=== PATIENT | female | born 1990 | race Caucasian/White ===

== ENCOUNTER → 2016-04-11 | Outpatient (CLI) | payer MEDICAID ==
[~2016-04-11] MED LIST: ABILIFY10 MG PO; AMOXICILLI400 MG/52 PO; ARIPIPRAZOLE15 MG PO; ASPIRIN325 MG PO; ATORVASTATIN CA20 M1 PO; CITALOPRAM HYDR40 MG PO; FLEXERIL10 MG PO; INDOCIN25 M1 PO; KEFLEX 500MG.500 MG PO; LOPRESSOR 25MG.25 M1 PO; LORTAB 5/500 501 TAB PO; LOSARTAN POTAS100 MG PO; LOVENOX 10100 MG/11 SC; MEDROXYPROG150 MG/M1 IM; Mobic7.5 MG PO; NOMEDS *; OLANZAPINE10 MG PO; PREDNISONE 20MG20 MG PO; WARFARIN SODIUM5 MG PO; ZITHROMAX Z-PA250 M1 PO; ZOFRAN 8MG TABLE8 MG PO
--- NOTE | 2016-04-11 12:20 | RADIOLOGY REPORT PS360 ---
US ABD(COMPLETE-MULTI ORGANS HISTORY: ABDOMINAL MASS,RT LOWER QUAD ORDERING PHYSICIAN: Alen Tellez PATIENT AGE: 26 years COMPARISON: None FINDINGS: General survey was performed of the abdominal wall in the area of concern. No obvious soft tissue mass or fluid collection evident. IMPRESSION: Unremarkable ultrasound at the area of the palpable abnormality. Consider CT for more thorough evaluation.
== END ==
LOC: RAD 09:10
DX: R19.03 Right lower quadrant abdominal swelling, mass and lump (principal)

== ENCOUNTER 2016-07-03 11:00 | Outpatient (CLI) | payer MEDICAID | END 2016-07-03 16:07 | LOC: ACC 11:00 | DX: Z95.2 Presence of prosthetic heart valve (principal); Z79.01 Long term (current) use of anticoagulants; Z51.81 Encounter for therapeutic drug level monitoring | CPT/HCPCS: G0463 ==

== ENCOUNTER 2016-12-05 20:38 | Emergency (ER) | payer MEDICAID ==
[~2016-12-05] VITALS: Ht 175.3 cm; Wt 134.7 kg
[2016-12-05 21:08] LABS: URINE BILIRUBIN - DIPSTICK NEGATIVE (NEG); URINE BLOOD 3+ (NEG)
[2016-12-05 21:56] LABS: HEMOGLOBIN 12.8 g/dL (12.2-16.2); LYMPH # 2.3 K/mm3 (0.7-4.5); LYMPH % 27.4 % (10-50.0)
--- NOTE | 2016-12-05 23:11 | Emergency Room Report ---
History of Present Illness Time Seen by [id number] Presenting Problem in Triage Pt arrived:Walked Presenting Problem:POSSIBLE KIDNEY STONE, C/O PAIN LLQ AND PAINFUL URINATION. 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 N Clinical Suspician of Infection? N Mental Status: 1 - Regular (Normal Baseline) Sepsis Risk:Low Sepsis Risk Have you (or family members/close friends) recently traveled outside the [place]? N If Yes, where/when: Have you had exposure to infectious disease within the past month? N TB? Other? Specify: Source patient, RN notes reviewed, old records Exam Limitations no limitations Comment lt sided pain and dysuria and frq with incomplete feeling and saw pcp earlier today and was given septra - has not started - no vomiting and diarrhea Cardiac Chest Pain Chest pain indicative of cardiac No Timing/Duration this evening Severity moderate ALLERGIES Coded Allergies: No Known Allergies (03/06/16) Home Medications Active Scripts Indomethacin (Indocin 25mg Cap (GEQ)) 25 MG PO Q8HP PRN PAIN #30 CAP Ref 1 Prov: 10/15/15 Ondansetron Hcl (Zofran 8MG Tab) 8 MG PO Q8HP PRN NAUSEA #6 TAB Ref 1 Prov: 10/15/15 Amoxicillin 500 MG PO TID 10 Days Prov: 03/06/16 ENOXAPARIN SODIUM (Lovenox) 100 MG SC BID 4 Days Prov: 03/06/16 Reported Medications Citalopram Hydrobromide (Citalopram HBr) 40 MG PO DAILY 30 Days Warfarin Sodium 7.5 MG PO DAILY #45 Metoprolol Tartrate (Lopressor 25MG Tab (1/2 Of 50 MG)) 50 MG PO BID #60 Aspirin (Aspirin EC) 325 MG PO DAILY #30 Atorvastatin Calcium 20 MG PO QHS #30 Losartan Potassium (Losartan 100MG) 50 MG PO DAILY Aripiprazole 15 MG PO DAILY #30 History Medical History General CAD? No Angina: No OR: No Hypertension? Yes Hyperlipidemia? Yes CHF? No DVT? No PE? No COPD? No Asthma? No Anemia? No GERD? No Gastric ulcers? No GI Bleed? No Hernia? No Thyroid Problems? No Hypothyroidism? No CVA? No Seizures? No Diabetes? No Renal Insuffiency? Yes End Stage Renal Disease? No UTI? No Stones? No BPH? No GB Disease: No Nephritic Syndrome? No Asplenia? No Hepatitis? No Sickle Cell Disease? No Arthritis? No Migraines? Yes Cataracts? No Glaucoma? No MRSA? No HIV? No TB? No Anxiety? No Depression? No Cancer? No More? 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 Respiratory denies cough, denies shortness of breath, denies wheezing Cardiovascular denies chest pain, denies syncope Gastrointestinal see HPI, abdominal pain, denies diarrhea, denies vomiting Genitourinary denies: dysuria, frequency, hesitancy, hematuria. Musculoskeletal denies back pain, denies joint pain, denies joint swelling, denies neck pain Skin denies rash Psychiatric/Neurological denies headache, denies seizure Physical Exam Vital Signs Vital Signs Date Time Temp Pulse Resp B/P Pulse O2 O2 Flow FiO2 Ox Delivery Rate 12/05 2316 98.7 80 20 151/98 97 12/05 2050 98.7 83 20 167/90 97 General Appearance no apparent distress Eye Exam - bilateral eye PERRL, bilateral eye EOMI Ear, Nose, Throat normal ENT inspection Neck supple Respiratory Status No: respiratory distress. 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 No Results/Orders Laboratory Tests 12/05/16 2140: Sodium 140, Potassium 3.6, Chloride 105, Carbon Dioxide 25, BUN 16, Creatinine 1.0, Estimated Creat Clear 181, Estimated GFR (MDRD) 67, Glucose 90, Calcium 8.7 , Total Bilirubin 0.3, AST 14 L, ALT 23, Alkaline Phosphatase 124 H, Total Protein 7.8, Albumin 3.9, Globulin 3.9 H, Albumin/Globulin Ratio 1.0 L, PT 24.4 H, INR 2.24 H, WBC 8.5, RBC 4.59, Hgb 12.8, Hct 39.9, MCV 86.8, RDW 13.6, Plt Count 283, MPV 8.8, Gran % 63.7, Gran # 5.4, Lymphocytes % 27.4, Monocytes % 6.2, Eosinophils % 2.3, Basophils % 0.4, Lymphocytes # 2.3, Monocytes # 0.5, Eosinophils # 0.2, Basophils # 0.0, PUBS MCHC 32.0, MCH 27.8 12/05/162102: Urine Color YELLOW, Urine Appearance CLOUDY, Urine pH 7.0, Ur Specific [place] 1.025, Urine Protein 2+ H, Urine Ketones NEGATIVE, Urine Blood 3+ H, Urine Nitrate POSITIVE H, Urine Bilirubin NEGATIVE, Urine Urobilinogen 0.2, Ur Leukocyte Esterase 1+ H, Urine RBC TNTC, Urine WBC 20-50, Ur Squamous Epith Cells NONE, Urine Bacteria 1+, Urine Glucose NEGATIVE Current Medication Orders Sig/Jose Martin Start time Last Medication Dose Route Stop Time Status Admin Sodium Chloride 100 ML .STK-MED ONE 12/06 2315 DC IV Ceftriaxone Sodium 1 GM ONCE ONE 12/05 2314 AC 12/05 Sodium Chloride 50 ML IV 12/05 Ceftriaxone Sodium 0 .STK-MED ONE 12/05 2314 DC IV Sodium Chloride 10 ML PRN PRN 12/05 2114 AC IV 12/06 2105 Orders Procedure Date/time Status DIET-NOTHING BY MOUTH 12/06 B Active PROTHROMBIN TIME 12/[address] ABD & PELVIS W/O CONTRAST 12/[address] ABD/PELVIS REQ 12/05 2105 Active IV SALINE LOCK 12/05 2105 Active URINE 12/05 2105 Complete CBC WITH AUTO DIFF 12/05 2105 Complete CHEM 12 PROFILE 12/05 2105 Complete CULTURE, URINE 12/05 2102 Active URINALYSIS/COMPLETE 12/05 2101 Complete XRAY/CT/US XRAY/CT/US CT abdomen, pelvis CT interpretation by discussed w/radiologist Time results known: 2307 CT Results abnormal (see report) Departure Departure Time of Disposition 2307 Disposition DC Home or Self Care(routine) Clinical Impression Primary Impression: UTI (urinary tract infection) Qualifiers: Urinary tract infection type: acute cystitis Hematuria presence: without hematuria Qualified Code: N30.00 - Acute cystitis without hematuria Secondary Impressions: Mechanical heart valve present Condition STABLE Referrals JAZMINE HALL (Family) Patient Instructions DI for Urinary Tract Infection (UTI) Additional Instructions use medss and call pcp about urine culture and call coumadin clinic thursday Discharge Counseling Counseled pt/family regarding diagnosis, test results, medications/RX, follow up needs Prescriptions Current Visit Scripts CEPHALEXIN (Keflex 500MG Capsule) 500 MG PO Q8H #21 CAP Phenazopyridine HCl (Pyridium) 200 MG PO TID #10 TAB ED Critical Care Critical Care No at [id number]
--- NOTE | 2016-12-05 23:11 | Emergency Room Report ---
History of Present Illness Time Seen by [id number] Presenting Problem in Triage Pt arrived:Walked Presenting Problem:POSSIBLE KIDNEY STONE, C/O PAIN LLQ AND PAINFUL URINATION. 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 N Clinical Suspician of Infection? N Mental Status: 1 - Regular (Normal Baseline) Sepsis Risk:Low Sepsis Risk Have you (or family members/close friends) recently traveled outside the [place]? N If Yes, where/when: Have you had exposure to infectious disease within the past month? N TB? Other? Specify: Source patient, RN notes reviewed, old records Exam Limitations no limitations Comment lt sided pain and dysuria and frq with incomplete feeling and saw pcp earlier today and was given septra - has not started - no vomiting and diarrhea Cardiac Chest Pain Chest pain indicative of cardiac No Timing/Duration this evening Severity moderate ALLERGIES Coded Allergies: No Known Allergies (03/06/16) Home Medications Active Scripts Indomethacin (Indocin 25mg Cap (GEQ)) 25 MG PO Q8HP PRN PAIN #30 CAP Ref 1 Prov: 10/15/15 Ondansetron Hcl (Zofran 8MG Tab) 8 MG PO Q8HP PRN NAUSEA #6 TAB Ref 1 Prov: 10/15/15 Amoxicillin 500 MG PO TID 10 Days Prov: 03/06/16 ENOXAPARIN SODIUM (Lovenox) 100 MG SC BID 4 Days Prov: 03/06/16 Reported Medications Citalopram Hydrobromide (Citalopram HBr) 40 MG PO DAILY 30 Days Warfarin Sodium 7.5 MG PO DAILY #45 Metoprolol Tartrate (Lopressor 25MG Tab (1/2 Of 50 MG)) 50 MG PO BID #60 Aspirin (Aspirin EC) 325 MG PO DAILY #30 Atorvastatin Calcium 20 MG PO QHS #30 Losartan Potassium (Losartan 100MG) 50 MG PO DAILY Aripiprazole 15 MG PO DAILY #30 History Medical History General CAD? No Angina: No CA: No Hypertension? Yes Hyperlipidemia? Yes CHF? No DVT? No PE? No COPD? No Asthma? No Anemia? No GERD? No Gastric ulcers? No GI Bleed? No Hernia? No Thyroid Problems? No Hypothyroidism? No CVA? No Seizures? No Diabetes? No Renal Insuffiency? Yes End Stage Renal Disease? No UTI? No Stones? No BPH? No GB Disease: No Nephritic Syndrome? No Asplenia? No Hepatitis? No Sickle Cell Disease? No Arthritis? No Migraines? Yes Cataracts? No Glaucoma? No MRSA? No HIV? No TB? No Anxiety? No Depression? No Cancer? No More? 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 Respiratory denies cough, denies shortness of breath, denies wheezing Cardiovascular denies chest pain, denies syncope Gastrointestinal see HPI, abdominal pain, denies diarrhea, denies vomiting Genitourinary denies: dysuria, frequency, hesitancy, hematuria. Musculoskeletal denies back pain, denies joint pain, denies joint swelling, denies neck pain Skin denies rash Psychiatric/Neurological denies headache, denies seizure Physical Exam Vital Signs Vital Signs Date Time Temp Pulse Resp B/P Pulse O2 O2 Flow FiO2 Ox Delivery Rate 12/05 2316 98.7 80 20 151/98 97 12/05 2050 98.7 83 20 167/90 97 General Appearance no apparent distress Eye Exam - bilateral eye PERRL, bilateral eye EOMI Ear, Nose, Throat normal ENT inspection Neck supple Respiratory Status No: respiratory distress. 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 No Results/Orders Laboratory Tests 12/05/16 2140: Sodium 140, Potassium 3.6, Chloride 105, Carbon Dioxide 25, BUN 16, Creatinine 1.0, Estimated Creat Clear 181, Estimated GFR (MDRD) 67, Glucose 90, Calcium 8.7 , Total Bilirubin 0.3, AST 14 L, ALT 23, Alkaline Phosphatase 124 H, Total Protein 7.8, Albumin 3.9, Globulin 3.9 H, Albumin/Globulin Ratio 1.0 L, PT 24.4 H, INR 2.24 H, WBC 8.5, RBC 4.59, Hgb 12.8, Hct 39.9, MCV 86.8, RDW 13.6, Plt Count 283, MPV 8.8, Gran % 63.7, Gran # 5.4, Lymphocytes % 27.4, Monocytes % 6.2, Eosinophils % 2.3, Basophils % 0.4, Lymphocytes # 2.3, Monocytes # 0.5, Eosinophils # 0.2, Basophils # 0.0, PUBS MCHC 32.0, MCH 27.8 12/05/162102: Urine Color YELLOW, Urine Appearance CLOUDY, Urine pH 7.0, Ur Specific [place] 1.025, Urine Protein 2+ H, Urine Ketones NEGATIVE, Urine Blood 3+ H, Urine Nitrate POSITIVE H, Urine Bilirubin NEGATIVE, Urine Urobilinogen 0.2, Ur Leukocyte Esterase 1+ H, Urine RBC TNTC, Urine WBC 20-50, Ur Squamous Epith Cells NONE, Urine Bacteria 1+, Urine Glucose NEGATIVE Current Medication Orders Sig/Jose Martin Start time Last Medication Dose Route Stop Time Status Admin Sodium Chloride 100 ML .STK-MED ONE 12/06 2315 DC IV Ceftriaxone Sodium 1 GM ONCE ONE 12/05 2314 AC 12/05 Sodium Chloride 50 ML IV 12/05 Ceftriaxone Sodium 0 .STK-MED ONE 12/05 2314 DC IV Sodium Chloride 10 ML PRN PRN 12/05 2114 AC IV 12/06 2105 Orders Procedure Date/time Status DIET-NOTHING BY MOUTH 12/06 B Active PROTHROMBIN TIME 12/[address] ABD & PELVIS W/O CONTRAST 12/[address] ABD/PELVIS REQ 12/05 2105 Active IV SALINE LOCK 12/05 2105 Active URINE 12/05 2105 Complete CBC WITH AUTO DIFF 12/05 2105 Complete CHEM 12 PROFILE 12/05 2105 Complete CULTURE, URINE 12/05 2102 Active URINALYSIS/COMPLETE 12/05 2101 Complete XRAY/CT/US XRAY/CT/US CT abdomen, pelvis CT interpretation by discussed w/radiologist Time results known: 2307 CT Results abnormal (see report) Departure Departure Time of Disposition 2307 Disposition DC Home or Self Care(routine) Clinical Impression Primary Impression: UTI (urinary tract infection) Qualifiers: Urinary tract infection type: acute cystitis Hematuria presence: without hematuria Qualified Code: N30.00 - Acute cystitis without hematuria Secondary Impressions: Mechanical heart valve present Condition STABLE Referrals JAZMINE HALL (Family) Patient Instructions DI for Urinary Tract Infection (UTI) Additional Instructions use medss and call pcp about urine culture and call coumadin clinic thursday Discharge Counseling Counseled pt/family regarding diagnosis, test results, medications/RX, follow up needs Prescriptions Current Visit Scripts CEPHALEXIN (Keflex 500MG Capsule) 500 MG PO Q8H #21 CAP Phenazopyridine HCl (Pyridium) 200 MG PO TID #10 TAB ED Critical Care Critical Care No at 8127
[2016-12-05 23:44] VITALS: BP 151/98
--- NOTE | 2016-12-06 11:08 | RADIOLOGY REPORT PS360 ---
CT ABD PELVIS W/O CONTRAST COMPARISON: CT scan abdomen pelvis 05/08/2016 HISTORY: Lower abdominal pain and back pain, hematuria TECHNIQUE: Multiaxial scans obtained from the hemidiaphragms the pelvic floor and were performed without IV or oral contrast. Sagittal and coronal reformats were evaluated as well. FINDINGS: The lower lung fernandes are clear, there is a calcified granuloma left posterior gutter. The liver and spleen appear normal. Stomach is distended with ingested food particles but otherwise appears normal. The pancreas is normal, the gallbladder is markedly contracted but shows no stones. The adrenal glands are normal. The kidneys are normal size. There is a tiny nontracking calculus lower pole left kidney however is no obstructive uropathy of either kidney. Small bowel appears normal. I do not definitely identify the appendix but there are no pericecal inflammatory changes. There is no significant stool throughout the colon. The uterus is normal size and in the midline and there is an IUD present. The urinary bladder is partially decompressed but shows a mildly thickened and somewhat hazy appearing wall with some subtle and questionable hazy stranding around the urinary bladder. There are no calculi within the bladder. There is a small amount of cul-de-sac fluid likely physiologic. IMPRESSION: 1 tiny nontracking calculus left kidney. 2. Findings suggesting possibility of acute cystitis and suggest clinical correlation. I agree with the [facility] report
--- OUTSIDE RECORDS SUMMARY | 2016-12-12 10:39 | External Medical Summary Rpt ---
Author Author Yahaira [facility] Organization [facility] Address Unknown Phone Unavailable Care Team Providers Care Microsoft Net Developer Name Role Phone YUNGKINS, (REF) PCP [phone] Encounter ANAYA GILLILAND [id number] Date(s): 07/03/16 - 08/06/16 [facility] [address] [place] [address]- [phone] Discharge Disposition: OP Self Care or Home Attending Physician: BLAINE OLIVARES MD-URO Admitting Physician: BLAINE OLIVARES MD-URO Referring Physician: BLAINE OLIVARES MD-URO Reason for Visit UNSPECIFIED ABDOMINAL PAIN Vital Signs No data available for this section Problem List No data available for this section Allergies, Adverse Reactions, Alerts No data available for this section Medications No data available for this section Results No data available for this section Immunizations No data available for this section Procedures No data available for this section Social History No data available for this section Assessment and Plan No data available for this section Hospital Discharge Instructions No data available for this section
--- OUTSIDE RECORDS SUMMARY | 2016-12-12 10:39 | External Medical Summary Rpt ---
Author Author Yahaira [facility] Organization [facility] Address Unknown Phone Unavailable Care Team Providers Care Nursery Teacher Name Role Phone YUNGKINS, (REF) PCP [phone] Encounter ANAYA GILLILAND [id number] Date(s): 07/03/16 - 08/06/16 [facility] [address] [place] [address]- Discharge Disposition: OP Self Care or Home [...]
--- OUTSIDE RECORDS SUMMARY | 2016-12-12 11:05 | External Medical Summary Rpt | CCD ---
Author Author , YAIMA Organization YIAMA Address Unknown Phone Care Team Providers Care Veterinarian Small Animal Name Role Phone HANANE HANDLEY, Unavailable Unavailable HANANE LU EMMANUELLE AHMAD, AHMAD Unavailable Unavailable AHMAD, AHMAD Unavailable Unavailable RHONDA TAR, Unavailable Unavailable RHONDA TAR ATKINS, ATKINS Unavailable Unavailable VALERIA GOL, VALERIA GOL Unavailable Unavailable [facility] Unavailable Unavailable [place], [facility] Unavailable Unavailable MEDICAL GROUP, [facility] Unavailable Unavailable OF [facility], [facility] DASILVA HELEN, DASILVA Unavailable Unavailable HELEN GRULLON TER, GURLLON TER Unavailable Unavailable BESSON MATEUSZ, BESSON Unavailable Unavailable MATEUSZ CHARLY CHARLES, Unavailable Unavailable CHARLY CHARLES LOCKE, LOCKE Unavailable Unavailable LOCKE ALL, LOCKE ALL Unavailable Unavailable MARY, MARY Unavailable Unavailable [facility]ILY Unavailable Unavailable CHIROPRACTOR, [facility]I FAMILY CHIROPRACTOR VANDANALEI MCMULLEN, VANDANA Unavailable Unavailable KEMI [facility] Unavailable Unavailable [facility]available Unavailable [facility], [facility] Unavailable Unavailable ANESTHESIA, [facility] ANESTHESIA [facility] Unavailable Unavailable [facility], [facility] EVANSNATHAN YANG Unavailable Unavailable YARI CHIPPS ADOLFO & Unavailable Unavailable DUBILIER, CHIPPS ADOLFO [facility] DUBILIER NAT TER, NAT TER Unavailable Unavailable ESTEBAN, ESTEBAN Unavailable Unavailable ESTEBAN YVAN, ESTEBAN Unavailable Unavailable YVAN [facility] Unavailable Unavailable [facility], [facility] Unavailable Unavailable [facility], [facility] MARIAN YARI, MARIAN Unavailable Unavailable YARI CROWSHAWN, CROWDY Unavailable Unavailable CROWDY CRI, CROWDY Unavailable Unavailable CRI MEÑO SUNI, MEÑO Unavailable Unavailable SUNI KULDIP KEMI, KULDIP KEMI Unavailable Unavailable NAUN SHA, NAUN Unavailable Unavailable SHA FALLUJI LESA, FALLUJI Unavailable Unavailable [facility] Unavailable Unavailable [facility], [facility] BACA, BACA Unavailable Unavailable WELCH, WELCH Unavailable Unavailable WELCH MAR, WELCH MAR Unavailable Unavailable FRYMAN, FRYMAN Unavailable Unavailable NANO SUNI, NANO Unavailable Unavailable SUNI GOUZD SHAUNA, GOUZD SHAUNA Unavailable Unavailable COURTNEY HOR, Unavailable Unavailable COURTNEY HOR HILARIA LOMBARDI Unavailable Unavailable KASSANDRA [facility] Unavailable Unavailable INC, [facility] Unavailable Unavailable HOSPITAL, [facility] Unavailable Unavailable [facility]OSPITAL P, [facility] P YAO DEN, YAO Unavailable Unavailable DEN [facility], [facility] Unavailable Unavailable [facility], Unavailable Unavailable [facility], Unavailable Unavailable [facility] DUNCAN FÉLIX, DUNCAN FÉLIX Unavailable Unavailable LAW, LAW Unavailable Unavailable WILLOW, WILLOW Unavailable Unavailable JAOKO MAR, JAOKO MAR Unavailable Unavailable FONTANA OSWALDO, FONTANA Unavailable Unavailable OSWALDO [facility] Unavailable [facility]available [facility] Unavailable Unavailable [facility], [facility] Unavailable Unavailable [facility], [facility] KERN CAR, KERN CAR Unavailable Unavailable [facility] Unavailable Unavailable fitogram, [facility] KMS NURSE Unavailable Unavailable PRACTITIONER GR, KMSF NURSE PRACTITIONER GR [facility] Unavailable [facility] LUIS MIGUEL JR DWI, LUIS MIGUEL Unavailable Unavailable JR DWI [facility] Unavailable Unavailable SPECIALISTS,, [facility], [facility] ROXI, LUKING Unavailable Unavailable ROXI LUKING ROXI, LUKING Unavailable Unavailable ROXI TORI JAM, Unavailable Unavailable VALLE JAM BIGGS RUPINDER, BIGGS Unavailable Unavailable RUPINDER MULBERRY, MULBERRY Unavailable Unavailable MULBERRY MAURILIO, Unavailable Unavailable MULBERRY MAURILIO JONA R H, Unavailable Unavailable JONA R H O'GRETCHEN MOL, Unavailable Unavailable O'GRETCHEN MOL ANH, ANH Unavailable Unavailable BLEIA, BELIA Unavailable Unavailable [facility], [facility] Unavailable [facility], Unavailable Unavailable PLLC, [facility] PENCE, PENCE Unavailable Unavailable [facility], [facility] Unavailable Unavailable PICKLESIMER JR LANEY, Unavailable Unavailable PICKLESIMER JR LANEY RICE, RICE Unavailable Unavailable RICE N., RICE N. Unavailable Unavailable SADEK MOH, SADEK MOH Unavailable Unavailable SCIFRES ANG, SCIFRES Unavailable Unavailable ANG GRACY MANDEEP, GRACY Unavailable Unavailable MANDEEP PRYOR, PRYOR Unavailable Unavailable MALLOY III JAM, Unavailable Unavailable MALLOY III JAM DE SOUZA GRANT, DE SOUZA Unavailable Unavailable GRANT PALENCIA, PALENCIA Unavailable Unavailable PALENCIA ADA, PALENCIA ADA Unavailable Unavailable [facility] Unavailable Unavailable [facility], [facility] Unavailable Unavailable [facility], [facility] SOTINGEANU RADHA, Unavailable Unavailable SOTINGEANU RADHA SOWDEN KASSANDRA, SOWDEN Unavailable Unavailable KASSANDRA SPANIER MAR, SPANIER Unavailable Unavailable [facility] Unavailable Unavailable [facility] SANCHEZ, SANCHEZ Unavailable Unavailable CUMMINS ALLY, CUMMINS Unavailable Unavailable ALLY [facility] Unavailable Unavailable PROFESSIO, [facility] OMAR IV, Unavailable Unavailable OMAR IV MYRANDA, MYRNADA Unavailable Unavailable WINDISCH, WINDISCH Unavailable Unavailable Purpose Continuity of Care Document - 01-07-2014 through 2016 Problems Code Diagnosis DOS Provider Status [id number] PAIN IN 11-11-2016 [facility] [id number] FALL ON 11-11-2016 [facility] STAIRS MEDICAL STEPS GROUP INITIAL ENCOUNTER Z952 PRESENCE OF 11-11-2016 [facility] PROSTHETIC [facility] HEART MEDICAL VALVE GROUP R32 UNSPECIFIED 11-06-2016 [facility] URINARY HEALTH INCONTINENC MEDICAL G E R3915 URGENCY OF 11-06-2016 [facility] URINATION HEALTH MEDICAL G M542 CERVICALGIA 10-27-2016 [facility] CHIROPRACTO R M545 LOW BACK 10-27-2016 [facility] PAIN FAMILY CHIROPRACTO R M9902 SEGMENTAL & 10-27-2016 [facility] SOMATIC FAMILY DYSFUNCTION CHIROPRACTO THORACIC R REGION M9905 SEGMENTAL & 10-27-2016 [facility] SOMATIC FAMILY DYSFUNCTION CHIROPRACTO OF PELVIC R REGION I10 ESSENTIAL 09-18-2016 [facility] PRIMARY [facility] HYPERTENSIO [place] N I361 NONRHEUMATI 09-18-2016 [facility] C TRICUSPID HEALTH VALVE MEDICAL INSUFFICIEN GROUP CY R001 BRADYCARDIA 09-18-2016 [facility] UNSPECIFIED PHYS PSC R0602 SHORTNESS 09-18-2016 [facility] OF BREATH [facility]IOLOG[facility] ASS[facility] R5383 OTHER 09-18-2016 [facility] FATIGUE EMERGENCY PHYS PSC H5213 MYOPIA 09-16-2016 AHMAD BILATERAL R78224 REGULAR 09-16-2016 [facility] ASTIGMATISM BILATERAL N200 CALCULUS OF 08-06-2016 [facility] KIDNEY HEALTH MEDICAL G R109 UNSPECIFIED 08-06-2016 [facility] EAST PAIN N644 MASTODYNIA 07-30-2016 [facility] MEDICAL GROUP R1032 LEFT LOWER 07-03-2016 [facility] QUADRANT HEALTH PAIN MEDICAL G Z5181 ENCOUNTER 07-03-2016 [facility] THERAPEUTIC INC DRUG LEVEL MONITORING Z7901 TELECOMMUNICATIONS PROFESSIONAL 07-03-2016 [facility] CURRENT USE [facility] OF INC ANTICOAGULA NTS J78290 PERSONAL 07-03-2016 [facility] HISTORY OF [facility] URINARY MEDICAL G CALCULI B9789 OTH VIRAL 06-17-2016 [facility] AGENT CAUSE MEDICINE DISEASES [place] [facility] ELSW J069 ACUTE UPPER 06-17-2016 [facility] RESPIR[facility]ORY [place] [facility] UNSPECIFIED N10 ACUTE 06-11-2016 [facility] PYELONEPHRI EMERGENCY TIS PHYS PSC R188 OTHER 06-11-2016 [facility] PROFESSIO R791 ABNORMAL 06-11-2016 [facility] COAGULATION HEALTH PROFILE [place] B373 CANDIDIASIS 05-19-2016 [facility] OF [facility] PHYSICIANS AND VAGINA GROUP I712 THORACIC 05-19-2016 [facility] 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 K219 GASTRO-ESOP 05-19-2016 [facility] H REFLUX HEALTH DISEASE [place] WITHOUT ESOPHAGITIS R011 CARDIAC 05-19-2016 [facility] UNSPECIFIED [place] R0789 OTHER CHEST 05-19-2016 [facility] PAIN EMERGENCY PHYS PSC R079 CHEST PAIN 05-19-2016 [facility]UAL UNSPECIFIED RADIOLOGIC PROFESSIO N95962 ENCOUNTER 05-19-2016 [facility] ROUTINE PHYSICIANS CHECKING IU GROUP CONTRACEPT DEVICE C30510 OTHER LONG 05-19-2016 [facility] HEALTH CURRENT [place] DRUG THERAPY N209 URINARY 05-08-2016 [place] [facility] UNSPECIFIED IMAGING ASS R1903 RT LOWER 05-08-2016 [place] [facility] ABDOMINAL IMAGING ASS SWELLING MASS & LUMP O71736 ENCOUNTER 05-08-2016 [facility] PREPROCEDUR INC AL LABORATORY EXAM K529 NONINFECTIV 04-29-2016 [facility] [place] [facility] COLITIS UNS I92510 ENCOUNTER 04-15-2016 [facility] INSERTION PHYSICIANS INTRAUTERIN GROUP E CONTRACEPT DEVC Q29863 UNSPECIFIED 04-13-2016 [facility] OVARIAN EMERGENCY CYST RIGHT PHYS PSC SIDE R1030 LOWER 04-13-2016 [facility] ABDOMINAL RADIOLOGIC PAIN PROFESSIO UNSPECIFIED R1031 RIGHT LOWER 04-13-2016 [facility] QUADRANT EMERGENCY PAIN PHYS PSC H539 UNSPECIFIED 04-10-2016 [facility] VISUAL PHYSICIANS DISTURBANCE GROUP L680 HIRSUTISM 04-04-2016 [facility] PHYSICIANS GROUP Z0001 ENCOUNTER 04-04-2016 [facility] GEN ADULT PHYSICIANS MEDICAL GROUP EXAM W/ABNORMAL FIND J0190 ACUTE 03-06-2016 [facility] SINUSITIS [facility] UNSPECIFIED INC H1031 UNSPECIFIED 02-02-2016 [facility] ACUTE PHYSICIAN CONJUNCTIVI GROUP TIS RIGHT EYE R002 PALPITATION 01-04-2016 [facility] P G4733 OBSTRUCTIVE 12-30-2015 [facility]A ADULT MEDICAL PEDIATRIC EQUIPME H6691 OTITIS 12-27-2015 [facility] UNSPECIFIED RIGHT EAR Z23 ENCOUNTER 11-23-2015 [facility] FOR [facility]IATES IMMUNIZATIO N A5619 OTHER 11-14-2015 [facility], CHLAMYDIAL [facility] GENITOURINA RY INFECTION I351 NONRHEUMATI 11-14-2015 [facility] C AORTIC RADIOLOGY VALVE ASSOC INSUFFICIEN CY H74890 ENCOUNTER 11-14-2015 [facility], DIRECTOR OF PUBLIC RELATIONS EXAM LLC GENERAL RTN W/O ABNORMAL FIND M5411 RADICULOPAT 11-01-2015 [facility] HY OCCIPITO-AT LANTO-AXIAL REGION M546 PAIN IN 11-01-2015 [facility] THORACIC SPINE M940 CHONDROCOST 11-01-2015 [facility] AL JUNCTION ASSOCIATES SYNDROME TIETZE R300 DYSURIA 10-23-2015 [facility] [place] N8320 UNSPECIFIED 10-16-2015 [facility] OVARIAN [facility] CYSTS R102 PELVIC AND 10-16-2015 [facility] PERINEAL [facility] PAIN N8329 OTHER 10-15-2015 [facility] O[facility]IAN [facility], CYSTS PLLC N920 EXCESS & 10-08-2015 [facility] FREQUENT PHYSICIANS MENSTRUATIO GROUP N W/REGULAR CYCLE N939 ABNORMAL 10-02-2015 [facility] UTERINE & RADIOLOGIC VAGINAL PROFESSIO BLEEDING UNSPECIFIED R220 LOCALIZED 08-31-2015 [facility] SWELLING [facility]OCIATES MASS AND LUMP HEAD K12144 THORACIC 08-23-2015 [facility] HEALTH ECTASIA MEDICAL G R000 TACHYCARDIA 08-23-2015 [facility] UNSPECIFIED MEDICAL G B12631 AORTIC 08-12-2015 [facility] ECTASIA HEALTH UNSPECIFIED [place] SITE 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 W/O STAT MIGRAIN R23029 AGE-RELATED 08-03-2015 [facility], DEGENERATIO P.S.C. 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 E78534 MIGRAINE 07-31-2015 [place] [facility], INTRACT W/O [facility]. STATUS MIGRAINOSUS [id number] OPEN ANGLE 07-31-2015 [place] [facility], E FIND LOW [facility] RISK BILATERAL R040 EPISTAXIS 07-28-2015 [facility] N38381 MACULA 07-25-2015 [facility] [facility], POSTERIOR [facility]. POLE BILATERAL J3489 OTHER 06-21-2015 [facility] SPECIFIED ASSOCIATES DISORDERS NOSE AND NASAL SINUSES N926 IRREGULAR 06-08-2015 [facility] MENSTRUATIO ASSOCIATES N UNSPECIFIED R197 DIARRHEA 06-07-2015 [facility] UNSPECIFIED PH[facility]ICIANS, PLLC H6590 UNSPECIFIED 06-01-2015 [facility] PHYSICIANS NONSUPPURAT GROUP CARLOS OTITIS MEDIA UNS EAR K120 RECURRENT 06-01-2015 [facility] ORAL PHYSICIANS APHTHAE GROUP E871 HYPO-OSMOLA 05-15-2015 [facility] LITY AND PHYSICIANS, HYPONATREMI PLLC A N289 DISORDER OF 05-15-2015 [facility] P UNSPECIFIED N760 ACUTE 05-04-2015 [facility] VAGINITIS PHYSICIANS GROUP N762 ACUTE 05-04-2015 [facility] VULVITIS PHYSICIANS GROUP [id number] CONTUSION 04-05-2015 [facility] OF LEFT PHYSICIANS, FOOT PLLC INITIAL ENCOUNTER R05 COUGH 03-20-2015 [facility] N899 NONINFLAMMA 03-04-2015 [facility] TORY [facility]ERG[facility] DISORDER OF PHYS PSC VAGINA UNSPECIFIED R100 ACUTE 03-04-2015 [facility] ABDOMEN EMERGENCY PHYS PSC L309 DERMATITIS 02-26-2015 [facility] UNSPECIFIED PHYSICIANS GROUP C54743 ENCOUNTER 02-26-2015 [facility] INITIAL PHYSICIANS PRESCRIPTIO GROUP N IU CONTRACEPT DEV R21 RASH AND 02-24-2015 [facility] OTHER ASSOCIATES NONSPECIFIC SKIN ERUPTION J029 ACUTE 02-23-2015 [facility] PHARYNGITIS PHYSICIANS, [facility] UNSPECIFIED J040 ACUTE 02-23-2015 [facility] LARYNGITIS PHYSICIANS, [facility] Z4802 ENCOUNTER 02-05-2015 [facility] FOR REMOVAL [facility] Z3009 ENCOUNTER 02-02-2015 [facility] OT GENERAL PHYSICIANS GROUP 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 M40189C LACERATION 01-30-2015 [facility] W/O FOREIGN PHYSICIANS, BODY LIP [facility] INITIAL ENCNTR N390 URINARY 01-22-2015 [facility] TRACT [facility]ERGENC[facility] INFECTION PHYS PSC SITE NOT SPECIFIED R319 HEMATURIA 01-22-2015 [facility] UNSPECIFIED EMERGENCY PHYS PSC R350 FREQUENCY 01-02-2015 [facility] OF [facility]IATES MICTURITION Z309 ENCOUNTER 12-06-2014 [facility] FOR [facility] CONTRACEPTI VE MANAGEMENT UNS 4241 AORTIC 11-28-2014 [facility] DISORDERS MEDICAL GROUP 76791 PAIN IN 11-22-2014 [facility] JOINT, ASSOCIATES SHOULDER REGION V433 HEART VALVE 11-22-2014 [facility] REPLACED ASSOCIATES BY OTHER MEANS V5861 LONG-TERM 11-22-2014 [facility] (CURRENT) ASSOCIATES USE OF ANTICOAGULA NTS V4589 OTHER 11-15-2014 [facility] POSTSURGICA ASSOCIATES L STATUS OTHER V5869 LONG-TERM 11-13-2014 [facility] (CURRENT) HEALTH USE OF MEDICAL OTHER GROUP MEDICATIONS 42362 PRECORDIAL 11-10-2014 [facility] PAIN [facility] 89552 PAINFUL 11-09-2014 [facility] RESPIRATION EMERGENCY PHYS PSC 4019 UNSPECIFIED 11-05-2014 [facility] ESSENTIAL HEALTH HYPERTENSIO MEDICAL N GROUP 78023 OTHER 11-05-2014 [facility] ABNORMAL HEALTH GLUCOSE MEDICAL GROUP 5180 PULMONARY 11-04-2014 [facility] COLLAPSE [facility] V5873 AFTERCARE 11-04-2014 [facility] FOLLOWING RADIOLOGY SURGERY ASSOC CIRC SYSTEM NEC 4240 MITRAL 11-02-2014 [place] [facility] , 4011 ESSENTIAL 11-01-2014 [facility] HYPERTENSIO HEALTH N, [facility]ICAL GROUP 4254 OTHER 11-01-2014 [facility]IMARY [place] CARDIOMYOPA ANESTHESIA JOSE 4400 ATHEROSCLER 11-01-2014 [facility] ADOLFO & AORTA DUBILIER 51967 ESOPHAGEAL 11-01-2014 [facility] REFLUX HEALTH MEDICAL GROUP V7281 PRE-OPERATI 11-01-2014 [facility] VE HEALTH CARDIOVASCU MEDICAL LAR GROUP EXAMINATION 4419 AORTIC 10-31-2014 [facility] ANEUR [facility] UNSPEC SITE ASSOC WITHOUT MENTION RUPTURE 23120 OTHER 10-31-2014 [facility] DISEASES OF [facility] LUNG NOT HOSP ELSEWHERE CLASSIFIED 55341 SHORTNESS 10-31-2014 [facility] OF BREATH PRIMARY CARE OF [facility] 48334 THORACIC 10-19-2014 [facility] AORTIC HEALTH ECTASIA MEDICAL G 7464 CONGENITAL 10-19-2014 [facility] INSUFFICIEN HEALTH CY OF MEDICAL G AORTIC VALVE 4271 PAROXYSMAL 10-13-2014 [facility] TACHYCARDIA 23714 OTHER 10-13-2014 [facility] NURSE SPECIFIED PRACTITIONE CARDIAC R GR DYSRHYTHMIA S 7802 SYNCOPE AND 10-13-2014 [facility] 4293 CARDIOMEGAL 10-12-2014 [facility] Y [facility] 40084 MORBID 09-13-2014 [facility] OBESITY HEALTH MEDICAL G 8472 LUMBAR 05-30-2014 [facility] P V7231 ROUTINE 05-17-2014 [facility], GYNECOLOGIC LLC AL EXAMINATION 0091 COLITIS 05-01-2014 [facility] ENTERIT&GAS ASSOCIATES TROENTERIT INF ORIGIN 7241 PAIN IN 04-06-2014 [facility] THORACIC SPINE 7242 LUMBAGO 04-06-2014 [facility] 7392 NONALLOPATH 04-06-2014 [facility] IC LESION OF THORACIC REGION NEC 7393 NONALLOPATH 04-06-2014 [facility] LESION OF LUMBAR REGION NEC 7395 NONALLOPATH 04-06-2014 [facility] LESION OF PELVIC REGION NEC V745 SCREENING 03-15-2014 [facility], EXAMINATION LLC FOR VENEREAL DISEASE 4610 ACUTE 03-12-2014 [facility] MAXILLARY PHYSICIANS SINUSITIS GROUP 08974 OTHER 03-08-2014 [facility] MALAISE AND [facility]OCIATES FATIGUE 7835 POLYDIPSIA 03-08-2014 [facility] V7791 SCREENING 03-08-2014 [facility] FOR LIPOID ASSOCIATES DISORDERS 72442 VOMITING 02-22-2014 [facility] ALONE [facility] 5589 OTH&UNSPEC 01-30-2014 [facility] NONINFECTIO [facility] P GASTROENTER ITIS&COLITI S 43574 ABDOMINAL 01-30-2014 [facility] PAIN RIGHT MEDICAL LOWER IMAGING ASS QUADRANT 4619 ACUTE 01-07-2014 [facility]USITIS, [facility] Medications Na ND Rx Da Fi Fi Am Da Di Ph RX Ph St me C No te ll ll ou ys ag ar # ys at rm s nt no ma ic us Or Da si cy ia de te s n re d LA 00 08 09 15 30 00 WA Ac MO 09 - -1 .0 00 LG ti TR 37 5- 5- 00 00 RE ve IG 24 20 20 49 EN IN 70 17 17 06 S E 6 85 #0 15 96 0 31 MG TA BL ET QU 68 08 30 30 00 WA Ac ET 18 -1 -1 .0 00 LG ti IA 00 5- 5- 00 RE ve PI 44 20 20 49 EN NE 80 17 17 06 S 1 87 #0 FU 96 MA 31 RA TE 20 0 MG TA B ME 57 [address] Ac TO 66 -1 -1 .0 00 LG ti CA 40 1- 5- 00 RE ve OL 47 20 20 48 EN OL 75 17 17 39 S 8 09 #0 TA 96 RT 31 RA TE 50 MG TA B AT 55 [address] Ac OR 11 -1 .0 00 LG ti VA 10 1- 5- [address] 12 20 20 48 EN AT 29 17 17 39 S IN 0 10 #0 96 20 31 MG TA BL ET OX 00 [address] Ac YB 37 -3 -0 .0 00 LG ti UT 86 0- 1- 00 00 RE ve YN 60 20 20 49 EN IN 50 17 17 18 S 1 28 #0 CL 96 31 ER 5 MG TA BL ET LO 65 09 [address] Ac SA 86 -3 -0 .0 00 LG ti RT 20 0- 1- 00 00 RE ve AN 20 20 20 48 EN 29 17 17 87 S PO 9 31 #0 TA 96 SS 31 IU M 50 MG TA B 00 [address] Ac PI 90 -3 -0 .0 00 LG ti RI 42 1- - 00 RE ve N 01 20 20 48 EN EC 36 17 17 39 S 0 13 #0 32 96 5 31 MG TA BL ET WA 51 07 [address] Ac RF 67 -3 -0 .0 00 LG ti AR 24 1- - 00 RE ve IN 03 20 20 49 EN 20 17 17 18 S SO 1 75 #0 DI 96 UM 31 5 MG TA BL ET LA 00 07 [address] Ac MO 09 -1 -1 .0 00 LG ti TR 37 9- 00 RE ve IG 24 20 20 49 EN IN 70 17 17 06 S E 6 85 #0 15 96 0 31 MG TA BL ET HY 00 07 [address] 11 -1 -1 .0 00 LG ti OX 51 9- 8 00 RE ve YZ 67 20 20 49 EN IN 00 17 17 06 S E 1 86 #0 PA 96 M 31 25 MG CA P QU 68 07 [address] Ac ET 18 -1 -1 .0 00 LG ti IA 00 9 00 RE ve PI 44 20 20 49 EN NE 80 17 17 06 S 1 87 #0 FU 96 MA 31 RA TE 20 0 MG TA B ME 57 07 [address] Ac TO 66 -1 -1 .0 00 LG ti CA 40 2- 00 RE ve OL 47 20 20 48 EN OL 75 17 17 39 S 8 09 #0 TA 96 RT 31 RA TE 50 MG TA B AT 55 07 08 30 30 00 [facility] OR - -1 .0 00 LG ti VA 10 2- [address] 12 20 20 48 EN AT 29 17 17 39 S IN 0 10 #0 96 20 31 MG TA BL ET WA 51 06 08 48 28 00 [facility] RF 67 -2 -0 .0 00 LG ti AR 24 9- 00 RE ve IN 03 20 20 48 EN 20 17 17 54 S SO 1 96 #0 DI 96 UM 31 5 MG TA BL ET LO 65 06 08 30 30 00 [facility] SA 86 -2 -0 .0 00 LG ti RT 20 9- 00 RE ve AN 20 20 20 48 EN 29 17 17 87 S PO 9 31 #0 TA 96 SS 31 IU M 50 MG TA B AR 31 06 07 30 30 00 [facility] IP 72 -1 -2 .0 00 LG ti IP 20 8- - 00 RE ve RA 82 20 20 48 EN ZO 93 17 17 51 S LE 0 76 #0 96 20 31 MG TA BL ET TR 60 06 07 30 30 00 [facility] AZ 50 -1 -2 .0 00 LG ti OD 52 8- 00 RE ve ON 65 20 20 48 EN E 40 17 17 51 S 10 1 77 #0 0 96 MG 31 TA BL ET LA 00 06 [address] Ac MO 09 -1 -2 .0 00 LG ti TR 30 9- - 00 RE ve IG 03 20 20 48 EN IN 90 17 17 77 S E 1 04 #0 25 96 31 MG TA BL ET QU 68 06 [address] Ac ET 18 -1 -2 .0 00 LG ti IA 00 9- - 00 RE ve PI 44 20 20 48 EN NE 70 17 17 77 S 1 05 #0 FU 96 MA 31 RA TE 10 0 MG TA B OX 62 06 [address] Ac YB 17 -2 -2 .0 00 LG ti UT 50 1- - 00 RE ve YN 27 20 20 48 EN IN 03 17 17 79 S 7 61 #0 CL 96 31 ER 5 MG TA BL ET AT 55 06 [address] Ac OR 11 -1 -1 .0 00 LG ti VA 10 4- 4- [address] 12 20 20 48 EN AT 29 17 17 39 S IN 0 10 #0 96 20 31 MG TA BL ET ME 57 06 [address] Ac TO 66 -1 -1 .0 00 LG ti CA 40 4- 4- 00 RE ve OL 47 20 20 48 EN OL 75 17 17 39 S 8 09 #0 TA 96 RT 31 RA TE 50 MG TA B WA 51 05 [address] Ac RF 67 -2 -3 .0 00 LG ti AR 24 9- 0- 00 RE ve IN 03 20 20 48 EN 20 17 17 54 S SO 1 96 #0 DI 96 UM 31 5 MG TA BL ET LO 65 05 [address] Ac SA 86 -2 -3 .0 00 LG ti RT 20 6- 0- 00 00 RE ve AN 20 20 20 47 EN 29 17 17 73 S PO 9 95 #0 TA 96 SS 31 IU M 50 MG TA B AR 31 05 [address] Ac IP 72 -2 -2 .0 00 LG ti IP 20 2- 3- 00 00 RE ve RA 82 20 20 48 EN ZO 93 17 17 51 S LE 0 76 #0 96 20 31 MG TA BL ET LA 00 05 [address] Ac MO 09 -2 -2 .0 00 LG ti TR 30 2- 3- 00 00 RE ve IG 46 20 20 48 EN IN 30 17 17 51 S E 1 75 #0 10 96 0 31 MG TA BL ET TR 60 05 06 30 30 00 WA Ac AZ 50 -2 -2 .0 00 LG ti OD 52 2- 3- 00 RE ve ON 65 20 20 48 EN E 40 17 17 51 S 10 1 77 #0 0 96 MG 31 TA BL ET ME 57 05 [address] Ac TO 66 -1 -1 .0 00 LG ti CA 40 4- 6 00 RE ve OL 47 20 20 48 EN OL 75 17 17 39 S 8 09 #0 TA 96 RT 31 RA TE 50 MG TA B AT 55 [address] Ac OR 11 -1 -1 .0 00 LG ti VA 10 4- [address] 12 20 20 48 EN AT 29 17 17 39 S IN 0 10 #0 96 20 31 MG TA BL ET 00 05 30 30 00 [facility] PI 90 -0 -0 .0 00 LG ti RI 42 9- 00 RE ve N 01 20 20 48 EN EC 36 17 17 39 S 0 13 #0 32 96 5 31 MG TA BL ET LA 00 05 [address] Ac MO 09 -1 -0 .0 00 LG ti TR 30 0- 9 00 RE ve IG 03 20 20 48 EN IN 90 17 17 39 S E 1 11 #0 25 96 31 MG TA BL ET WA 51 05 06 60 30 00 [facility] RF 67 -0 -0 .0 00 LG ti AR 24 2- 2 00 RE ve IN 03 20 20 47 EN 20 17 17 88 S SO 1 63 #0 DI 96 UM 31 5 MG TA BL ET LO 65 04 30 30 00 [facility] SA 86 -2 -0 .0 00 LG ti RT 20 9- 2 00 RE ve AN 20 20 20 47 EN 29 17 17 73 S PO 9 95 #0 TA 96 SS 31 IU M 50 MG TA B BE 64 04 [address] Ac NZ 38 -1 -1 .0 00 LG ti ON 00 8- 00 RE ve AT 71 20 20 48 EN AT 30 17 17 18 S E 6 23 #0 20 96 0 31 MG CA PS UL E FL 00 04 [address] Ac UT 05 -1 -1 .0 00 LG ti IC 43 8- 9 00 RE ve 27 20 20 48 EN ON 09 17 17 18 S E 9 24 #0 CA 96 OP 31 50 MC G SP RA Y AT 60 04 [address] Ac OR 50 -1 -1 .0 00 LG ti VA 52 7- - [address] 57 20 20 48 EN AT 90 17 17 15 S IN 9 15 #0 96 20 31 MG TA BL ET ME 00 04 [address] Ac TO 37 -1 -1 .0 00 LG ti CA 80 7- 9 00 RE ve OL 03 20 20 48 EN OL 21 17 17 15 S 0 14 #0 TA 96 RT 31 RA TE 50 MG TA B LA 00 04 [address] Ac MO 09 -1 -1 .0 00 LG ti TR 30 9- 00 RE ve IG 03 20 20 48 EN IN 90 17 17 19 S E 1 19 #0 25 96 31 MG TA BL ET AR 31 04 [address] Ac IP 72 -1 -1 .0 00 LG ti IP 20 9- 00 RE ve RA 82 20 20 48 EN ZO 93 17 17 19 S LE 0 20 #0 96 20 31 MG TA BL ET TR 60 04 [address] Ac AZ 50 -1 -1 .0 00 LG ti OD 52 9 00 RE ve ON 65 20 20 48 EN E 40 17 17 19 S 10 1 21 #0 0 96 MG 31 TA BL ET HY 00 02 [address] 59 -1 -1 .0 00 LG ti OC 12 3- 9 00 RE ve OD 17 20 20 47 EN ON 20 17 17 51 S -A 5 36 #0 CE 96 TA 31 TN NO PH EN 5- 32 5 TR 68 04 [address] Ac AM 38 -1 -1 .0 00 LG ti AD 20 2- 2- 00 RE ve OL 31 20 20 48 EN 91 17 17 12 S HC 0 33 #0 L 96 50 31 MG TA BL ET CE 68 04 [address] Ac FD 18 -1 -1 .0 00 LG ti IN 00 2- 2- 00 00 RE ve IR 71 20 20 48 EN 16 17 17 12 S 30 0 34 #0 0 96 MG 31 CA PS UL E ON 68 04 [address] Ac DA 46 -1 -1 .0 00 LG ti NS 20 2- 2- 00 00 RE ve ET 15 20 20 48 EN RO 81 17 17 12 S N 3 35 #0 OD 96 T 31 8 MG TA BL ET PH 51 04 [address] Ac EN 29 -1 -1 00 00 LG ti AZ 30 2- 2- 0 00 RE ve OP 81 20 20 48 EN YR 10 17 17 12 S ID 1 36 #0 IN 96 E 31 20 0 MG TA B LO 65 04 05 30 30 00 WA Ac SA 86 -0 -0 .0 00 LG ti RT 20 2- 5- 00 00 RE ve AN 20 20 20 47 EN 29 17 17 73 S PO 9 95 #0 TA 96 SS 31 IU M 50 MG TA B TE 00 03 04 20 3 00 WA Ac RC 59 -2 -2 .0 00 LG ti ON 13 4- 8- 00 RE ve AZ 19 20 20 47 EN OL 75 17 17 87 S E 2 64 #0 0. 96 8% 31 CR EA M AR 31 03 04 30 30 00 WA Ac IP 72 -2 -2 .0 00 LG ti IP 20 4- 8- 00 RE ve RA 83 20 20 47 EN ZO 03 17 17 93 S LE 0 12 #0 96 30 31 MG TA BL ET TR 60 03 04 30 30 00 WA Ac AZ 50 -2 -2 .0 00 LG ti OD 52 4- 8- 00 RE ve ON 65 20 20 47 EN E 30 17 17 93 S 50 5 13 #0 96 MG 31 TA BL ET WA 51 03 04 60 30 00 WA Ac RF 67 -2 -2 .0 00 LG ti AR 24 1- 00 RE ve IN 03 20 20 47 EN 20 17 17 88 S SO 1 63 #0 DI 96 UM 31 5 MG TA BL ET CY 59 03 04 12 4 00 WA Ac CL 74 -2 -2 .0 00 LG ti OB 60 1- - 00 RE ve EN 17 20 20 47 EN ZA 71 17 17 89 S CA 0 44 #0 IN 96 E 31 10 MG TA BL ET TE 00 03 04 20 3 00 WA Ac RC 59 -2 -2 .0 00 LG ti ON 13 0- 00 RE ve AZ 19 20 20 47 EN OL 75 17 17 87 S E 2 64 #0 0. 96 8% 31 CR EA M ME 00 03 04 60 30 00 WA Ac TO 37 -1 -1 .0 00 LG ti CA 80 3- 4- 00 00 RE ve OL 03 20 20 47 EN OL 21 17 17 80 S 0 95 #0 TA 96 RT 31 RA TE 50 MG TA B AT 55 03 04 30 30 00 WA Ac OR 11 -1 -1 .0 00 LG ti VA 10 5- 4- [address] 12 20 20 47 EN AT 29 17 17 80 S IN 0 96 #0 96 20 31 MG TA BL ET TN 13 03 [address] Ac RT 10 -1 -1 .0 00 LG ti AZ 70 5- 4- 00 00 RE ve AP 00 20 20 47 EN IN 33 17 17 80 S E 4 97 #0 30 96 31 MG TA BL ET AR 31 03 [address] Ac IP 72 -1 -1 .0 00 LG ti IP 20 3- 4- 00 00 RE ve RA 82 20 20 47 EN ZO 93 17 17 80 S LE 0 87 #0 96 20 31 MG TA BL ET LO 65 03 [address] Ac SA 86 -0 -0 .0 00 LG ti RT 20 6- 7- 00 00 RE ve AN 20 20 20 47 EN 29 17 17 73 S PO 9 95 #0 TA 96 SS 31 IU M [address] 51 02 [address] Ac RF 67 -2 -3 .0 00 LG ti AR 24 8- 1- 00 00 RE ve IN 03 20 20 47 EN 20 17 17 67 S SO 1 54 #0 DI 96 UM 31 5 MG TA BL ET TN 57 02 [address] Ac RT 23 -1 -2 .0 00 L- ti AZ 70 6- 4- 00 07 MA ve AP 00 20 20 47 RT IN 93 17 17 11 E 0 59 PH 30 AR MA MG CY TA #5 BL 91 ET AT 68 02 [address] Ac OR 64 -1 -2 .0 00 L- ti VA 50 6- 4- [address] 45 20 20 47 RT AT 97 17 17 11 IN 0 60 PH AR 20 MA CY MG #5 TA 91 BL ET 00 02 [address] Ac PI 53 -1 -2 .0 00 L- ti RI 63 6- 4- 00 08 MA ve N 31 20 20 83 RT EC 31 17 17 56 0 25 PH 32 AR 5 MA MG CY TA #5 BL 91 ET ME 68 02 [address] Ac TO 64 -0 -1 .0 00 L- ti CA 50 2- 0- 00 07 MA ve OL 19 20 20 44 RT OL 05 17 17 49 9 18 PH TA AR RT MA RA CY TE #5 50 91 MG TA B WA 57 01 [address] Ac RF 23 -2 -2 .0 00 L- ti AR 70 4- 4- 00 07 MA ve IN 12 20 20 43 RT 40 17 17 27 SO 1 88 PH DI AR UM MA 5 CY MG #5 91 TA BL ET AM 00 [address] Ac OX 09 -2 -2 00 00 L- ti IC 33 5- 4- 0 07 MA ve IL 10 20 20 46 RT LI 90 17 17 69 N 5 13 PH 50 AR 0 MA MG CY CA #5 PS 91 UL E AR 13 01 [address] Ac IP 66 -1 -1 .0 00 L- ti IP 80 6- 7- 00 07 MA ve RA 22 20 20 45 RT ZO 03 17 17 06 LE 0 47 PH AR 20 MA CY MG #5 TA 91 BL ET LO 68 01 [address] Ac SA 64 -0 -1 .0 00 L- ti RT 50 7- 0- 00 07 MA ve AN 40 20 20 45 RT 97 17 17 65 PO 0 14 PH TA AR SS MA IU CY M 50 #5 91 MG TA B TN 57 01 [address] Ac RT 23 -0 -1 .0 00 L- ti AZ 70 7- 0- 00 07 MA ve AP 00 20 20 46 RT IN 93 17 17 31 E 0 70 PH 30 AR MA MG CY TA #5 BL 91 ET EN 00 [address] Ac OX 78 -0 -1 00 00 L- ti AP 13 5- 0- 0 07 MA ve AR 50 20 20 46 RT IN 06 17 17 28 9 73 PH 10 AR 0 MA MG CY /M L #5 SY 91 RI NG E AM 00 01 [address] Ac OX 09 -0 -1 .0 00 L- ti IC 33 5- 0- 00 07 MA ve IL 10 20 20 46 RT LI 90 17 17 28 N 5 74 PH 50 AR 0 MA MG CY CA #5 PS 91 UL E AT 68 01 [address] Ac OR 64 -0 -1 .0 00 L- ti VA 50 7- 0- [address] 45 20 20 43 RT AT 97 17 17 10 IN 0 32 PH AR 20 MA CY MG #5 TA 91 BL ET 00 01 [address] Ac PI 53 -0 -1 .0 00 L- ti RI 63 7- 0- 00 08 MA ve N 31 20 20 83 RT EC 31 17 17 56 0 25 PH 32 AR 5 MA MG CY TA #5 BL 91 ET WA 57 12 02 45 30 00 WA Ac RF 23 -2 -0 .0 00 L- ti AR 70 9- 3- 00 07 MA ve IN 12 20 20 43 RT 40 16 17 27 SO 1 88 PH DI AR UM MA 5 CY MG #5 91 TA BL ET ME 68 12 01 60 30 00 WA Ac TO 64 -1 -2 .0 00 L- ti CA 50 9- 0- 00 07 MA ve OL 19 20 20 44 RT OL 05 16 17 49 9 18 PH TA AR RT MA RA CY TE #5 50 91 MG TA B AT 68 12 01 30 30 00 WA Ac OR 64 -0 -0 .0 00 L- ti VA 50 5- 9- [address] 45 20 20 43 RT AT 97 16 17 10 IN 0 32 PH AR 20 MA CY MG #5 TA 91 BL ET LO 68 12 01 30 30 00 WA Ac SA 64 -0 -0 .0 00 L- ti RT 50 5- 9- 00 07 MA ve AN 40 20 20 45 RT 97 16 17 65 PO 0 14 PH TA AR SS MA IU CY M 50 #5 91 MG TA B AR 43 12 01 30 30 00 WA Ac IP 59 -0 -0 .0 00 L- ti IP 80 6- 9- 00 07 MA ve RA 55 20 20 45 RT ZO 83 16 17 06 LE 0 47 PH AR 20 MA CY MG #5 TA 91 BL ET PO 61 12 01 10 31 00 WA Ac LY 31 -0 -0 .0 00 L- ti MY 40 3- 9- 00 07 MA ve XI 62 20 20 45 RT N 81 16 17 63 B- 0 02 PH TM AR P MA EY CY E DR #5 OP 91 S Immunization Name Date Rout CVX Reac Dose Comm Prov Is Faci e tion ent ider Refu lity Give sed n IIV4 09-2 158 APPL No FAMI 3-20 EGAT LY VACC 16 E CARE TAR SPLI ASSO T CIAT VIRU ES S 0.5 ML DOS FOR IM USE Results Labs Lab Lab Date Result Refere Interp Status Commen Order Detail nces retati t Range on Comprehensive metabolic panel (12-05-2016 21:40) Serum = 1.0 1.1-1.8 complet or 017 ed plasma 21:40 albumin /globul in mass ra Protein = 7.8 6.4-8.2 complet total 017 gm/dL ed ser/derick 21:40 s ALT = 23 12-78 complet (SGPT) 017 U/L ed ser/derick 21:40 s Serum = 14 15-37 complet or 017 U/L ed plasma 21:40 asparta te aminotr ansfera Serum = 140 136-145 complet sodium 017 mmoL/L ed measure 21:40 ment Serum = 3.6 3.5-5.1 complet potassi 017 mmoL/L ed um 21:40 measure ment Serum = 90 74-106 complet or 017 mg/dL ed plasma 21:40 glucose measure ment (mas Serum = 3.9 1.3-3.2 complet globuli 017 gm/dL ed n 21:40 measure ment (mass/v olume) Estimat = 67 59- complet ed 017 ML/MIN ed glomeru 21:40 lar filtrat ion rate (GF Comment: REFERENCE RANGE: >60 ML/MIN/1.73 SQUARE METERS Comment: If this patient is -Macanese, then multiply the Comment: result by 1.210. Estimat = 181 50-200 complet ion of 017 ML/MIN ed creatin 21:40 ine renal clearan ce Serum = 1.0 0.55-1. complet or 017 mg/dL 02 ed plasma 21:40 creatin ine measure ment ( Carbon = 25 21.0-32 complet dioxide 017 mmoL/L .0 ed 21:40 measure ment Serum = 105 98-107 complet or 017 mmoL/L ed plasma 21:40 chlorid e measure ment (mo Serum = 8.7 8.5-10. complet or 017 mg/dL 1 ed plasma 21:40 calcium measure ment (mas Serum = 16 7-18 complet or 017 mg/dL ed plasma 21:40 urea nitroge n measure men Serum = 0.3 0.2-1.0 complet or 017 mg/dL ed plasma 21:40 total bilirub in measure m Serum = 124 46-116 complet or 017 U/L ed plasma 21:40 alkalin e phospha tase franki Serum = 3.9 3.4-5.0 complet or 017 gm/dL ed plasma 21:40 albumin measure ment (mas Whole blood INR measurement (12-05-2016 21:40) Comment: IS PATIENT ON ANTICOAGULANTS? Y Comment: LIST ANTICOAGULANTS: Comment: COUMADIN Prothro = 24.4 9.4-11. complet mbin 017 SECONDS 8 ed time 21:40 (PT) in platele t poor p Whole = 2.24 0.9-1.1 complet blood 017 ed INR 21:40 measure ment Comment: INDICATION INR RANGE Comment: Comment: THERAPY FOR DVT, PE, ATRIAL FIB; 2.0 - 3.0 Comment: PROPHYLAXIS FOR VTE Comment: Comment: THERAPY FOR MECHANICAL HEART 2.5 - 3.5 Comment: VALVE; PREVENTION OF SYSTEMIC Comment: EMBOLISM SECONDARY TO AMI CBC w auto diff (12-05-2016 21:40) Blood = 8.5 4.8-10. complet leukocy 017 K/MM3 8 ed kallie 21:40 count (number /volume ) Automat = 13.6 11.5-17 complet ed 017 % .5 ed erythro 21:40 cyte distrib ution width Red = 4.59 4.2-5.4 complet blood 017 M/mm3 ed cell 21:40 count Blood = 283 142-424 complet platele 017 K/mm3 ed t count 21:40 Automat = 8.8 7.4-10. complet ed 017 fl 4 ed blood 21:40 platele t mean volume franki [place] % = 6.2 % 1.7-9.3 complet 017 ed 21:40 Absolut = 0.5 0.1-1.0 complet e 017 K/mm3 ed monocyt 21:40 e count Automat = 86.8 82.2-97 complet ed 017 fl .8 ed erythro 21:40 cyte mean corpusc ular v Automat = 32.0 31.8-35 complet ed 017 g/dl .4 ed erythro 21:40 cyte mean corpusc ular h Mean = 27.8 27-31.2 complet corpusc 017 pg ed ular 21:40 hemoglo bin (MCH) determ Lymphoc = 27.4 10-50.0 complet yte 017 % ed count, 21:40 blood, automat ed Absolut = 2.3 0.7-4.5 complet e 017 K/mm3 ed lymphoc 21:40 yte count Blood = 12.8 12.2-16 complet hemoglo 017 g/dL .2 ed bin 21:40 measure ment (mass/v olum Blood = 39.9 37.0-47 complet hematoc 017 % .0 ed rit 21:40 (volume fractio n) Granulo = 63.7 37.0-80 complet cyte 017 % .0 ed percent 21:40 age Blood = 5.4 1.8-7.8 complet granulo 017 K/mm3 ed cytes 21:40 automat ed count (numb Automat = 2.3 % 0.1-12. complet ed 017 0 ed blood 21:40 eosinop hils/10 0 leukocy t Automat = 0.2 0.0-0.4 complet ed 017 K/mm3 ed blood 21:40 eosinop hil count Baso % = 0.4 % 0.1-2.0 complet 017 ed 21:40 Automat = 0.0 0-0.2 complet ed 017 K/MM3 ed blood 21:40 basophi l count (count/ vo Urine test (12-05-2016 21:03) Urine = NEG complet pregnan 017 NEGATIV ed cy test 21:03 E Urinalysis with microscopy (12-05-2016 21:03) Urine YELLOW YELLOW complet color 017 YELLOW ed 21:03 L Urine = 7.0 5.0-8.5 complet pH 017 ed 21:03 Urine POSITIV NEG complet nitrite 017 E ed 21:03 POSITIV detecti E L on by test strip Mucus 1+ 1+ L NEG complet detecti 017 ed on in 21:03 urine sedimen t by lig Urine NEGATIV NEG complet ketones 017 E ed 21:03 NEGATIV detecti E L on by mg/dL automat ed kallie Glucose = NEG complet ur 017 NEGATIV ed test 21:03 E strip Urine 3+ 3+ L NEG complet blood 017 ed detecti 21:03 on Urine NEGATIV NEG complet total 017 E ed bilirub 21:03 NEGATIV in E L detecti on by test Bacteri 1+ 1+ L O complet a 017 ed detecti 21:03 on in urine sedimen t by Urine CLOUDY CLEAR complet appeara 017 CLOUDY ed nce 21:03 L determi nation Urine 20 - 50 O complet leukocy 017 ed kallie 21:03 wbc/hpf count (number /volume ) Urine 0.2 0.2 NEG complet urobili 017 L ed nogen 21:03 E.U./dL detecti on by test str [place] NONE 0-5 complet s 017 NONE L ed epithel 21:03 #/hpf ial cells detecti on in u Urine = 1.025 1.005-1 complet specifi 017 .030 ed c 21:03 gravity measure ment Erythro TNTC 0 complet cytes 017 TNTC L ed detecti 21:03 rbc/hpf on in urine sedimen t Urine 2 + NEG complet protein 017 mg/dL ed 21:03 measure ment by automat ed t Urinalysis dipstick W Reflex Microscopic panel in Urine (12-05-2016 21:03) Bacteri 1+ O complet a 017 ed [Presen 21:03 ce] in Urine sedimen t by Light microsc opy Erythro TNTC 0 complet cytes 017 ed [Presen 21:03 ce] in Urine sedimen t by Light microsc opy Epithel NONE 0#/hp complet ial 017 f - ed cells.s 21:03 5#/hp quamous f [Presen ce] in Urine sedimen t by Microsc opy high power field Leukocy 20-50 O complet kallie 017 wbc/hpf ed [#/volu 21:03 me] in Urine Urinalysis dipstick W Reflex Microscopic panel in Urine (12-05-2016 21:03) Appeara CLOUDY CLEAR complet nce of 017 ed Urine 21:03 Bilirub NEGATIV NEG complet in 017 E ed [Presen 21:03 ce] in Urine by Test strip Erythro 3+ NEG Abnorma complet cytes 017 l ed [Presen 21:03 ce] in Urine Color YELLOW YELLOW complet of 017 ed Urine 21:03 Ketones NEGATIV NEG complet 017 E ed [Presen 21:03 ce] in Urine by Automat ed test strip Mucus 1+ NEG Abnorma complet [Presen 017 l ed ce] in 21:03 Urine sedimen t by Light microsc opy Nitrite POSITIV NEG Abnorma complet 017 E l ed [Presen 21:03 ce] in Urine by Test strip Urobili 0.2 NEG complet nogen 017 ed [Presen 21:03 ce] in Urine by Test strip PT BldC (11-20-2016 15:31) Comment: Meter: [id number] [employer] Supervisor: [id number] KANNAN CHAVARRIA INR [facility] 3.3 0.91-1. complet 017 09 ed 15:31 Prothro 39.1 10.0-13 complet mbin 017 seconds .8 ed time 15:31 PT BldC (10-29-2016 10:12) INR PPP 2.8 0.91-1. complet 017 09 ed 10:12 Prothro 34.2 10.0-13 complet mbin 017 seconds .8 ed time 10:12 PT BldC (10-13-2016 13:45) INR PPP 2.6 0.91-1. complet 017 09 ed 13:45 Prothro 30.8 10.0-13 complet mbin 017 seconds .8 ed time 13:45 PT BldC (09-26-2016 09:24) INR PPP 3.1 0.91-1. complet 017 09 ed 09:24 Prothro 37.6 10.0-13 complet mbin 017 seconds .8 ed time 09:24 Gas Pnl BldA (09-18-2016 15:30) [place]ow[place] 21 % complet z index 017 ed 15:30 Bld+IhG -Rto CO2 26.0 22-33 complet BldA-sC 017 ed nc 15:30 COHgb 0.8 % 0-2 complet MFr Bld 017 ed 15:30 MetHgb 0.8 % 0-1.5 complet Bld Ql 017 ed 15:30 OxyHgb 96.7 % 94-99 complet MFr 017 ed BldV 15:30 Hct VFr 39.6 % complet Bld 017 ed 15:30 Hgb 12.9 14-18 complet BldA-mC 017 g/dL ed nc 15:30 Base 0.3 0.0-2.0 complet excess 017 mmol/L ed BldA 15:30 Calc-sC nc HCO3 24.8 20.0-26 complet BldA-sC 017 mmol/L .0 ed nc 15:30 pO2 99.3 mm 83.0-10 complet BldA 017 Hg 8.0 ed 15:30 pCO2 38.5 mm 35.0-45 complet BldA 017 Hg .0 ed 15:30 pH BldA 7.417 7.350-7 complet 017 pH .450 ed 15:30 units Arteria [id number] complet l 017 09 Not ed patency 15:30 applica Wrist ble SCT a Bdy Arteria complet site 017 l: ed 15:30 right radial Prothrombin time (09-18-2016 14:50) INR PPP 2.71 complet 017 ed 14:50 Prothro 30.5 9.6-11. complet mbin 017 Seconds 5 ed time 14:50 CBC W Diff pnl,unspecified Bld (09-18-2016 13:45) Imm 07-20-2 0.2 % 0.0-0.6 complet Granulo 017 ed cytes/l 13:45 euk NFr Bld Basophi 09-18-2 0.2 % 0.0-1.0 complet ls/leuk 017 ed NFr 13:45 Bld Auto Eosinop 09-18-2 3.2 % 0.0-3.0 complet hil/pedro 017 ed k NFr 13:45 Bld Auto Monocyt 20-2 7.4 % 0.0-12. complet es/leuk 017 0 ed NFr 13:45 Bld Auto Lymphoc 20-2 32.8 % 24.0-44 complet ytes/le 017 .0 ed uk NFr 13:45 Bld Auto Neutrop 09-18-2 56.2 % 41.0-71 complet hils/le 017 .0 ed uk NFr 13:45 Bld Auto Platele 20-2 274 150-450 complet t # Bld 017 10*3/mm ed Auto 13:45 3 PMV Bld 09-18-2 10.1 fL 6.0-12. complet Auto 017 0 ed 13:45 RDW RBC 20-2 46.0 fl 37.0-54 complet Auto 017 .0 ed 13:45 RDW RBC 20-2 14.6 % 11.3-14 complet 017 .5 ed Auto-Rt 13:45 o MCHC 20-2 32.4 32.0-36 complet RBC 017 g/dL .0 ed Auto-mC 13:45 nc MCH RBC 20-2 27.8 pg 27.0-31 complet Qn 017 .0 ed Auto 13:45 MCV RBC 20-2 86.0 fL 80.0-99 complet Auto 017 .0 ed 13:45 Hct VFr 20-2 38.0 % 34.5-44 complet Bld 017 .0 ed Auto 13:45 Hgb 20-2 12.3 11.5-15 complet Bld-mCn 017 g/dL .5 ed c 13:45 RBC # 07-20-2 4.42 3.89-5. complet Bld 017 10*6/mm 14 ed Auto 13:45 3 Imm 20-2 0.01 0.00-0. complet Granulo 017 10*3/mm 03 ed cytes # 13:45 3 Bld Basophi 09-18-2 0.01 0.00-0. complet ls # 017 10*3/mm 20 ed Bld 13:45 3 Auto Eosinop 09-18-2 0.18 0.00-0. complet hil # 017 10*3/mm 30 ed Bld 13:45 3 Auto Monocyt 09-18-2 0.41 0.00-1. complet es # 017 10*3/mm 00 ed Bld 13:45 3 Auto Lymphoc 09-18-2 1.82 0.60-4. complet ytes # 017 10*3/mm 80 ed Bld 13:45 3 Auto Neutrop 09-18-2 3.12 1.50-8. complet hils # 017 10*3/mm 30 ed Bld 13:45 3 Auto WBC 09-18- 5.55 3.50-10 complet nRBC 017 10*3/mm .80 ed cor # 13:45 3 Bld Troponin I SerPl-nc (09-18-2016 13:07) Troponi < 0.006 <=0.039 complet n I 017 ng/mL ed SerPl-m 13:07 Cnc Comp Metab 1997 Pnl SerPl (09-18-2016 13:07) Anion 5.0 3.0-11. complet Gap3 017 mmol/L 0 ed SerPl-s 13:07 Cnc BUN/Cre 7.5 7.0-25. complet at 017 0 ed SerPl 13:07 Albumin 1.1 1.5-2.5 complet /Glob 017 g/dL ed SerPl 13:07 Globuli 3.4 complet n Ur 017 gm/dL ed Elph-mC 13:07 nc GFR/BSA 87 >60 complet .pred 017 mL/min/ ed SerPl 13:07 1.73 MDRD-Ar VRat Bilirub 0.4 0.3-1.2 complet 017 mg/dL ed SerPl-m 13:07 Cnc ALP 92 U/L 25-100 complet SerPl-c 017 ed Cnc 13:07 AST 22 U/L 0-33 complet SerPl-c 017 ed Cnc 13:07 ALT 19 U/L 7-40 complet SerPl w 017 ed 13:07 P-5'-P- cCnc Albumin 3.90 3.20-4. complet 017 g/dL 80 ed SerPl-m 13:07 Cnc Prot 7.3 5.7-8.2 complet SerPl-m 017 g/dL ed Cnc 13:07 Calcium 9.1 8.7-10. complet 017 mg/dL 4 ed XXX-sCn 13:07 c CO2 24.0 20.0-31 complet SerPl-s 017 mmol/L .0 ed Cnc 13:07 Chlorid 109 99-109 complet e 017 mmol/L ed SerPl-s 13:07 Cnc Potassi 3.9 3.5-5.5 complet um 017 mmol/L ed Bld-sCn 13:07 c Sodium 138 132-146 complet Bld-sCn 017 mmol/L ed c 13:07 Creat 0.80 0.60-1. complet Bld-mCn 017 mg/dL 30 ed c 13:07 BUN 6 mg/dL 9-23 complet Bld-mCn 017 ed c 13:07 Glucose 99 70-100 complet 017 mg/dL ed Bld-mCn 13:07 c BNP SerPl-mCnc (09-18-2016 13:07) BNP 55.0 0.0-100 complet SerPl-m 017 pg/mL .0 ed Cnc 13:07 PT BldC (09-12-2016 09:09) INR PPP 3.8 0.91-1. complet 017 09 ed 09:09 Prothro 45.7 10.0-13 complet mbin 017 seconds .8 ed time 09:09 PT BldC (09-03-2016 11:20) INR PPP 4.5 0.91-1. complet 017 09 ed 11:20 Prothro 54.0 10.0-13 complet mbin 017 seconds .8 ed time 11:20 PT BldC (08-26-2016 10:22) INR PPP 3.2 0.91-1. complet 017 09 ed 10:22 Prothro 38.0 10.0-13 complet mbin 017 seconds .8 ed time 10:22 PT BldC (08-22-2016 10:19) INR PPP 3.4 0.91-1. complet 017 09 ed 10:19 Prothro 40.7 10.0-13 complet mbin 017 seconds .8 ed time 10:19 PT BldC (08-06-2016 11:07) Comment: Meter: [id number] [employer] Supervisor: [id number] KIMBERLYN ALVAREZ INR PPP 4.1 0.91-1. complet 017 09 ed 11:07 Prothro 49.7 10.0-13 complet mbin 017 seconds .8 ed time 11:07 PT BldC (06-11-2016 05:26) INR PPP 4.8 0.8-1.2 complet 017 ed 05:26 Prothro 53.2 12.8-15 complet mbin 017 seconds .2 ed time 05:26 Bacteria Ur Cult (06-11-2016 05:17) Bacteri [id number] complet a XXX 017 9 ed Aerobe 05:17 Normal Cult yazmin SCT UA Dipstick Pnl Ur (06-11-2016 05:17) Urobili 0.2 0.2 - complet nogen 017 E.U./dL 1.0 ed Ur Ql 05:17 E.U./dL Strip Nitrite [id number] Negativ complet Ur Ql 017 09 e ed Strip 05:17 Negativ e SCT Leukocy [id number] Negativ complet te 017 09 e ed esteras 05:17 Negativ e Ur Ql e SCT Strip.a uto Prot Ur 30 Negativ complet Ql 017 mg/dL e ed Strip 05:17 (1+) Hgb Ur [id number] Negativ complet Ql 017 00 e ed Strip.a 05:17 Moderat uto e number SCT Bilirub Small Negativ complet Ur Ql 017 (1+) e ed Strip 05:17 Ketones [id number] Negativ complet Ur Ql 017 09 e ed Strip 05:17 Negativ e SCT Glucose [id number] Negativ complet Ur 017 09 e ed Strip-m 05:17 Negativ Cnc e SCT Sp Gr 1.038 1.001-1 complet Ur 017 .030 ed Strip 05:17 pH Ur 6.0 5.0-8.0 complet Strip.a 017 ed uto 05:17 Clarity [id number] Clear complet Ur 017 5 ed 05:17 Cloudy SCT Color [id number] Yellow, complet Ur 017 09 Straw ed 05:17 Yellow color SCT UA Microscopic Pnl # Ur Auto (06-11-2016 05:17) Ref lab Manual complet test 017 Light ed method 05:17 Microsc opy Hyaline None 0-6 complet Casts 017 Seen ed Ur Ql 05:17 /LPF Auto [place]ou 7-12 None complet s 017 /HPF Seen, ed #/area 05:17 0-2 UrnS HPF Bacteri [id number] None complet a Ur Ql 017 06 + Seen, ed Auto 05:17 SCT Trace /HPF WBC Ur 13-20 None complet Ql Auto 017 /HPF Seen ed 05:17 RBC # 3-6 None complet Ur 017 /HPF Seen, ed 05:17 0-2 UA Dipstick Pnl Ur (06-10-2016 20:13) Urobili 1.0 0.2 - complet nogen 017 E.U./dL 1.0 ed Ur Ql 20:13 E.U./dL Strip Nitrite [id number] Negativ complet Ur Ql 017 09 e ed Strip 20:13 Negativ e SCT Leukocy [id number] Negativ complet te 017 06 e ed esteras 20:13 Trace e Ur Ql SCT Strip.a uto Prot Ur 30 Negativ complet Ql 017 mg/dL e ed Strip 20:13 (1+) Hgb Ur [id number] Negativ complet Ql 017 00 e ed Strip.a 20:13 Moderat uto e number SCT Bilirub Small Negativ complet Ur Ql 017 (1+) e ed Strip 20:13 Ketones [id number] Negativ complet Ur Ql 017 06 e ed Strip 20:13 Trace SCT Glucose [id number] Negativ complet Ur 017 09 e ed Strip-m 20:13 Negativ Cnc e SCT Sp Gr >= 1.001-1 complet Ur 017 1.030 .030 ed Strip 20:13 pH Ur 7.0 5.0-8.0 complet Strip.a 017 ed uto 20:13 Clarity [id number] Clear complet Ur 017 01 ed 20:13 Clear SCT Color [id number] Yellow, complet Ur 017 09 Straw ed 20:13 Yellow color SCT UA Microscopic Pnl # Ur Auto (06-10-2016 20:13) Hyaline 0-6 0-6 complet Casts 017 /LPF ed Ur Ql 20:13 Auto Ref lab Manual complet test 017 Light ed method 20:13 Microsc opy Squ[place]ou 3-6 None complet s 017 /HPF Seen, ed #/area 20:13 0-2 UrnS HPF Bacteri [id number] None complet a Ur Ql 017 06 Seen, ed Auto 20:13 Trace Trace SCT /HPF WBC Ur 3-5 None complet Ql Auto 017 /HPF Seen ed 20:13 RBC # 3-6 None complet Ur 017 /HPF Seen, ed 20:13 0-2 Comp Metab 1998 Pnl SerPl (06-10-2016 19:10) Anion 2.0 3.0-11. complet Gap3 017 mmol/L 0 ed SerPl-s 19:10 Cnc BUN/Cre 12.5 7.0-25. complet at 017 0 ed SerPl 19:10 Albumin 1.3 1.5-2.5 complet /Glob 017 g/dL ed SerPl 19:10 Globuli 3.5 complet n Ur 017 gm/dL ed Elph-mC 19:10 nc GFR/BSA 87 >60 complet .pred 017 mL/min/ ed SerPl 19:10 1.73 MDRD-Ar VRat Bilirub 0.5 0.3-1.2 complet 017 mg/dL ed SerPl-m 19:10 Cnc ALP 101 U/L 25-100 complet SerPl-c 017 ed Cnc 19:10 AST 22 U/L 0-33 complet SerPl-c 017 ed Cnc 19:10 ALT 20 U/L 7-40 complet SerPl w 017 ed 19:10 P-5'-P- cCnc Albumin 4.40 3.20-4. complet 017 g/dL 80 ed SerPl-m 19:10 Cnc Prot 7.9 5.7-8.2 complet SerPl-m 017 g/dL ed Cnc 19:10 Calcium 10.0 8.7-10. complet 017 mg/dL 4 ed XXX-sCn 19:10 c CO2 29.0 20.0-31 complet SerPl-s 017 mmol/L .0 ed Cnc 19:10 Chlorid 108 99-109 complet e 017 mmol/L ed SerPl-s 19:10 Cnc Potassi 3.9 3.5-5.5 complet um 017 mmol/L ed Bld-sCn 19:10 c Sodium 139 132-146 complet Bld-sCn 017 mmol/L ed c 19:10 Creat 0.80 0.60-1. complet Bld-mCn 017 mg/dL 30 ed c 19:10 BUN 10 9-23 complet Bld-mCn 017 mg/dL ed c 19:10 Glucose 84 70-100 complet 017 mg/dL ed Bld-mCn 19:10 c CBC W Diff pnl,unspecified Bld (06-10-2016 19:10) Hct VFr 40.0 % 34.5-44 complet Bld 017 .0 ed Auto 19:10 Imm 04-11-2 0.01 0.00-0. complet Granulo 017 10*3/mm 03 ed cytes # 19:10 3 Bld Basophi 04-11-2 0.02 0.00-0. complet ls # 017 10*3/mm 20 ed Bld 19:10 3 Auto Eosinop 04-11-2 0.14 0.10-0. complet hil # 017 10*3/mm 30 ed Bld 19:10 3 Auto Monocyt 11-2 0.75 0.00-1. complet es # 017 10*3/mm 00 ed Bld 19:10 3 Auto Lymphoc 04-11-2 2.77 0.60-4. complet ytes # 017 10*3/mm 80 ed Bld 19:10 3 Auto Neutrop 11-2 4.99 1.50-8. complet hils # 017 10*3/mm 30 ed Bld 19:10 3 Auto Imm 11-2 0.1 % 0.0-0.6 complet Granulo 017 ed cytes/l 19:10 euk NFr Bld Basophi 11-2 0.2 % 0.0-1.0 complet ls/leuk 017 ed NFr 19:10 Bld Auto Eosinop 11-2 1.6 % 0.0-3.0 complet hil/pedro 017 ed k NFr 19:10 Bld Auto Monocyt 11-2 8.6 % 0.0-12. complet es/leuk 017 0 ed NFr 19:10 Bld Auto Lymphoc 11-2 31.9 % 24.0-44 complet ytes/le 017 .0 ed uk NFr 19:10 Bld Auto Neutrop 11-2 57.6 % 41.0-71 complet hils/le 017 .0 ed uk NFr 19:10 Bld Auto Platele 11-2 304 150-450 complet t # Bld 017 10*3/mm ed Auto 19:10 3 PMV Bld 11-2 10.7 fL 6.0-12. complet Auto 017 0 ed 19:10 RDW RBC -11-2 49.7 fl 37.0-54 complet Auto 017 .0 ed 19:10 RDW RBC 11-2 15.6 % 11.3-14 complet 017 .5 ed Auto-Rt 19:10 o MCHC 31.8 32.0-36 complet RBC 017 g/dL .0 ed Auto-mC 19:10 nc MCH RBC 06-10- 27.4 pg 27.0-31 complet Qn 017 .0 ed Auto 19:10 MCV RBC 06-10- 86.4 fL 80.0-99 complet Auto 017 .0 ed 19:10 Hgb 12.7 11.5-15 complet Bld-mCn 017 g/dL .5 ed c 19:10 RBC # 06-10- 4.63 3.89-5. complet Bld 017 10*6/mm 14 ed Auto 19:10 3 WBC 8.68 3.50-10 complet nRBC 017 10*3/mm .80 ed cor # 19:10 3 Bld LPL SerPl-cCnc (06-10-2016 19:10) Lipase 39 U/L 6-51 complet SerPl-c 017 ed Cnc 19:10 HCG Preg Ur Ql (04-13-2016 20:21) B-HCG [id number] Negativ complet Preg Ur 017 09 e ed Ql 20:21 Negativ e SCT UA Dipstick Pnl Ur (04-13-2016 20:21) Urobili 0.2 0.2 - complet nogen 017 E.U./dL 1.0 ed Ur Ql 20:21 E.U./dL Strip Nitrite [id number] Negativ complet Ur Ql 017 09 e ed Strip 20:21 Negativ e SCT Leukocy [id number] Negativ complet te 017 09 e ed esteras 20:21 Negativ e Ur Ql e SCT Strip.a uto Prot Ur [id number] Negativ complet Ql 017 06 e ed Strip 20:21 Trace SCT Hgb Ur [id number] Negativ complet Ql 017 09 e ed Strip.a 20:21 Negativ uto e SCT Bilirub [id number] Negativ complet Ur Ql 017 09 e ed Strip 20:21 Negativ e SCT Ketones [id number] Negativ complet Ur Ql 017 09 e ed Strip 20:21 Negativ e SCT Glucose [id number] Negativ complet Ur 017 09 e ed Strip-m 20:21 Negativ Cnc e SCT Sp Gr 1.020 1.005-1 complet Ur 017 .030 ed Strip 20:21 pH Ur 7.0 5.0-8.0 complet Strip.a 017 ed uto 20:21 Clarity [id number] Clear complet Ur 017 01 ed 20:21 Clear SCT Color [id number] Yellow, complet Ur 017 09 Straw ed 20:21 Yellow color SCT LPL SerPl-cCnc (04-13-2016 20:15) Lipase 39 U/L 6-51 complet SerPl-c 017 ed Cnc 20:15 Amylase SerPl-cCnc (04-13-2016 20:15) Amylase 50 U/L 30-118 complet 017 ed SerPl-c 20:15 Cnc Comp Metab 1998 Pnl SerPl (04-13-2016 20:15) Anion 7.0 3.0-11. complet Gap3 017 mmol/L 0 ed SerPl-s 20:15 Cnc BUN/Cre 17.1 7.0-25. complet at 017 0 ed SerPl 20:15 Albumin 1.2 1.5-2.5 complet /Glob 017 g/dL ed SerPl 20:15 Globuli 3.5 complet n Ur 017 gm/dL ed Elph-mC 20:15 nc GFR/BSA 101 >60 complet .pred 017 mL/min/ ed SerPl 20:15 1.73 MDRD-Ar VRat Bilirub 0.3 0.3-1.2 complet 017 mg/dL ed SerPl-m 20:15 Cnc ALP 107 U/L 25-100 complet SerPl-c 017 ed Cnc 20:15 AST 18 U/L 0-33 complet SerPl-c 017 ed Cnc 20:15 ALT 20 U/L 7-40 complet SerPl w 017 ed 20:15 P-5'-P- cCnc Albumin 02-12-2 4.30 3.20-4. complet 017 g/dL 80 ed SerPl-m 20:15 Cnc Prot 0212-2 7.8 5.7-8.2 complet SerPl-m 017 g/dL ed Cnc 20:15 Calcium 02-12-2 9.4 8.7-10. complet 017 mg/dL 4 ed XXX-sCn 20:15 c CO2 04-13-2 26.0 20.0-31 complet SerPl-s 017 mmol/L .0 ed Cnc 20:15 Chlorid 04-13-2 106 99-109 complet e 017 mmol/L ed SerPl-s 20:15 Cnc Potassi 04-13-2 3.8 3.5-5.5 complet um 017 mmol/L ed Bld-sCn 20:15 c Sodium 04-13- 139 132-146 complet Bld-sCn 017 mmol/L ed c 20:15 Creat 04-13-2 0.70 0.60-1. complet Bld-mCn 017 mg/dL 30 ed c 20:15 BUN 04-13-2 12 9-23 complet Bld-mCn 017 mg/dL ed c 20:15 Glucose 04-13-2 85 70-100 complet 017 mg/dL ed Bld-mCn 20:15 c PT PPP (04-13-2016 20:15) INR PPP 04-13-2 2.58 complet 017 ed 20:15 PT PPP -12-2 29.0 9.6-11. complet 017 Seconds 5 ed 20:15 CBC W Diff pnl,unspecified Bld (04-13-2016 20:15) Imm 02-12-2 0.02 0.00-0. complet Granulo 017 10*3/mm 03 ed cytes # 20:15 3 Bld Basophi 0212-2 0.02 0.00-0. complet ls # 017 10*3/mm 20 ed Bld 20:15 3 Auto Eosinop 0212-2 0.17 0.10-0. complet hil # 017 10*3/mm 30 ed Bld 20:15 3 Auto Monocyt 02-12-2 0.67 0.00-1. complet es # 017 10*3/mm 00 ed Bld 20:15 3 Auto Lymphoc 04-13-2 2.73 0.60-4. complet ytes # 017 10*3/mm 80 ed Bld 20:15 3 Auto Neutrop 02-12-2 6.14 1.50-8. complet hils # 017 10*3/mm 30 ed Bld 20:15 3 Auto Imm 02-12-2 0.2 % 0.0-0.6 complet Granulo 017 ed cytes 20:15 NFr Bld Basophi 02-2 0.2 % 0.0-1.0 complet ls NFr 017 ed Bld 20:15 Auto Eosinop 02-12-2 1.7 % 0.0-3.0 complet hil NFr 017 ed Bld 20:15 Auto Monocyt 12-2 6.9 % 0.0-12. complet es NFr 017 0 ed Bld 20:15 Auto Lymphoc 04-13-2 28.0 % 24.0-44 complet ytes 017 .0 ed NFr Bld 20:15 Auto Neutrop 04-13-2 63.0 % 41.0-71 complet hils 017 .0 ed NFr Bld 20:15 Auto Platele 04-13-2 287 150-450 complet t # Bld 017 10*3/mm ed Auto 20:15 3 PMV Bld 04-13-2 11.1 fL 6.0-12. complet Auto 017 0 ed 20:15 RDW RBC 02-12-2 46.9 fl 37.0-54 complet Auto 017 .0 ed 20:15 RDW RBC 02-12-2 15.0 % 11.3-14 complet 017 .5 ed Auto-Rt 20:15 o MCHC -12-2 33.8 32.0-36 complet RBC 017 g/dL .0 ed Auto-mC 20:15 nc MCH RBC 02-12-2 28.7 pg 27.0-31 complet Qn 017 .0 ed Auto 20:15 MCV RBC 02-12-2 85.1 fL 80.0-99 complet Auto 017 .0 ed 20:15 Hct VFr -12-2 38.8 % 34.5-44 complet Bld 017 .0 ed Auto 20:15 Hgb 02-12-2 13.1 11.5-15 complet Bld-mCn 017 g/dL .5 ed c 20:15 RBC # 02-12-2 4.56 3.89-5. complet Bld 017 10*6/mm 14 ed Auto 20:15 3 WBC 02-12-2 9.75 3.50-10 complet nRBC 017 10*3/mm .80 ed cor # 20:15 3 Bld Procedures Procedure DOS Code Location Performer Comment RADEX 61072 [facility]AL WELCH FOOT 7 [facility]IOLOG[facility] COMPLETE ASSOC MINIMUM 3 VIEWS PROTHROMB 83360 WORSHIP WORSHIP IN TIME 7 [facility] COLLECTIO 35234 WORSHIP WORSHIP N 7 [facility] CAPILLARY FOR[facility] BLOOD SPECIMEN APPL 18194 WENDI ANH MODALITY 7 FAMILY 1/> AREAS CHIROPRAC TRACTION TOR MECHANICA L THERAPEUT 84436 WENDI ANH IC PX 1/> 7 FAMILY AREAS CHIROPRAC EACH 15 TOR MIN EXERCISES CHIROPRAC 99708 WENDI ANH TIC 7 FAMILY MANIPULAT CHIROPRAC [place] SPINAL 3-4 REGIONS CHIROPRAC 09767 WENDI ANH TIC 7 FAMILY MANIPULAT CHIROPRAC [place] TOR SPINAL 3-4 REGIONS THERAPEUT 82432 WENDI ANH IC PX 1/> 7 FAMILY AREAS CHIROPRAC EACH 15 TOR MIN EXERCISES APPL 11242 WENDI ANH MODALITY 7 FAMILY 1/> AREAS CHIROPRAC TRACTION TOR MECHANICA L APPL 15250 WENDI ANH MODALITY 7 FAMILY 1/> AREAS CHIROPRAC TRACTION TOR MECHANICA L COLLECTIO 83185 WORSHIP WORSHIP N 7 [facility] CAPILLARY [facility] BLOOD SPECIMEN CHIROPRAC 78443 WENDI ANH TIC 7 FAMILY MANIPULAT CHIROPRAC [place] T[place] SPINAL 3-4 REGIONS PROTHROMB 54835 WORSHIP WORSHIP IN TIME 7 [facility] THERAPEUT 80158 WENDI ANH IC PX 1/> 7 FAMILY AREAS CHIROPRAC EACH 15 TOR MIN EXERCISES THERAPEUT 33076 WENDI ANH IC PX 1/> 7 FAMILY AREAS CHIROPRAC EACH 15 TOR MIN EXERCISES CHIROPRAC 85415 WENDI ANH TIC 7 FAMILY MANIPULAT CHIROPRAC [place] TOR SPINAL 3-4 REGIONS APPL 72342 WENDI ANH MODALITY 7 FAMILY 1/> AREAS CHIROPRAC TRACTION TOR MECHANICA L APPL 28082 EWNDI ANH MODALITY 7 FAMILY 1/> AREAS CHIROPRAC TRACTION TOR MECHANICA L CHIROPRAC 90735 WENDI ANH TIC 7 FAMILY MANIPULAT CHIROPRAC [place] TOR SPINAL 3-4 REGIONS MANUAL 98707 WENDI ANH THERAPY 7 FAMILY TQS 1/> CHIROPRAC REGIONS TOR EACH 15 MINUTES THERAPEUT 53191 WENDI ANH IC PX 1/> 7 FAMILY AREAS CHIROPRAC EACH 15 TOR MIN EXERCISES THERAPEUT 18076 WENDI ANH IC PX 1/> 7 FAMILY AREAS CHIROPRAC EACH 15 TOR MIN EXERCISES MANUAL 64879 WENDI ANH THERAPY 7 FAMILY TQS 1/> CHIROPRAC REGIONS TOR EACH 15 MINUTES CHIROPRAC 40292 WENDI ANH TIC 7 FAMILY MANIPULAT CHIROPRAC [place] TOR SPINAL 3-4 REGIONS APPL 78255 WENDI ANH MODALITY 7 FAMILY 1/> AREAS CHIROPRAC TRACTION TOR MECHANICA L APPL 45343 WENDI ANH MODALITY 7 FAMILY 1/> AREAS CHIROPRAC TRACTION TOR MECHANICA L COLLECTIO 58542 WORSHIP WORSHIP N [address] [facility] BLOOD SPECIMEN CHIROPRAC 50030 WENDI ANH TIC 7 FAMILY MANIPULAT CHIROPRAC [place] TOR SPINAL 3-4 REGIONS MANUAL 03448 WENDI ANH THERAPY 7 FAMILY TQS 1/> CHIROPRAC REGIONS TOR EACH 15 MINUTES THERAPEUT 54509 WENDI ANH IC PX 1/> 7 FAMILY AREAS CHIROPRAC EACH 15 TOR MIN EXERCISES PROTHROMB 35823 WORSHIP WORSHIP IN TIME 7 [facility] THERAPEUT 87600 WENDI ANH IC PX 1/> 7 FAMILY AREAS CHIROPRAC EACH 15 TOR MIN EXERCISES MANUAL 53092 WENDI ANH THERAPY 7 FAMILY TQS 1/> CHIROPRAC REGIONS TOR EACH 15 MINUTES CHIROPRAC 75921 WENDI ANH TIC 7 FAMILY MANIPULAT CHIROPRAC [place] TOR SPINAL 3-4 REGIONS APPL 35858 WENDI ANH MODALITY 7 FAMILY 1/> AREAS CHIROPRAC TRACTION TOR MECHANICA L APPL 95669 WENDI ANH MODALITY 7 FAMILY 1/> AREAS CHIROPRAC TRACTION TOR MECHANICA L CHIROPRAC 08847 WENDI ANH TIC 7 FAMILY MANIPULAT CHIROPRAC [place] TOR SPINAL 3-4 REGIONS MANUAL 79870 WENDI ANH THERAPY 7 FAMILY TQS 1/> CHIROPRAC REGIONS TOR EACH 15 MINUTES THERAPEUT 68836 WENDI ANH IC PX 1/> 7 FAMILY AREAS CHIROPRAC EACH 15 TOR MIN EXERCISES GASES 10626 WORSHIP WORSHIP BLOOD PH 7 [facility] DIRECT [facility] DARIN XCPT PULSE OXIMITRY RADIOLOGI 31897 CENTRAL RICE C EXAM 7 RADIOLOGY CHEST 2 ASSOC VIEWS FRONTAL&L ATERAL NATRIURET 00087 WORSHIP WORSHIP IC 7 [facility] PEPTIDE [facility] ECG 47303 WORSHIP WORSHIP ROUTINE 7 [facility] ECG [facility] W/LEAST 12 LDS TRCG ONLY W/O I&R PROTHROMB 50093 WORSHIP WORSHIP IN TIME [address] [place] [place] [address] [place] [address] WORSHIP WORSHIP TROPONIN 7 [facility] QUANTITAT [facility] [place] BLOOD 37172 WORSHIP WORSHIP COUNT 7 [facility] COMPLETE [facility] AUTO&AUTO DIFRNTL WBC ECG 35329 CENTRAL LAW ROUTINE 7 EMERGENCY ECG PHYS PSC W/LEAST 12 LDS I&R ONLY ECHO 98072 WORSHIP WORSHIP TTHRC R-T 7 [facility] 2D [facility] W/WOM-MOD E COMPL SPEC&COLR D ARTERIAL 22720 WORSHIP WORSHIP PUNCTURE 7 [facility] HEALTH WITHDRAWA [facility] L BLOOD DX COMPREHEN 72833 WORSHIP WORSHIP SIVE 7 [facility] PANEL THERAPEUT 96386 WENDI ANH IC PX 1/> 7 FAMILY AREAS CHIROPRAC EACH 15 TOR MIN EXERCISES APPL 16259 WENDI ANH MODALITY 7 FAMILY 1/> AREAS CHIROPRAC TRACTION TOR MECHANICA L MANUAL 99427 WENDI ANH THERAPY 7 FAMILY TQS 1/> CHIROPRAC REGIONS TOR EACH 15 MINUTES CHIROPRAC 89508 WENDI ANH TIC 7 FAMILY MANIPULAT CHIROPRAC [place] TOR SPINAL 3-4 REGIONS OPHTH 52084 [facility] 7 XM&EVAL COMPRE NEW PT 1/> VST CHIROPRAC 22224 WENDI ANH TIC 7 FAMILY MANIPULAT CHIROPRAC [place] TOR SPINAL 3-4 REGIONS MANUAL 05341 WENDI ANH THERAPY 7 FAMILY TQS 1/> CHIROPRAC REGIONS TOR EACH 15 MINUTES APPL 53220 WENDI ANH MODALITY 7 FAMILY 1/> AREAS CHIROPRAC TRACTION TOR MECHANICA L THERAPEUT 31960 WENDI ANH IC PX 1/> 7 FAMILY AREAS CHIROPRAC EACH 15 TOR MIN EXERCISES THERAPEUT 32878 WENDI ANH IC PX 1/> 7 FAMILY AREAS CHIROPRAC EACH 15 TOR MIN EXERCISES APPL 95224 WENDI ANH MODALITY 7 FAMILY 1/> AREAS CHIROPRAC TRACTION TOR MECHANICA L COLLECTIO 48427 WORSHIP WORSHIP N 7 [facility] HEALTH CAPILLARY [facility] BLOOD SPECIMEN CHIROPRAC 22171 WENDI ANH TIC 7 FAMILY MANIPULAT CHIROPRAC [place] TOR SPINAL 3-4 REGIONS MANUAL 53291 WENDI ANH THERAPY 7 FAMILY TQS 1/> CHIROPRAC REGIONS TOR EACH 15 MINUTES PROTHROMB 82330 WORSHIP WORSHIP IN TIME 7 [facility] MANUAL 42992 WENDI ANH THERAPY 7 FAMILY TQS 1/> CHIROPRAC REGIONS TOR EACH 15 MINUTES CHIROPRAC 68510 WENDI ANH TIC 7 FAMILY MANIPULAT CHIROPRAC [place] TOR SPINAL 3-4 REGIONS APPL 44881 WENDI ANH MODALITY 7 FAMILY 1/> AREAS CHIROPRAC TRACTION TOR MECHANICA L THERAPEUT 21453 WENDI ANH IC PX 1/> 7 FAMILY AREAS CHIROPRAC EACH 15 TOR MIN EXERCISES THERAPEUT 78580 WENDI ANH IC PX 1/> 7 FAMILY AREAS CHIROPRAC EACH 15 TOR MIN EXERCISES APPL 91809 WENDI ANH MODALITY 7 FAMILY 1/> AREAS CHIROPRAC TRACTION TOR MECHANICA L CHIROPRAC 69534 WENDI ANH TIC 7 FAMILY MANIPULAT CHIROPRAC [place] TOR SPINAL 3-4 REGIONS MANUAL 77034 WENDI ANH THERAPY 7 FAMILY TQS 1/> CHIROPRAC REGIONS TOR EACH 15 MINUTES MANUAL 79936 WENDI ANH THERAPY 7 FAMILY TQS 1/> CHIROPRAC REGIONS TOR EACH 15 MINUTES CHIROPRAC 79202 WENDI ANH TIC 7 FAMILY MANIPULAT CHIROPRAC [place] TOR SPINAL 3-4 REGIONS APPL 42164 WENDI NAH MODALITY 7 FAMILY 1/> AREAS CHIROPRAC TRACTION TOR MECHANICA L THERAPEUT 76519 WENDI ANH IC PX 1/> 7 FAMILY AREAS CHIROPRAC EACH 15 TOR MIN EXERCISES COLLECTIO 06962 WORSHIP WORSHIP N [address] [place] [address] BLOOD SPECIMEN PROTHROMB 53941 WORSHIP WORSHIP IN TIME [address] [place] [place] [address] THERAPEUT 36724 WENDI ANH IC PX 1/> 7 FAMILY AREAS CHIROPRAC EACH 15 TOR MIN EXERCISES CHIROPRAC 72996 WENDI ANH TIC 7 FAMILY MANIPULAT CHIROPRAC [place] TOR SPINAL 3-4 REGIONS MANUAL 30845 WENDI ANH THERAPY 7 FAMILY TQS 1/> CHIROPRAC REGIONS TOR EACH 15 MINUTES APPL 00628 WENDI ANH MODALITY 7 FAMILY 1/> AREAS CHIROPRAC TRACTION TOR MECHANICA L APPL 50490 WENDI ANH MODALITY 7 FAMILY 1/> AREAS CHIROPRAC TRACTION TOR MECHANICA L CHIROPRAC 09737 WENDI ANH TIC 7 FAMILY MANIPULAT CHIROPRAC [place] TOR SPINAL 3-4 REGIONS MANUAL 61491 WENDI ANH THERAPY 7 FAMILY TQS 1/> CHIROPRAC REGIONS TOR EACH 15 MINUTES THERAPEUT 84836 WENDI ANH IC PX 1/> 7 FAMILY AREAS CHIROPRAC EACH 15 TOR MIN EXERCISES THERAPEUT 01836 WENDI ANH IC PX 1/> 7 FAMILY AREAS CHIROPRAC EACH 15 TOR MIN EXERCISES PROTHROMB 70520 WORSHIP WORSHIP IN TIME 7 [facility] MANUAL 13467 WENDI ANH THERAPY 7 FAMILY TQS 1/> CHIROPRAC REGIONS TOR EACH 15 MINUTES CHIROPRAC 32486 WENDI ANH TIC 7 FAMILY MANIPULAT CHIROPRAC [place] TOR SPINAL 3-4 REGIONS APPL 62387 WENDI ANH MODALITY 7 FAMILY 1/> AREAS CHIROPRAC TRACTION TOR MECHANICA L COLLECTIO 97754 WORSHIP WORSHIP N [address] [facility] BLOOD SPECIMEN APPL 96691 WENDI ANH MODALITY 7 FAMILY 1/> AREAS CHIROPRAC TRACTION TOR MECHANICA L MANUAL 59648 WENDI ANH THERAPY 7 FAMILY TQS 1/> CHIROPRAC REGIONS TOR EACH 15 MINUTES CHIROPRAC 20916 WENDI ANH TIC 7 FAMILY MANIPULAT CHIROPRAC [place] TOR SPINAL 3-4 REGIONS THERAPEUT 98809 WENDI ANH IC PX 1/> 7 FAMILY AREAS CHIROPRAC EACH 15 TOR MIN EXERCISES THERAPEUT 73423 WENDI ANH IC PX 1/> 7 FAMILY AREAS CHIROPRAC EACH 15 TOR MIN EXERCISES PROTHROMB 24179 WORSHIP WORSHIP IN TIME 7 [facility] CHIROPRAC 52113 WENDI ANH TIC 7 FAMILY MANIPULAT CHIROPRAC [place] TOR SPINAL 3-4 REGIONS MANUAL 90351 WENDI ANH THERAPY 7 FAMILY TQS 1/> CHIROPRAC REGIONS TOR EACH 15 MINUTES APPL 30089 WENDI ANH MODALITY 7 FAMILY 1/> AREAS CHIROPRAC TRACTION TOR MECHANICA L COLLECTIO 63793 WORSHIP WORSHIP N 7 [facility] CAPILLARY [facility] BLOOD SPECIMEN APPL 18351 WENDI ANH MODALITY 7 FAMILY 1/> AREAS CHIROPRAC TRACTION TOR MECHANICA L THERAPEUT 64681 WENDI ANH IC PX 1/> 7 FAMILY AREAS CHIROPRAC EACH 15 TOR MIN EXERCISES MANUAL 22940 WENDI ANH THERAPY 7 FAMILY TQS 1/> CHIROPRAC REGIONS TOR EACH 15 MINUTES CHIROPRAC 75694 WENDI ANH TIC 7 FAMILY MANIPULAT CHIROPRAC [place] TOR SPINAL 3-4 REGIONS MANUAL 22204 WENDI ANH THERAPY 7 FAMILY TQS 1/> CHIROPRAC REGIONS TOR EACH 15 MINUTES CHIROPRAC 88102 WENDI ANH TIC 7 FAMILY MANIPULAT CHIROPRAC [place] TOR SPINAL 3-4 REGIONS THERAPEUT 54926 WENDI ANH IC PX 1/> 7 FAMILY AREAS CHIROPRAC EACH 15 TOR MIN EXERCISES APPL 26022 WENDI ANH MODALITY 7 FAMILY 1/> AREAS CHIROPRAC TRACTION TOR MECHANICA L COLLECTIO 98763 WORSHIP WORSHIP N 7 [facility] CAPILLARY [facility] BLOOD SPECIMEN PROTHROMB 19816 WORSHIP WORSHIP IN TIME 7 [facility] DARIN 89875 [facility] WINDISCH POST-VOID 7 [facility] ING MEDICAL RESIDUAL G URINE&/[place] [address] [facility] RET[facility]OPER[facility] [place] [address] [facility] RETROPERI 7 RADIOLOGY LD IV TONEAL REAL TIME W/IMAGE LIMITED CHIROPRAC 17571 WENDI ANH TIC 7 FAMILY MANIPULAT CHIROPRAC [place] TOR SPINAL 3-4 REGIONS APPL 05478 WENDI ANH MODALITY 7 FAMILY 1/> AREAS CHIROPRAC TRACTION TOR MECHANICA L RADEX 82914 WENDI ANH SPINE 7 FAMILY CERVICAL CHIROPRAC 2 OR 3 TOR VIEWS RADEX 49170 WENDI ANH SPINE 7 FAMILY LUMBOSACR CHIROPRAC AL 2/3 TOR VIEWS PROTHROMB 76750 PRISCILA FRANCOIS IN TIME 7 [facility] INC INC PROTHROMB 49784 WORSHIP WORSHIP IN TIME 7 [facility] [place] [address] [facility] ABDOMEN & 7 RADIOLOGI PELVIS C W/O PROFESSIO CONTRAST MATERIAL CULTURE 06701 WORSHIP WORSHIP BACTERIAL 7 [facility] QUANTTATI VE COLONY COUNT URINE URNLS DIP 62740 WORSHIP WORSHIP 7 [facility]ALTH HEALTH STICK/TAB [facility] LET REAGENT AUTO MICROSCOP Y THERAPEUT 56417 WORSHIP WORSHIP IC 7 [facility] INJECTION [facility] IV PUSH EACH NEW DRUG INJECTION J1885 WORSHIP WORSHIP 7 HEALTH [facility] KETOROLAC [facility] TROMETHAM INE PER 15 [place] [address] WORSHIP WORSHIP INFUSION 7 [facility]ALTH THERAPY/P [facility] ROPHYLAXI S /DX 1ST TO 1 [place] [address] WORSHIP WORSHIP INFUSION 7 [facility] HYDRATION [facility] EACH ADDITIONA L HOUR INJECTION J2405 WORSHIP WORSHIP 7 [facility]ALTH HEALTH ONDANSETR [facility] ON HCL PER 1 MG INJECTION J2405 WORSHIP WORSHIP 7 [facility]ALTH HEALTH ONDANSETR [facility] ON HCL PER 1 MG LOCM Q9967 WORSHIP WORSHIP [phone] 7 HEALTH HEALTH MG/ML [facility] IODINE CONCENTRA TION PER ML COMPREHEN 25515 WORSHIP WORSHIP SIVE 7 [facility] METABOLIC [facility] PANEL BLOOD 42749 WORSHIP WORSHIP COUNT 7 [facility] COMPLETE [facility] AUTO&AUTO DIFRNTL WBC NATRIURET 62596 WORSHIP WORSHIP IC 7 [facility] PEPTIDE [facility] INJECTION J2270 WORSHIP WORSHIP MORPHINE 7 [facility] SULFATE FOR[facility] UP TO 10 MG THERAPEUT 32194 WORSHIP WORSHIP IC 7 [facility] INJECTION FOR[facility] [place] [address] WORSHIP WORSHIP LIPASE 7 [facility] THROMBOPL 71273 WORSHIP WORSHIP ASTIN 7 [facility] HEALTH TIME [facility] PARTIAL PLASMA/WH OLE BLOOD RADIOLOGI 76125 CENTRAL PALENC[place] C 7 RADIOLOGY EXAMINATI ASSOC ON CHEST SINGLE VIEW FRONTAL PROTHROMB 35816 WORSHIP WORSHIP IN TIME 7 [facility] [place] [address] [facility] [place] ANGIOGRAP 7 RADIOLOGI HY CHEST C W/CONTRAS PROFESSIO [place] [address] WORSHIP WORSHIP TROPONIN 7 [facility] QUANTITAT [facility] CARLOS ECG 37792 WORSHIP WORSHIP ROUTINE 7 [facility] ECG [facility] W/LEAST 12 LDS TRCG ONLY W/O I&R THER 21060 WORSHIP WORSHIP PROPH/DX 7 [facility] NJX IV [facility] PUSH SINGLE/1S T SBST/[place] [address] [place] [facility] ABDOMEN & 7 MEDICAL PELVIS IMAGING [place] [address] PRISCILA FRANCOIS UREA 7 [facility] NITROGEN INC INC QUANTITAT CAR[place] PROTHROMB 20764 PRISCILA FRANCOIS IN TIME 7 [facility] INC INC CREATININ 90692 PRISCILA FRANCOIS E BLOOD 7 [facility] INC INC FINAL G9551 [place] [facility] REPR ABD 7 MEDICAL IMAG STS IMAGING W/O ASS INCIDNT FND LES NTD: FINAL G9638 [place] [facility] REPORTS 7 MEDICAL W/O DOC IMAGING 1/MORE ASS DOSE REDUCTION TECH COLLECTIO 60910 PRISCILA FRANCOIS N VENOUS 7 [facility] BLOOD INC INC VENIPUNCT URE IAADIADOO 81675 [facility] KIOSK 7 MEDICINE MEDICINE INFLUENZA [facility] LEVONORGE J7297 [facility] CARLITO STREL-RLS 7 PHYSICIAN S GROUP INTRAUTER INE MATT SYS 52 MG INSERTION 77572 [facility] ESTEBAN 7 PHYSICIAN INTRAUTER S GROUP INE DEVICE IUD PROTHROMB 36920 PRISCILA FRANCOIS IN TIME 7 [facility] INC INC PROTHROMB 02798 WORSHIP WORSHIP IN TIME 7 [facility] [place] [address] WORSHIP WORSHIP LIPASE 7 [facility] [place] [address] WORSHIP WORSHIP AMYLASE 7 [facility] [place] [address] VIRTUAL [facility] ABDOMEN & 7 RADIOLOGI RADIOLOGI PELVIS C C [place] [address] WORSHIP WORSHIP INFUSION 7 [facility] HYDRATION [facility] INITIAL 31 MIN-1 [place] [address] WORSHIP WORSHIP INFUSION 7 [facility] HYDRATION [facility] EACH ADDITIONA L HOUR URINE 44171 WORSHIP WORSHIP 7 HEALTH HEALTH TEST [facility] VISUAL COLOR CMPRSN METHS BLOOD 41368 WORSHIP WORSHIP COUNT 7 [facility]ALTH HEALTH COMPLETE [facility] AUTO&AUTO DIFRNTL WBC URNLS DIP 52596 WORSHIP WORSHIP [address] [place] [address] HEALTH STICK/TAB [facility] LET RGNT AUTO W/O MICROSCOP Y COMPREHEN 85187 WORSHIP WORSHIP SIVE 7 [facility]ALTH HEALTH METABOLIC [facility] PANEL LOCM Q9967 WORSHIP WORSHIP [phone] 7 [facility] MG/ML [facility] IODINE CONCENTRA TION PER ML FINAL G9551 [facility] REPR ABD 7 MEDICAL MEDICAL IMAG STS IMAGING IMAGING W/O ASS [place]ID[place] [address] PRISCILA FRANCOIS ABDOMINAL 7 [facility] REAL INC [place] [address] [facility] ABDOMINAL 7 MEDICAL MEDICAL REAL IMAGING IMAGING TIME ASS ASS W/IMAGE LIMITED PROTHROMB 79972 PRISCILA RICHARDSONON IN TIME 7 [facility] INC INC PROTHROMB 95692 PRISCILA PRISCILA IN TIME 7 [facility] INC INC HEMOGLOBI 86521 PRISCILA FRANCOIS N 7 [facility] GLYCOSYLA [place] [address] PRISCILA PRISCILA FREE 7 [facility] [place] [address] PRISCILA RICHARDSONON THYROID 7 [facility] STIMULATI INC INC NG HORMONE TSH LIPID 37046 [facility] FRANCOIS PANEL 7 [facility] INC BLOOD 65044 PRISC[facility] FRANCOIS COUNT 7 [facility] COMPLETE INC INC AUTO&AUTO DIFRNTL WBC COMPREHEN 21751 PRISCILA RICHAR[facility]ONON SIVE 7 [facility] METABOLIC INC INC PANEL COLLECTIO 74671 PRISCILA FRANCOIS N VENOUS 7 [facility] BLOOD INC INC VENIPUNCT URE COLLECTIO 06045 PRISCILA RICHARDSONON N VENOUS 7 [facility] BLOOD INC INC VENIPUNCT URE THERAPEUT 98544 PRISCILA FRANCOIS IC 7 [facility] PROPHYLAC INC INC TIC/DX INJECTION SUBQ/IM PROTHROMB 88700 PRISCILA PRISCILA IN TIME 7 [facility] INC PROTHROMB 07718 FAMILY MULBERRY IN TIME 6 CARE MAURILIO ASSOCIATE S COLLECTIO 48434 FAMILY MULBERRY N 6 CARE MAURILIO CAPILLARY ASSOCIATE BLOOD S SPECIMEN COLLECTIO 67418 FAMILY MULBERRY N 6 CARE MAURILIO CAPILLARY ASSOCIATE BLOOD S SPECIMEN PROTHROMB 92654 FAMILY MULBERRY IN TIME 6 CARE MAURILIO ASSOCIATE S ECG 96823 PRISCILA MAYER ROUTINE 6 [facility] W/LEAST P 12 LDS I&R ONLY CONTINUOU E0601 VIKRAM SUE S 6 HOME HOME POSITIVE MEDICAL MEDICAL AIRWAY EQUIPME EQUIPME PRESSURE DEVICE COLLECTIO 70038 FAMILY CROWDY N 6 CARE CRI CAPILLARY ASSOCIATE BLOOD S SPECIMEN BLOOD 90092 FAMILY CRISTOPHERDY COUNT 6 CARE CRI COMPLETE ASSOCIATE AUTO&AUTO S DIFRNTL WBC PROTHROMB 09849 FAMILY RHONDA IN TIME 6 CARE TAR ASSOCIATE S COLLECTIO 71848 FAMILY RHONDA N 6 CARE TAR CAPILLARY ASSOCIATE BLOOD S SPECIMEN CONTINUOU E0601 VIKRAM SUE S 6 HOME HOME POSITIVE MEDICAL MEDICAL AIRWAY EQUIPME EQUIPME PRESSURE DEVICE COLLECTIO 89625 FAMILY RHONDA N 6 CARE TAR CAPILLARY ASSOCIATE BLOOD S SPECIMEN PROTHROMB 78301 FAMILY RHONDA IN TIME 6 CARE TAR ASSOCIATE S IIV4 VACC 10452 FAMILY MATHEWSGATE SPLIT 6 CARE TAR VIRUS 0.5 ASSOCIATE ML DOS S FOR IM USE BLOOD 55079 FAMILY CRISTOPHERDY COUNT 6 CARE CRI COMPLETE ASSOCIATE AUTO&AUTO S DIFRNTL WBC COLLECTIO 91379 FAMILY CRISTOPHERDY N 6 CARE CRI CAPILLARY ASSOCIATE BLOOD S SPECIMEN IADNA 68790 [facility] ER JR LANEY GONORRHOE AE AMPLIFIED PROBE TQ CYTP C/V 80298 [facility], [facility] AUT[facility] THIN [facility] JR LANEY LYR PREPJ SCR MNL RESCR PHYS LOCM Q9967 [phone] MG/ML [facility] IODINE CONCENTRA TION PER ML IADNA 97570 [facility], [facility] CHLAMYD[facility] ER JR L[place] [address] [facility] ANGIOGRAP 6 [facility]ALTH [facility]ALTH HY CHEST [facility] W/CONTRAS T/NONCONT RAST PROTHROMB 12930 FAMILY MATHEWSGATE IN TIME 6 CARE TAR ASSOCIATE S COLLECTIO 95593 FAMILY RHONDA N 6 CARE TAR CAPILLARY ASSOCIATE BLOOD S SPECIMEN APPL 71845 [place] MODALITY 6 ROXI ROXI 1/> AREAS ELEC STIMJ UNATTENDE D CHIROPRAC 93138 [place] TIC 6 ROXI ROXI MANIPLTV TX EXTRASPIN AL 1/> REGION RADIOLOGI 14211 [place] LOCKE ALL C EXAM 6 MEDICAL CHEST 2 IMAGING VIEWS ASS FRONTAL&L ATERAL MANUAL 43572 [place] THERAPY 6 ROXI ROXI TQS 1/> REGIONS EACH 15 MINUTES CHIROPRAC 55116 [place] TIC 6 ROXI ROXI MANIPULAT CARLOS TX SPINAL 3-4 REGIONS APPL 51481 [place] MODALITY 6 ROXI ROXI 1/> AREAS ULTRASOUN D EA 15 MIN TUBING A7037 VIKRAM VANDANA USED WITH 6 HOME KEMI POSITIVE MEDICAL AIRWAY EQUIPME PRESSURE DEVICE PROTHROMB 67974 FAMILY RHONDA IN TIME 6 CARE TAR ASSOCIATE S HUMDIFIR E0562 VIKRAM VANDANA HEATED 6 HOME KEMI USED MEDICAL W/POS EQUIPME ARWAY PRESSURE DEVICE FULL FACE A7030 VIKRAM SOWDEN MASK 6 HOME KASSANDRA USED MEDICAL W/POS EQUIPME ARWAY PRESS DEVICE EA FILTER A7038 VIKRAM VANDANA DISPBL 6 HOME KEMI USED MEDICAL W/POS EQUIPME ARWAY PRESSURE DEVICE FILTER A7039 VIKRAM VANDANA NON 6 HOME KEMI DISPBL MEDICAL USED EQUIPME W/POS ARWAY PRESS DEVICE CONTINUOU E0601 VIKRAM O'GRETCHEN S 6 HOME MOL POSITIVE MEDICAL AIRWAY EQUIPME PRESSURE DEVICE HEADGEAR A7035 VIKRAM SOWDEN USED 6 HOME KASSANDRA W/POSITIV MEDICAL E AIRWAY EQUIPME PRESSURE DEVICE COLLECTIO 06274 FAMILY RHONDA N 6 CARE TAR CAPILLARY ASSOCIATE BLOOD S SPECIMEN APPL 17094 LUK[facility] LUKING MODALITY 6 ROXI ROXI 1/> AREAS ELEC STIMJ UNATTENDE D APPL 71907 [facility]UK[facility] MODALITY 6 ROXI ROXI 1/> AREAS TRACTION MECHANICA L CHIROPRAC 38237 [place] [place]UK[place] TIC 6 ROXI ROXI MANIPLTV TX EXTRASPIN AL 1/> REGION APPL 96132 LUKING LUKING MODALITY 6 ROXI ROXI 1/> AREAS ULTRASOUN D EA 15 MIN CHIROPRAC 01586 LUKING LUKING TIC 6 ROXI ROXI MANIPULAT CARLOS TX SPINAL 3-4 REGIONS MANUAL 74763 LUKING LUKING THERAPY 6 ROXI ROXI TQS 1/> REGIONS EACH 15 MINUTES MANUAL 22388 LUKING LUKING THERAPY 6 ROXI ROXI TQS 1/> REGIONS EACH 15 MINUTES CHIROPRAC 27378 LUKING LUKING TIC 6 ROXI ROXI MANIPULAT CALROS TX SPINAL 3-4 REGIONS APPL 80876 LUKING LUKING MODALITY 6 ROXI ROXI 1/> AREAS ULTRASOUN D EA 15 MIN APPLICATI 20469 LUKING LUKING ON 6 ROXI ROXI MODALITY 1/> AREAS HOT/COLD PACKS PROTHROMB 41469 FAMILY RHONDA IN TIME 6 CARE TAR ASSOCIATE S APPL 86695 LUKING LUKING MODALITY 6 ROXI ROXI 1/> AREAS ELEC STIMJ UNATTENDE D COLLECTIO 08228 FAMILY RHONDA N 6 CARE TAR CAPILLARY ASSOCIATE BLOOD S SPECIMEN VOLUME 29397 COMBINED COMBINED MEASUREME 6 PHYSICIAN PHYSICIAN NT TIMED S LA S LA COLLECTIO N EACH URNLS DIP 69870 COMBINED COMBINED 6 PHYSICIAN PHYSICIAN STICK/TAB S LA S LA LET REAGENT AUTO MICROSCOP Y CULTURE 48212 COMBINED COMBINED BACTERIAL 6 PHYSICIAN PHYSICIAN S LA S LA QUANTTATI VE COLONY COUNT URINE CULTURE 16682 COMBINED COMBINED BACTERIAL 6 PHYSICIAN PHYSICIAN S LA S LA QUANTTATI VE COLONY COUNT URINE APPL 97252 LUKING LUKING MODALITY 6 ROXI ROXI 1/> AREAS ULTRASOUN D EA 15 MIN MANUAL 79451 LUKING LUKING THERAPY 6 ROXI ROXI TQS 1/> REGIONS EACH 15 MINUTES APPLICATI 58988 LUKING LUKING ON 6 ROXI ROXI MODALITY 1/> AREAS HOT/COLD PACKS APPL 94732 LUKING LUKING MODALITY 6 ROXI ROXI 1/> AREAS ELEC STIMJ UNATTENDE D APPL 53544 LUKING LUKING MODALITY 6 ROXI ROXI 1/> AREAS ELEC STIMJ UNATTENDE D APPLICATI 83929 LUKING LUKING ON 6 ROIX ROXI MODALITY 1/> AREAS HOT/COLD PACKS APPL 64551 LUKING LUKING MODALITY 6 ROXI ROXI 1/> AREAS ULTRASOUN D EA 15 MIN MANUAL 76142 LUKING LUKING THERAPY 6 ROXI ROXI TQS 1/> REGIONS EACH 15 MINUTES CHIROPRAC 47400 LUKING LUKING TIC 6 ROXI ROXI MANIPULAT CARLOS [place] SPINAL 3-4 REGIONS CULTURE 10137 COMBINED COMBINED BACTERIAL 6 PHYSICIAN PHYSICIAN S LA S LA QUANTTATI VE COLONY COUNT URINE BLOOD 43055 FAMILY CROWDY COUNT 6 CARE CRI COMPLETE ASSOCIATE AUTO&AUTO S DIFRNTL WBC PROTHROMB 78535 FAMILY CROWDY IN TIME 6 CARE CRI ASSOCIATE S COLLECTIO 74044 FAMILY CROWDY N 6 CARE CRI CAPILLARY ASSOCIATE BLOOD S SPECIMEN APPL 12631 LUKING LUKING MODALITY 6 ROXI ROXI 1/> AREAS ELEC STIMJ UNATTENDE D APPLICATI 22526 LUKING LUKING ON 6 ROXI ROXI MODALITY 1/> AREAS HOT/COLD PACKS MANUAL 36790 LUKING LUKING THERAPY 6 ROXI ROXI TQS 1/> REGIONS EACH 15 MINUTES CHIROPRAC 05619 LUKING LUKING TIC 6 ROXI ROXI MANIPULAT CARLOS [place] SPINAL 3-4 REGIONS PROTHROMB 91057 FAMILY RHONDA IN TIME 6 CARE TAR ASSOCIATE S COLLECTIO 01825 FAMILY RHONDA N 6 CARE TAR CAPILLARY [place] B[place] [address] VIRTUAL VALERIA GOL TRANSVAGI 6 RADIOLOGI NAL C PROFESSIO COLLECTIO 58874 FAMILY MULBERRY N 6 CARE MAURILIO CAPILLARY ASSOCIATE BLOOD S SPECIMEN PROTHROMB 76850 FAMILY MULBERRY IN TIME 6 CARE MAURILIO ASSOCIATE S MOTION PICTURE SET UP WORKER STDY 41930 [facility] FR[facility]COIS UNATND 6 [facility] W/HRT INC INC RATE/O2 SAT/RESP/ MOTION PICTURE SET UP WORKER TIME PROTHROMB 51112 FAMILY CROWDY IN TIME 6 CARE CRI ASSOCIATE S CULTURE 22294 COMBINED COMBINED BACTERIAL 6 PHYSICIAN PHYSICIAN S LA S LA QUANTTATI VE COLONY COUNT URINE PROTHROMB 50736 FAMILY DELA CRUZ IN TIME 6 CARE CRI ASSOCIATE S COLLECTIO 56317 FAMILY LANIE N 6 CARE CRI CAPILLARY ASSOCIATE BLOOD S SPECIMEN THERAPEUT 47202 FAMILY ELLIS IC 6 CARE TAR PROPHYLAC ASSOCIATE TIC/DX S INJECTION SUBQ/IM INJECTION J1030 FAMILY ELLIS 6 CARE TAR METHYLPRE ASSOCIATE DNISOLONE S ACETATE 40 MG PROTHROMB 39473 FAMILY ELLIS IN TIME 6 CARE TAR ASSOCIATE S XTRNL ECG 25071 [facility] MAYER 6 [facility] S RHYTHM P W/I&R UP TO [address] [place] [address] WORSHIP WORSHIP TROPONIN 6 [facility] QUANTITAT [facility] CARLOS ECG 13609 WORSHIP WORSHIP ROUTINE 6 [facility] ECG [facility] W/LEAST 12 LDS TRCG ONLY W/O I&[place] [address] WORSHIP WORSHIP MAGNESIUM 6 [facility] RADIOLOGI 22677 WORSHIP WORSHIP C 6 [facility] EXAMINATI [facility] ON CHEST SINGLE VIEW FRONTAL PROTHROMB 79764 WORSHIP WORSHIP IN TIME 6 [facility] ECG 03931 [facility] ROUTINE 6 EMERGENCY ECG PHYS PSC W/LEAST 12 LDS I&R ONLY BLOOD 58028 WORSHIP WORSHIP COUNT 6 [facility] COMPLETE [facility] AUTO&AUTO DIFRNTL WBC COMPREHEN 34750 WORSHIP WORSHIP SIVE 6 [facility] METABOLIC [facility] PANEL COLLECTIO 29672 WORSHIP WORSHIP N VENOUS 6 [facility] BLOOD [facility] VENIPUNCT URE DETERMINA 91300 [facility] E [facility] OPHTHALMO 11140 RAJ ESCALANTEY 6 [facility], RETINAL [facility]. DRAWING I&R 1ST PROTHROMB 89153 FAMILY DELA CRUZ IN TIME 6 BARN AND PROPERTY MANAGER S, PSC COLLECTIO 29905 FAMILY CROWDY N 6 CARE CAPILLARY ASSOCIATE BLOOD S, PSC SPECIMEN COMPUTERI 32597 RAJ VALLE ZED 6 [facility]AL[facility], C IMAGING P.S.C. OPTIC NERVE VISUAL 03089 RAJ VALLE FIELD XM 6 [facility] UNI/BI CENTER, W/INTERP P.S.C. EXTENDED EXAM PROTHROMB 30268 FAMILY RHONDA IN TIME 6 CARE TAR ASSOCIATE S COLLECTIO 67466 FAMILY RHONDA N 6 CARE TAR CAPILLARY ASSOCIATE BLOOD S SPECIMEN OPHTHALMO 51665 RAJ VALLE SCPY 6 [facility], RETINAL [facility] DRAWING I&R 1ST DETERMINA 58784 RAJ MARADIAGAON 6 [facility] BLOOD 37984 WORSHIP WORSHIP COUNT 6 [facility] COMPLETE [facility] AUTO&AUTO DIFRNTL WBC PROTHROMB 32343 WORSHIP WORSHIP IN TIME 6 [facility] THROMBOPL 68781 WORSHIP WORSHIP ASTIN 6 [facility] TIME [facility] PARTIAL PLASMA/WH OLE BLOOD COLLECTIO 85251 WORSHIP WORSHIP N VENOUS 6 [facility] BLOOD [facility] VENIPUNCT URE COLLECTIO 68934 FAMILY CROWDY N 6 CARE CAPILLARY ASSOCIATE BLOOD S, PSC SPECIMEN PROTHROMB 34179 FAMILY CROWDY IN TIME 6 BARN AND PROPERTY MANAGER S, PSC BLOOD 31812 FAMILY CROWDY COUNT 6 CARE COMPLETE ASSOCIATE AUTO&AUTO S, PSC DIFRNTL WBC PROTHROMB 19247 FAMILY RHONDA IN TIME 6 CARE TAR ASSOCIATE S COLLECTIO 16717 FAMILY RHONDA N 6 CARE TAR CAPILLARY ASSOCIATE BLOOD S SPECIMEN COLLECTIO 65651 FAMILY RHONDA N 6 CARE TAR CAPILLARY ASSOCIATE BLOOD S SPECIMEN PROTHROMB 81630 FAMILY RHONDA IN TIME 6 CARE TAR ASSOCIATE S PROTHROMB 67066 FAMILY RHONDA IN TIME 6 CARE TAR ASSOCIATE S COLLECTIO 55322 FAMILY RHONDA N 6 CARE TAR CAPILLARY ASSOCIATE BLOOD S SPECIMEN COLLECTIO 95559 FAMILY CROWDY N 6 CARE CAPILLARY ASSOCIATE BLOOD S SPECIMEN PROTHROMB 20009 FAMILY CROWDY IN TIME 6 BARN AND PROPERTY MANAGER S PROTHROMB 63343 PRISC[facility]A FRANCOIS IN TIME 6 [facility] INC INC BLOOD 24780 PRISCILA PRISCILA OCCULT 6 [facility] PEROXIDAS INC INC E ACTV QUAL FECES 1-3 SPEC BLOOD 81692 PRISCILA COURTNEY COUNT 6 [facility] HOR COMPLETE INC AUTO&AUTO DIFRNTL WBC URNLS DIP 18931 [facility] FRANCOIS 6 [facility] STICK/TAB INC INC LET REAGENT AUTO MICROSCOP Y BASIC 91315 PRISCILA PRISCILA METABOLIC 6 [facility] PANEL INC INC CALCIUM TOTAL URINE 31935 PRISCILA PRISCILA 6 [facility] TEST INC INC VISUAL COLOR CMPRSN METHS IAADIADOO 52872 [facility] MEÑO 6 PHYSICIAN SUNI STREPTOCO S GROUP CCUS GROUP A PROTHROMB 14333 FAMILY MULBERRY IN TIME 6 BARN AND PROPERTY MANAGER S COLLECTIO 92221 FAMILY MULBERRY N 6 CARE CAPILLARY ASSOCIATE BLOOD S SPECIMEN BLOOD 31100 FAMILY FAMILY COUNT 6 CARE CARE COMPLETE ASSOCIATE ASSOCIATE AUTO&AUTO S S DIFRNTL WBC BASIC 16482 COMBINED COMBINED METABOLIC 6 PHYSICIAN PHYSICIAN PANEL S LA S LA CALCIUM TOTAL ECG 37874 PRISCILA BOLANOS JR ROUTINE 6 [facility] W/LEAST P 12 LDS I&R ONLY PROTHROMB 69184 FAMILY CROWDY IN TIME 6 BARN AND PROPERTY MANAGER S RADIOLOGI 18539 [place] LOCKE ALL C 6 MEDICAL EXAMINATI IMAGING ON CHEST ASS SINGLE VIEW FRONTAL COLLECTIO 46735 FAMILY CROWDY N 6 CARE CAPILLARY ASSOCIATE BLOOD S SPECIMEN SMR PRIM 77042 [facility] SR[facility] WET 6 PHYSICIAN Y[place] S GROUP NFCT AGT PROTHROMB 41903 FAMILY CROWDY IN TIME 6 CARE CRI ASSOCIATE S PROTHROMB 20417 FAMILY CROWDY IN TIME 6 BARN AND PROPERTY MANAGER S COLLECTIO 29861 FAMILY CROWDY N 6 CARE CAPILLARY ASSOCIATE BLOOD S SPECIMEN RADEX 21794 RAJ LOCKE ALL FOOT 6 MEDICAL COMPLETE IMAGING MINIMUM 3 ASS VIEWS PROTHROMB 54502 FAMILY CROWDY IN TIME 6 BARN AND PROPERTY MANAGER S COLLECTIO 42797 FAMILY CROWDY N 6 CARE CAPILLARY ASSOCIATE BLOOD S SPECIMEN COLLECTIO 91156 FAMILY CROWDY N 6 CARE CRI CAPILLARY ASSOCIATE BLOOD S SPECIMEN PROTHROMB 09754 FAMILY CROWDY IN TIME 6 CARE CRI ASSOCIATE S PROTHROMB 72040 FAMILY CROWDY IN TIME 6 CARE CRI ASSOCIATE S PROTHROMB 04764 FAMILY CROWDY IN TIME 6 CARE CRI ASSOCIATE S URINE 46322 [facility] CARLITO 5 PHYSICIAN YVAN TEST S GROUP VISUAL COLOR CMPRSN METHS INSERTION 56660 [facility] CARLITO 5 PHYSICIAN YVAN INTRAUTER S GROUP INE DEVICE IUD LEVONORGE J7302 [facility] CARLITO STREL-RLS 5 PHYSICIAN YVAN E S GROUP INTRAUTER N CNTRACPT 52 MG BLOOD 59055 FAMILY MULBERRY COUNT 5 CARE MAURILIO COMPLETE ASSOCIATE AUTO&AUTO S DIFRNTL WBC SERVICES 11600 FAMILY FAMILY PROVIDED 5 CARE CARE CLEARING HOUSE CLERK ASSOCIATE OT/RADHA S S REG SCHED HOURS PROTHROMB 37093 FAMILY CROWDY IN TIME 5 CARE CRI ASSOCIATE S OPHTH 70320 [facility] MEDICAL 5 ANG ANG XM&EVAL COMPRHNSV ESTAB PT 1/> SIMPLE 41728 PR[facility] FRANCOIS REPAIR 5 [facility] F/E/E/N/L INC INC /M 2.6CM-5.0 CM PROTHROMB 63704 FAMILY MARIAN IN TIME 5 CARE YARI ASSOCIATE S PROTHROMB 74761 FAMILY CROWDY IN TIME 5 CARE CRI ASSOCIATE S PROTHROMB 50545 FAMILY CROWDY IN TIME 5 CARE CRI ASSOCIATE S CULTURE 45461 COMBINED COMBINED BACTERIAL 5 PHYSICIAN PHYSICIAN S LA S LA QUANTTATI VE COLONY COUNT URINE CULTURE 09450 COMBINED COMBINED BCT 5 PHYSICIAN PHYSICIAN ISOL&PRSM S LA S LA PTV ID ISOLATE EA URINE SUSCEPTIB 19543 COMBINED COMBINED ILITY 5 PHYSICIAN PHYSICIAN STUDY S LA S LA ANTIMICRO BIAL DISK METHOD PROTHROMB 17766 FAMILY CROWDY IN TIME 5 CARE CRI ASSOCIATE S PROTHROMB 05351 FAMILY CROWDY IN TIME 5 CARE CRI ASSOCIATE S BLOOD 00035 FAMILY FAMILY COUNT 5 CARE CARE COMPLETE ASSOCIATE ASSOCIATE AUTO&AUTO S S DIFRNTL WBC PROTHROMB 84108 FAMILY MARIAN IN TIME 5 CARE YARI ASSOCIATE S RADIOLOGI 96996 [facility] C EXAM 5 [facility] CHEST 2 MEDICAL VIEWS GROUP FRONTAL&L ATERAL PROTHROMB 91512 FAMILY FAMILY IN TIME 5 CARE BARN AND PROPERTY MANAGER ASSOCIATE S S PROTHROMB 30650 FAMILY MULBERRY IN TIME 5 CARE MAURILIO ASSOCIATE S PROTHROMB 71798 [facility] IN TIME 5 [facility]OS[facility] HOSP COLLECTIO 77894 [facility] N VENOUS 5 WORSHIP WORSHIP BLOOD HOSP HOSP VENIPUNCT URE COLLECTIO 39034 [facility] N VENOUS 5 WORSHIP WORSHIP BLOOD HOSP HOSP VENIPUNCT URE RADEX 88152 [facility] WELCH MAR STERNUM 5 RADIOLOGY MINIMUM 2 ASSOC VIEWS PROTHROMB 86505 [facility] IN TIME 5 [facility] RAD[facility] 57014 [facility] MALLOY C 5 RADIOLOGY III JAM EXAMINATI ASSOC ON CHEST SINGLE VIEW FRONTAL SBSQ [address]/DAY MEDICAL 15 GROUP MINUTES SBSQ [address]/DAY MEDICAL 25 GROUP MINUTES RADIOLOGI 36965 [facility] MALLOY C 5 RADIOLOGY III JAM EXAMINATI ASSOC ON CHEST SINGLE VIEW FRONTAL RADIOLOGI 97215 [facility] MALLOY C 5 RADIOLOGY III JAM EXAMINATI ASSOC ON CHEST SINGLE VIEW FRONTAL SBSQ [address]/DAY MEDICAL 15 GROUP MINUTES SBSQ [address]4466 [place] [address] [facility]ALTH RUPINDER CARE/DAY MEDICAL 25 GROUP MINUTES RADIOLOGI 28566 [facility] RICE N. C 5 RADIOLOGY EXAMINATI ASSOC ON CHEST SINGLE VIEW FRONTAL ECG 88420 [facility] ROUTINE 5 HEALTH MANDEEP ECG MEDICAL W/LEAST GROUP 12 LDS I&R ONLY ECG 62193 [place] [facility] ROUTINE 5 [facility] GRANT ECG SPECIALIS W/LEAST TS, 12 LDS I&R ONLY RADIOLOGI 70932 [facility] PALENC[place] ADA C 5 RADIOLOGY EXAMINATI ASSOC ON CHEST SINGLE VIEW FRONTAL SBSQ [address] CARE/DAY MEDICAL 25 GROUP MINUTES SBSQ [address] CARE/DAY MEDICAL 35 [place] [address] CHIPPS KULDIP KEMI SURG 5 ADOLFO & [facility] GROSS&SUNI ROSCOPIC EXAM US VASC 12974 [facility] ACCESS 5 [place] SITS VSL ANESTHESI PATENCY A NDL ENTRY RPLCMT 59574 [facility] PROST 5 [facility] DEN AORTIC MEDICAL VALVE GROUP OPEN XCP HOMOGRF/S TENT RADIOLOGI 84180 [facility] FONTANA C 5 RADIOLOGY OSWALDO EXAMINATI ASSOC ON CHEST SINGLE VIEW FRONTAL DOPPLER 65796 [facility] ECHOCARD 5 [place] PULSE ANESTHESI WAVE A W/SPECTRA L DISPLAY INSERTION 72155 [facility] FLOW 5 [place] DIRECTED ANESTHESI CATHETER A FOR MONITORIN G ANES HRT 20860 [facility] PERICRD 5 [place] SAC&GRT ANESTHESI VSLS A W/CAR AND YARD SUPERVISOR OXTJ >1MO PO ECHO 80825 [facility] TRANSESOP 5 [place] HAG R-T ANESTHESI 2D W/PRB A IMG ACQUISJ I&R DOP 24985 [facility] ECHOCARD 5 [place] COLOR ANESTHESI FLOW A VELOCITY MAPPING ECG 51323 [facility] ECG MEDICAL W/LEAST GROUP 12 LDS I&R ONLY ARTL 20609 [facility] SHAUNA CATHJ/CAN 5 [facility] NULJ ANESTHESI MNTR/MCKEE A SFUSION SPX PRQ ECG 33207 WOR[facility] GRACY ROUTINE 5 HEALTH MANDEEP ECG MEDICAL W/LEAST GROUP 12 LDS I&R ONLY SPMTRY 87469 WORSHIP BIGGS W/VC 5 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 CARE OF Y HERMELINDA WERNER W/WO MXML VOL VNTJ CT THORAX 61702 [facility] RICE N. 5 RADIOLOGY W/CONTRAS ASSOC T MATERIAL LOCM Q9967 [facility] CENTRAL 300-399 5 WORSHIP WORSHIP MG/ML HOSP HOSP IODINE CONCENTRA TION PER ML SBSQ 56386 [facility] MANRIQUE OBSERVATI 5 NURSE KASSANDRA ON PRACTITIO CARE/DAY NER GR 25 MINUTES RADIOLOGI 86746 [place] CHARLY C EXAM 5 MEDICAL CHARLES CHEST 2 SERV VIEWS FOUNDATIO FRONTAL&L N ATERAL ECHO 72750 [place] HANANE TTHRC R-T 5 MEDICAL LU EMMANUELLE 2D SERV W/WOM-MOD FOUNDATIO E COMPL N SPEC&COLR D URNLS DIP 22523 [facility] FRANCOIS 5 [facility] STICK/TAB INC INC LET REAGENT AUTO MICROSCOP Y URINE 18805 PR[facility] FRANCOIS 5 [facility] TEST INC INC VISUAL COLOR CMPRSN METHS CYTP C/V 54228 [facility] LABS, PICKLESIM AUTO THIN 5 LLC ER JR LANEY LYR PREPJ SCR MNL RESCR PHYS BLOOD 50804 FAMILY FAMILY COUNT 5 CARE CARE COMPLETE ASSOCIATE ASSOCIATE AUTO&AUTO S S DIFRNTL WBC LIFT ELEV L3332 [place] INSIDE 5 SHOE TAPERED UP ONE-HALF INCH IADNA 30203 P&C NAT MONSON TER CHLAMYDIA 5 LLC TRACHOMAT IS AMPLIFIED PROBE TQ IADNA 02387 P&C NAT MOSNON TER NEISSERIA 5 LLC GONORRHOE AE AMPLIFIED PROBE TQ INJECTION J1040 [facility] NANO 5 PHYSICIAN SUNI METHYLPRE S GROUP DNISOLONE ACETATE 80 MG THERAPEUT 03846 [facility] NANO IC 5 PHYSICIAN SUNI PROPHYLAC S GROUP TIC/DX INJECTION SUBQ/IM HEMOGLOBI 12883 FAMILY CROWDY N 5 CARE CRI GLYCOSYLA [place] [address] FAMILY CROWDY THYROID 5 CARE CRI STIMULATI ASSOCIATE NG S HORMONE TSH 25 85853 COMBINED COMBINED HYDROXY 5 PHYSICIAN PHYSICIAN INCLUDES S LA S LA FRACTIONS IF PERFORMED CYANOCOBA 95743 COMBINED COMBINED MACARENA 5 PHYSICIAN PHYSICIAN VITAMIN S LA S LA B-12 LIPID 24080 FAMILY CROWDY PANEL 5 CARE CRI ASSOCIATE S COMPREHEN 37218 COMBINED COMBINED SIVE 5 PHYSICIAN PHYSICIAN METABOLIC S LA S LA PANEL COLLECTIO 91206 FAMILY CROWDY N 5 CARE CRI CAPILLARY ASSOCIATE BLOOD S SPECIMEN COLLECTIO 99903 FAMILY CROWDY N VENOUS 5 CARE CRI BLOOD ASSOCIATE VENIPUNCT S URE BLOOD 17219 FAMILY FAMILY COUNT 4 CARE CARE COMPLETE ASSOCIATE ASSOCIATE AUTO&AUTO S S DIFRNTL WBC BLOOD 04283 [facility] FR[facility]COIS COUNT 4 [facility] COMPLETE INC INC AUTO&[place] [address] PRISC[facility] FRANCOIS INFUSION 4 [facility] THERAPY/P INC INC ROPHYLAXI S /DX 1ST TO 1 HR URNLS DIP 75562 [facility] FRANCOIS 4 [facility] STICK/TAB INC INC LET REAGENT AUTO MICROSCOP Y URINE 69127 [facility] FRANCOIS 4 [facility] TEST INC [place] [address] PRISCILA FRANCOIS ABDOMEN & 4 [facility] PELVIS INC INC W/O CONTRAST MATERIAL COMPREHEN 07248 [facility] FRANCOIS SIVE 4 [facility] METABOLIC INC INC PANEL Encounters Encounter Start End Date Code Location Performer Type Date OFFICE 19902 [facility] OUT[facility] 7 7 HEALTH T VISIT MEDICAL 15 GROUP MINUTES [facility] - 7 7 [facility] OUTPATI[facility] [place] T OFFICE 42366 [facility] OUTPATIEN 7 7 NE [facility] T VISIT MEDICAL 15 G MINUTES OFFICE 73390 [facility] OUT[facility]IEN 7 7 HEALTH T VISIT 5 [place] MINUTES OFFICE 39806 [facility] OUTPATIEN 7 7 HEALTH T VISIT 5 [facility] WORSHIP - 7 7 HEALTH OUTPATIEN [facility] WORSHIP - 7 7 HEALTH OUTPATIEN [place] T EMERGENCY 12128 [facility] 7 7 HEALTH DEPARTMEN [facility] VISIT HIGH/URGE NT SEVERITY EMERGENCY 43919 [facility] DE[facility] 7 7 EMERGENCY VISIT PHYS PSC HIGH SEVERITY& THREAT FUNCJ OFFICE 12609 [facility] OUTPATIEN 7 7 HEALTH T VISIT 5 [place] MINUTES OFFICE 26819 [facility] OUTPATIEN 7 7 HEALTH T VISIT 5 [place] MINUTES OFFICE 64074 [facility] OUTPATIEN 7 [facility] V[facility] OFFICE 21412 [facility] OUTPATI[facility] 7 7 NE HEALTH T VISIT MEDICAL 25 G MINUTES HOSPITAL WOR[facility] - 7 7 [facility]EN [facility] OFF[facility] 40358 [facility] OUTPATIEN 7 7 HEALTH T VISIT 5 [place] MINUTES OFFICE 42875 [facility] OUTPATIEN 7 7 HEALTH T VISIT 5 [place] MINUTES OFFICE 36298 [facility] OUTPATIEN 7 7 HEALTH T VISIT 5 [place] MINUTES OFFICE 21768 [facility] OUTPATIEN 7 7 FAMILY T NEW 30 CHIROPRAC MINUTES TOR OFFICE 58681 [facility] ATKINS OUTPATIEN 7 7 HEALTH T VISIT MEDICAL 25 GROUP MINUTES OFFICE 51604 [facility] OUTPATIEN 7 7 [facility] T VISIT 5 INC MINUTES HOSPITAL PR[facility]A - 7 7 [facility] OUTPATIEN INC T OFFICE 28724 [facility] OUTPATI[facility] 7 7 NE HEALTH T NEW 45 MEDICAL MINUTES G OFFICE 26965 [facility] 7 7 MEDICINE T VISIT [place] [facility] MINUTES [facility] WOR[facility] - 7 7 HEALTH OUTPATIEN [place] T EMERGENCY 04203 WOR[facility] 7 7 HEALTH DEPARTMEN [place] T VISIT HIGH/URGE NT SEVERITY EMERGENCY 26776 [facility] DEPT 7 7 EMERGENCY VISIT PHYS PSC HIGH SEVERITY& THREAT FUNCJ EMERGENCY 85398 [facility] DEPT 7 7 EMERGENCY VISIT PHYS PSC HIGH SEVERITY& THREAT FUN HOSPITAL WORSHIP - 7 7 HEALTH OUTPATIEN [place] T OFFICE 95371 [facility] ESTEBAN OUTPATIEN 7 7 PHYSICIAN T VISIT S GROUP 15 MINUTES EMERGENCY 37145 [facility]URGE NT SEVERITY OFFICE 45432 [facility]IEN 7 7 [facility] T VISIT 5 INC MINUTES HOSPITAL PR[facility] - 7 7 [facility] OUTPATIEN INC T OFFICE 79879 [facility] 7 7 [facility] 65952 [facility] OUTPATIEN 7 7 [facility] T VISIT 5 INC MINUTES HOSPITAL PRISCILA - 7 7 [facility] OUTPATIEN INC T EMERGENCY 45015 [facility] DE[facility] 7 7 EMERGENCY VISIT PHYS PSC HIGH SEVERITY& THREAT FUNCJ EMERGENCY 71789 [facility] 7 7 HEALTH DEPARTMEN [place] T VISIT HIGH/URGE NT SEVERITY [facility] OUTPATIEN INC T OFFICE 92528 [facility] [place] OUTPATIEN 7 7 PHYSICIAN T VISIT S GROUP 15 MINUTES HOSPITAL PRISC[facility]A - 7 7 [facility] OUTPATIEN INC T OFFICE 85473 [facility] OUTPATIEN 7 7 [facility] T VISIT 5 INC MINUTES [facility] PRISCIL[facility] - 7 7 [facility] OUTPATIEN INC T OFFICE 65566 [facility] FRYMAN OUTPATIEN 7 7 PHYSICIAN T NEW 30 S GROUP [facility] PRISCILA - 7 7 [facility] OUTPATIEN INC T EMERGENCY 34914 [facility] 7 7 [facility] DEPARTMEN INC T VISIT LOW/MODER SEVERITY OFFICE 71579 FAMILY MULBERRY OUTPATIEN 6 6 CARE MAURILIO T VISIT ASSOCIATE 10 S MINUTES OFFICE 13984 [facility] MARY OUTPATIEN 6 6 PHYSICIAN T VISIT GROUP 25 MINUTES OFFICE 42415 FAMILY MULBERRY OUTPATIEN 6 6 CARE MAURILIO T VISIT ASSOCIATE 10 S MINUTES OFFICE 55440 FAMILY RHONDA OUTPATIEN 6 6 CARE TAR T VISIT ASSOCIATE 15 S MINUTES OFFICE 06753 FAMILY CROWDY OUTPATIEN 6 6 CARE CRI T VISIT ASSOCIATE 15 S MINUTES OFFICE 64100 FAMILY CROWDY OUTPATIEN 6 6 CARE CRI T VISIT ASSOCIATE 15 S MINUTES OFFICE 52580 FAMILY RHONDA OUTPATIEN 6 6 CARE TAR T VISIT ASSOCIATE 15 S MINUTES OFFICE 64528 FAMILY RHONDA OUTPATIEN 6 6 CARE TAR T VISIT ASSOCIATE 15 S MINUTES OFFICE 07385 [facility] EVANS OUTPATIEN 6 6 HEALTH YARI T VISIT MEDICAL 10 GROUP MINUTES OFFICE 94988 FAMILY CROWDY OUTPATIEN 6 6 CARE CRI T VISIT ASSOCIATE 15 S MINUTES HOSPITAL WORSHIP - 6 6 HEALTH OUTPATIEN [place] T PERIODIC 24968 [facility] PREVENTIV 6 6 PHYSICIAN E MED EST S GROUP PATIENT 18-39 YRS OFFICE 05435 FAMILY RHONDA OUTPATIEN 6 6 CARE TAR T VISIT ASSOCIATE 15 S MINUTES OFFICE 07241 FAMILY RHONDA OUTPATIEN 6 6 CARE TAR T VISIT ASSOCIATE 15 S MINUTES OFFICE 85322 FAMILY RHONDA OUTPATIEN 6 6 CARE TAR T VISIT ASSOCIATE 15 S MINUTES OFFICE 02431 FAMILY RHONDA OUTPATIEN 6 6 CARE TAR T VISIT ASSOCIATE 15 S MINUTES OFFICE 02478 FAMILY CROWDY OUTPATIEN 6 6 CARE CRI T VISIT 5 ASSOCIATE MINUTES S OFFICE 31794 FAMILY CROWDY OUTPATIEN 6 6 CARE CRI T VISIT ASSOCIATE 15 S MINUTES EMERGENCY 16896 EMANUEL LUAN MOH 6 6 PHYSICIAN DEPARTMEN S, PLLC T VISIT MODERATE SEVERITY EMERGENCY 20234 [facility] 6 6 [facility] DEPARTMEN INC T VISIT LIMITED/M INOR PROB OFFICE 32570 [facility] OUTPATIEN 6 6 ROXI ROXI T NEW 30 MINUTES HOSPITAL PRISCILA - 6 6 [facility] OUTPATIEN INC T OFFICE 30188 FAMILY RHONDA OUTPATIEN 6 6 CARE TAR T VISIT ASSOCIATE 15 S MINUTES OFFICE 04970 [facility] ESTEBAN OUTPATIEN 6 6 PHYSICIAN YVAN T VISIT S GROUP 15 MINUTES EMERGENCY 02767 [facility] 6 6 EMERGENCY VISIT PHYS PSC HIGH SEVERITY& THREAT FUNCJ OFFICE 67952 FAMILY MULBERRY OUTPATIEN 6 6 CARE MAURILIO T VISIT ASSOCIATE 10 S MINUTES HOSPITAL PRISCILA - 6 6 [facility] OUTPATIEN INC T OFFICE 25637 FAMILY CROWDY OUTPATIEN 6 6 CARE CRI T VISIT ASSOCIATE 10 S MINUTES OFFICE 77710 FAMILY CROWDY OUTPATIEN 6 6 CARE CRI T VISIT ASSOCIATE 15 S MINUTES OFFICE 88210 FAMILY RHONDA OUTPATIEN 6 6 CARE TAR T VISIT ASSOCIATE 15 S MINUTES OFFICE 70183 [facility] T VISIT MEDICAL 25 G MINUTES OFFICE 19102 FAMILY RHONDA OUTPATIEN 6 6 CARE TAR T VISIT ASSOCIATE 15 S MINUTES EMERGENCY 15646 WORSHIP 6 6 [facility]ALTH [facility]PARTMEN [facility] T VISIT MODERATE SEVERITY HOSPITAL WORSHIP - 6 6 [facility]PATIEN [facility] T EMERGENCY 43344 [facility] 6 6 EMERGENCY DEPARTMEN PHYS PSC T VISIT HIGH/URGE NT SEVERITY OFFICE 14282 [facility] 6 [facility], [facility] MINUTES OFFICE 48758 FAMILY CROWDY OUTPATIEN 6 6 CARE T VISIT ASSOCIATE 10 S, PSC MINUTES OFFICE 34230 FAMILY RHONDA OUTPATIEN 6 6 CARE TAR T VISIT ASSOCIATE 15 S MINUTES OFFICE 26883 [facility] OUTPATIEN 6 6 [facility], MINUTES [facility] EMERGENCY 37275 WORSHIP 6 6 [facility]ALTH DEPARTMEN [place] T VISIT MODERATE SEVERITY HOSPITAL WORSHIP - 6 6 HEALTH OUTPATIEN [place] T OFFICE 85508 FAMILY CROWDY OUTPATIEN 6 6 CARE T VISIT ASSOCIATE 15 S, PSC MINUTES OFFICE 13248 FAMILY RHONAD OUTPATIEN 6 6 CARE TAR T VISIT ASSOCIATE 15 S MINUTES OFFICE 67428 FAMILY RHONDA OUTPATIEN 6 6 CARE TAR T VISIT ASSOCIATE 15 S MINUTES OFFICE 97757 FAMILY RHONDA OUTPATIEN 6 6 CARE TAR T VISIT ASSOCIATE 15 S MINUTES OFFICE [id number] FAMILY CROWDY OUTPATIEN 6 6 CARE T VISIT ASSOCIATE 15 S MINUTES EMERGENCY 58763 EMANUEL HEARD 6 6 PHYSICIAN DEPARTMEN S, PLLC T VISIT HIGH/URGE NT SEVERITY EMERGENCY 25079 [facility] 6 6 [facility] DEPARTMEN INC T VISIT MODERATE SEVERITY HOSPITAL [facility] - 6 6 [facility] OUTPATIEN INC T OFFICE 14578 [facility] MEÑO OUTPATIEN 6 6 PHYSICIAN SUNI T VISIT S GROUP 15 MINUTES OFFICE 77665 FAMILY MULBERRY OUTPATIEN 6 6 CARE T VISIT ASSOCIATE 10 S MINUTES OFFICE 61512 FAMILY MULBERRY OUTPATIEN 6 6 CARE MAURILIO T VISIT ASSOCIATE 15 S MINUTES OFFICE 70896 FAMILY CROWDY OUTPATIEN 6 6 CARE T VISIT ASSOCIATE 10 S MINUTES EMERGENCY 09409 EMANUEL MCGILL DEPT 6 6 PHYSICIAN SUNI VISIT S, PLLC HIGH SEVERITY& THREAT FUNCJ OFFICE 32010 [facility] OUTPATIEN 6 6 PHYSICIAN T VISIT S GROUP 15 MINUTES OFFICE 76812 FAMILY CROWDY OUTPATIEN 6 6 CARE CRI T VISIT ASSOCIATE 10 S MINUTES OFFICE 67715 FAMILY CROWDY OUTPATIEN 6 6 CARE T VISIT ASSOCIATE 10 S MINUTES EMERGENCY 96091 [facility] 6 6 [facility] DEPARTMEN INC T VISIT LOW/MODER SEVERITY HOSPITAL PRISCILA - 6 6 [facility] OUTPATIEN INC T EMERGENCY 55297 EMANUEL FONG 6 6 PHYSICIAN U [facility] S, PLLC T VISIT MODERATE SEVERITY OFFICE 25364 FAMILY CROWDY OUTPATIEN 6 6 CARE T VISIT ASSOCIATE 10 S MINUTES OFFICE 88854 FAMILY CROWDY OUTPATIEN 6 6 CARE CRI T VISIT ASSOCIATE 10 S MINUTES OFFICE 66733 FAMILY CROWDY OUTPATIEN 6 6 CARE CRI T VISIT ASSOCIATE 15 S MINUTES OFFICE 41186 FAMILY CROWDY OUTPATIEN 6 6 CARE CRI T VISIT ASSOCIATE 10 S MINUTES EMERGENCY 09256 [facility] CUMMINS 6 6 EMERGENCY ALLY DEPARTMEN PHYS PSC T VISIT HIGH/URGE NT SEVERITY OFFICE 11674 [facility] [address] OUTPATIEN 5 5 PHYSICIAN T VISIT S GROUP 10 MINUTES EMERGENCY 74434 [facility] 5 5 [facility] DEPARTMEN INC T VISIT LOW/MODER SEVERITY EMERGENCY 05432 EMANUEL MCGILL 5 5 PHYSICIAN [facility] DEPARTMEN S, PLLC T VISIT MODERATE SEVERITY HOSPITAL PRISCILA - 5 5 [facility] OUTPATIEN INC T OFFICE 15840 FAMILY CROWDY OUTPATIEN 5 5 CARE CRI T VISIT ASSOCIATE 10 S MINUTES OFFICE 65267 PRISCILA PETERSRON OUTPATIEN 5 5 [facility] SUNI T VISIT 5 HOSPITAL MINUTES OFFICE 87055 [facility] ESTEBAN OUTPATIEN 5 5 PHYSICIAN YVAN T VISIT S GROUP 15 MINUTES EMERGENCY 20288 [facility] 5 5 [facility] DEPARTMEN INC T VISIT MODERATE SEVERITY HOSPITAL PRISC[facility] - 5 5 [facility] OUTPATIEN INC T OFFICE 76488 FAMILY MARIAN OUTPATIEN 5 5 CARE YARI T VISIT ASSOCIATE 10 S MINUTES EMERGENCY 00066 [facility] CUMMINS 5 5 EMERGENCY ALLY DEPARTMEN PHYS PSC T VISIT HIGH/URGE NT SEVERITY OFFICE 25413 FAMILY CROWDY OUTPATIEN 5 5 CARE CRI T VISIT ASSOCIATE 10 S MINUTES OFFICE 36481 FAMILY CROWDY OUTPATIEN 5 5 CARE CRI T VISIT ASSOCIATE 15 S MINUTES OFFICE 82910 FAMILY CROWDY OUTPATIEN 5 5 CARE CRI T VISIT ASSOCIATE 10 S MINUTES OFFICE 37963 FAMILY CROWDY OUTPATIEN 5 5 CARE CRI T VISIT ASSOCIATE 15 S MINUTES OFFICE 78160 FAMILY MARIAN OUTPATIEN 5 5 CARE YARI T VISIT ASSOCIATE 15 S MINUTES OFFICE 48924 FAMILY MULBERRY OUTPATIEN 5 5 CARE MAURILIO T VISIT ASSOCIATE 15 S MINUTES OFFICE 48732 [facility] 5 [facility] V[facility] 25 G MINUTES OFFICE 67848 FAMILY MULBERRY OUTPATIEN 5 5 CARE MAURILIO T VISIT ASSOCIATE 15 S MINUTES HOSPITAL [facility] - 5 [facility] OFFICE 31581 [facility] OUTPATIEN 5 5 HEALTH T NEW 20 MEDICAL MINUTES [facility] - 5 5 [facility] OUT[facility] T EMERGENCY 70082 [facility] SPANIER 5 5 EMERGENCY MAR DEPARTMEN PHYS PSC T VISIT MODERATE SEVERITY HOSPITAL [facility] - 5 5 [facility] T OFFICE 28659 [facility]PATIEN 5 5 [facility] T VISIT MEDICAL 25 G MINUTES OFFICE 43209 [facility] 5 5 NURSE KASSANDRA MARQUEZ NEW/ESTAB NER GR PATIENT 40 MIN OFFICE 07928 [facility] OUTPATIEN 5 5 [facility] T NEW 45 MEDICAL MINUTES G EMERGENCY 98663 [facility] 5 5 [facility] DEPARTMEN INC T VISIT LOW/MODER SEVERITY HOSPITAL [facility] - 5 5 [facility] OUTPATIEN INC T OFFICE 89586 FAMILY JONA OUTPATIEN 5 5 CARE R H T VISIT ASSOCIATE 15 S MINUTES PERIODIC 29301 [facility] PREVENTIV 5 5 PHYSICIAN E MED EST S GROUP PATIENT 18-39 YRS OFFICE 72968 [facility] NANO OUTPATIEN 5 5 PHYSICIAN SUNI T VISIT S GROUP 15 MINUTES OFFICE 12243 FAMILY CROWDY OUTPATIEN 5 5 CARE CRI T VISIT ASSOCIATE 25 S MINUTES OFFICE 34497 FAMILY OUTPATIEN 4 4 CARE T VISIT ASSOCIATE 15 S MINUTES EMERGENCY 72906 [facility] 4 4 [facility] DEPARTMEN INC T VISIT MODERATE SEVERITY HOSPITAL PRISCILA - 4 4 [facility] OUTPATIEN INC T EMERGENCY 29458 PRISCILA MCGILL 4 4 [facility] T VISIT P LOW/MODER SEVERITY OFFICE 87538 PR[facility] JAIME 4 4 [facility] VISIT [facility] 15 MINUTES
--- OUTSIDE RECORDS SUMMARY | 2016-12-12 11:05 | External Medical Summary Rpt | CCD ---
Author Author , YAIMA Organization YAIMA Address Unknown Phone Care Team Providers Care Type Mapper Name Role Phone HANANE HANDLEY, Unavailable Unavailable HANANE LU EMMANUELLE AHMAD, AHMAD Unavailable Unavailable AHMAD, AHMAD Unavailable Unavailable RHONDA TAR, Unavailable Unavailable RHONDA TAR ATKINS, ATKINS Unavailable Unavailable VALERIA GOL, VALERIA GOL Unavailable Unavailable [facility] Unavailable Unavailable [facility], [facility] Unavailable Unavailable MEDICAL GROUP, [facility] Unavailable Unavailable [facility], [facility] DASILVA HELEN, DASILVA Unavailable Unavailable HELEN GRULLON TER, GRULLON TER Unavailable Unavailable BESSON MATEUSZ, BESSON Unavailable Unavailable MATEUSZ CHARLY CHARLES, Unavailable Unavailable CHARLY CHARLES LOCKE, LOCKE Unavailable Unavailable LOCKE ALL, LOCKE ALL Unavailable Unavailable MARY, MARY Unavailable Unavailable [facility] Unavailable Unavailable CHIROPRACTOR, [facility]I FAMILY CHIROPRACTOR VANDANALEI MCMULLEN, VANDANA Unavailable Unavailable KEMI [facility] Unavailable Unavailable [facility] Unavailable Unavailable [facility], [facility] Unavailable Unavailable ANESTHESIA, [facility] ANESTHESIA [facility] Unavailable Unavailable ASSOC, [...] [facility] HILARIA LOMBARDI Unavailable Unavailable KASSANDRA [facility] Unavailable Unavailable INC, [facility] Unavailable [facility]available HOSPITAL, [facility] Unavailable Unavailable HOSPITAL P, [facility] P YAO DEN, YAO Unavailable Unavailable DEN [facility], [facility] Unavailable Unavailable [facility], Unavailable Unavailable [facility], Unavailable Unavailable [facility] DUNCAN FÉLIX, DUNCAN FÉLIX Unavailable Unavailable LAW, LAW Unavailable Unavailable WILLOW, WILLOW Unavailable Unavailable JAOKO MAR, JAOKO MAR Unavailable Unavailable FONTANA OSWALDO, FONTANA Unavailable Unavailable OSWALDO [facility], Un[facility] Unavailable Unavailable [facility], [facility] Unavailable Unavailable MEDICAL G, [facility] KERN CAR, KERN CAR Unavailable Unavailable [facility] Unavailable Unavailable [place], [facility] KMS NURSE Unavailable Unavailable PRACTITIONER GR, [facility] N[facility]SE PRACTITIONER [facility] Un[facility], [facility] LUIS MIGUEL JR DWI, LUIS MIGUEL Unavailable Unavailable JR DWI [facility] Unavailable Unavailable SPECIALISTS,, [facility], LUKING ROXI, LUKING Unavailable Unavailable ROXI LUKING ROXI, LUKING Unavailable Unavailable ROXI TORI JAM, Unavailable Unavailable VALLE JAM BIGGS RUPINDER, BIGGS Unavailable Unavailable RUPINDER MULBERRY, MULBERRY Unavailable Unavailable MULBERRY MAURILIO, Unavailable Unavailable MULBERRY MAURILIO JONA R H, Unavailable Unavailable JONA R H O'GRETCHEN MOL, Unavailable Unavailable O'GRETCHEN MOL ANH, ANH Unavailable Unavailable BELIA, BELIA Unavailable Unavailable [facility], [facility], [facility] Unavailable [facility] [...] OMAR IV, Unavailable Unavailable OMAR IV MYRANDA, MYRANDA Unavailable Unavailable WINDISCH, WINDISCH Unavailable Unavailable Purpose Continuity of Care Document - 01-07-2014 through 2016 Problems Code Diagnosis DOS Provider Status [id number] PAIN IN 11-11-2016 [facility] [id number] FALL ON 11-11-2016 [facility] INITIAL ENCOUNTER Z952 PRESENCE OF 11-11-2016 [facility] MEDICAL VALVE GROUP R32 UNSPECIFIED 11-06-2016 [facility] URINARY HEALTH INCONTINENC MEDICAL G E R3915 URGENCY OF 11-06-2016 [facility] URINATION HEALTH MEDICAL G M542 CERVICALGIA 10-27-2016 [facility] CHIROPRACTO R M545 LOW BACK 10-27-2016 [facility] PAIN FAMILY CHIROPRACTO R M9902 SEGMENTAL & 10-27-2016 [facility] SOMATIC FAMILY DYSFUNCTION CHIROPRACTO THORACIC R REGION M9905 SEGMENTAL & 10-27-2016 [facility] SOMATIC FAMILY DYSFUNCTION CHIROPRACTO OF PELVIC R REGION I10 ESSENTIAL 09-18-2016 [facility] HYPERTENSIO [place] N I361 NONRHEUMATI 09-18-2016 [facility] C TRICUSPID [facility] VALVE MEDICAL INSUFFICIEN GROUP CY R001 BRADYCARDIA 09-18-2016 [facility] UNSPECIFIED PHYS PSC R0602 SHORTNESS 09-18-2016 [facility] OF BREATH [facility] R5383 OTHER 09-18-2016 [facility] FATIGUE EMERGENCY PHYS PSC H5213 MYOPIA 09-16-2016 A[facility] BILATERAL T81878 REGULAR 09-16-2016 [facility] ASTIGMATISM BILATERAL N200 CALCULUS OF 08-06-2016 [facility] MEDICAL G R109 UNSPECIFIED 08-06-2016 [facility] ABDOMINAL EAST PAIN N644 MASTODYNIA 07-30-2016 [facility] R1032 LEFT LOWER 07-03-2016 [facility] QU[facility]RANT HEALTH PAIN MEDICAL G Z5181 ENCOUNTER 07-03-2016 [facility] THERAPEUTIC INC DRUG LEVEL MONITORING Z7901 FOIL SPINNER 07-03-2016 [facility] CURRENT USE [facility] OF INC ANTICOAGULA NTS F51457 PERSONAL 07-03-2016 [facility] HISTORY OF [facility] URINARY MEDICAL G CALCULI B9789 OTH VIRAL 06-17-2016 [facility] AGENT CAUSE MEDICINE DISEASES [place] [facility] ELSW J069 ACUTE UPPER 06-17-2016 [facility] RESPIRAT[facility] [place] [facility] UNSPECIFIED N10 ACUTE 06-11-2016 [facility] PYELONEPHRI EMERGENCY TIS PHYS PSC R188 OTHER 06-11-2016 [facility] PROFESSIO R791 ABNORMAL 06-11-2016 [facility] COAGULATION [facility] PROFILE [place] B373 CANDIDIASIS 05-19-2016 [facility] OF VULVA PHYSICIANS AND VAGINA GROUP I712 THORACIC 05-19-2016 [facility] A[facility]IC 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 K219 GASTRO-ESOP 05-19-2016 [facility] H REFLUX HEALTH DISEASE PLESSIS WITHOUT ESOPHAGITIS R011 CARDIAC 05-19-2016 [facility] UNSPECIFIED PLESSIS R0789 OTHER CHEST 05-19-2016 [facility] PAIN EMERGENCY PHYS PSC R079 CHEST PAIN 05-19-2016 VIRTUAL UNSPECIFIED RADIOLOGIC PROFESSIO W56887 ENCOUNTER 05-19-2016 [facility] ROUTINE PHYSICIANS CHECKING IU GROUP CONTRACEPT DEVICE K99244 OTHER LONG 05-19-2016 [facility] HEALTH CURRENT PLESSIS DRUG THERAPY N209 URINARY 05-08-2016 [place] [facility] UNSPECIFIED IMAGING ASS R1903 RT LOWER 05-08-2016 [place] [facility] ABDOMINAL IMAGING ASS SWELLING MASS & LUMP W60694 ENCOUNTER 05-08-2016 [facility] PREPROCEDUR INC AL LABORATORY EXAM K529 NONINFECTIV 04-29-2016 [facility] [place] [facility] COLITIS UNS X59532 ENCOUNTER 04-15-2016 [facility] INSERTION PHYSICIANS INTRAUTERIN GROUP E CONTRACEPT DEVC B16428 UNSPECIFIED 04-13-2016 [facility] OVARIAN EMERGENCY CYST RIGHT PHYS PSC SIDE R1030 LOWER 04-13-2016 [facility] ABDOMINAL RADIOLOGIC PAIN PROFESSIO UNSPECIFIED R1031 RIGHT LOWER 04-13-2016 [facility] QUADRANT EMERGENCY PAIN PHYS PSC H539 UNSPECIFIED 04-10-2016 [facility] VISUAL PHYSICIANS DISTURBANCE GROUP L680 HIRSUTISM 04-04-2016 [facility] PHYSICIANS GROUP Z0001 ENCOUNTER 04-04-2016 [facility] GEN ADULT PHYSICIANS MEDICAL GROUP EXAM W/ABNORMAL FIND J0190 ACUTE 03-06-2016 [facility]ITIS [facility] UNSPECIFIED INC H1031 UNSPECIFIED 02-02-2016 [facility] ACUTE PHYSICIAN CONJUNCTIVI GROUP TIS RIGHT EYE R002 PALPITATION 01-04-2016 [facility] P G4733 OBSTRUCTIVE 12-30-2015 [facility] ADULT MEDICAL PEDIATRIC EQUIPME H6691 OTITIS 12-27-2015 [facility] UNSPECIFIED RIGHT EAR Z23 ENCOUNTER 11-23-2015 [facility] IMMUNIZATIO N A5619 OTHER 11-14-2015 [facility] GENITOURINA RY INFECTION I351 NONRHEUMATI 11-14-2015 [facility] C AORTIC RADIOLOGY VALVE ASSOC INSUFFICIEN CY E36665 ENCOUNTER 11-14-2015 [facility], COMPUTER TYPESETTER [facility] EXAM LLC GENERAL RTN W/O ABNORMAL FIND [...] PHYSICIANS, CYSTS PLLC N920 EXCESS & 10-08-2015 [facility] FREQUENT PHYSICIANS MENSTRUATIO GROUP N W/REGULAR CYCLE N939 ABNORMAL 10-02-2015 [facility] UTERINE & RADIOLOGIC VAGINAL PROFESSIO BLEEDING UNSPECIFIED R220 LOCALIZED 08-31-2015 [facility] SWELLING [facility]ATES MASS AND LUMP HEAD O07442 THORACIC 08-23-2015 [facility] HEALTH ECTASIA MEDICAL G R000 TACHYCARDIA 08-23-2015 [facility] UNSPECIFIED MEDICAL G N02581 AORTIC 08-12-2015 [facility] ECTASIA HEALTH UNSPECIFIED [place] SITE 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 W/O STAT MIGRAIN P15838 AGE-RELATED 08-03-2015 [facility], DEGENERATIO P.[facility]. N RETINA RT EYE D23994 DISORDER 08-03-2015 [facility], CORTX DUE P.S[facility]C. NEOPLASM RT SIDE BRAIN T62197 TRANSIENT 08-03-2015 [facility], BILATERAL P.[facility]. P60144 MIGRAINE 07-31-2015 [place] [facility], INTRACT W/O P.S.C. STATUS MIGRAINOSUS I99299 OPEN ANGLE 07-31-2015 [facility], E FIND LOW P.S.C. RISK BILATERAL R040 EPISTAXIS 07-28-2015 [facility] V51074 MACULA 07-25-2015 [facility] SCARS OF [facility], POSTERIOR P.S[facility]C. POLE BILATERAL J3489 OTHER 06-21-2015 [facility] SPECIFIED ASSOCIATES DISORDERS NOSE AND NASAL SINUSES N926 IRREGULAR 06-08-2015 [facility] MENSTRUATIO ASSOCIATES N UNSPECIFIED R197 DIARRHEA 06-07-2015 [facility] UNSPECIFIED PHYSICIANS, PLLC H6590 UNSPECIFIED 06-01-2015 [facility] PHYSICIANS NONSUPPURAT GROUP CARLOS OTITIS MEDIA UNS EAR K120 RECURRENT 06-01-2015 [facility] ORAL PHYSICIANS APHTHAE GROUP E871 HYPO-OSMOLA 05-15-2015 [facility] LITY AND PHYSICIANS, HYPONATREMI PLLC A N289 DISORDER OF 05-15-2015 [facility] P UNSPECIFIED N760 ACUTE 05-04-2015 [facility] VAGINITIS PHYSICIANS GROUP N762 ACUTE 05-04-2015 [facility] VULVITIS PHYSICIANS GROUP [id number] CONTUSION 04-05-2015 [facility] OF LEFT PHYSICIANS, FOOT PLLC INITIAL ENCOUNTER R05 COUGH 03-20-2015 [facility] N899 NONINFLAMMA 03-04-2015 [facility] TORY [facility]ERG[facility] DISORDER OF PHYS PSC VAGINA UNSPECIFIED R100 ACUTE 03-04-2015 [facility] ABDOMEN EMERGENCY PHYS PSC L309 DERMATITIS 02-26-2015 [facility] UNSPECIFIED PHYSICIANS GROUP N47894 ENCOUNTER 02-26-2015 [facility] INITIAL PHYSICIANS PRESCRIPTIO GROUP N IU CONTRACEPT DEV R21 RASH AND 02-24-2015 [facility] OTHER ASSOCIATES NONSPECIFIC SKIN ERUPTION J029 ACUTE 02-23-2015 [facility] PHARYNGITIS PHYSICIANS, [facility] UNSPECIFIED J040 ACUTE 02-23-2015 [facility] LARYNGITIS PHYSICIANS, [facility] Z4802 ENCOUNTER 02-05-2015 [facility] Z3009 ENCOUNTER 02-02-2015 [facility] OT GENERAL PHYSICIANS GROUP AVIATION TECHNICIAN AIRCRAFT&ADV ICE CONTRACEPT [id number] LACERATION 01-30-2015 [facility] W/O FOREIGN PHYSICIANS, BODY LIP [facility] INITIAL ENCNTR N390 URINARY 01-22-2015 [facility] TRACT EMERGENCY INFECTION PHYS PSC SITE NOT SPECIFIED R319 HEMATURIA 01-22-2015 [facility] UNSPECIFIED EMERGENCY PHYS PSC R350 FREQUENCY 01-02-2015 [facility] OF ASSOCIATES MICTURITION Z309 ENCOUNTER 12-06-2014 [facility] FOR [facility]IATES CONTRACEPTI VE MANAGEMENT UNS 4241 AORTIC 11-28-2014 [facility] DISORDERS MEDICAL GROUP 53308 PAIN IN 11-22-2014 [facility] JOINT, ASSOCIATES SHOULDER REGION V433 HEART VALVE 11-22-2014 [facility] REPLACED ASSOCIATES BY OTHER MEANS V5861 LONG-TERM 11-22-2014 [facility] (CURRENT) ASSOCIATES USE OF ANTICOAGULA NTS V4589 OTHER 11-15-2014 [facility] POSTSURGICA ASSOCIATES L STATUS OTHER V5869 LONG-TERM 11-13-2014 [facility] USE OF MEDICAL OTHER GROUP MEDICATIONS 80152 PRECORDIAL 11-10-2014 [facility] PAIN [facility]IOLOGY [facility] 84871 PAINFUL 11-09-2014 [facility] RESPIRATION EMERGENCY PHYS PSC 4019 UNSPECIFIED 11-05-2014 [facility] ESSENTIAL HE[facility] HYPERTENSIO MEDICAL N GROUP 81593 OTHER 11-05-2014 [facility] ABNORMAL HEALTH GLUCOSE MEDICAL GROUP 5180 PULMONARY 11-04-2014 [facility] COLLAPSE [facility] V5873 AFTERCARE 11-04-2014 [facility] FOLLOWING RADIOLOGY SURGERY ASSOC CIRC SYSTEM NEC 4240 MITRAL 11-02-2014 [facility] DIS[facility] , 4011 ESSENTIAL 11-01-2014 [facility] HYPERTENSIO HEALTH N, [facility] GROUP 4254 OTHER 11-01-2014 [facility] PRIMARY [place] CARDIOMYOPA ANESTHESIA JOSE 4400 ATHEROSCLER 11-01-2014 [facility] A[facility] DUBILIER 11452 ESOPHAGEAL 11-01-2014 [facility] REFLUX HEALTH MEDICAL GROUP V7281 PRE-OPERATI 11-01-2014 [facility] VE HEALTH CARDIOVASCU MEDICAL LAR GROUP EXAMINATION 4419 AORTIC 10-31-2014 [facility] ANEUR RADIOLOGY UNSPEC SITE ASSOC WITHOUT MENTION RUPTURE 66320 OTHER 10-31-2014 [facility] DISEASES OF [facility] LUNG NOT HOSP ELSEWHERE CLASSIFIED 27658 SHORTNESS 10-31-2014 [facility] BREATH [facility] 78342 THORACIC 10-19-2014 [facility] AORTIC HEALTH ECTASIA MEDICAL G 7464 CONGENITAL 10-19-2014 [facility] INSUFFICIEN HEALTH CY OF MEDICAL G AORTIC VALVE 4271 PAROXYSMAL 10-13-2014 [facility] TACHYCARDIA 89602 OTHER 10-13-2014 [facility] NURSE SPECIFIED PRACTITIONE CARDIAC R GR DYSRHYTHMIA S 7802 SYNCOPE AND 10-13-2014 [facility] 4293 CARDIOMEGAL 10-12-2014 [facility] 42444 MORBID 09-13-2014 [facility] OBESITY HEALTH MEDICAL G 8472 LUMBAR 05-30-2014 [facility] P V7231 ROUTINE 05-17-2014 [facility] GYNECOLOGIC LLC AL EXAMINATION 0091 COLITIS 05-01-2014 [facility] ENTERIT&GAS ASSOCIATES TROENTERIT INF ORIGIN 7241 PAIN IN 04-06-2014 [facility] THORACIC SPINE 7242 LUMBAGO 04-06-2014 [facility] 7392 NONALLOPATH 04-06-2014 [facility] LESION OF THORACIC REGION NEC 7393 NONALLOPATH 04-06-2014 [facility] LESION OF LUMBAR REGION NEC 7395 NONALLOPATH 04-06-2014 [facility] LESION OF PELVIC REGION NEC V745 SCREENING 03-15-2014 [facility], EXAMINATION LLC FOR VENEREAL DISEASE 4610 ACUTE 03-12-2014 [facility] MAXILLARY PHYSICIANS SINUSITIS GROUP 96346 OTHER 03-08-2014 [facility] MALAISE AND [facility]OCIATES FATIGUE 7835 POLYDIPSIA 03-08-2014 [facility] V7791 SCREENING 03-08-2014 [facility] FOR LIPOID ASSOCIATES DISORDERS 53424 VOMITING 02-22-2014 [facility] ALONE [facility] 5589 OTH&UNSPEC 01-30-2014 [facility] NONINFECTIO [facility] P GASTROENTER ITIS&COLITI S 50591 ABDOMINAL 01-30-2014 [facility] RIGHT MEDICAL LOWER IMAGING ASS QUADRANT 4619 ACUTE 01-07-2014 [place] SINUSITIS, [facility] Medications Na ND Rx Da Fi Fi [...] B ME 57 08 60 30 00 DE Ac TO 66 -1 -1 .0 00 LG ti NE 40 1- 5- 00 RE ve OL 47 20 20 48 EN OL 75 17 17 39 S 8 09 #0 TA 96 RT 31 RA TE 50 MG TA B AT 55 08 30 30 00 DE Ac OR 11 -1 .0 00 LG ti VA 10 1- 5- [address] 12 20 20 48 EN AT 29 17 17 39 S IN 0 10 #0 96 20 31 MG TA BL ET OX 00 09 30 30 00 DE Ac YB 37 -3 -0 .0 00 LG ti UT 86 0- 1- 00 00 RE ve YN 60 20 20 49 EN IN 50 17 17 18 S 1 28 #0 CL 96 31 ER 5 MG TA BL ET LO 65 09 07 30 30 00 DE Ac SA 86 -3 -0 .0 00 LG ti RT 20 0- 1- 00 00 RE ve AN 20 20 20 48 EN 29 17 17 87 S PO 9 31 #0 TA 96 SS 31 IU M 50 MG TA B 00 09 30 30 00 DE Ac PI 90 -3 -0 .0 00 LG ti RI 42 1- - 00 RE ve N 01 20 20 48 EN EC 36 17 17 39 S 0 13 #0 32 96 5 31 MG TA BL ET WA 51 07 09 60 30 00 DE Ac RF 67 -3 -0 .0 00 LG ti AR 24 1- - 00 RE ve IN 03 20 20 49 EN 20 17 17 18 S SO 1 75 #0 DI 96 UM 31 5 MG TA BL ET LA 00 07 08 15 30 00 DE Ac MO 09 -1 -1 .0 00 LG ti TR 37 9- 00 RE ve IG 24 20 20 49 EN IN 70 17 17 06 S E 6 85 #0 15 96 0 31 MG TA BL ET HY 00 07 08 [address] 11 -1 -1 .0 00 LG ti OX 51 9- 8 00 RE ve YZ 67 20 20 49 EN IN 00 17 17 06 S E 1 86 #0 PA 96 M 31 25 MG CA P QU 68 07 08 30 30 00 DE Ac ET 18 -1 -1 .0 00 LG ti IA 00 9 00 RE ve PI 44 20 20 49 EN NE 80 17 17 06 S 1 87 #0 FU 96 MA 31 RA TE 20 0 MG TA B ME 57 07 08 60 30 00 DE Ac TO 66 -1 -1 .0 00 LG ti NE 40 2- 00 RE ve OL 47 20 20 48 EN OL 75 17 17 39 S 8 09 #0 TA 96 RT 31 RA TE 50 MG TA B AT 55 07 08 30 30 00 [facility] OR - -1 .0 00 LG ti VA 10 2- [address] 12 20 20 48 EN AT 29 17 17 39 S IN 0 10 #0 96 20 31 MG TA BL ET WA 51 06 08 48 28 00 [facility] RF 67 -2 -0 .0 00 LG ti AR 24 9- 00 RE ve IN 03 20 20 48 EN 20 17 17 54 S SO 1 96 #0 DI 96 UM 31 5 MG TA BL ET LO 65 06 08 30 30 00 [facility] SA 86 -2 -0 .0 00 LG ti RT 20 9- 00 RE ve AN 20 20 20 48 EN 29 17 17 87 S PO 9 31 #0 TA 96 SS 31 IU M 50 MG TA B AR 31 06 07 30 30 00 [facility] IP 72 -1 -2 .0 00 LG ti IP 20 8- - 00 RE ve RA 82 20 20 48 EN ZO 93 17 17 51 S LE 0 76 #0 96 20 31 MG TA BL ET TR 60 06 07 30 30 00 [facility] AZ 50 -1 -2 .0 00 LG ti OD 52 8- 00 RE ve ON 65 20 20 48 EN E 40 17 17 51 S 10 1 77 #0 0 96 MG 31 TA BL ET LA 00 06 07 90 30 00 DE Ac MO 09 -1 -2 .0 00 LG ti TR 30 9- - 00 RE ve IG 03 20 20 48 EN IN 90 17 17 77 S E 1 04 #0 25 96 31 MG TA BL ET QU 68 06 07 45 30 00 DE Ac ET 18 -1 -2 .0 00 LG ti IA 00 9- - 00 RE ve PI 44 20 20 48 EN NE 70 17 17 77 S 1 05 #0 FU 96 MA 31 RA TE 10 0 MG TA B OX 62 06 07 30 30 00 DE Ac YB 17 -2 -2 .0 00 LG ti UT 50 1- - 00 RE ve YN 27 20 20 48 EN IN 03 17 17 79 S 7 61 #0 CL 96 31 ER 5 MG TA BL ET AT 55 06 07 30 30 00 DE Ac OR 11 -1 -1 .0 00 LG ti VA 10 4- 4- [address] 12 20 20 48 EN AT 29 17 17 39 S IN 0 10 #0 96 20 31 MG TA BL ET ME 57 06 07 60 30 00 DE Ac TO 66 -1 -1 .0 00 LG ti NE 40 4- 4- 00 RE ve OL 47 20 20 48 EN OL 75 17 17 39 S 8 09 #0 TA 96 RT 31 RA TE 50 MG TA B WA 51 05 06 48 28 00 DE Ac RF 67 -2 -3 .0 00 LG ti AR 24 9- 0- 00 RE ve IN 03 20 20 48 EN 20 17 17 54 S SO 1 96 #0 DI 96 UM 31 5 MG TA BL ET LO 65 05 06 30 30 00 DE Ac SA 86 -2 -3 .0 00 LG ti RT 20 6- 0- 00 00 RE ve AN 20 20 20 47 EN 29 17 17 73 S PO 9 95 #0 TA 96 SS 31 IU M 50 MG TA B AR 31 05 06 30 30 00 DE Ac IP 72 -2 -2 .0 00 LG ti IP 20 2- 3- 00 00 RE ve RA 82 20 20 48 EN ZO 93 17 17 51 S LE 0 76 #0 96 20 31 MG TA BL ET LA 00 05 06 15 30 00 DE Ac MO 09 -2 -2 .0 00 [...] ME 57 05 06 60 30 00 DE Ac TO 66 -1 -1 .0 00 LG ti NE 40 4- 6 00 RE ve OL 47 20 20 48 EN OL 75 17 17 39 S 8 09 #0 TA 96 RT 31 RA TE 50 MG TA B AT 55 05 30 30 00 DE Ac OR 11 -1 -1 .0 00 LG ti VA 10 4- [address] 12 20 20 48 EN AT 29 17 17 39 S IN 0 10 #0 96 20 31 MG TA BL ET 00 05 30 30 00 [facility] PI 90 -0 -0 .0 00 LG ti RI 42 9- 00 RE ve N 01 20 20 48 EN EC 36 17 17 39 S 0 13 #0 32 96 5 31 MG TA BL ET LA 00 05 06 60 30 00 DE Ac MO 09 -1 -0 .0 00 LG ti TR 30 0- 9 00 RE ve IG 03 20 20 48 EN IN 90 17 17 39 S E 1 11 #0 25 96 31 MG TA BL ET WA 51 05 06 60 30 00 [facility] RF 67 -0 -0 .0 00 LG ti AR 24 2- 2 00 RE ve IN 03 20 20 47 EN 20 17 17 88 S SO 1 63 #0 DI 96 UM 31 5 MG TA BL ET LO 65 04 30 30 00 [facility] SA 86 -2 -0 .0 00 LG ti RT 20 9- 2 00 RE ve AN 20 20 20 47 EN 29 17 17 73 S PO 9 95 #0 TA 96 SS 31 IU M 50 MG TA B BE 64 04 05 15 5 00 DE Ac NZ 38 -1 -1 .0 00 LG ti ON 00 8- 00 RE ve AT 71 20 20 48 EN AT 30 17 17 18 S E 6 23 #0 20 96 0 31 MG CA PS UL E FL 00 04 05 16 30 00 DE Ac UT 05 -1 -1 .0 00 LG ti IC 43 8- 9 00 RE ve 27 20 20 48 EN ON 09 17 17 18 S E 9 24 #0 NE 96 OP 31 50 MC G SP RA Y AT 60 04 05 30 30 00 DE Ac OR 50 -1 -1 .0 00 LG ti VA 52 7- - [address] 57 20 20 48 EN AT 90 17 17 15 S IN 9 15 #0 96 20 31 MG TA BL ET ME 00 04 05 60 30 00 DE Ac TO 37 -1 -1 .0 00 LG ti NE 80 7- 9 00 RE ve OL 03 20 20 48 EN OL 21 17 17 15 S 0 14 #0 TA 96 RT 31 RA TE 50 MG TA B LA 00 04 05 46 30 00 DE Ac MO 09 -1 -1 .0 00 LG ti TR 30 9- 00 RE ve IG 03 20 20 48 EN IN 90 17 17 19 S E 1 19 #0 25 96 31 MG TA BL ET AR 31 04 05 30 30 00 DE Ac IP 72 -1 -1 .0 00 LG ti IP 20 9- 00 RE ve RA 82 20 20 48 EN ZO 93 17 17 19 S LE 0 20 #0 96 20 31 MG TA BL ET TR 60 04 05 30 30 00 DE Ac AZ 50 -1 -1 .0 00 LG ti OD 52 9 00 RE ve ON 65 20 20 48 EN E 40 17 17 19 S 10 1 21 #0 0 96 MG 31 TA BL ET HY 00 02 05 [address] 59 -1 -1 .0 00 LG ti OC 12 3- 9 00 RE ve OD 17 20 20 47 EN ON 20 17 17 51 S -A 5 36 #0 CE 96 TA 31 MS NO PH EN 5- 32 5 TR 68 04 05 20 3 00 DE Ac AM 38 -1 -1 .0 00 LG ti AD 20 2- 2- 00 RE ve OL 31 20 20 48 EN 91 17 17 12 S HC 0 33 #0 L 96 50 31 MG TA BL ET CE 68 04 05 20 10 00 DE Ac FD 18 -1 -1 .0 00 LG ti IN 00 2- 2- 00 00 RE ve IR 71 20 20 48 EN 16 17 17 12 S 30 0 34 #0 0 96 MG 31 CA PS UL E ON 68 04 05 15 5 00 DE Ac DA 46 -1 -1 .0 00 LG ti NS 20 2- 2- 00 00 RE ve ET 15 20 20 48 EN RO 81 17 17 12 S N 3 35 #0 OD 96 T 31 8 MG TA BL ET PH 51 04 05 9. 3 00 DE Ac EN 29 -1 -1 00 00 [...] EN ZA 71 17 17 89 S NE 0 44 #0 IN 96 E 31 [...] 37 -1 -1 .0 00 LG ti NE 80 3- 4- 00 00 RE ve [...] 96 20 31 MG TA BL ET MS 13 03 04 30 30 00 DE Ac RT 10 -1 -1 .0 00 LG ti AZ 70 5- 4- 00 00 RE ve AP 00 20 20 47 EN IN 33 17 17 80 S E 4 97 #0 30 96 31 MG TA BL ET AR 31 03 04 30 30 00 DE Ac IP 72 -1 -1 .0 00 LG ti IP 20 3- 4- 00 00 RE ve RA 82 20 20 47 EN ZO 93 17 17 80 S LE 0 87 #0 96 20 31 MG TA BL ET LO 65 03 04 30 30 00 DE Ac SA 86 -0 -0 .0 00 LG ti RT 20 6- 7- 00 00 RE ve AN 20 20 20 47 EN 29 17 17 73 S PO 9 95 #0 TA 96 SS 31 IU M 50 MG TA B DE 51 02 03 45 30 00 DE Ac RF 67 -2 -3 .0 00 LG ti AR 24 8- 1- 00 00 RE ve IN 03 20 20 47 EN 20 17 17 67 S SO 1 54 #0 DI 96 UM 31 5 MG TA BL ET MS 57 02 03 30 30 00 DE Ac RT 23 -1 -2 .0 00 L- ti AZ 70 6- 4- 00 07 MA ve AP 00 20 20 47 RT IN 93 17 17 11 E 0 59 PH 30 AR MA MG CY TA #5 BL 91 ET AT 68 02 03 30 30 00 DE Ac OR 64 -1 -2 .0 00 L- ti VA 50 6- 4- [address] 45 20 20 47 RT AT 97 17 17 11 IN 0 60 PH AR 20 MA CY MG #5 TA 91 BL ET 00 02 03 30 30 00 DE Ac PI 53 -1 -2 .0 00 L- ti RI 63 6- 4- 00 08 MA ve N 31 20 20 83 RT EC 31 17 17 56 0 25 PH 32 AR 5 MA MG CY TA #5 BL 91 ET ME 68 02 03 60 30 00 DE Ac TO 64 -0 -1 .0 00 L- ti NE 50 2- 0- 00 07 MA ve OL 19 20 20 44 RT OL 05 17 17 49 9 18 PH TA AR RT MA RA CY TE #5 50 91 MG TA B WA 57 01 02 45 30 00 DE Ac RF 23 -2 -2 .0 00 L- ti AR 70 4- 4- 00 07 MA ve IN 12 20 20 43 RT 40 17 17 27 SO 1 88 PH DI AR UM MA 5 CY MG #5 91 TA BL ET AM 00 01 02 4. 1 00 DE Ac OX 09 -2 -2 00 00 L- ti IC 33 5- 4- 0 07 MA ve IL 10 20 20 46 RT LI 90 17 17 69 N 5 13 PH 50 AR 0 MA MG CY CA #5 PS 91 UL E AR 13 01 02 30 30 00 DE Ac IP 66 -1 -1 .0 00 L- ti IP 80 6- 7- 00 07 MA ve RA 22 20 20 45 RT ZO 03 17 17 06 LE 0 47 PH AR 20 MA CY MG #5 TA 91 BL ET LO 68 01 02 30 30 00 DE Ac SA 64 -0 -1 .0 00 L- ti RT 50 7- 0- 00 07 MA ve AN 40 20 20 45 RT 97 17 17 65 PO 0 14 PH TA AR SS MA IU CY M 50 #5 91 MG TA B MS 57 01 02 30 30 00 DE Ac RT 23 -0 -1 .0 00 L- ti AZ 70 7- 0- 00 07 MA ve AP 00 20 20 46 RT IN 93 17 17 31 E 0 70 PH 30 AR MA MG CY TA #5 BL 91 ET EN 00 01 02 8. 4 00 DE Ac OX 78 -0 -1 00 00 L- ti AP 13 5- 0- 0 07 MA ve AR 50 20 20 46 RT IN 06 17 17 28 9 73 PH 10 AR 0 MA MG CY /M L #5 SY 91 RI NG E AM 00 01 02 30 10 00 DE Ac OX 09 -0 -1 .0 00 L- ti IC 33 5- 0- 00 07 MA ve IL 10 20 20 46 RT LI 90 17 17 28 N 5 74 PH 50 AR 0 MA MG CY CA #5 PS 91 UL E AT 68 01 02 30 30 00 DE Ac OR 64 -0 -1 .0 00 L- ti VA 50 7- 0- [address] 45 20 20 43 RT AT 97 17 17 10 IN 0 32 PH AR 20 MA CY MG #5 TA 91 BL ET 00 01 02 30 30 00 DE Ac PI 53 -0 -1 .0 00 [...] 64 -1 -2 .0 00 L- ti NE 50 9- 0- 00 07 MA ve [...] SQUARE METERS Comment: If this patient is -[place], then multiply the Comment: result by 1.210. [...] blood 21:40 platele t mean volume franki Henry % = 6.2 % 1.7-9.3 complet 017 [...] strip PT BldC (11-20-2016 15:31) Comment: Meter: [id number] Milieu Coordinator: [id number] KANNAN CHAVARRIA INR [facility] 3.3 0.91-1. complet 017 09 ed [...] 017 pH .450 ed 15:30 units Arteria [id number] complet l 017 09 Not ed patency [...] 10:19 PT BldC (08-06-2016 11:07) Comment: Meter: [id number] Milieu Coordinator: [id number] KIMBERLYN ALVAREZ INR PPP 4.1 0.91-1. complet 017 09 ed 11:07 Prothro 49.7 10.0-13 complet mbin 017 seconds .8 ed time 11:07 PT BldC (06-11-2016 05:26) INR PPP 4.8 0.8-1.2 complet 017 ed 05:26 Prothro 53.2 12.8-15 complet mbin 017 seconds .2 ed time 05:26 Bacteria Ur Cult (06-11-2016 05:17) Bacteri [id number] complet a XXX 017 9 ed Aerobe 05:17 Normal Cult yazmin SCT UA Dipstick Pnl Ur (06-11-2016 05:17) Urobili 0.2 0.2 - complet nogen 017 E.U./dL 1.0 ed Ur Ql 05:17 E.U./dL Strip Nitrite [id number] Negativ complet Ur Ql 017 09 e ed Strip 05:17 Negativ e SCT Leukocy [id number] Negativ complet te 017 09 e ed esteras 05:17 Negativ e Ur Ql e SCT Strip.a uto Prot Ur 30 Negativ complet Ql 017 mg/dL e ed Strip 05:17 (1+) Hgb Ur [id number] Negativ complet Ql 017 00 e ed Strip.a 05:17 Moderat uto e number SCT Bilirub Small Negativ complet Ur Ql 017 (1+) e ed Strip 05:17 Ketones [id number] Negativ complet Ur Ql 017 09 e ed Strip 05:17 Negativ e SCT Glucose [id number] Negativ complet Ur 017 09 e ed Strip-m 05:17 Negativ Cnc e SCT Sp Gr 1.038 1.001-1 complet Ur 017 .030 ed Strip 05:17 pH Ur 6.0 5.0-8.0 complet Strip.a 017 ed uto 05:17 Clarity [id number] Clear complet Ur 017 5 ed 05:17 Cloudy SCT Color [id number] Yellow, complet Ur 017 09 Straw ed 05:17 Yellow color SCT UA Microscopic Pnl # Ur Auto (06-11-2016 05:17) Ref lab Manual complet test 017 Light ed method 05:17 Microsc opy Hyaline None 0-6 complet Casts 017 Seen ed Ur Ql 05:17 /LPF Auto Squamou 7-12 None complet s 017 /HPF Seen, ed #/area 05:17 0-2 UrnS HPF Bacteri [id number] None complet a Ur Ql 017 06 + Seen, ed Auto 05:17 SCT Trace /HPF WBC Ur 13-20 None complet Ql Auto 017 /HPF Seen ed 05:17 RBC # 3-6 None complet Ur 017 /HPF Seen, ed 05:17 0-2 UA Dipstick Pnl Ur (06-10-2016 20:13) Urobili 1.0 0.2 - complet nogen 017 E.U./dL 1.0 ed Ur Ql 20:13 E.U./dL Strip Nitrite [id number] Negativ complet Ur Ql 017 09 e ed Strip 20:13 Negativ e SCT Leukocy [id number] Negativ complet te 017 06 e ed esteras 20:13 Trace e Ur Ql SCT Strip.a uto Prot Ur 30 Negativ complet Ql 017 mg/dL e ed Strip 20:13 (1+) Hgb Ur [id number] Negativ complet Ql 017 00 e ed Strip.a 20:13 Moderat uto e number SCT Bilirub Small Negativ complet Ur Ql 017 (1+) e ed Strip 20:13 Ketones [id number] Negativ complet Ur Ql 017 06 e ed Strip 20:13 Trace SCT Glucose [id number] Negativ complet Ur 017 09 e ed Strip-m 20:13 Negativ Cnc e SCT Sp Gr >= 1.001-1 complet Ur 017 1.030 .030 ed Strip 20:13 pH Ur 7.0 5.0-8.0 complet Strip.a 017 ed uto 20:13 Clarity [id number] Clear complet Ur 017 01 ed 20:13 Clear SCT Color [id number] Yellow, complet Ur 017 09 Straw ed 20:13 Yellow color SCT UA Microscopic Pnl # Ur Auto (06-10-2016 20:13) Hyaline 0-6 0-6 complet Casts 017 /LPF ed Ur Ql 20:13 Auto Ref lab Manual complet test 017 Light ed method 20:13 Microsc opy Squamou 3-6 None complet s 017 /HPF Seen, ed #/area 20:13 0-2 UrnS HPF Bacteri [id number] None complet a Ur Ql 017 06 [...] HCG Preg Ur Ql (04-13-2016 20:21) B-HCG [id number] Negativ complet Preg Ur 017 09 e ed Ql 20:21 Negativ e SCT UA Dipstick Pnl Ur (04-13-2016 20:21) Urobili 0.2 0.2 - complet nogen 017 E.U./dL 1.0 ed Ur Ql 20:21 E.U./dL Strip Nitrite [id number] Negativ complet Ur Ql 017 09 e ed Strip 20:21 Negativ e SCT Leukocy [id number] Negativ complet te 017 09 e ed esteras 20:21 Negativ e Ur Ql e SCT Strip.a uto Prot Ur [id number] Negativ complet Ql 017 06 e ed Strip 20:21 Trace SCT Hgb Ur [id number] Negativ complet Ql 017 09 e ed Strip.a 20:21 Negativ uto e SCT Bilirub [id number] Negativ complet Ur Ql 017 09 e ed Strip 20:21 Negativ e SCT Ketones [id number] Negativ complet Ur Ql 017 09 e ed Strip 20:21 Negativ e SCT Glucose [id number] Negativ complet Ur 017 09 e ed Strip-m 20:21 Negativ Cnc e SCT Sp Gr 1.020 1.005-1 complet Ur 017 .030 ed Strip 20:21 pH Ur 7.0 5.0-8.0 complet Strip.a 017 ed uto 20:21 Clarity [id number] Clear complet Ur 017 01 ed 20:21 Clear SCT Color [id number] Yellow, complet Ur 017 09 Straw ed [...] Procedure DOS Code Location Performer Comment RADEX 62577 [facility]EL[facility] FOOT 7 [facility]IOLOG[facility] COMPLETE ASSOC MINIMUM 3 VIEWS PROTHROMB 56290 [facility] PRESYBETERIAN IN TIME 7 [facility] COLLECTIO 85290 PRES[facility]IAN PRESYBETERIAN N 7 [facility] CAPILLARY [facility] BLOOD SPECIMEN APPL 85440 WENDI ANH MODALITY 7 FAMILY 1/> AREAS CHIROPRAC TRACTION TOR MECHANICA L THERAPEUT 73207 WENDI ANH IC PX 1/> 7 FAMILY AREAS CHIROPRAC EACH 15 TOR MIN EXERCISES CHIROPRAC 54797 WENDI ANH TIC 7 FAMILY MANIPULAT CHIROPRAC [place] T[place] SPINAL 3-4 REGIONS CHIROPRAC 98137 WENDI ANH TIC 7 FAMILY MANIPULAT CHIROPRAC [place] T[place] SPINAL 3-4 REGIONS THERAPEUT 00063 WENDI ANH IC PX 1/> 7 FAMILY AREAS CHIROPRAC EACH 15 TOR MIN EXERCISES APPL 42817 WENDI ANH MODALITY 7 FAMILY 1/> AREAS CHIROPRAC TRACTION TOR MECHANICA L APPL 77004 WENDI ANH MODALITY 7 FAMILY 1/> AREAS CHIROPRAC TRACTION TOR MECHANICA L COLLECTIO 73518 PRES[facility]IAN PRESYBETERIAN N 7 [facility] CAPILLARY [facility] BLOOD SPECIMEN CHIROPRAC 53769 WENDI ANH TIC 7 FAMILY MANIPULAT CHIROPRAC [place] T[place] SPINAL 3-4 REGIONS PROTHROMB 84109 PRESYBETERIAN PRESYBETERIAN IN TIME 7 [facility] THERAPEUT 71123 WENDI ANH IC PX 1/> 7 FAMILY AREAS CHIROPRAC EACH 15 TOR MIN EXERCISES THERAPEUT 75122 WENDI ANH IC PX 1/> 7 FAMILY AREAS CHIROPRAC EACH 15 TOR MIN EXERCISES CHIROPRAC 03845 WENDI ANH TIC 7 FAMILY MANIPULAT CHIROPRAC [place] TOR SPINAL 3-4 REGIONS APPL 91718 WENDI ANH MODALITY 7 FAMILY 1/> AREAS CHIROPRAC TRACTION TOR MECHANICA L APPL 52062 WENDI ANH MODALITY 7 FAMILY 1/> AREAS CHIROPRAC TRACTION TOR MECHANICA L CHIROPRAC 72974 WENDI ANH TIC 7 FAMILY MANIPULAT CHIROPRAC [place] T[place] SPINAL 3-4 REGIONS MANUAL 53595 WENDI ANH THERAPY 7 FAMILY TQS 1/> CHIROPRAC REGIONS TOR EACH 15 MINUTES THERAPEUT 58709 WENDI ANH IC PX 1/> 7 FAMILY AREAS CHIROPRAC EACH 15 TOR MIN EXERCISES THERAPEUT 66910 WENDI ANH IC PX 1/> 7 FAMILY AREAS CHIROPRAC EACH 15 TOR MIN EXERCISES MANUAL 32812 WENDI ANH THERAPY 7 FAMILY TQS 1/> CHIROPRAC REGIONS TOR EACH 15 MINUTES CHIROPRAC 72842 WENDI ANH TIC 7 FAMILY MANIPULAT CHIROPRAC [place] TOR SPINAL 3-4 REGIONS APPL 56952 WENDI ANH MODALITY 7 FAMILY 1/> AREAS CHIROPRAC TRACTION TOR MECHANICA L APPL 52233 WENDI ANH MODALITY 7 FAMILY 1/> AREAS CHIROPRAC TRACTION TOR MECHANICA L COLLECTIO 00282 PRESYBETERIAN PRESYBETERIAN N 7 [facility] BLOOD SPECIMEN CHIROPRAC 50038 WENDI ANH TIC 7 FAMILY MANIPULAT CHIROPRAC [place] TOR SPINAL 3-4 REGIONS MANUAL 70228 WENDI ANH THERAPY 7 FAMILY TQS 1/> CHIROPRAC REGIONS TOR EACH 15 MINUTES THERAPEUT 47028 WENDI ANH IC PX 1/> 7 FAMILY AREAS CHIROPRAC EACH 15 TOR MIN EXERCISES PROTHROMB 80990 PRESYBETERIAN PRESYBETERIAN IN TIME 7 [facility] THERAPEUT 57047 WENDI ANH IC PX 1/> 7 FAMILY AREAS CHIROPRAC EACH 15 TOR MIN EXERCISES MANUAL 70819 WENDI ANH THERAPY 7 FAMILY TQS 1/> CHIROPRAC REGIONS TOR EACH 15 MINUTES CHIROPRAC 86888 WENDI ANH TIC 7 FAMILY MANIPULAT CHIROPRAC [place] TOR SPINAL 3-4 REGIONS APPL 90540 WENDI ANH MODALITY 7 FAMILY 1/> AREAS CHIROPRAC TRACTION TOR MECHANICA L APPL 74897 WENDI ANH MODALITY 7 FAMILY 1/> AREAS CHIROPRAC TRACTION TOR MECHANICA L CHIROPRAC 78264 WENDI ANH TIC 7 FAMILY MANIPULAT CHIROPRAC [place] TOR SPINAL 3-4 REGIONS MANUAL 42706 WENDI ANH THERAPY 7 FAMILY TQS 1/> CHIROPRAC REGIONS TOR EACH 15 MINUTES THERAPEUT 99364 WENDI ANH IC PX 1/> 7 FAMILY AREAS CHIROPRAC EACH 15 TOR MIN EXERCISES GASES 60529 PRESYBETERIAN PRESYBETERIAN BLOOD PH 7 [facility] DIRECT [facility] DARIN XCPT PULSE OXIMITRY RADIOLOGI 96274 CENTRAL RICE C EXAM 7 RADIOLOGY CHEST 2 ASSOC VIEWS FRONTAL&L ATERAL NATRIURET 04157 PRESYBETERIAN PRESYBETERIAN IC 7 [facility] PEPTIDE [facility] ECG 72713 PRESYBETERIAN PRESYBETERIAN ROUTINE 7 [facility] ECG [facility] W/LEAST 12 LDS TRCG ONLY W/O I&R PROTHROMB 41546 PRESYBETERIAN PRESYBETERIAN IN TIME [address] [place] [address] [place] [address] PRESYBETERIAN PRESYBETERIAN TROPONIN 7 [facility] QUANTITAT [facility] CARLOS BLOOD 61621 PRESYBETERIAN PRESYBETERIAN COUNT 7 [facility] COMPLETE [facility] AUTO&AUTO DIFRNTL WBC ECG 72874 [facility] LAW ROUTINE 7 EMERGENCY ECG PHYS PSC W/LEAST 12 LDS I&R ONLY ECHO 66812 PRESYBETERIAN PRESYBETERIAN TTHRC R-T 7 [facility] 2D [facility] W/WOM-MOD E COMPL SPEC&COLR D ARTERIAL 62734 PRESYBETERIAN PRESYBETERIAN PUNCTURE 7 [facility] HEALTH WITHDRAWA [facility] L BLOOD DX COMPREHEN 14470 PRESYBETERIAN PRESYBETERIAN SIVE 7 [facility] PANEL THERAPEUT 67094 WENDI ANH IC PX 1/> 7 FAMILY AREAS CHIROPRAC EACH 15 TOR MIN EXERCISES APPL 33990 WENDI ANH MODALITY 7 FAMILY 1/> AREAS CHIROPRAC TRACTION TOR MECHANICA L MANUAL 76551 WENDI ANH THERAPY 7 FAMILY TQS 1/> CHIROPRAC REGIONS TOR EACH 15 MINUTES CHIROPRAC 75805 WENDI ANH TIC 7 FAMILY MANIPULAT CHIROPRAC [place] TOR SPINAL 3-4 REGIONS OPHTH 44700 [facility] 7 XM&EVAL COMPRE NEW PT 1/> VST CHIROPRAC 56927 WENDI ANH TIC 7 FAMILY MANIPULAT CHIROPRAC [place] TOR SPINAL 3-4 REGIONS MANUAL 67589 WENDI ANH THERAPY 7 FAMILY TQS 1/> CHIROPRAC REGIONS TOR EACH 15 MINUTES APPL 36601 WENDI ANH MODALITY 7 FAMILY 1/> AREAS CHIROPRAC TRACTION TOR MECHANICA L THERAPEUT 63267 WENDI ANH IC PX 1/> 7 FAMILY AREAS CHIROPRAC EACH 15 TOR MIN EXERCISES THERAPEUT 43314 WENDI ANH IC PX 1/> 7 FAMILY AREAS CHIROPRAC EACH 15 TOR MIN EXERCISES APPL 05798 WENDI ANH MODALITY 7 FAMILY 1/> AREAS CHIROPRAC TRACTION TOR MECHANICA L COLLECTIO 36471 PRESYBETERIAN PRESYBETERIAN N 7 [facility] HEALTH CAPILLARY [facility] BLOOD SPECIMEN CHIROPRAC 12368 WENDI ANH TIC 7 FAMILY MANIPULAT CHIROPRAC [place] TOR SPINAL 3-4 REGIONS MANUAL 89324 WENDI ANH THERAPY 7 FAMILY TQS 1/> CHIROPRAC REGIONS TOR EACH 15 MINUTES PROTHROMB 92536 PRESYBETERIAN PRESYBETERIAN IN TIME 7 [facility] MANUAL 39139 WENDI ANH THERAPY 7 FAMILY TQS 1/> CHIROPRAC REGIONS TOR EACH 15 MINUTES CHIROPRAC 93710 WENDI ANH TIC 7 FAMILY MANIPULAT CHIROPRAC [place] TOR SPINAL 3-4 REGIONS APPL 02441 WENDI ANH MODALITY 7 FAMILY 1/> AREAS CHIROPRAC TRACTION TOR MECHANICA L THERAPEUT 01145 WENDI ANH IC PX 1/> 7 FAMILY AREAS CHIROPRAC EACH 15 TOR MIN EXERCISES THERAPEUT 50576 WENDI ANH IC PX 1/> 7 FAMILY AREAS CHIROPRAC EACH 15 TOR MIN EXERCISES APPL 70369 WENDI ANH MODALITY 7 FAMILY 1/> AREAS CHIROPRAC TRACTION TOR MECHANICA L CHIROPRAC 10631 WENDI ANH TIC 7 FAMILY MANIPULAT CHIROPRAC [place] TOR SPINAL 3-4 REGIONS MANUAL 37658 WENDI ANH THERAPY 7 FAMILY TQS 1/> CHIROPRAC REGIONS TOR EACH 15 MINUTES MANUAL 62792 WENDI ANH THERAPY 7 FAMILY TQS 1/> CHIROPRAC REGIONS TOR EACH 15 MINUTES CHIROPRAC 65743 WENDI ANH TIC 7 FAMILY MANIPULAT CHIROPRAC [place] TOR SPINAL 3-4 REGIONS APPL 01834 WENDI ANH MODALITY 7 FAMILY 1/> AREAS CHIROPRAC TRACTION TOR MECHANICA L THERAPEUT 85089 WENDI ANH IC PX 1/> 7 FAMILY AREAS CHIROPRAC EACH 15 TOR MIN EXERCISES COLLECTIO 65365 PRESYBETERIAN PRESYBETERIAN N [address] [place] [address] BLOOD SPECIMEN PROTHROMB 49158 PRESYBETERIAN PRESYBETERIAN IN TIME [address] [place] [address] THERAPEUT 41561 WENDI ANH IC PX 1/> 7 FAMILY AREAS CHIROPRAC EACH 15 TOR MIN EXERCISES CHIROPRAC 64932 WENDI ANH TIC 7 FAMILY MANIPULAT CHIROPRAC [place] TOR SPINAL 3-4 REGIONS MANUAL 90012 WENDI ANH THERAPY 7 FAMILY TQS 1/> CHIROPRAC REGIONS TOR EACH 15 MINUTES APPL 13142 WENDI ANH MODALITY 7 FAMILY 1/> AREAS CHIROPRAC TRACTION TOR MECHANICA L APPL 38611 WENDI ANH MODALITY 7 FAMILY 1/> AREAS CHIROPRAC TRACTION TOR MECHANICA L CHIROPRAC 89351 EWNDI ANH TIC 7 FAMILY MANIPULAT CHIROPRAC [place] TOR SPINAL 3-4 REGIONS MANUAL 50024 WENDI ANH THERAPY 7 FAMILY TQS 1/> CHIROPRAC REGIONS TOR EACH 15 MINUTES THERAPEUT 84569 WENDI ANH IC PX 1/> 7 FAMILY AREAS CHIROPRAC EACH 15 TOR MIN EXERCISES THERAPEUT 57677 WENDI ANH IC PX 1/> 7 FAMILY AREAS CHIROPRAC EACH 15 TOR MIN EXERCISES PROTHROMB 21249 PRESYBETERIAN PRESYBETERIAN IN TIME 7 [facility] MANUAL 07983 WENDI ANH THERAPY 7 FAMILY TQS 1/> CHIROPRAC REGIONS TOR EACH 15 MINUTES CHIROPRAC 40352 WENDI ANH TIC 7 FAMILY MANIPULAT CHIROPRAC [place] TOR SPINAL 3-4 REGIONS APPL 77902 WENDI ANH MODALITY 7 FAMILY 1/> AREAS CHIROPRAC TRACTION TOR MECHANICA L COLLECTIO 43300 PRESYBETERIAN PRESYBETERIAN N 7 [facility] BLOOD SPECIMEN APPL 76707 WENDI ANH MODALITY 7 FAMILY 1/> AREAS CHIROPRAC TRACTION TOR MECHANICA L MANUAL 09899 WENDI ANH THERAPY 7 FAMILY TQS 1/> CHIROPRAC REGIONS TOR EACH 15 MINUTES CHIROPRAC 24959 WENDI ANH TIC 7 FAMILY MANIPULAT CHIROPRAC [place] TOR SPINAL 3-4 REGIONS THERAPEUT 62611 WENDI ANH IC PX 1/> 7 FAMILY AREAS CHIROPRAC EACH 15 TOR MIN EXERCISES THERAPEUT 65233 WENDI ANH IC PX 1/> 7 FAMILY AREAS CHIROPRAC EACH 15 TOR MIN EXERCISES PROTHROMB 62508 PRESYBETERIAN PRESYBETERIAN IN TIME 7 [facility] CHIROPRAC 59841 WENDI ANH TIC 7 FAMILY MANIPULAT CHIROPRAC [place] TOR SPINAL 3-4 REGIONS MANUAL 04319 WENDI ANH THERAPY 7 FAMILY TQS 1/> CHIROPRAC REGIONS TOR EACH 15 MINUTES APPL 51351 WENDI ANH MODALITY 7 FAMILY 1/> AREAS CHIROPRAC TRACTION TOR MECHANICA L COLLECTIO 78513 PRESYBETERIAN PRESYBETERIAN N 7 [facility]ALTH HEALTH CAPILLARY [facility] BLOOD SPECIMEN APPL 29992 WENDI ANH MODALITY 7 FAMILY 1/> AREAS CHIROPRAC TRACTION TOR MECHANICA L THERAPEUT 80882 WENDI AHN IC PX 1/> 7 FAMILY AREAS CHIROPRAC EACH 15 TOR MIN EXERCISES MANUAL 40699 WENDI ANH THERAPY 7 FAMILY TQS 1/> CHIROPRAC REGIONS TOR EACH 15 MINUTES CHIROPRAC 44166 WENDI ANH TIC 7 FAMILY MANIPULAT CHIROPRAC [place] TOR SPINAL 3-4 REGIONS MANUAL 12076 WENDI ANH THERAPY 7 FAMILY TQS 1/> CHIROPRAC REGIONS TOR EACH 15 MINUTES CHIROPRAC 56368 WENDI ANH TIC 7 FAMILY MANIPULAT CHIROPRAC [place] TOR SPINAL 3-4 REGIONS THERAPEUT 25106 WENDI ANH IC PX 1/> 7 FAMILY AREAS CHIROPRAC EACH 15 TOR MIN EXERCISES APPL 65896 WENDI ANH MODALITY 7 FAMILY 1/> AREAS CHIROPRAC TRACTION TOR MECHANICA L COLLECTIO 45615 PRESYBETERIAN PRESYBETERIAN N 7 HEALTH HEALTH CAPILLARY [facility] BLOOD SPECIMEN PROTHROMB 00166 PRESYBETERIAN PRESYBETERIAN IN TIME 7 [facility] DARIN 51096 [facility] ING MEDICAL RESIDUAL G UR[place]&/[place] [address] [facility] RETROPERI 7 [facility] TONEAL REAL TIME W/[place] [address] [facility] RETROPERI 7 RADIOLOGY LD IV TONEAL REAL TIME W/IMAGE LIMITED CHIROPRAC 43291 WENDI ANH TIC 7 FAMILY MANIPULAT CHIROPRAC [place] TOR SPINAL 3-4 REGIONS APPL 10277 WENDI ANH MODALITY 7 FAMILY 1/> AREAS CHIROPRAC TRACTION TOR MECHANICA L RADEX 74203 WENDI ANH SPINE 7 FAMILY CERVICAL CHIROPRAC 2 OR 3 TOR VIEWS RADEX 77346 WENDI ANH SPINE 7 FAMILY LUMBOSACR CHIROPRAC AL 2/3 TOR VIEWS PROTHROMB 74262 PRISCILA FRANCOIS IN TIME 7 [facility] INC PROTHROMB 60699 PRESYBETERIAN PRESYBETERIAN IN TIME 7 [facility] [place] [address] [facility] ABDOMEN & 7 RADIOLOGI PELVIS C W/O PROFESSIO CONTRAST MATERIAL CULTURE 86923 PRESYBETERIAN PRESYBETERIAN BACTERIAL 7 HEALTH HEALTH [facility] QUANTTATI VE COLONY COUNT URINE URNLS DIP 17625 PRESYBETERIAN PRESYBETERIAN 7 HEALTH HEALTH STICK/TAB [facility] LET REAGENT AUTO MICROSCOP Y THERAPEUT 51368 PRESYBETERIAN PRESYBETERIAN IC 7 HEALTH HEALTH INJECTION [facility] IV PUSH EACH NEW DRUG INJECTION J1885 PRESYBETERIAN PRESYBETERIAN 7 HEALTH [facility] KETOROLAC [facility] TROMETHAM INE [place] 15 [place] [address] PRESYBETERIAN PRESYBETERIAN INFUSION 7 HEALTH HEALTH THERAPY/P [facility] ROPHYLAXI S /DX 1ST TO 1 [place] [address] PRESYBETERIAN PRESYBETERIAN INFUSION 7 HEALTH HEALTH HYDRATION [facility] EACH ADDITIONA L HOUR INJECTION J2405 PRESYBETERIAN PRESYBETERIAN 7 HEALTH HEALTH ONDANSETR [facility] ON HCL PER 1 MG INJECTION J2405 PRESYBETERIAN PRESYBETERIAN 7 HEALTH HEALTH ONDANSETR [facility] ON HCL PER 1 MG LOCM Q9967 PRESYBETERIAN PRESYBETERIAN 300-399 7 HEALTH HEALTH MG/ML [facility] IODINE CONCENTRA TION PER ML COMPREHEN 99642 PRESYBETERIAN PRESYBETERIAN SIVE 7 HEALTH HEALTH METABOLIC [facility] PANEL BLOOD 75893 PRESYBETERIAN PRESYBETERIAN COUNT 7 HEALTH HEALTH COMPLETE [facility] AUTO&AUTO DIFRNTL WBC NATRIURET 88222 PRESYBETERIAN PRESYBETERIAN IC 7 HEALTH HEALTH PEPTIDE [facility] INJECTION J2270 PRESYBETERIAN PRESYBETERIAN MORPHINE 7 [facility] SULFATE [facility] UP TO 10 MG THERAPEUT 25487 PRESYBETERIAN PRESYBETERIAN IC 7 [facility] INJECTION [facility] [place] [address] PRESYBETERIAN PRESYBETERIAN LIPASE 7 [facility] THROMBOPL 95358 PRESYBETERIAN PRESYBETERIAN ASTIN 7 [facility] HEALTH TIME [facility] PARTIAL PLASMA/WH OLE BLOOD RADIOLOGI 94825 CENTRAL PALENCIA C 7 RADIOLOGY EXAMINATI ASSOC ON CHEST SINGLE VIEW FRONTAL PROTHROMB 19494 PRESYBETERIAN PRESYBETERIAN IN TIME 7 [facility] [place] [address] VIRTUAL PRYOR ANGIOGRAP 7 RADIOLOGI HY CHEST C W/CONTRAS PROFESSIO [place] [address] PRESYBETERIAN PRESYBETERIAN TROPONIN 7 [facility] QUANTITAT [facility] CARLOS ECG 57376 PRESYBETERIAN PRESYBETERIAN ROUTINE 7 [facility] ECG [facility] W/LEAST 12 LDS TRCG ONLY W/O I&R THER 86256 PRESYBETERIAN PRESYBETERIAN PROPH/DX 7 [facility] NJX IV [facility] PUSH SINGLE/1S T SBST/[place] [address] [place] [facility] ABDOMEN & 7 MEDICAL PELVIS IMAGING [place] [address] PRISCILA FRANCOIS UREA 7 [facility] NITROGEN INC INC QUANTITAT CARLOS PROTHROMB 63262 PRISCILA FRANCOIS IN TIME 7 [facility] INC INC CREATININ 51767 PRISCILA FRANCOIS E BLOOD 7 [facility] INC INC FINAL G9551 [place] [facility] REPR ABD 7 MEDICAL IMAG STS IMAGING W/O ASS INCIDNT FND LES NTD: FINAL G9638 [place] [facility] REPORTS 7 MEDICAL W/O DOC IMAGING 1/MORE ASS DOSE REDUCTION TECH COLLECTIO 65662 PRISCILA FRANCOIS N VENOUS 7 [facility] BLOOD INC INC VENIPUNCT URE IAADIADOO 17636 [facility] 7 MEDICINE MEDICINE INFLUENZA [facility] LEVONORGE J7297 [facility] CARLITO STREL-RLS 7 PHYSICIAN S GROUP INTRAUTER INE MATT SYS 52 MG INSERTION 52996 [facility] ESTEBAN 7 PHYSICIAN INTRAUTER S GROUP INE DEVICE IUD PROTHROMB 03138 PRISCILA FRANCOIS IN TIME 7 [facility] INC INC PROTHROMB 30178 PRESYBETERIAN PRESYBETERIAN IN TIME 7 [facility] [place] [address] PRESYBETERIAN PRESYBETERIAN LIPASE 7 [facility] [place] [address] PRESYBETERIAN PRESYBETERIAN AMYLASE 7 [facility] [place] [address] VIRTUAL VIRTUAL ABDOMEN & 7 RADIOLOGI RADIOLOGI PELVIS C C [place] [address] PRESYBETERIAN PRESYBETERIAN INFUSION 7 [facility] HYDRATION [facility] INITIAL 31 MIN-1 [place] [address] PRESYBETERIAN PRESYBETERIAN INFUSION 7 [facility] HYDRATION [facility] EACH ADDITIONA L HOUR URINE 42500 PRESYBETERIAN PRESYBETERIAN 7 HEALTH HEALTH TEST [facility] VISUAL COLOR CMPRSN METHS BLOOD 53861 PRESYBETERIAN PRESYBETERIAN COUNT 7 HEALTH HEALTH COMPLETE [facility] AUTO&AUTO DIFRNTL WBC URNLS DIP 52695 PRESYBETERIAN PRESYBETERIAN [address] [place] [address] HEALTH STICK/TAB [facility] LET RGNT AUTO W/O MICROSCOP Y COMPREHEN 47957 PRESYBETERIAN PRESYBETERIAN SIVE 7 HEALTH HEALTH METABOLIC [facility] PANEL LOCM Q9967 PRESYBETERIAN PRESYBETERIAN [phone] 7 [facility] MG/ML [facility] IODINE CONCENTRA TION PER ML FINAL G9551 [facility] REPR ABD 7 MEDICAL MEDICAL IMAG STS IMAGING IMAGING W/O ASS [place]: [place] [address] PR[facility] FRANCO[facility] ABDOMINAL 7 [facility] REAL INC [place] TIME [place] [address] [facility] ABDOMINAL 7 MEDICAL MEDICAL REAL IMAGING IMAGING TIME ASS ASS W/IMAGE LIMITED PROTHROMB 12373 [facility]AR[facility] IN TIME 7 [facility] INC INC PROTHROMB 83581 PR[facility] PRISCILA IN TIME 7 [facility] INC INC HEMOGLOBI 38093 PRISCILA FRANCOIS N 7 [facility] GLYCOSYLA [place] [address] PRISCILA PRISCILA FREE 7 [facility] [place] [address] PRISC[facility]A [facility] THYROID 7 [facility] STIMULATI INC INC NG HORMONE TSH LIPID 70023 PR[facility] PANEL 7 [facility] INC INC BLOOD 28583 PRISCILA FRANCOIS COUNT 7 [facility] COMPLETE INC INC AUTO&AUTO DIFRNTL WBC COMPREHEN 90743 [facility] SIVE 7 [facility] METABOLIC INC INC PANEL COLLECTIO 83384 PRISCILA FRANCOIS N VENOUS 7 [facility] BLOOD INC INC VENIPUNCT URE COLLECTIO 35013 PRISCILA RICHARDSONON N VENOUS 7 [facility] BLOOD INC INC VENIPUNCT URE THERAPEUT 54552 PRISCILA FRANCOIS IC 7 [facility] PROPHYLAC INC INC TIC/DX INJECTION SUBQ/IM PROTHROMB 49960 PRISCILA PRISCILA IN TIME 7 [facility] INC INC PROTHROMB 26050 FAMILY MULBERRY IN TIME 6 CARE MAURILIO ASSOCIATE S COLLECTIO 76489 FAMILY MULBERRY N 6 CARE MAURILIO CAPILLARY ASSOCIATE BLOOD S SPECIMEN COLLECTIO 42022 FAMILY MULBERRY N 6 CARE MAURILIO CAPILLARY ASSOCIATE BLOOD S SPECIMEN PROTHROMB 21244 FAMILY MULBERRY IN TIME 6 CARE MAURILIO ASSOCIATE S ECG 67854 PRISCILA MAYER ROUTINE 6 [facility] W/LEAST P 12 LDS I&R ONLY CONTINUOU E0601 VIKRAM SUE S 6 HOME HOME POSITIVE MEDICAL MEDICAL AIRWAY EQUIPME EQUIPME PRESSURE DEVICE COLLECTIO 68227 FAMILY CROWDY N 6 CARE CRI CAPILLARY ASSOCIATE BLOOD S SPECIMEN BLOOD 80312 FAMILY CRISTOPHERDY COUNT 6 CARE CRI COMPLETE ASSOCIATE AUTO&AUTO S DIFRNTL WBC PROTHROMB 53975 FAMILY RHONDA IN TIME 6 CARE TAR ASSOCIATE S COLLECTIO 81529 FAMILY RHONDA N 6 CARE TAR CAPILLARY ASSOCIATE BLOOD S SPECIMEN CONTINUOU E0601 VIKRAM SUE S 6 HOME HOME POSITIVE MEDICAL MEDICAL AIRWAY EQUIPME EQUIPME PRESSURE DEVICE COLLECTIO 79392 FAMILY RHONDA N 6 CARE TAR CAPILLARY ASSOCIATE BLOOD S SPECIMEN PROTHROMB 23745 FAMILY RHONDA IN TIME 6 CARE TAR ASSOCIATE S IIV4 VACC 53210 FAMILY MATHEWSGATE SPLIT 6 CARE TAR VIRUS 0.5 ASSOCIATE ML DOS S FOR IM USE BLOOD 27998 FAMILY CRISTOPHERDY COUNT 6 CARE CRI COMPLETE ASSOCIATE AUTO&AUTO S DIFRNTL WBC COLLECTIO 57490 FAMILY CRISTOPHERDY N 6 CARE CRI CAPILLARY ASSOCIATE BLOOD S SPECIMEN IADNA 94903 [facility] JR LANEY GONORRHOE AE AMPLIFIED PROBE TQ CYTP C/V 27044 [facility], [facility] THIN [facility] JR LANEY LYR PREPJ SCR MNL RESCR PHYS LOCM Q9967 [phone] MG/ML [facility] IODINE CONCENTRA TION PER ML IADNA 30978 [facility], [facility] CHLAM[facility] ER JR L[place] [address] [facility] [place] ANGIOGRAP 6 HEALTH HEALTH HY CHEST [facility] W/CONTRAS T/NONCONT RAST PROTHROMB 91225 FAMILY MATHEWSGATE IN TIME 6 CARE TAR ASSOCIATE S COLLECTIO 22614 FAMILY RHONDA N 6 CARE TAR CAPILLARY ASSOCIATE BLOOD S SPECIMEN APPL 61375 [facility] MODALITY 6 ROXI ROXI 1/> AREAS ELEC STIMJ UNATTENDE D CHIROPRAC 75400 [place] TIC 6 ROXI ROXI MANIPLTV TX EXTRASPIN AL 1/> REGION RADIOLOGI 21988 [place] LOCKE ALL C EXAM 6 MEDICAL CHEST 2 IMAGING VIEWS ASS FRONTAL&L ATERAL MANUAL 29428 [place] THERAPY 6 ROXI ROXI TQS 1/> REGIONS EACH 15 MINUTES CHIROPRAC 79474 LUKING LUKING TIC 6 ROXI ROXI MANIPULAT [place] SPINAL 3-4 REGIONS APPL 08457 LUKING LUKING MODALITY 6 ROXI ROXI 1/> AREAS ULTRASOUN D EA 15 MIN TUBING A7037 VIKRAM VANDANA USED WITH 6 HOME KEMI POSITIVE MEDICAL AIRWAY EQUIPME PRESSURE DEVICE PROTHROMB 86606 FAMILY RHONDA IN TIME 6 CARE TAR [...] MEDICAL E AIRWAY EQUIPME PRESSURE DEVICE COLLECTIO 04681 FAMILY RHONDA N 6 CARE TAR CAPILLARY ASSOCIATE BLOOD S SPECIMEN APPL 80413 LUKING LUKING MODALITY 6 ROXI ROXI 1/> AREAS ELEC STIMJ UNATTENDE D APPL 73706 LUKING LUKING MODALITY 6 ROXI ROXI 1/> AREAS TRACTION MECHANICA L CHIROPRAC 02552 LUKING LUKING TIC 6 ROXI ROXI MANIPLTV TX EXTRASPIN AL 1/> REGION APPL 57939 LUKING LUKING MODALITY 6 ROXI ROXI 1/> AREAS ULTRASOUN D EA 15 MIN CHIROPRAC 09733 LUKING LUKING TIC 6 ROXI ROXI MANIPULAT [place] SPINAL 3-4 REGIONS MANUAL 74506 LUKING LUKING THERAPY 6 ROXI ROXI TQS 1/> REGIONS EACH 15 MINUTES MANUAL 49402 LUKING LUKING THERAPY 6 ROXI ROXI TQS 1/> REGIONS EACH 15 MINUTES CHIROPRAC 90966 LUKING LUKING TIC 6 ROXI ROXI MANIPULAT [place] SPINAL 3-4 REGIONS APPL 31621 LUKING LUKING MODALITY 6 ROXI ROXI 1/> AREAS ULTRASOUN D EA 15 MIN APPLICATI 16185 LUKING LUKING ON 6 ROXI ROXI MODALITY 1/> AREAS HOT/COLD PACKS PROTHROMB 28259 FAMILY RHONDA IN TIME 6 CARE TAR ASSOCIATE S APPL 29965 LUKING LUKING MODALITY 6 ROXI ROXI 1/> AREAS ELEC STIMJ UNATTENDE D COLLECTIO 62110 FAMILY RHONDA N 6 CARE TAR CAPILLARY ASSOCIATE BLOOD S SPECIMEN VOLUME 63182 COMBINED COMBINED MEASUREME 6 PHYSICIAN PHYSICIAN NT TIMED S LA S LA COLLECTIO N EACH URNLS DIP 00293 COMBINED COMBINED 6 PHYSICIAN PHYSICIAN STICK/TAB S LA S LA LET REAGENT AUTO MICROSCOP Y CULTURE 67330 COMBINED COMBINED BACTERIAL 6 PHYSICIAN PHYSICIAN S LA S LA QUANTTATI VE COLONY COUNT URINE CULTURE 58613 COMBINED COMBINED BACTERIAL 6 PHYSICIAN PHYSICIAN S LA S LA QUANTTATI VE COLONY COUNT URINE APPL 06615 LUKING LUKING MODALITY 6 ROXI ROXI 1/> AREAS ULTRASOUN D EA 15 MIN MANUAL 90672 LUKING LUKING THERAPY 6 ROXI ROXI TQS 1/> REGIONS EACH 15 MINUTES APPLICATI 56661 LUKING LUKING ON 6 ROXI ROXI MODALITY 1/> AREAS HOT/COLD PACKS APPL 47422 LUKING LUKING MODALITY 6 ROXI ROXI 1/> AREAS ELEC STIMJ UNATTENDE D APPL 30389 LUKING LUKING MODALITY 6 ROXI ROXI 1/> AREAS ELEC STIMJ UNATTENDE D APPLICATI 35125 LUKING LUKING ON 6 ROXI ROXI MODALITY 1/> AREAS HOT/COLD PACKS APPL 66231 LUKING LUKING MODALITY 6 ROXI ROXI 1/> AREAS ULTRASOUN D EA 15 MIN MANUAL 41080 LUKING LUKING THERAPY 6 ROXI ROXI TQS 1/> REGIONS EACH 15 MINUTES CHIROPRAC 09146 LUKING LUKING TIC 6 ROXI ROXI MANIPULAT CAR[place]OS [place] SPINAL 3-4 REGIONS CULTURE 77524 COMBINED COMBINED BACTERIAL 6 PHYSICIAN PHYSICIAN S LA S LA QUANTTATI VE COLONY COUNT URINE BLOOD 24039 FAMILY CROWDY COUNT 6 CARE CRI COMPLETE ASSOCIATE AUTO&AUTO S DIFRNTL WBC PROTHROMB 58022 FAMILY CROWDY IN TIME 6 CARE CRI ASSOCIATE S COLLECTIO 35136 FAMILY CROWDY N 6 CARE CRI CAPILLARY ASSOCIATE BLOOD S SPECIMEN APPL 89244 LUKING LUKING MODALITY 6 ROXI ROXI 1/> AREAS ELEC STIMJ UNATTENDE D APPLICATI 93480 LUKING LUKING ON 6 ROXI ROXI MODALITY 1/> AREAS HOT/COLD PACKS MANUAL 76455 LUKING LUKING THERAPY 6 ROXI ROXI TQS 1/> REGIONS EACH 15 MINUTES CHIROPRAC 68530 LUKING LUKING TIC 6 ROXI ROXI MANIPULAT CAR[place] SPINAL 3-4 REGIONS PROTHROMB 31221 FAMILY RHONDA IN TIME 6 CARE TAR ASSOCIATE S COLLECTIO 72856 FAMILY RHONDA N 6 CARE TAR CAPILLARY [place] B[place] [address] VIRTUAL VALERIA GOL TRANSVAGI 6 RADIOLOGI NAL C PROFESSIO COLLECTIO 37359 FAMILY MULBERRY N 6 CARE MAURILIO CAPILLARY ASSOCIATE BLOOD S SPECIMEN PROTHROMB 06244 FAMILY MULBERRY IN TIME 6 CARE MAURILIO ASSOCIATE S THREAD REELER STDY 67774 [facility] FR[facility]COIS UNATND 6 [facility] W/HRT INC INC RATE/O2 SAT/RESP/ THREAD REELER TIME PROTHROMB 54127 FAMILY CROWDY IN TIME 6 CARE CRI ASSOCIATE S CULTURE 91902 COMBINED COMBINED BACTERIAL 6 PHYSICIAN PHYSICIAN S LA S LA QUANTTATI VE COLONY COUNT URINE PROTHROMB 19269 FAMILY DELA CRUZ IN TIME 6 CARE CRI ASSOCIATE S COLLECTIO 29297 FAMILY LANIE N 6 CARE CRI CAPILLARY ASSOCIATE BLOOD S SPECIMEN THERAPEUT 18578 FAMILY ELLIS IC 6 CARE TAR PROPHYLAC ASSOCIATE TIC/DX S INJECTION SUBQ/IM INJECTION J1030 FAMILY ELLIS 6 CARE TAR METHYLPRE ASSOCIATE DNISOLONE S ACETATE 40 MG PROTHROMB 92190 FAMILY ELLIS IN TIME 6 CARE TAR ASSOCIATE S XTRNL ECG 86532 [facility] MAYER 6 [facility] S RHYTHM P W/I&R [place] [address] [place] [address] [facility] PRESYBETERIAN TROPONIN 6 [facility] QUANTITAT [facility] CARLOS ECG 23585 [facility] PRESYBETERIAN ROUTINE 6 [facility] ECG [facility] W/LEAST 12 LDS TRCG ONLY W/O I&[place] [address] [facility]ETERIAN PRESYBETERIAN MAGNESIUM 6 [facility] RADIOLOGI 96983 [facility]IAN PRESYBETERIAN C 6 [facility] EXAMINATI [facility] ON CHEST SINGLE VIEW FRONTAL PROTHROMB 28226 [facility] PRESYBETERIAN IN TIME 6 [facility] ECG 79804 [facility] ROUTINE 6 EMERGENCY ECG PHYS PSC W/LEAST 12 LDS I&R ONLY BLOOD 48157 [facility] PRESYBETERIAN COUNT 6 [facility] COMPLETE [facility] AUTO&AUTO DIFRNTL WBC COMPREHEN 94111 [facility] PRESYBETERIAN SIVE 6 [facility] METABOLIC [facility] PANEL COLLECTIO 29046 [facility] PRESYBETERIAN N VENOUS 6 [facility] BLOOD [facility] VENIPUNCT URE DETERMINA 82838 [facility] STATE [facility] OPHTHALMO 78830 RAJ ESCALANTEY 6 [facility], RETINAL [facility]. DRAWING I&R 1ST PROTHROMB 66466 FAMILY DELA CRUZ IN TIME 6 PAD MACHINE OPERATOR S, PSC COLLECTIO 75289 FAMILY CROWDY N 6 CARE CAPILLARY ASSOCIATE BLOOD S, PSC SPECIMEN COMPUTERI 95818 RAJ VALLE ZED 6 [facility], C IMAGING P.S.C. OPTIC NERVE VISUAL 22500 RAJ VALLE FIELD XM 6 [facility] UNI/BI C[facility], W/INTERP P.S.C. EXTENDED EXAM PROTHROMB 67808 FAMILY RHONDA IN TIME 6 CARE TAR ASSOCIATE S COLLECTIO 89006 FAMILY RHONDA N 6 CARE TAR CAPILLARY ASSOCIATE BLOOD S SPECIMEN OPHTHALMO 00286 RAJ VALLE SCPY 6 [facility], RETINAL [facility]. DRAWING I&R 1ST DETERMINA 69156 RAJ MARADIAGAON 6 [facility] BLOOD 01355 [facility] PRESYBETERIAN COUNT 6 [facility] COMPLETE [facility] AUTO&AUTO DIFRNTL WBC PROTHROMB 18209 [facility] PRESYBETERIAN IN TIME 6 [facility]ALTH HEALTH [facility] THROMBOPL 54141 [facility] PRES[facility]BETERIAN ASTIN 6 HEALTH HEALTH TIME [facility] PARTIAL PLASMA/WH OLE BLOOD COLLECTIO 94934 [facility] PRESYBETERIAN N VENOUS 6 HEALTH HEALTH BLOOD [facility] VENIPUNCT URE COLLECTIO 83896 FAMILY CROWDY N 6 CARE CAPILLARY ASSOCIATE BLOOD S, PSC SPECIMEN PROTHROMB 78431 FAMILY CROWDY IN TIME 6 PAD MACHINE OPERATOR S, PSC BLOOD 85008 FAMILY CROWDY COUNT 6 CARE COMPLETE ASSOCIATE AUTO&AUTO S, PSC DIFRNTL WBC PROTHROMB 97768 FAMILY RHONDA IN TIME 6 CARE TAR ASSOCIATE S COLLECTIO 64532 FAMILY RHONDA N 6 CARE TAR CAPILLARY ASSOCIATE BLOOD S SPECIMEN COLLECTIO 80793 FAMILY RHONDA N 6 CARE TAR CAPILLARY ASSOCIATE BLOOD S SPECIMEN PROTHROMB 16068 FAMILY RHONDA IN TIME 6 CARE TAR ASSOCIATE S PROTHROMB 59275 FAMILY RHONDA IN TIME 6 CARE TAR ASSOCIATE S COLLECTIO 42210 FAMILY RHONDA N 6 CARE TAR CAPILLARY ASSOCIATE BLOOD S SPECIMEN COLLECTIO 86024 FAMILY CROWDY N 6 CARE CAPILLARY ASSOCIATE BLOOD S SPECIMEN PROTHROMB 19212 FAMILY CROWDY IN TIME 6 PAD MACHINE OPERATOR S PROTHROMB 36085 [facility] FRANCOIS IN TIME 6 [facility] INC INC BLOOD 22342 PRISCILA PRISCILA OCCULT 6 [facility] PEROXIDAS INC INC E ACTV QUAL FECES 1-3 SPEC BLOOD 09972 PRISCILA COURTNEY COUNT 6 [facility] HOR COMPLETE INC AUTO&AUTO DIFRNTL WBC URNLS DIP 25352 [facility] FRANCOIS 6 [facility] STICK/TAB INC INC LET REAGENT AUTO MICROSCOP Y BASIC 73427 PRISCILA PRISCILA METABOLIC 6 [facility] PANEL INC INC CALCIUM TOTAL URINE 50090 PRISC[facility] PRISCILA 6 [facility] TEST INC INC VISUAL COLOR CMPRSN METHS IAADIADOO 33604 [facility] MEÑO 6 PHYSICIAN SUNI STREPTOCO S GROUP CCUS GROUP A PROTHROMB 92498 FAMILY MULBERRY IN TIME 6 PAD MACHINE OPERATOR S COLLECTIO 06572 FAMILY MULBERRY N 6 CARE CAPILLARY ASSOCIATE BLOOD S SPECIMEN BLOOD 02525 FAMILY FAMILY COUNT 6 CARE CARE COMPLETE ASSOCIATE ASSOCIATE AUTO&AUTO S S DIFRNTL WBC BASIC 23260 COMBINED COMBINED METABOLIC 6 PHYSICIAN PHYSICIAN PANEL S LA S LA CALCIUM TOTAL ECG 39819 PRISCILA BOLANOS JR ROUTINE 6 [facility] W/LEAST P 12 LDS I&R ONLY PROTHROMB 63252 FAMILY CROWDY IN TIME 6 PAD MACHINE OPERATOR S RADIOLOGI 49856 [place] LOCKE ALL C 6 MEDICAL EXAMINATI IMAGING ON CHEST ASS SINGLE VIEW FRONTAL COLLECTIO 07379 FAMILY CROWDY N 6 CARE CAPILLARY ASSOCIATE BLOOD S SPECIMEN SMR PRIM 83810 [facility] WET 6 PHYSICIAN YVAN MOUNT S GROUP NFCT AGT PROTHROMB 23887 FAMILY CROWDY IN TIME 6 CARE CRI ASSOCIATE S PROTHROMB 44403 FAMILY CROWDY IN TIME 6 PAD MACHINE OPERATOR S COLLECTIO 25441 FAMILY CROWDY N 6 CARE CAPILLARY ASSOCIATE BLOOD S SPECIMEN RADEX 27945 RAJ LOCKE ALL FOOT 6 MEDICAL COMPLETE IMAGING MINIMUM 3 ASS VIEWS PROTHROMB 56516 FAMILY CROWDY IN TIME 6 PAD MACHINE OPERATOR S COLLECTIO 07978 FAMILY CROWDY N 6 CARE CAPILLARY ASSOCIATE BLOOD S SPECIMEN COLLECTIO 82434 FAMILY CROWDY N 6 CARE CRI CAPILLARY ASSOCIATE BLOOD S SPECIMEN PROTHROMB 02163 FAMILY CROWDY IN TIME 6 CARE CRI ASSOCIATE S PROTHROMB 30428 FAMILY CROWDY IN TIME 6 CARE CRI ASSOCIATE S PROTHROMB 68525 FAMILY CROWDY IN TIME 6 CARE CRI ASSOCIATE S URINE 72586 [facility] CARLITO 5 PHYSICIAN YVAN TEST S GROUP VISUAL COLOR CMPRSN METHS INSERTION 50603 [facility] CARLITO 5 PHYSICIAN YVAN INTRAUTER S GROUP INE DEVICE IUD LEVONORGE J7302 [facility] CARLITO STREL-RLS 5 PHYSICIAN YVAN E S GROUP INTRAUTER N CNTRACPT 52 MG BLOOD 94929 FAMILY MULBERRY COUNT 5 CARE MAURILIO COMPLETE ASSOCIATE AUTO&AUTO S DIFRNTL WBC SERVICES 64450 FAMILY FAMILY PROVIDED 5 CARE CARE MARINE DRILLER ASSOCIATE OT/RADHA S S REG SCHED HOURS PROTHROMB 10708 FAMILY CROWDY IN TIME 5 CARE CRI ASSOCIATE S OPHTH 60346 [facility] MEDICAL 5 ANG ANG XM&EVAL COMPRHNSV ESTAB PT 1/> SIMPLE 38506 PR[facility] FRANCOIS REPAIR 5 [facility] F/E/E/N/L INC INC /M 2.6CM-5.0 CM PROTHROMB 24683 FAMILY MARIAN IN TIME 5 CARE YARI ASSOCIATE S PROTHROMB 55369 FAMILY CROWDY IN TIME 5 CARE CRI ASSOCIATE S PROTHROMB 22233 FAMILY CROWDY IN TIME 5 CARE CRI ASSOCIATE S CULTURE 55917 COMBINED COMBINED BACTERIAL 5 PHYSICIAN PHYSICIAN S LA S LA QUANTTATI VE COLONY COUNT URINE CULTURE 21834 COMBINED COMBINED BCT 5 PHYSICIAN PHYSICIAN ISOL&PRSM S LA S LA PTV ID ISOLATE EA URINE SUSCEPTIB 75406 COMBINED COMBINED ILITY 5 PHYSICIAN PHYSICIAN STUDY S LA S LA ANTIMICRO BIAL DISK METHOD PROTHROMB 12094 FAMILY CROWDY IN TIME 5 CARE CRI ASSOCIATE S PROTHROMB 75044 FAMILY CROWDY IN TIME 5 CARE CRI ASSOCIATE S BLOOD 84684 FAMILY FAMILY COUNT 5 CARE CARE COMPLETE ASSOCIATE ASSOCIATE AUTO&AUTO S S DIFRNTL WBC PROTHROMB 88817 FAMILY MARIAN IN TIME 5 CARE YARI ASSOCIATE S RADIOLOGI 43531 [facility] C EXAM [facility] CHEST 2 MEDICAL VIEWS GROUP FRONTAL&L ATERAL PROTHROMB 17363 FAMILY FAMILY IN TIME 5 CARE PAD MACHINE OPERATOR ASSOCIATE S S PROTHROMB 38652 FAMILY MULBERRY IN TIME 5 CARE MAURILIO ASSOCIATE S PROTHROMB 35330 [facility] IN TIME 5 [facility] COLLECTIO 02677 [facility] N VENOUS 5 [facility] HOSP VENIPUNCT URE COLLECTIO 36463 [facility] N VENOUS 5 [facility] HOSP VENIPUNCT URE RADEX 74973 [facility] WELCH MAR STERNUM 5 RADIOLOGY MINIMUM 2 ASSOC VIEWS PROTHROMB 83902 [facility] TIME [facility] RADIOLOGI 19119 [facility] MALLOY C 5 RADIOLOGY III JAM EXAMINATI ASSOC ON CHEST SINGLE VIEW FRONTAL SBSQ [address]/DAY MEDICAL 15 GROUP MINUTES SBSQ [address]/DAY MEDICAL 25 GROUP MINUTES RADIOLOGI 96662 [facility] M[facility]OY C 5 RADIOLOGY III JAM EXAMINATI ASSOC ON CHEST SINGLE VIEW FRONTAL RADIOLOGI 50423 [facility]OY C 5 RADIOLOGY III JAM EXAMINATI ASSOC ON CHEST SINGLE VIEW FRONTAL SBSQ [address]/DAY MEDICAL 15 GROUP MINUTES SBSQ 56602 [place] [address] [facility]ALTH RUPINDER CARE/DAY MEDICAL 25 GROUP MINUTES RADIOLOGI 34081 [facility] RICE N. C 5 RADIOLOGY EXAMINATI ASSOC ON CHEST SINGLE VIEW FRONTAL ECG 41900 [facility] ROUTINE 5 HEALTH MANDEEP ECG MEDICAL W/LEAST GROUP 12 LDS I&R ONLY ECG 60074 [facility] ROUTINE 5 HEART GRANT ECG SPECIALIS W/LEAST TS, 12 LDS I&R ONLY RADIOLOGI 13823 [facility] PALENCIA ADA C 5 RADIOLOGY EXAMINATI ASSOC ON CHEST SINGLE VIEW FRONTAL SBSQ [address] CARE/DAY MEDICAL 25 GROUP MINUTES SBSQ [address] CARE/DAY MEDICAL 35 [place] [address] CHIPPS KULDIP KEMI SURG 5 ADOLFO & [facility] GROSS&SUNI ROSCOPIC EXAM [place] VASC 36675 [facility] ACCESS 5 [place] SITS VSL ANESTHESI PATENCY A NDL ENTRY RPLCMT 01249 [facility] PROST 5 [facility] DEN AORTIC MEDICAL VALVE GROUP OPEN XCP HOMOGRF/S TENT RADIOLOGI 30947 [facility] FONTANA C 5 RADIOLOGY OSWALDO EXAMINATI ASSOC ON CHEST SINGLE VIEW FRONTAL DOPPLER 24326 [facility] ECHOCARD 5 [place] PULSE ANESTHESI WAVE A W/SPECTRA L DISPLAY INSERTION 10906 [facility] FLOW 5 [place] DIRECTED ANESTHESI CATHETER A FOR MONITORIN G ANES HRT 83968 [facility] PERICRD 5 [place] SAC&GRT ANESTHESI VSLS A W/EXPERIMENTAL ELECTRONICS DEVELOPER OXTJ >1MO PO ECHO 39651 [facility] TRANSESOP 5 [place] HAG R-T ANESTHESI 2D W/PRB A IMG ACQUISJ I&R DOP 35660 [facility] ECHOCARD 5 [place] COLOR ANESTHESI FLOW A VELOCITY MAPPING ECG 67801 [facility] ECG MEDICAL W/LEAST GROUP 12 LDS I&R ONLY ARTL 59852 [facility] CATHJ/CAN [facility] MNTR/MCKEE A SFUSION SPX PRQ ECG 19931 [facility] GRACY ROUTINE 5 [facility]ALTH [facility] ECG MEDICAL W/LEAST GROUP 12 LDS I&R ONLY SPMTRY 55804 [facility] BIGGS W/VC 5 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 CARE OF Y HERMELINDA WERNER W/WO MXML VOL VNTJ CT THORAX 39218 C[facility] RICE N. 5 RADIOLOGY W/CONTRAS ASSOC T MATERIAL LOCM Q9967 [facility] C[facility]TRAL 300-399 5 [facility] PRES[facility]BETERIAN MG/ML HOSP HOSP IODINE CONCENTRA TION PER ML SBSQ 99780 [facility] OBSERVATI 5 NURSE KASSANDRA ON PRACTITIO CARE/DAY NER GR 25 MINUTES RADIOLOGI 28935 [place] CHARLY C EXAM 5 MEDICAL CHARLES CHEST 2 SERV VIEWS FOUNDATIO FRONTAL&L N ATERAL ECHO 31880 [place] HANANE TTHRC R-T 5 MEDICAL LU EMMANUELLE 2D SERV W/WOM-MOD FOUNDATIO E COMPL N SPEC&COLR D URNLS DIP 20469 [facility] FR[facility]COIS 5 [facility] STICK/TAB INC INC LET REAGENT AUTO MICROSCOP Y URINE 52781 [facility] FRANCOIS 5 [facility] TEST INC INC VISUAL COLOR CMPRSN METHS CYTP C/V 72810 [facility], PICKLESIM AUTO THIN 5 LLC ER JR LANEY LYR PREPJ SCR MNL RESCR PHYS BLOOD 58082 FAMILY FAMILY COUNT 5 CARE CARE COMPLETE ASSOCIATE ASSOCIATE AUTO&AUTO S S DIFRNTL WBC LIFT ELEV L3332 [place] INSIDE 5 SHOE TAPERED UP ONE-HALF INCH IADNA 64209 P&C NAT MONSON TER CHLAMYDIA 5 LLC TRACHOMAT IS AMPLIFIED PROBE TQ IADNA 52833 P&C NAT MONSON TER NEISSERIA 5 LLC GONORRHOE AE AMPLIFIED PROBE TQ INJECTION J1040 [facility] NANO 5 PHYSICIAN SUNI METHYLPRE S GROUP DNISOLONE ACETATE 80 MG THERAPEUT 52080 [facility] NANO IC 5 PHYSICIAN SUNI PROPHYLAC S GROUP TIC/DX INJECTION SUBQ/IM HEMOGLOBI 08059 FAMILY CROWDY N 5 CARE CRI GLYCOSYLA [place] [address] FAMILY CROWDY THYROID 5 CARE CRI STIMULATI ASSOCIATE NG S HORMONE TSH 25 31265 COMBINED COMBINED HYDROXY 5 PHYSICIAN PHYSICIAN INCLUDES S LA S LA FRACTIONS IF PERFORMED CYANOCOBA 72854 COMBINED COMBINED MACARENA 5 PHYSICIAN PHYSICIAN VITAMIN S LA S LA B-12 LIPID 47165 FAMILY CROWDY PANEL 5 CARE CRI ASSOCIATE S COMPREHEN 20004 COMBINED COMBINED SIVE 5 PHYSICIAN PHYSICIAN METABOLIC S LA S LA PANEL COLLECTIO 57489 FAMILY CROWDY N 5 CARE CRI CAPILLARY ASSOCIATE BLOOD S SPECIMEN COLLECTIO 88648 FAMILY CROWDY N VENOUS 5 CARE CRI BLOOD ASSOCIATE VENIPUNCT S URE BLOOD 11702 FAMILY FAMILY COUNT 4 CARE CARE COMPLETE ASSOCIATE ASSOCIATE AUTO&AUTO S S DIFRNTL WBC BLOOD 81707 [facility] FR[facility]CO[facility] COUNT 4 [facility] COMPLETE INC INC AUTO&[place] [address] PRISC[facility] FRANCOIS INFUSION 4 [facility] THERAPY/P INC INC ROPHYLAXI S /DX 1ST TO 1 HR URNLS DIP 38877 [facility] FR[facility]COIS 4 [facility] STICK/TAB INC INC LET REAGENT AUTO MICROSCOP Y URINE 96364 [facility] FR[facility]COIS 4 [facility] TEST INC [place] [address] PRISCILA FRANCOIS ABDOMEN & 4 [facility] PELVIS INC INC W/O CONTRAST MATERIAL COMPREHEN 00117 [facility] FR[facility]COIS SIVE 4 [facility] METABOLIC INC INC PANEL Encounters Encounter Start End Date Code Location Performer Type Date OFFICE 50923 [facility] 7 7 HEALTH T VISIT MEDICAL 15 GROUP MINUTES [facility]PAT[facility] [place] [facility] OFF[facility] 25392 [facility] 7 7 [facility] T VISIT MEDICAL 15 G MINUTES OFFICE 21417 [facility] 7 7 HEALTH T VISIT 5 [place] MINUTES OFFICE 33917 [facility] OUTPATI[facility] 7 7 HEALTH T VISIT 5 [facility] - 7 7 HEALTH OUTPATIEN [facility] - 7 7 HEALTH OUTPATIEN [facility] T EMERGENCY 07584 [facility] 7 7 HEALTH DEPARTMEN [facility] VISIT HIGH/URGE NT SEVERITY EMERGENCY 85877 [facility] DEPT 7 7 EMERGENCY VISIT PHYS PSC HIGH SEVERITY& THREAT FUNCJ OFFICE 97173 [facility] OUT[facility] 7 7 HEALTH T VISIT 5 [place] MINUTES OFFICE 09693 [facility] 7 7 HEALTH T VISIT 5 [place] MINUTES OFFICE 53083 [facility] OUTPATI[facility] 7 7 HEALTH T VISIT 5 [facility] - 7 7 HEALTH OUTPATIEN [facility] OFF[facility] 65115 [facility] 7 7 NE HEALTH T [facility]ISIT MEDICAL 25 G MINUTES HOSPITAL [facility] - 7 [facility] 43621 [facility] OUTPATIEN 7 7 HEALTH T VISIT 5 [place] MINUTES OFFICE 78794 [facility] OUT[facility] 7 7 HEALTH T VISIT 5 [place] MINUTES OFFICE 36537 [facility] OUT[facility] 7 7 HEALTH T VISIT 5 [place] MINUTES OFFICE 43220 [facility] OUTPATIEN 7 7 FAMILY T NEW 30 CHIROPRAC MINUTES TOR OFFICE 77890 [facility] ATK[facility] OUTPATIEN 7 7 HEALTH T VISIT MEDICAL 25 GROUP MINUTES OFFICE 16557 [facility] OUTPATI[facility] 7 7 [facility] T VISIT 5 INC MINUTES HOSPITAL [facility] - 7 7 [facility] OUTPATIEN INC T OFFICE 02961 [facility] 7 7 NE HEALTH T NEW 45 MEDICAL MINUTES G OFFICE 63876 [facility] 7 7 [facility]ICINE T VISIT [place] [facility] - 7 7 HEALTH OUTPATIEN [place]ESS[place] T EMERGENCY 03076 [facility] 7 7 HEALTH DEPARTMEN PLESS[place] T VISIT HIGH/URGE NT SEVERITY EMERGENCY 62295 [facility] DEPT 7 7 EMERGENCY VISIT PHYS PSC HIGH SEVERITY& THREAT FUNCJ EMERGENCY 76291 [facility] DEPT 7 7 EMERGENCY VISIT PHYS PSC HIGH SEVERITY& THREAT FUN HOSPITAL [facility] - 7 7 HEALTH OUTPATIEN PLESSIS T OFFICE 48813 [facility] ESTEBAN OUTPATIEN 7 7 PHYSICIAN T VISIT S GROUP 15 MINUTES EMERGENCY 53906 [facility]URGE NT SEVERITY OFFICE 32939 [facility] 7 7 [facility] T VISIT 5 INC MINUTES HOSPITAL [facility] - 7 7 [facility] OUTPATIEN INC T OFFICE 78908 [facility] 7 7 [facility] 33391 [facility] 7 7 [facility] T VISIT 5 INC MINUTES [facility]OSPITAL [facility] - 7 7 [facility] OUTPATIEN INC T EMERGENCY 29822 [facility] DEPT 7 7 EMERGENCY VISIT PHYS PSC HIGH SEVERITY& THREAT FUNCJ EMERGENCY 02506 PRESYBETERIAN 7 7 HEALTH DEPARTMEN [place] T VISIT HIGH/URGE NT SEVERITY HOSPITAL [facility]ETER[facility] - 7 7 [facility] - 7 7 [facility] OUTPATIEN INC T OFFICE 87189 [facility] FRYMAN OUTPATIEN 7 7 PHYSICIAN T VISIT S GROUP 15 MINUTES HOSPITAL [facility] - 7 7 [facility] OUTPATIEN INC T OFFICE 21254 [facility] OUTPATIEN 7 7 [facility] T VISIT 5 INC MINUTES [facility] PRISCIL[facility] - 7 7 [facility] OUTPATIEN INC T OFFICE 90336 [facility] FRYMAN OUTPATIEN 7 7 PHYSICIAN T NEW 30 S [facility] PRISCIL[facility] - 7 7 [facility] OUTPATIEN INC T EMERGENCY 45631 [facility] 7 7 [facility] DEPARTMEN INC T VISIT LOW/MODER SEVERITY OFFICE 33536 FAMILY MULBERRY OUTPATIEN 6 6 CARE MAURILIO T VISIT ASSOCIATE 10 S MINUTES OFFICE 46015 [facility] MARY OUTPATIEN 6 6 PHYSICIAN T VISIT GROUP 25 MINUTES OFFICE 09494 FAMILY MULBERRY OUTPATIEN 6 6 CARE MAURILIO T VISIT ASSOCIATE 10 S MINUTES OFFICE 35739 FAMILY RHONDA OUTPATIEN 6 6 CARE TAR T VISIT ASSOCIATE 15 S MINUTES OFFICE 60822 FAMILY CROWDY OUTPATIEN 6 6 CARE CRI T VISIT ASSOCIATE 15 S MINUTES OFFICE 99107 FAMILY CROWDY OUTPATIEN 6 6 CARE CRI T VISIT ASSOCIATE 15 S MINUTES OFFICE 08786 FAMILY RHONDA OUTPATIEN 6 6 CARE TAR T VISIT ASSOCIATE 15 S MINUTES OFFICE 86871 FAMILY RHONDA OUTPATIEN 6 6 CARE TAR T VISIT ASSOCIATE 15 S MINUTES OFFICE 32158 [facility] EVANS OUTPATIEN 6 6 HEALTH YARI T VISIT MEDICAL 10 GROUP MINUTES OFFICE 24431 FAMILY CROWDY OUTPATIEN 6 6 CARE CRI T VISIT ASSOCIATE 15 S MINUTES HOSPITAL PRESYBETERIAN - 6 6 HEALTH OUTPATIEN [place] T PERIODIC 91508 [facility] PREVENTIV 6 6 PHYSICIAN E MED EST S GROUP PATIENT 18-39 YRS OFFICE 55075 FAMILY RHONDA OUTPATIEN 6 6 CARE TAR T VISIT ASSOCIATE 15 S MINUTES OFFICE 76603 FAMILY RHONDA OUTPATIEN 6 6 CARE TAR T VISIT ASSOCIATE 15 S MINUTES OFFICE 30136 FAMILY RHONDA OUTPATIEN 6 6 CARE TAR T VISIT ASSOCIATE 15 S MINUTES OFFICE 51782 FAMILY RHONDA OUTPATIEN 6 6 CARE TAR T VISIT ASSOCIATE 15 S MINUTES OFFICE 66594 FAMILY CROWDY OUTPATIEN 6 6 CARE CRI T VISIT 5 ASSOCIATE MINUTES S OFFICE 96210 FAMILY CROWDY OUTPATIEN 6 6 CARE CRI T VISIT ASSOCIATE 15 S MINUTES EMERGENCY 15149 EMANUEL LUAN MOH 6 6 PHYSICIAN DEPARTMEN S, PLLC T VISIT MODERATE SEVERITY EMERGENCY 52773 [facility] 6 6 [facility] DEPARTMEN INC T VISIT LIMITED/M INOR PROB OFFICE 21383 [facility] OUTPATIEN 6 6 ROXI ROXI T NEW 30 MINUTES HOSPITAL PRISCILA - 6 6 [facility] OUTPATIEN INC T OFFICE 27775 FAMILY RHONDA OUTPATIEN 6 6 CARE TAR T VISIT ASSOCIATE 15 S MINUTES OFFICE 09013 [facility] ESTEBAN OUTPATIEN 6 6 PHYSICIAN YVAN T VISIT S GROUP 15 MINUTES EMERGENCY 62711 [facility] 6 6 EMERGENCY VISIT PHYS PSC HIGH SEVERITY& THREAT FUNCJ OFFICE 24763 FAMILY MULBERRY OUTPATIEN 6 6 CARE MAURILIO T VISIT ASSOCIATE 10 S MINUTES HOSPITAL PRISC[facility]A - 6 6 [facility] OUTPATIEN INC T OFFICE 18656 FAMILY CROWDY OUTPATIEN 6 6 CARE CRI T VISIT ASSOCIATE 10 S MINUTES OFFICE 41978 FAMILY CROWDY OUTPATIEN 6 6 CARE CRI T VISIT ASSOCIATE 15 S MINUTES OFFICE 12774 FAMILY RHONDA OUTPATIEN 6 6 CARE TAR T VISIT ASSOCIATE 15 S MINUTES OFFICE 16704 [facility] T VISIT MEDICAL 25 G MINUTES OFFICE 14130 FAMILY RHONDA OUTPATIEN 6 6 CARE TAR T VISIT ASSOCIATE 15 S MINUTES EMERGENCY 99258 [facility] 6 [facility] SE[facility] - 6 6 [facility] T [facility] 65170 [facility] 6 6 EMERGENCY DEPARTMEN PHYS PSC T VISIT HIGH/URGE NT SEVERITY OFFICE 94098 [facility] 6 6 [facility], 40 [facility] MINUTES OFFICE 75349 FAMILY CROWDY OUTPATIEN 6 6 CARE T VISIT ASSOCIATE 10 S, PSC MINUTES OFFICE 31300 FAMILY RHONDA OUTPATIEN 6 6 CARE TAR T VISIT ASSOCIATE 15 S MINUTES OFFICE 47548 RAJ VALLE OUTPATIEN 6 6 [facility], MINUTES [facility] EMERGENCY 65936 PRESYBETERIAN 6 6 HEALTH DEPARTMEN [place] T VISIT MODERATE SEVERITY HOSPITAL PRESYBETERIAN - 6 6 HEALTH OUTPATIEN [place] T OFFICE 44380 FAMILY CROWDY OUTPATIEN 6 6 CARE T VISIT ASSOCIATE 15 S, PSC MINUTES OFFICE 13026 FAMILY RHONDA OUTPATIEN 6 6 CARE TAR T VISIT ASSOCIATE 15 S MINUTES OFFICE 36482 FAMILY RHONDA OUTPATIEN 6 6 CARE TAR T VISIT ASSOCIATE 15 S MINUTES OFFICE 29312 FAMILY RHONDA OUTPATIEN 6 6 CARE TAR T VISIT ASSOCIATE 15 S MINUTES OFFICE 95321 FAMILY CROWDY OUTPATIEN 6 6 CARE T VISIT ASSOCIATE 15 S MINUTES EMERGENCY 63479 EMANUEL HEARD 6 6 PHYSICIAN DEPARTMEN S, PLLC T VISIT HIGH/URGE NT SEVERITY EMERGENCY 56353 [facility] 6 6 [facility] DEPARTMEN INC T VISIT MODERATE SEVERITY HOSPITAL [facility]ISC[facility] - 6 6 [facility] OUTPATIEN INC T OFFICE 40249 [facility] MEÑO OUTPATIEN 6 6 PHYSICIAN SUNI T VISIT S GROUP 15 MINUTES OFFICE 59529 FAMILY MULBERRY OUTPATIEN 6 6 CARE T VISIT ASSOCIATE 10 S MINUTES OFFICE 08810 FAMILY MULBERRY OUTPATIEN 6 6 CARE MAURILIO T VISIT ASSOCIATE 15 S MINUTES OFFICE 10622 FAMILY CROWDY OUTPATIEN 6 6 CARE T VISIT ASSOCIATE 10 S MINUTES EMERGENCY 59170 EMANUEL MCGILL DEPT 6 6 PHYSICIAN SUNI VISIT S, PLLC HIGH SEVERITY& THREAT FUNCJ OFFICE 78598 [facility] OUTPATIEN 6 6 PHYSICIAN T VISIT S GROUP 15 MINUTES OFFICE 92374 FAMILY CROWDY OUTPATIEN 6 6 CARE CRI T VISIT ASSOCIATE 10 S MINUTES OFFICE 00199 FAMILY CROWDY OUTPATIEN 6 6 CARE T VISIT ASSOCIATE 10 S MINUTES EMERGENCY 27090 [facility] 6 6 [facility] DEPARTMEN INC T VISIT LOW/MODER SEVERITY HOSPITAL PRISCILA - 6 6 [facility] OUTPATIEN INC T EMERGENCY 79661 EMANUEL FONG 6 6 PHYSICIAN U [facility] S, PLLC T VISIT MODERATE SEVERITY OFFICE 31119 FAMILY CROWDY OUTPATIEN 6 6 CARE T VISIT ASSOCIATE 10 S MINUTES OFFICE 57204 FAMILY CROWDY OUTPATIEN 6 6 CARE CRI T VISIT ASSOCIATE 10 S MINUTES OFFICE 67911 FAMILY CROWDY OUTPATIEN 6 6 CARE CRI T VISIT ASSOCIATE 15 S MINUTES OFFICE 65688 FAMILY CROWDY OUTPATIEN 6 6 CARE CRI T VISIT ASSOCIATE 10 S MINUTES EMERGENCY 41480 CENTRAL CUMMINS 6 6 EMERGENCY ALLY DEPARTMEN PHYS PSC T VISIT HIGH/URGE NT SEVERITY OFFICE 71341 [facility] [address] OUTPATIEN 5 5 PHYSICIAN T VISIT S GROUP 10 MINUTES EMERGENCY 00159 [facility] 5 5 [facility] DEPARTMEN INC T VISIT LOW/MODER SEVERITY EMERGENCY 57097 EMANUEL MCGILL 5 5 PHYSICIAN [facility] DEPARTMEN S, PLLC T VISIT MODERATE SEVERITY HOSPITAL PRISCILA - 5 5 [facility] OUTPATIEN INC T OFFICE 87249 FAMILY CROWDY OUTPATIEN 5 5 CARE CRI T VISIT ASSOCIATE 10 S MINUTES OFFICE 85364 PRISCILA PETERSRON OUTPATIEN 5 5 [facility] SUNI T VISIT 5 HOSPITAL MINUTES OFFICE 33994 [facility] ESTEBAN OUTPATIEN 5 5 PHYSICIAN YVAN T VISIT S GROUP 15 MINUTES EMERGENCY 18031 [facility]A 5 5 [facility] DEPARTMEN INC T VISIT MODERATE SEVERITY HOSPITAL PRISCILA - 5 5 [facility] OUTPATIEN INC T OFFICE 89877 FAMILY MARIAN OUTPATIEN 5 5 CARE YARI T VISIT ASSOCIATE 10 S MINUTES EMERGENCY 92263 CENTRAL CUMMINS 5 5 EMERGENCY ALLY DEPARTMEN PHYS PSC T VISIT HIGH/URGE NT SEVERITY OFFICE 81310 FAMILY CROWDY OUTPATIEN 5 5 CARE CRI T VISIT ASSOCIATE 10 S MINUTES OFFICE 91483 FAMILY CROWDY OUTPATIEN 5 5 CARE CRI T VISIT ASSOCIATE 15 S MINUTES OFFICE 31149 FAMILY CROWDY OUTPATIEN 5 5 CARE CRI T VISIT ASSOCIATE 10 S MINUTES OFFICE 66186 FAMILY CROWDY OUTPATIEN 5 5 CARE CRI T VISIT ASSOCIATE 15 S MINUTES OFFICE 82733 FAMILY MARIAN OUTPATIEN 5 5 CARE YARI T VISIT ASSOCIATE 15 S MINUTES OFFICE 00854 FAMILY MULBERRY OUTPATIEN 5 5 CARE MAURILIO T VISIT ASSOCIATE 15 S MINUTES OFFICE 04226 [facility] OUTPATIEN 5 5 [facility] T VISIT MEDICAL 25 G MINUTES OFFICE 70333 FAMILY MULBERRY OUTPATIEN 5 5 CARE MAURILIO T VISIT ASSOCIATE 15 S MINUTES HOSPITAL CENTRAL - 5 5 [facility] OUTPATIEN HOSP T OFFICE 23783 PRESYBETERIAN KERN CAR OUTPATIEN 5 5 HEALTH T NEW 20 MEDICAL MINUTES [facility] CENTRAL - 5 5 PRESYBETERIAN OUTPATIEN HOSP T EMERGENCY 65769 CENTRAL SPANIER 5 5 EMERGENCY MAR DEPARTMEN PHYS PSC T VISIT MODERATE SEVERITY HOSPITAL CENTRAL - 5 5 [facility] OUTPATIEN HOSP T OFFICE 39594 [facility]PATI[facility] 5 5 [facility] T VISIT MEDICAL 25 G MINUTES OFFICE 09798 [facility] 5 5 NURSE KASSANDRA MARQUEZ NEW/ESTAB NER GR PATIENT 40 MIN OFFICE 33163 [facility] OUTPATIEN 5 5 [facility] T NEW 45 MEDICAL MINUTES G EMERGENCY 04118 [facility] 5 5 [facility] DEPARTMEN INC T VISIT LOW/MODER SEVERITY HOSPITAL PRISCILA - 5 5 [facility] OUTPATIEN INC T OFFICE 65572 FAMILY JONA OUTPATIEN 5 5 CARE R H T VISIT ASSOCIATE 15 S MINUTES PERIODIC 28946 [facility] PREVENTIV 5 5 PHYSICIAN E MED EST S GROUP PATIENT 18-39 YRS OFFICE 87874 [facility] NANO OUTPATIEN 5 5 PHYSICIAN SUNI T VISIT S GROUP 15 MINUTES OFFICE 86510 FAMILY CROWDY OUTPATIEN 5 5 CARE CRI T VISIT ASSOCIATE 25 S MINUTES OFFICE 05489 FAMILY OUTPATIEN 4 4 CARE T VISIT ASSOCIATE 15 S MINUTES EMERGENCY 37214 [facility] 4 4 [facility] DEPARTMEN INC T VISIT MODERATE SEVERITY HOSPITAL PRISCILA - 4 4 [facility] OUTPATIEN INC T EMERGENCY 01759 PRISCILA MCGILL 4 4 [facility] T VISIT P LOW/MODER SEVERITY OFFICE 97592 PRISC[facility] JAIME 4 4 [facility] VISIT [facility] 15 MINUTES
--- OUTSIDE RECORDS SUMMARY | 2016-12-12 11:16 | External Medical Summary Rpt | CCD ---
Author Author , YAIMA ERWIN Address Unknown Phone [email or web address] Care Team Providers Care Injection Molder Name Role Phone HANANE HANDLEY, Unavailable Unavailable HANANE HANDLEY AHMAD, AHMAD Unavailable Unavailable AHMAD, AHMAD Unavailable Unavailable RHONDA TAR, Unavailable Unavailable RHONDA TAR ATKINS, ATKINS Unavailable Unavailable VALERIA GOL, VALERIA GOL Unavailable Unavailable [facility] Unavailable Unavailable [place] Unavailable Unavailable MEDICAL GROUP, [facility] Unavailable Unavailable OF [facility], [facility] DASILVA HELEN, DASILVA Unavailable Unavailable HELEN GRULLON TER, GRULLON TER Unavailable Unavailable BESSON MATEUSZ, BESSON Unavailable Unavailable MATEUSZ CHARLY CHARLES, Unavailable Unavailable CHARLY CHARLES LOCKE, LOCKE Unavailable Unavailable LOCKE ALL, LOCKE ALL Unavailable Unavailable MARY, MARY Unavailable Unavailable [facility]ILY Unavailable Unavailable CHIROPRACTOR, [facility]ENDI FAMILY CHIROPRACTOR VANDANA KEMI, VANDANA Unavailable Unavailable KEMI [facility], Unavailable Unavailable [facility] Unavailable Unavailable [facility], [facility] Unavailable Unavailable ANESTHESIA, [facility] ANESTHESIA [facility] Unavailable Unavailable [facility], [facility] EVANS YARI, EVANS Unavailable Unavailable YARI CHIPPS ADOLFO & Unavailable Unavailable DUBILIER, CHIPPS ADOLFO & DUBILIER NAT TER, NAT TER Unavailable Unavailable ESTEBAN, ESTEBAN Unavailable Unavailable ESTEBAN YVAN, ESTEBAN Unavailable Unavailable YVAN [facility] Unavailable Unavailable [facility], [facility] Unavailable Unavailable [facility], [facility] MARIAN YARI, MARIAN Unavailable Unavailable YARI CROWDY, CROWDY Unavailable Unavailable CROWDY CRI, CROWDY Unavailable [...] COURTNEY HOR, Unavailable Unavailable COURTNEY HOR HILARIA CANNON, MANRIQUE Unavailable Unavailable KASSANDRA [facility] Unavailable Unavailable INC, [facility] Unavailable Unavailable [facility], [facility] Unavailable [facility]available [facility]PITAL P, [facility] Unavailable Unavailable [facility], Unavailable Unavailable [facility], Unavailable Unavailable [facility] DUNCAN FÉLIX, DUNCAN FÉLIX Unavailable Unavailable LAW, LAW Unavailable Unavailable WILLOW, WLILOW Unavailable Unavailable JAOKO MAR, JAOKO MAR Unavailable Unavailable FONTANA OSWALDO, FONTANA Unavailable Unavailable OSWALDO [facility], Unavailable Unavailable [facility] Unavailable Unavailable [facility], [facility] Unavailable Unavailable MEDICAL G, [facility] G KERN CAR, KERN CAR Unavailable Unavailable [facility] Unavailable Unavailable [employer] [facility], [facility] NURSE Unavailable Unavailable PRACTITIONER GR, [facility] NURSE PRACTITIONER [facility] LUIS MIGUEL JR DWI, LUIS MIGUEL Unavailable Unavailable JR DWI [facility] Unavailable Unavailable SPECIALISTS,, [facility], LUKING ROXI, LUKING Unavailable Unavailable ROXI LUKING ROXI, LUKING Unavailable Unavailable ROXI TORI JAM, Unavailable Unavailable VALLE JAM BIGGS RUPINDER, BIGGS Unavailable Unavailable RUPINDER MULBERRY, MULBERRY Unavailable Unavailable MULBERRY MAURILIO, Unavailable Unavailable MULBERRY MAURILIO JONA R H, Unavailable Unavailable JONA R H O'GRETCHEN MOL, Unavailable Unavailable O'GRETCHEN MOL ANH, ANH Unavailable Unavailable BELIA, BELIA Unavailable Unavailable [facility], [facility], [facility] Unavailable Unavailable [facility]S, [facility], [...] DE SOUZA GRANT, DE SOUZA Unavailable Unavailable GRATN PALENCIA ADA, PALENCIA ADA Unavailable Unavailable [facility] Unavailable Unavailable [facility], [facility] Unavailable Unavailable [facility], [facility] SOTINGEANU RADHA, Unavailable Unavailable SOTINGEANU RADHA SOWDEN KASSANDRA, SOWKULWINDER Unavailable Unavailable KASSANDRA SPANIER MAR, SPANIER Unavailable Unavailable [facility] Unavailable Unavailable [facility] SANCHEZ, SANCHEZ Unavailable Unavailable CUMMINS ALLY, CUMMINS Unavailable Unavailable ALLY [facility] Unavailable Unavailable PROFESSIO, [facility] OMAR IV, Unavailable Unavailable OMAR IV WHAYNE JR THO, WHAYNE Unavailable Unavailable JR THO MYRANDA, MYRANDA Unavailable Unavailable WINDISCH, WINDISCH Unavailable Unavailable Purpose Continuity of Care Document - 01-07-2014 through 2016 Problems Code Diagnosis DOS Provider Status [id number] PAIN IN 11-11-2016 [facility] [id number] FALL ON 11-11-2016 [facility] STAIRS MEDICAL STEPS GROUP INITIAL ENCOUNTER Z952 PRESENCE OF 11-11-2016 [facility] PROSTHETIC HE[facility] HEART MEDICAL VALVE GROUP R32 UNSPECIFIED 11-06-2016 [facility] URINARY HEALTH INCONTINENC MEDICAL G E R3915 URGENCY OF 11-06-2016 [facility] URINATION HEALTH MEDICAL G M542 CERVICALGIA 10-27-2016 [facility] CHIROPRACTO R M545 LOW BACK 10-27-2016 [facility] PAIN FAMILY CHIROPRACTO R M9902 SEGMENTAL & 10-27-2016 [facility] SOMATIC FAMILY DYSFUNCTION CHIROPRACTO THORACIC R REGION M9905 SEGMENTAL & 10-27-2016 [facility] SOMATIC FAMILY DYSFUNCTION CHIROPRACTO OF PELVIC R REGION I10 ESSENTIAL 09-18-2016 [facility] N I361 NONRHEUMATI 09-18-2016 [facility] C TRICUSPID HEALTH VALVE MEDICAL INSUFFICIEN GROUP CY R001 BRADYCARDIA 09-18-2016 [facility] UNSPECIFIED PHYS PSC R0602 SHORTNESS 09-18-2016 [facility] OF BREATH [facility]IOLOG[facility] ASS[facility] R5383 OTHER 09-18-2016 [facility] FATIGUE EMERGENCY PHYS PSC H5213 MYOPIA 09-16-2016 AHMAD BILATERAL [id number] REGULAR 09-16-2016 AHMAD ASTIGMATISM BILATERAL N200 CALCULUS OF 08-06-2016 [facility] KIDNEY [facility] MEDICAL G R109 UNSPECIFIED 08-06-2016 [facility] ABDOMINAL EAST PAIN N644 MASTODYNIA 07-30-2016 [facility] R1032 LEFT LOWER 07-03-2016 [facility] QUADRANT HEALTH PAIN MEDICAL G Z5181 ENCOUNTER 07-03-2016 [facility] THERAPEUTIC INC DRUG LEVEL MONITORING 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 [facility] CURRENT USE [facility] OF INC ANTICOAGULA NTS S84977 PERSONAL 07-03-2016 [facility] HISTORY OF HEALTH URINARY MEDICAL G CALCULI B9789 OTH VIRAL 06-17-2016 [facility] AGENT CAUSE MEDICINE DISEASES [place] [facility] ELSW J069 ACUTE UPPER 06-17-2016 [facility] MEDICINE RESPIRATORY [place] INFECTION [facility] UNSPECIFIED N10 ACUTE 06-11-2016 [facility] PYELONEPHRI EMERGENCY TIS PHYS PSC R188 OTHER 06-11-2016 [facility]ES [facility] PROFESSIO R791 ABNORMAL 06-11-2016 [facility] COAGULATION HEALTH PROFILE [place] B373 CANDIDIASIS 05-19-2016 [facility] PHYSICIANS AND VAGINA GROUP I712 THORACIC 05-19-2016 [facility] A[facility] 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 K219 GASTRO-ESOP 05-19-2016 [facility] H REFLUX HEALTH DISEASE [place] WITHOUT ESOPHAGITIS R011 CARDIAC 05-19-2016 [facility] UNSPECIFIED [place] R0789 OTHER CHEST 05-19-2016 [facility] PAIN EMERGENCY PHYS PSC R079 CHEST PAIN 05-19-2016 [facility] UNSPECIFIED RADIOLOGIC PROFESSIO O10052 ENCOUNTER 05-19-2016 [facility] ROUTINE PHYSICIANS CHECKING IU GROUP CONTRACEPT DEVICE [id number] OTHER LONG 05-19-2016 [facility] TERM HEALTH CURRENT [place] DRUG THERAPY N209 URINARY 05-08-2016 [place] CALCULUS [facility]ICAL UNSPECIFIED IMAGING ASS R1903 RT LOWER 05-08-2016 [place] [facility]ICAL ABDOMINAL IMAGING ASS SWELLING MASS & LUMP H19793 ENCOUNTER 05-08-2016 [facility] PREPROCEDUR INC AL LABORATORY EXAM K529 NONINFECTIV 04-29-2016 [facility] GASTROENTER [facility] [facility] COLITIS UNS J28642 ENCOUNTER 04-15-2016 [facility] INSERTION PHYSICIANS INTRAUTERIN GROUP E CONTRACEPT DEVC E61881 UNSPECIFIED 04-13-2016 [facility] OVARIAN EMERGENCY CYST RIGHT PHYS PSC SIDE R1030 LOWER 04-13-2016 [facility] ABDOMINAL RADIOLOGIC PAIN PROFESSIO UNSPECIFIED R1031 RIGHT LOWER 04-13-2016 [facility] QUADRANT EMERGENCY PAIN PHYS PSC H539 UNSPECIFIED 04-10-2016 [facility] VISUAL PHYSICIANS DISTURBANCE GROUP L680 HIRSUTISM 04-04-2016 [facility] PHYSICIANS GROUP Z0001 ENCOUNTER 04-04-2016 [facility] GEN ADULT PHYSICIANS MEDICAL GROUP EXAM W/ABNORMAL FIND J0190 ACUTE 03-06-2016 [facility] SINUSITIS [facility]OS[facility] UNSPECIFIED INC H1031 UNSPECIFIED 02-02-2016 [facility] ACUTE PHYSICIAN CONJUNCTIVI GROUP TIS RIGHT EYE R002 PALPITATION 01-04-2016 [facility] P G4733 OBSTRUCTIVE 12-30-2015 [facility]A ADULT MEDICAL PEDIATRIC EQUIPME H6691 OTITIS 12-27-2015 [facility] UNSPECIFIED RIGHT EAR Z23 ENCOUNTER 11-23-2015 [facility] IMMUNIZATIO N A5619 OTHER 11-14-2015 [facility] GENITOURINA RY INFECTION I351 NONRHEUMATI 11-14-2015 [facility] C AORTIC RADIOLOGY VALVE ASSOC INSUFFICIEN CY J62101 ENCOUNTER 11-14-2015 [facility], 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 LLC GENERAL RTN W/O ABNORMAL FIND [...] PHYSICIANS, CYSTS PLLC N920 EXCESS & 10-08-2015 [facility] FREQUENT PHYSICIANS MENSTRUATIO GROUP N W/REGULAR CYCLE N939 ABNORMAL 10-02-2015 [facility]INE [facility] RAD[facility]OLOG[facility] VAGINAL PROFESSIO BLEEDING UNSPECIFIED R220 LOCALIZED 08-31-2015 [facility] SWELLING [facility] MASS AND LUMP HEAD S88438 THORACIC 08-23-2015 [facility] HEALTH ECTASIA MEDICAL G R000 TACHYCARDIA 08-23-2015 [facility] UNSPECIFIED MEDICAL G V13174 AORTIC 08-12-2015 [facility] ECTASIA HEALTH UNSPECIFIED [place] SITE 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 W/O STAT MIGRAIN F73566 AGE-RELATED 08-03-2015 [facility], DEGENERATIO [facility]. N RETINA RT EYE A84136 DISORDER 08-03-2015 [facility], CORTX DUE P.[facility]C. NEOPLASM RT SIDE BRAIN P51890 TRANSIENT 08-03-2015 [facility], BILATERAL [facility]. [id number] MIGRAINE 07-31-2015 [facility], INTRACT W/O [facility] STATUS MIGRAINOSUS [id number] OPEN ANGLE 07-31-2015 [facility], E FIND LOW [facility] RISK BILATERAL R040 EPISTAXIS 07-28-2015 [facility] L90756 MACULA 07-25-2015 [facility] SCARS OF [facility]YE [facility], POSTERIOR [facility]. POLE BILATERAL J3489 OTHER 06-21-2015 [facility] SPECIFIED ASSOCIATES DISORDERS NOSE AND NASAL SINUSES N926 IRREGULAR 06-08-2015 [facility] MENSTRUATIO ASSOCIATES N UNSPECIFIED R197 DIARRHEA 06-07-2015 [facility] UNSPECIFIED [facility]IANS, PLLC H6590 UNSPECIFIED 06-01-2015 [facility] PHYSICIANS NONSUPPURAT GROUP CARLOS OTITIS MEDIA UNS EAR K120 RECURRENT 06-01-2015 [facility] ORAL PHYSICIANS APHTHAE GROUP E871 HYPO-OSMOLA 05-15-2015 [facility] LITY AND PHYSICIANS, HYPONATREMI PLLC A N289 DISORDER OF 05-15-2015 [facility] UNSPECIFIED N760 ACUTE 05-04-2015 [facility] VAGINITIS PHYSICIANS GROUP N762 ACUTE 05-04-2015 [facility] VULVITIS PHYSICIANS GROUP L0180XM CONTUSION 04-05-2015 [facility] OF LEFT PHYSICIANS, FOOT [facility] INITIAL ENCOUNTER R05 COUGH 03-20-2015 [facility] CARE ASSOCIATES N899 NONINFLAMMA 03-04-2015 [facility] TORY [facility]ERG[facility] DISORDER OF PHYS PSC VAGINA UNSPECIFIED R100 ACUTE 03-04-2015 [facility] ABDOMEN EMERGENCY PHYS PSC L309 DERMATITIS 02-26-2015 [facility] UNSPECIFIED PHYSICIANS GROUP Y75257 ENCOUNTER 02-26-2015 [facility] INITIAL PHYSICIANS PRESCRIPTIO GROUP N IU CONTRACEPT DEV R21 RASH AND 02-24-2015 [facility] OTHER ASSOCIATES NONSPECIFIC SKIN ERUPTION J029 ACUTE 02-23-2015 [facility] PHARYNGITIS PHYSICIANS, [facility] UNSPECIFIED J040 ACUTE 02-23-2015 [facility] LARYNGITIS PHYSICIANS, [facility] Z4802 ENCOUNTER 02-05-2015 [facility] FOR REMOVAL [facility] Z3009 ENCOUNTER 02-02-2015 [facility] OT GENERAL PHYSICIANS GROUP LOOM WINDER TENDER&ADV ICE CONTRACEPT [id number] LACERATION 01-30-2015 [facility] W/O FOREIGN PHYSICIANS, BODY LIP [facility] INITIAL ENCNTR N390 URINARY 01-22-2015 [facility] TRACT [facility]ERG[facility] INFECTION PHYS PSC SITE NOT SPECIFIED R319 HEMATURIA 01-22-2015 [facility] UNSPECIFIED EMERGENCY PHYS PSC R350 FREQUENCY 01-02-2015 [facility] MICTURITION Z309 ENCOUNTER 12-06-2014 [facility] FOR [facility] CONTRACEPTI VE MANAGEMENT UNS 4241 AORTIC 11-28-2014 [facility] DISORDERS MEDICAL GROUP 28782 PAIN IN 11-22-2014 [facility] JOINT, ASSOCIATES SHOULDER REGION V433 HEART VALVE 11-22-2014 [facility] REPLACED ASSOCIATES BY OTHER MEANS V5861 LONG-TERM 11-22-2014 [facility] (CURRENT) ASSOCIATES USE OF ANTICOAGULA NTS V4589 OTHER 11-15-2014 [facility] POSTSURGICA ASSOCIATES L STATUS OTHER V5869 LONG-TERM 11-13-2014 [facility] (CURRENT) HE[facility] USE OF MEDICAL OTHER GROUP MEDICATIONS 21052 PRECORDIAL 11-10-2014 [facility] PAIN [facility] 38197 PAINFUL 11-09-2014 [facility] RESPIRATION EMERGENCY PHYS PSC 4019 UNSPECIFIED 11-05-2014 [facility] ESSENTIAL HEALTH HYPERTENSIO MEDICAL N GROUP 49877 OTHER 11-05-2014 [facility] ABNORMAL HEALTH GLUCOSE MEDICAL GROUP 5180 PULMONARY 11-04-2014 [facility] COLLAPSE [facility] V5873 AFTERCARE 11-04-2014 [facility] FOLLOWING RADIOLOGY SURGERY ASSOC CIRC SYSTEM NEC 4240 MITRAL 11-02-2014 [place] [facility] DISORDERS [facility] , 4011 ESSENTIAL 11-01-2014 [facility] HYPERTENSIO HEALTH N, [facility] MEDICAL GROUP 4254 OTHER 11-01-2014 [facility]IMARY [place] CARDIOMYOPA ANESTHESIA JOSE 4400 ATHEROSCLER 11-01-2014 [facility] DUBILIER 48746 ESOPHAGEAL 11-01-2014 [facility] REFLUX HEALTH MEDICAL GROUP V7281 PRE-OPERATI 11-01-2014 [facility] VE [facility] CARDIOVASCU MEDICAL LAR GROUP EXAMINATION 4419 AORTIC 10-31-2014 [facility] ANEUR RADIOLOGY UNSPEC SITE ASSOC WITHOUT MENTION RUPTURE 02498 OTHER 10-31-2014 [facility] DISEASES OF [facility] LUNG NOT HOSP ELSEWHERE CLASSIFIED 84028 SHORTNESS 10-31-2014 [facility] OF BREATH [facility] 46838 THORACIC 10-19-2014 [facility] AORTIC HEALTH ECTASIA MEDICAL G 7464 CONGENITAL 10-19-2014 [facility] INSUFFICIEN HEALTH CY OF MEDICAL G AORTIC VALVE 4271 PAROXYSMAL 10-13-2014 [facility] TACHYCARDIA 04283 OTHER 10-13-2014 [facility] NURSE SPECIFIED PRACTITIONE CARDIAC R GR DYSRHYTHMIA S 7802 SYNCOPE AND 10-13-2014 [facility] 4293 CARDIOMEGAL 10-12-2014 [facility] Y [facility] 96321 MORBID 09-13-2014 [facility] OBESITY HEALTH MEDICAL G 8472 LUMBAR 05-30-2014 [facility] P V7231 ROUTINE 05-17-2014 [facility], GYNECOLOGIC [...] LLC FOR VENEREAL DISEASE 4610 ACUTE 03-12-2014 [facility] MAXILLARY PHYSICIANS SINUSITIS GROUP 60543 OTHER 03-08-2014 [facility] MALAISE [facility] FATIGUE 7835 POLYDIPSIA 03-08-2014 [facility] V7791 SCREENING 03-08-2014 [facility] FOR LIPOID ASSOCIATES DISORDERS 26290 VOMITING 02-22-2014 [facility] ALONE [facility] 5589 OTH&UNSPEC 01-30-2014 [facility] NONINFECTIO [facility] P GASTROENTER ITIS&COLITI S 95923 ABDOMINAL 01-30-2014 [facility] PAIN RIGHT MEDICAL LOWER IMAGING ASS QUADRANT 4619 ACUTE 01-07-2014 [facility]ITIS, [facility] Medications Na ND Rx Da Fi Fi Am Da Di Ph RX Ph St me C No te ll ll ou ys ag ar # ys at rm s nt no ma ic us Or Da si cy ia de te s n re d LA 00 10 08 15 30 00 TN Ac MO -1 .0 00 LG ti TR 37 5- 5 00 RE ve IG 24 20 20 49 EN IN 70 17 17 06 S E 6 85 #0 15 96 0 31 MG TA BL ET QU 68 10 08 29 30 TN Ac ET 18 -1 -1 .0 00 LG ti IA 00 5- 5 00 RE ve PI 44 20 20 49 EN NE 80 17 17 06 S 1 87 #0 FU 96 MA 31 RA TE 20 0 MG TA B ME 57 08 60 30 00 TN Ac TO 66 -1 -1 .0 00 LG ti VT 40 1- 5- 00 RE ve OL 47 20 20 48 EN OL 75 17 17 39 S 8 09 #0 TA 96 RT 31 RA TE 50 MG TA B AT 55 10 08 29 30 00 [facility] OR 11 -1 .0 00 LG ti VA 10 1- 5- [address] 12 20 20 48 EN AT 29 17 17 39 S IN 0 10 #0 96 20 31 MG TA BL ET LO 65 09 07 30 30 00 [facility] SA 86 -3 -0 .0 00 LG ti RT 20 0- 00 RE ve AN 20 20 20 48 EN 29 17 17 87 S PO 9 31 #0 TA 96 SS 31 IU M 50 MG TA B 00 09 07 30 30 00 [facility] PI 90 -3 -0 .0 00 LG ti RI 42 - 00 RE ve N 01 20 20 48 EN EC 36 17 17 39 S 0 13 #0 32 96 5 31 MG TA BL ET WA 51 09 07 60 30 00 TN Ac RF 67 -3 -0 .0 00 LG ti AR 24 1- - 00 RE ve IN 03 20 20 49 EN 20 17 17 18 S SO 1 75 #0 DI 96 UM 31 5 MG TA BL ET OX 00 07 09 30 30 00 TN Ac YB 37 -3 -0 .0 00 LG ti UT 86 0- 1- 00 00 RE ve YN 60 20 20 49 EN IN 50 17 17 18 S 1 28 #0 CL 96 31 ER 5 MG TA BL ET LA 00 08 15 30 00 TN Ac MO 09 -1 -1 .0 00 LG ti TR 37 9 00 RE ve IG 24 20 20 49 EN IN 70 17 17 06 S E 6 85 #0 15 96 0 31 MG TA BL ET HY 00 07 08 60 [address] 11 -1 -1 .0 00 LG ti OX 51 9- 8 00 RE ve YZ 67 20 20 49 EN IN 00 17 17 06 S E 1 86 #0 PA 96 M 31 25 MG CA P QU 68 07 08 30 30 00 TN Ac ET 18 -1 -1 .0 00 LG ti IA 00 9 00 RE ve PI 44 20 20 49 EN NE 80 17 17 06 S 1 87 #0 FU 96 MA 31 RA TE 20 0 MG TA B ME 57 07 08 60 30 00 TN Ac TO 66 -1 -1 .0 00 LG ti VT 40 2- 00 RE ve OL 47 20 20 48 EN OL 75 17 17 39 S 8 09 #0 TA 96 RT 31 RA TE 50 MG TA B AT 55 07 08 30 30 00 TN Ac OR 11 - -1 .0 00 LG ti VA [address] 12 20 20 48 EN AT 29 17 17 39 S IN 0 10 #0 96 20 31 MG TA BL ET WA 51 06 08 48 28 00 TN Ac RF 67 -2 -0 .0 00 LG ti AR 24 9 00 RE ve IN 03 20 20 48 EN 20 17 17 54 S SO 1 96 #0 DI 96 UM 31 5 MG TA BL ET LO 65 06 08 30 30 00 TN Ac SA 86 -2 -0 .0 00 LG ti RT 20 9 00 RE ve AN 20 20 20 48 EN 29 17 17 87 S PO 9 31 #0 TA 96 SS 31 IU M 50 MG TA B OX 62 06 07 30 30 00 TN Ac YB 17 -2 -2 .0 00 LG ti UT 50 1- 00 RE ve YN 27 20 20 48 EN IN 03 17 17 79 S 7 61 #0 CL 96 31 ER 5 MG TA BL ET AR 31 06 07 30 30 00 TN Ac IP 72 -1 -2 .0 00 LG ti IP 20 8- - 00 RE ve RA 82 20 20 48 EN ZO 93 17 17 51 S LE 0 76 #0 96 20 31 MG TA BL ET TR 60 06 07 30 30 00 TN Ac AZ 50 -1 -2 .0 00 LG ti OD 52 8- 1- 00 00 RE ve ON 65 20 20 48 EN E 40 17 17 51 S 10 1 77 #0 0 96 MG 31 TA BL ET LA 00 06 07 90 30 00 TN Ac MO 09 -1 -2 .0 00 LG ti TR 30 9- 1- 00 RE ve IG 03 20 20 48 EN IN 90 17 17 77 S E 1 04 #0 25 96 31 MG TA BL ET QU 68 06 07 45 30 00 TN Ac ET 18 -1 -2 .0 00 LG ti IA 00 9- 1- 00 RE ve PI 44 20 20 48 EN NE 70 17 17 77 S 1 05 #0 FU 96 MA 31 RA TE 10 0 MG TA B ME 57 06 07 60 30 00 TN Ac TO 66 -1 -1 .0 00 LG ti VT 40 4- 4- 00 RE ve OL 47 20 20 48 EN OL 75 17 17 39 S 8 09 #0 TA 96 RT 31 RA TE 50 MG TA B AT 55 06 07 30 30 00 TN Ac OR 11 -1 -1 .0 00 LG ti VA 10 4- 4- [address] 12 20 20 48 EN AT 29 17 17 39 S IN 0 10 #0 96 20 31 MG TA BL ET WA 51 05 06 48 28 00 TN Ac RF 67 -2 -3 .0 00 LG ti AR 24 9- 0- 00 RE ve IN 03 20 20 48 EN 20 17 17 54 S SO 1 96 #0 DI 96 UM 31 5 MG TA BL ET LO 65 05 06 30 30 00 TN Ac SA 86 -2 -3 .0 00 LG ti RT 20 6- 0- 00 00 RE ve AN 20 20 20 47 EN 29 17 17 73 S PO 9 95 #0 TA 96 SS 31 IU M 50 MG TA B AR 31 05 06 30 30 00 TN Ac IP 72 -2 -2 .0 00 LG ti IP 20 2- 3- 00 00 RE ve RA 82 20 20 48 EN ZO 93 17 17 51 S LE 0 76 #0 96 20 31 MG TA BL ET LA 00 05 06 15 30 00 WA Ac MO 09 -2 -2 .0 00 LG ti TR 30 2- 3- 00 00 RE ve IG 46 20 20 48 EN IN 30 17 17 51 S E 1 75 #0 10 96 0 31 MG TA BL ET TR 60 05 30 30 00 TN Ac AZ 50 -2 -2 .0 00 LG ti OD 52 2- 3- 00 00 RE ve ON 65 20 20 48 EN E 40 17 17 51 S 10 1 77 #0 0 96 MG 31 TA BL ET ME 57 05 06 60 30 00 WA Ac TO 66 -1 -1 .0 00 LG ti VT 40 4- 6- 00 RE ve OL 47 20 20 48 EN OL 75 17 17 39 S 8 09 #0 TA 96 RT 31 RA TE 50 MG TA B AT 55 05 06 30 30 00 WA Ac OR 11 -1 -1 .0 00 LG ti VA 10 4- 6- [address] 12 20 20 48 EN AT 29 17 17 39 S IN 0 10 #0 96 20 31 MG TA BL ET 00 05 30 30 00 TN Ac PI 90 -0 -0 .0 00 LG ti RI 42 9- 00 RE ve N 01 20 20 48 EN EC 36 17 17 39 S 0 13 #0 32 96 5 31 MG TA BL ET LA 00 05 06 60 30 00 TN Ac MO 09 -1 -0 .0 00 LG ti TR 30 0- 00 RE ve IG 03 20 20 48 EN IN 90 17 17 39 S E 1 11 #0 25 96 31 MG TA BL ET WA 51 05 06 60 30 00 TN Ac RF 67 -0 -0 .0 00 LG ti AR 24 2- 2- 00 RE ve IN 03 20 20 47 EN 20 17 17 88 S SO 1 63 #0 DI 96 UM 31 5 MG TA BL ET LO 65 04 30 30 00 TN Ac SA 86 -2 -0 .0 00 LG ti RT 20 9- 2 00 RE ve AN 20 20 20 47 EN 29 17 17 73 S PO 9 95 #0 TA 96 SS 31 IU M 50 MG TA B AT 60 04 05 30 30 00 WA Ac OR 50 -1 -1 .0 00 LG ti VA 52 7- 9- [address] 57 20 20 48 EN AT 90 17 17 15 S IN 9 15 #0 96 20 31 MG TA BL ET ME 00 04 05 60 30 00 WA Ac TO 37 -1 -1 .0 00 LG ti VT 80 7- 9 00 RE ve OL 03 20 20 48 EN OL 21 17 17 15 S 0 14 #0 TA 96 RT 31 RA TE 50 MG TA B BE 64 04 05 15 5 00 WA Ac NZ 38 -1 -1 .0 00 LG ti ON 00 8- 9 00 RE ve AT 71 20 20 48 EN AT 30 17 17 18 S E 6 23 #0 20 96 0 31 MG CA PS UL E FL 00 04 05 16 30 00 TN Ac UT 05 -1 -1 .0 00 LG ti IC 43 8- 00 RE ve 27 20 20 48 EN ON 09 17 17 18 S E 9 24 #0 VT 96 OP 31 50 MC G SP RA Y LA 00 04 05 46 30 00 TN Ac MO 09 -1 -1 .0 00 LG ti TR 30 00 RE ve IG 03 20 20 48 EN IN 90 17 17 19 S E 1 19 #0 25 96 31 MG TA BL ET AR 31 04 05 30 30 00 TN Ac IP 72 -1 -1 .0 00 LG ti IP 20 9 00 RE ve RA 82 20 20 48 EN ZO 93 17 17 19 S LE 0 20 #0 96 20 31 MG TA BL ET TR 60 04 05 30 30 00 [facility] [place] 50 -1 -1 .0 00 LG ti OD 52 9 00 RE ve ON 65 20 20 48 EN E 40 17 17 19 S 10 1 21 #0 0 96 MG 31 TA BL ET HY 00 02 05 10 2 [address] [facility] [address] 59 -1 -1 .0 00 LG ti OC 12 3- 9 00 RE ve OD 17 20 20 47 EN ON 20 17 17 51 S -A 5 36 #0 CE 96 TA 31 MA NO PH EN 5- 32 5 TR 68 04 05 20 3 00 TN Ac AM 38 -1 -1 .0 00 LG ti AD 20 2- 2- 00 00 RE ve OL 31 20 20 48 EN 91 17 17 12 S HC 0 33 #0 L 96 50 31 MG TA BL ET CE 68 04 05 20 10 00 [facility] FD 18 -1 -1 .0 00 LG ti IN 00 2- 2- 00 00 RE ve IR 71 20 20 48 EN 16 17 17 12 S 30 0 34 #0 0 96 MG 31 CA PS UL E ON 68 04 05 15 5 00 TN Ac DA 46 -1 -1 .0 00 LG ti NS 20 2- 2- 00 00 RE ve ET 15 20 20 48 EN RO 81 17 17 12 S N 3 35 #0 OD 96 T 31 8 MG TA BL ET PH 51 04 05 9. 3 00 TN Ac EN 29 -1 -1 00 00 [...] .0 00 LG ti ON 13 4- 8 00 RE ve AZ 19 20 20 [...] .0 00 LG ti OB 60 1- 1- 00 RE ve EN 17 20 20 47 EN ZA 71 17 17 89 S VT 0 44 #0 IN 96 E 31 10 MG TA BL ET TE 00 03 04 20 3 00 WA Ac RC 59 -2 -2 .0 00 LG ti ON 13 0- - 00 RE ve AZ 19 20 20 47 EN OL 75 17 17 87 S E 2 64 #0 0. 96 8% 31 CR EA M ME 00 03 04 60 30 00 WA Ac TO 37 -1 -1 .0 00 LG ti VT 80 3- 4- 00 00 RE ve OL 03 20 20 47 EN OL 21 17 17 80 S 0 95 #0 TA 96 RT 31 RA TE 50 MG TA B AT 55 03 04 30 30 00 WA Ac OR 11 -1 -1 .0 00 LG ti VA 10 5- 4- [address] 12 20 20 47 EN AT 29 17 17 80 S IN 0 96 #0 96 20 31 MG TA BL ET MA 13 03 04 30 30 00 WA Ac RT 10 -1 -1 .0 00 LG ti AZ 70 5- 4- 00 00 RE ve AP 00 20 20 47 EN IN 33 17 17 80 S E 4 97 #0 30 96 31 MG TA BL ET AR 31 03 04 30 30 00 TN Ac IP 72 -1 -1 .0 00 LG ti IP 20 3- 4- 00 00 RE ve RA 82 20 20 47 EN ZO 93 17 17 80 S LE 0 87 #0 96 20 31 MG TA BL ET LO 65 03 04 30 30 00 TN Ac SA 86 -0 -0 .0 00 LG ti RT 20 6- 7- 00 00 RE ve AN 20 20 20 47 EN 29 17 17 73 S PO 9 95 #0 TA 96 SS 31 IU M 50 MG TA B TN 51 02 03 45 30 00 TN Ac RF 67 -2 -3 .0 00 LG ti AR 24 8- 1- 00 00 RE ve IN 03 20 20 47 EN 20 17 17 67 S SO 1 54 #0 DI 96 UM 31 5 MG TA BL ET MA 57 02 03 30 30 00 TN Ac RT 23 -1 -2 .0 00 L- ti AZ 70 6- 4- 00 07 MA ve AP 00 20 20 47 RT IN 93 17 17 11 E 0 59 PH 30 AR MA MG CY TA #5 BL 91 ET AT 68 02 03 30 30 00 TN Ac OR 64 -1 -2 .0 00 L- ti VA 50 6- 4- [address] 45 20 20 47 RT AT 97 17 17 11 IN 0 60 PH AR 20 MA CY MG #5 TA 91 BL ET 00 02 03 30 30 00 TN Ac PI 53 -1 -2 .0 00 L- ti RI 63 6- 4- 00 08 MA ve N 31 20 20 83 RT EC 31 17 17 56 0 25 PH 32 AR 5 MA MG CY TA #5 BL 91 ET ME 68 02 03 60 30 00 TN Ac TO 64 -0 -1 .0 00 L- ti VT 50 2- 0- 00 07 MA ve OL 19 20 20 44 RT OL 05 17 17 49 9 18 PH TA AR RT MA RA CY TE #5 50 91 MG TA B WA 57 01 02 45 30 00 TN Ac RF 23 -2 -2 .0 00 L- ti AR 70 4- 4- 00 07 MA ve IN 12 20 20 43 RT 40 17 17 27 SO 1 88 PH DI AR UM MA 5 CY MG #5 91 TA BL ET AM 00 01 02 4. 1 00 WA Ac OX 09 -2 -2 00 00 L- ti IC 33 5- 4- 0 07 MA ve IL 10 20 20 46 RT LI 90 17 17 69 N 5 13 PH 50 AR 0 MA MG CY CA #5 PS 91 UL E AR 13 01 02 30 30 00 TN Ac IP 66 -1 -1 .0 00 L- ti IP 80 6- 7- 00 07 MA ve RA 22 20 20 45 RT ZO 03 17 17 06 LE 0 47 PH AR 20 MA CY MG #5 TA 91 BL ET AT 68 01 02 30 30 00 TN Ac OR 64 -0 -1 .0 00 L- ti VA 50 7- 0- [address] 45 20 20 43 RT AT 97 17 17 10 IN 0 32 PH AR 20 MA CY MG #5 TA 91 BL ET 00 02 30 30 00 TN Ac PI 53 -0 -1 .0 00 L- ti RI 63 7- 0- 00 08 MA ve N 31 20 20 83 RT EC 31 17 17 56 0 25 PH 32 AR 5 MA MG CY TA #5 BL 91 ET LO 68 01 02 30 30 00 TN Ac SA 64 -0 -1 .0 00 L- ti RT 50 7- 0- 00 07 MA ve AN 40 20 20 45 RT 97 17 17 65 PO 0 14 PH TA AR SS MA IU CY M 50 #5 91 MG TA B MA 57 01 02 30 30 00 TN Ac RT 23 -0 -1 .0 00 L- ti AZ 70 7- 0- 00 07 MA ve AP 00 20 20 46 RT IN 93 17 17 31 E 0 70 PH 30 AR MA MG CY TA #5 BL 91 ET EN 00 01 02 8. 4 00 TN Ac OX 78 -0 -1 00 00 L- ti AP 13 5- 0- 0 07 MA ve AR 50 20 20 46 RT IN 06 17 17 28 9 73 PH 10 AR 0 MA MG CY /M L #5 SY 91 RI NG E AM 00 01 02 30 10 00 TN Ac OX 09 -0 -1 .0 00 L- ti IC 33 5- 0- 00 07 MA ve IL 10 20 20 46 RT LI 90 17 17 28 N 5 74 PH 50 AR 0 MA MG CY CA #5 PS 91 UL E WA 57 12 02 45 30 00 [...] 64 -1 -2 .0 00 L- ti VT 50 9- 0- 00 07 MA ve OL 19 20 20 44 RT OL 05 16 17 49 9 18 PH TA AR RT MA RA CY TE #5 50 91 MG TA B PO 61 12 01 10 31 00 WA Ac LY 31 -0 -0 .0 00 L- ti MY 40 3- 9- 00 07 MA ve XI 62 20 20 45 RT N 81 16 17 63 B- 0 02 PH TM AR P MA EY CY E DR #5 OP 91 S LO 68 12 01 30 30 00 TN Ac SA 64 -0 -0 .0 00 [...] CY MG #5 TA 91 BL ET AT 68 12 01 30 30 00 WA Ac OR 64 -0 -0 .0 00 L- ti VA 50 5- 9- [address] 45 20 20 43 RT AT 97 16 17 10 IN 0 32 PH AR 20 MA CY MG #5 TA 91 BL ET Immunization Name Date Rout CVX Reac Dose Comm Prov Is Faci e tion ent ider Refu lity Give sed n IIV4 11-01 158 APPL No FAMI 3-20 EGAT LY VACC 16 E CARE TAR SPLI ASSO T CIAT VIRU ES S 0.5 ML DOS FOR IM USE Procedures Procedure DOS Code Location Performer Comment RADEX 80318 [facility] FOOT 7 RADIOLOGY COMPLETE ASSOC MINIMUM 3 VIEWS PROTHROMB 11109 [facility] RESTORATIONISM IN TIME [address] [place] [address] COLLECTIO 31162 RESTORATIONISM RESTORATIONISM N 7 [facility] BLOOD SPECIMEN CHIROPRAC 62328 WENDI ANH TIC 7 FAMILY MANIPULAT CHIROPRAC [place] TOR SPINAL 3-4 REGIONS THERAPEUT 96877 WENDI ANH IC PX 1/> 7 FAMILY AREAS CHIROPRAC EACH 15 TOR MIN EXERCISES APPL 87164 WENDI AHN MODALITY 7 FAMILY 1/> AREAS CHIROPRAC TRACTION TOR MECHANICA L APPL 36012 WENDI ANH MODALITY 7 FAMILY 1/> AREAS CHIROPRAC TRACTION TOR MECHANICA L THERAPEUT 33140 WENDI ANH IC PX 1/> 7 FAMILY AREAS CHIROPRAC EACH 15 TOR MIN EXERCISES CHIROPRAC 06150 WENDI ANH TIC 7 FAMILY MANIPULAT CHIROPRAC [place] TOR SPINAL 3-4 REGIONS CHIROPRAC 80371 WENDI ANH TIC 7 FAMILY MANIPULAT CHIROPRAC [place] TOR SPINAL 3-4 REGIONS COLLECTIO 54137 RESTORATIONISM RESTORATIONISM N 7 [facility] BLOOD SPECIMEN THERAPEUT 42161 WENDI ANH IC PX 1/> 7 FAMILY AREAS CHIROPRAC EACH 15 TOR MIN EXERCISES PROTHROMB 90662 RESTORATIONISM RESTORATIONISM IN TIME 7 [facility] APPL 06197 WENDI ANH MODALITY 7 FAMILY 1/> AREAS CHIROPRAC TRACTION TOR MECHANICA L APPL 14678 WENDI ANH MODALITY 7 FAMILY 1/> AREAS CHIROPRAC TRACTION TOR MECHANICA L THERAPEUT 31571 WENDI ANH IC PX 1/> 7 FAMILY AREAS CHIROPRAC EACH 15 TOR MIN EXERCISES CHIROPRAC 73961 WENDI ANH TIC 7 FAMILY MANIPULAT CHIROPRAC [place] TOR SPINAL 3-4 REGIONS CHIROPRAC 78964 WENDI ANH TIC 7 FAMILY MANIPULAT CHIROPRAC [place] TOR SPINAL 3-4 REGIONS MANUAL 09355 WENDI ANH THERAPY 7 FAMILY TQS 1/> CHIROPRAC REGIONS TOR EACH 15 MINUTES THERAPEUT 15846 WENDI ANH IC PX 1/> 7 FAMILY AREAS CHIROPRAC EACH 15 TOR MIN EXERCISES APPL 34831 WENDI ANH MODALITY 7 FAMILY 1/> AREAS CHIROPRAC TRACTION TOR MECHANICA L APPL 23064 WENDI ANH MODALITY 7 FAMILY 1/> AREAS CHIROPRAC TRACTION TOR MECHANICA L THERAPEUT 25929 WENDI ANH IC PX 1/> 7 FAMILY AREAS CHIROPRAC EACH 15 TOR MIN EXERCISES MANUAL 11377 WENDI ANH THERAPY 7 FAMILY TQS 1/> CHIROPRAC REGIONS TOR EACH 15 MINUTES CHIROPRAC 30391 WENDI ANH TIC 7 FAMILY MANIPULAT CHIROPRAC [place] TOR SPINAL 3-4 REGIONS CHIROPRAC 75253 WENDI ANH TIC 7 FAMILY MANIPULAT CHIROPRAC [place] TOR SPINAL 3-4 REGIONS MANUAL 10443 WENDI ANH THERAPY 7 FAMILY TQS 1/> CHIROPRAC REGIONS TOR EACH 15 MINUTES COLLECTIO 09468 RESTORATIONISM RESTORATIONISM N 7 [facility] BLOOD SPECIMEN THERAPEUT 17547 WENDI ANH IC PX 1/> 7 FAMILY AREAS CHIROPRAC EACH 15 TOR MIN EXERCISES PROTHROMB 33090 RESTORATIONISM RESTORATIONISM IN TIME 7 [facility] APPL 06470 WENDI ANH MODALITY 7 FAMILY 1/> AREAS CHIROPRAC TRACTION TOR MECHANICA L APPL 94552 WENDI ANH MODALITY 7 FAMILY 1/> AREAS CHIROPRAC TRACTION TOR MECHANICA L THERAPEUT 18726 WENDI ANH IC PX 1/> 7 FAMILY AREAS CHIROPRAC EACH 15 TOR MIN EXERCISES MANUAL 24550 WENDI ANH THERAPY 7 FAMILY TQS 1/> CHIROPRAC REGIONS TOR EACH 15 MINUTES CHIROPRAC 65638 WENDI ANH TIC 7 FAMILY MANIPULAT CHIROPRAC [place] TOR SPINAL 3-4 REGIONS CHIROPRAC 81638 WENDI ANH TIC 7 FAMILY MANIPULAT CHIROPRAC [place] TOR SPINAL 3-4 REGIONS MANUAL 00673 WENDI ANH THERAPY 7 FAMILY TQS 1/> CHIROPRAC REGIONS TOR EACH 15 MINUTES THERAPEUT 87038 WENDI ANH IC PX 1/> 7 FAMILY AREAS CHIROPRAC EACH 15 TOR MIN EXERCISES APPL 59068 WENDI ANH MODALITY 7 FAMILY 1/> AREAS CHIROPRAC TRACTION TOR MECHANICA L ECG 55694 RESTORATIONISM RESTORATIONISM ROUTINE 7 [facility] ECG [facility] W/LEAST 12 LDS TRCG ONLY W/O I&R PROTHROMB 96358 RESTORATIONISM RESTORATIONISM IN TIME 7 [facility] COMPREHEN 23312 RESTORATIONISM RESTORATIONISM SIVE 7 [facility] METABOLIC [facility] PANEL ARTERIAL 86044 RESTORATIONISM RESTORATIONISM PUNCTURE 7 [facility] WITHDRAWA [facility] L BLOOD DX RADIOLOGI 03004 CEN[facility] RICE C EXAM 7 RADIOLOGY CHEST 2 ASSOC VIEWS FRONTAL&L ATERAL ECG 64601 [facility] ROUTINE 7 EMERGENCY ECG PHYS PSC W/LEAST 12 LDS I&R ONLY ECHO 91084 RESTORATIONISM RESTORATIONISM TTHRC R-T 7 [facility] 2D [facility] W/WOM-MOD E COMPL SPEC&COLR D GASES 17763 RESTORATIONISM RESTORATIONISM BLOOD PH 7 HEALTH HEALTH DIRECT [facility] DARIN XCPT PULSE OXIMITRY NATRIURET 87591 RESTORATIONISM RESTORATIONISM IC 7 [facility] PEPTIDE [facility] [place] [address] RESTORATIONISM RESTORATIONISM TROPONIN 7 [facility] QUANTITAT [facility] CARLOS BLOOD 91022 RESTORATIONISM RESTORATIONISM COUNT 7 HEALTH HEALTH COMPLETE [facility] AUTO&AUTO DIFRNTL WBC MANUAL 65418 WENDI ANH THERAPY 7 FAMILY TQS 1/> CHIROPRAC REGIONS TOR EACH 15 MINUTES CHIROPRAC 86124 WENDI ANH TIC 7 FAMILY MANIPULAT CHIROPRAC [place] TOR SPINAL 3-4 REGIONS THERAPEUT 44528 WENDI ANH IC PX 1/> 7 FAMILY AREAS CHIROPRAC EACH 15 TOR MIN EXERCISES APPL 68870 WENDI ANH MODALITY 7 FAMILY 1/> AREAS CHIROPRAC TRACTION TOR MECHANICA L OPHTH 54230 [facility] 7 XM&EVAL COMPRE NEW PT 1/> VST THERAPEUT 84633 WENDI ANH IC PX 1/> 7 FAMILY AREAS CHIROPRAC EACH 15 TOR MIN EXERCISES APPL 74879 WENDI ANH MODALITY 7 FAMILY 1/> AREAS CHIROPRAC TRACTION TOR MECHANICA L CHIROPRAC 00697 WENDI ANH TIC 7 FAMILY MANIPULAT CHIROPRAC [place] TOR SPINAL 3-4 REGIONS MANUAL 60044 WENDI ANH THERAPY 7 FAMILY TQS 1/> CHIROPRAC REGIONS TOR EACH 15 MINUTES MANUAL 75112 WENDI ANH THERAPY 7 FAMILY TQS 1/> CHIROPRAC REGIONS TOR EACH 15 MINUTES CHIROPRAC 01392 WENDI ANH TIC 7 FAMILY MANIPULAT CHIROPRAC [place] TOR SPINAL 3-4 REGIONS COLLECTIO 45418 RESTORATIONISM RESTORATIONISM N 7 [facility] BLOOD SPECIMEN APPL 94930 WENDI ANH MODALITY 7 FAMILY 1/> AREAS CHIROPRAC TRACTION TOR MECHANICA L THERAPEUT 43881 WENDI ANH IC PX 1/> 7 FAMILY AREAS CHIROPRAC EACH 15 TOR MIN EXERCISES PROTHROMB 57940 RESTORATIONISM RESTORATIONISM IN TIME 7 [facility] THERAPEUT 55152 WENDI ANH IC PX 1/> 7 FAMILY AREAS CHIROPRAC EACH 15 TOR MIN EXERCISES APPL 56575 WENDI ANH MODALITY 7 FAMILY 1/> AREAS CHIROPRAC TRACTION TOR MECHANICA L CHIROPRAC 17952 WENDI ANH TIC 7 FAMILY MANIPULAT CHIROPRAC [place] TOR SPINAL 3-4 REGIONS MANUAL 20900 WENDI ANH THERAPY 7 FAMILY TQS 1/> CHIROPRAC REGIONS TOR EACH 15 MINUTES MANUAL 64765 WENDI ANH THERAPY 7 FAMILY TQS 1/> CHIROPRAC REGIONS TOR EACH 15 MINUTES CHIROPRAC 31959 WENDI ANH TIC 7 FAMILY MANIPULAT CHIROPRAC [place] TOR SPINAL 3-4 REGIONS APPL 06543 WENDI ANH MODALITY 7 FAMILY 1/> AREAS CHIROPRAC TRACTION TOR MECHANICA L THERAPEUT 16297 WENDI ANH IC PX 1/> 7 FAMILY AREAS CHIROPRAC EACH 15 TOR MIN EXERCISES THERAPEUT 17572 WENDI ANH IC PX 1/> 7 FAMILY AREAS CHIROPRAC EACH 15 TOR MIN EXERCISES APPL 93212 WENDI ANH MODALITY 7 FAMILY 1/> AREAS CHIROPRAC TRACTION TOR MECHANICA L CHIROPRAC 60481 WENDI ANH TIC 7 FAMILY MANIPULAT CHIROPRAC [place] TOR SPINAL 3-4 REGIONS MANUAL 10516 WENDI ANH THERAPY 7 FAMILY TQS 1/> CHIROPRAC REGIONS TOR EACH 15 MINUTES COLLECTIO 32412 RESTORATIONISM RESTORATIONISM N 7 [facility] BLOOD SPECIMEN PROTHROMB 23763 RESTORATIONISM RESTORATIONISM IN TIME 7 [facility] THERAPEUT 57161 WENDI ANH IC PX 1/> 7 FAMILY AREAS CHIROPRAC EACH 15 TOR MIN EXERCISES APPL 47152 WENDI ANH MODALITY 7 FAMILY 1/> AREAS CHIROPRAC TRACTION TOR MECHANICA L CHIROPRAC 01152 WENDI ANH TIC 7 FAMILY MANIPULAT CHIROPRAC [place] TOR SPINAL 3-4 REGIONS MANUAL 16040 WENDI ANH THERAPY 7 FAMILY TQS 1/> CHIROPRAC REGIONS TOR EACH 15 MINUTES MANUAL 89114 WENDI ANH THERAPY 7 FAMILY TQS 1/> CHIROPRAC REGIONS TOR EACH 15 MINUTES CHIROPRAC 33406 WENDI ANH TIC 7 FAMILY MANIPULAT CHIROPRAC [place] TOR SPINAL 3-4 REGIONS APPL 55064 WENDI ANH MODALITY 7 FAMILY 1/> AREAS CHIROPRAC TRACTION TOR MECHANICA L THERAPEUT 02610 WENDI ANH IC PX 1/> 7 FAMILY AREAS CHIROPRAC EACH 15 TOR MIN EXERCISES THERAPEUT 92652 WENDI ANH IC PX 1/> 7 FAMILY AREAS CHIROPRAC EACH 15 TOR MIN EXERCISES PROTHROMB 22091 [facility]ORATIONISM [facility]ISM [facility] WENDI ANH MODALITY 7 FAMILY 1/> AREAS CHIROPRAC TRACTION TOR MECHANICA L CHIROPRAC 12983 WENDI ANH TIC 7 FAMILY MANIPULAT CHIROPRAC [place] TOR SPINAL 3-4 REGIONS MANUAL 46624 WENDI ANH THERAPY 7 FAMILY TQS 1/> CHIROPRAC REGIONS TOR EACH 15 MINUTES COLLECTIO 85779 RESTORATIONISM RESTORATIONISM N 7 [facility] CAPILLARY [facility] BLOOD SPECIMEN MANUAL 28672 WENDI ANH THERAPY 7 FAMILY TQS 1/> CHIROPRAC REGIONS TOR EACH 15 MINUTES CHIROPRAC 42811 WENDI ANH TIC 7 FAMILY MANIPULAT CHIROPRAC [place] TOR SPINAL 3-4 REGIONS APPL 03751 WENDI ANH MODALITY 7 FAMILY 1/> AREAS CHIROPRAC TRACTION TOR MECHANICA L THERAPEUT 09430 WENDI ANH IC PX 1/> 7 FAMILY AREAS CHIROPRAC EACH 15 TOR MIN EXERCISES PROTHROMB 01512 RESTORATIONISM RESTORATIONISM IN TIME 7 [facility] THERAPEUT 55072 WENDI ANH IC PX 1/> 7 FAMILY AREAS CHIROPRAC EACH 15 TOR MIN EXERCISES APPL 54033 WENDI ANH MODALITY 7 FAMILY 1/> AREAS CHIROPRAC TRACTION TOR MECHANICA L CHIROPRAC 86937 WENDI ANH TIC 7 FAMILY MANIPULAT CHIROPRAC [place] TOR SPINAL 3-4 REGIONS MANUAL 76954 WENDI ANH THERAPY 7 FAMILY TQS 1/> CHIROPRAC REGIONS TOR EACH 15 MINUTES COLLECTIO 88665 RESTORATIONISM RESTORATIONISM N 7 [facility] CAPILLARY [facility] BLOOD SPECIMEN MANUAL 81793 WENDI ANH THERAPY 7 FAMILY TQS 1/> CHIROPRAC REGIONS TOR EACH 15 MINUTES CHIROPRAC 78022 WENDI ANH TIC 7 FAMILY MANIPULAT CHIROPRAC [place] TOR SPINAL 3-4 REGIONS APPL 41193 WENDI ANH MODALITY 7 FAMILY 1/> AREAS CHIROPRAC TRACTION TOR MECHANICA L THERAPEUT 73209 WENDI ANH IC PX 1/> 7 FAMILY AREAS CHIROPRAC EACH 15 TOR MIN EXERCISES THERAPEUT 63658 WENDI ANH IC PX 1/> 7 FAMILY AREAS CHIROPRAC EACH 15 TOR MIN EXERCISES APPL 79277 WENDI ANH MODALITY 7 FAMILY 1/> AREAS CHIROPRAC TRACTION TOR MECHANICA L CHIROPRAC 18543 WENDI ANH TIC 7 FAMILY MANIPULAT CHIROPRAC [place] TOR SPINAL 3-4 REGIONS MANUAL 01293 WENDI ANH THERAPY 7 FAMILY TQS 1/> CHIROPRAC REGIONS TOR EACH 15 MINUTES COLLECTIO 40283 RESTORATIONISM RESTORATIONISM N 7 [facility] CAPILLARY [facility] BLOOD SPECIMEN DARIN 78391 PSYCHIATRIC POST-VOID 7 NE [facility] ING MEDICAL RESIDUAL G URINE&/BL ADDER CAP PROTHROMB 56295 RESTORATIONISM RESTORATIONISM IN TIME 7 [facility] [place] [place] [facility] [place] [address] [facility] RETROPERI 7 [facility] TONEAL REAL TIME W/[place] [address] [facility] [facility] RETROPERI 7 RADIOLOGY LD IV TONEAL REAL TIME W/IMAGE LIMITED APPL 61725 WENDI ANH MODALITY 7 FAMILY 1/> AREAS CHIROPRAC TRACTION TOR MECHANICA L CHIROPRAC 37506 WENDI ANH TIC 7 FAMILY MANIPULAT CHIROPRAC [place] TOR SPINAL 3-4 REGIONS RADEX 59179 WENDI ANH SPINE 7 FAMILY LUMBOSACR CHIROPRAC AL 2/3 TOR VIEWS RADEX 40776 WENDI ANH SPINE 7 FAMILY CERVICAL CHIROPRAC 2 OR 3 TOR VIEWS PROTHROMB 60165 PRISCILA FRANCOIS IN TIME 7 [facility] INC PROTHROMB 69714 RESTORATIONISM RESTORATIONISM IN TIME 7 [facility] [place] [address] [facility] ABDOMEN & 7 RADIOLOGI PELVIS C W/O PROFESSIO CONTRAST MATERIAL CULTURE 38927 RESTORATIONISM RESTORATIONISM BACTERIAL 7 HEALTH HEALTH [facility] [place] [address] RESTORATIONISM RESTORATIONISM INFUSION 7 HEALTH HEALTH HYDRATION [facility] EACH ADDITIONA L HOUR INJECTION J1885 RESTORATIONISM RESTORATIONISM 7 HEALTH HEALTH KETOROLAC [facility] TROMETHAM INE PER 15 MG INJECTION J2405 RESTORATIONISM RESTORATIONISM 7 HEALTH HEALTH ONDANSETR [facility] ON HCL PER 1 MG URNLS DIP 31678 RESTORATIONISM RESTORATIONISM 7 HEALTH HEALTH STICK/TAB [facility] [place] [address] RESTORATIONISM RESTORATIONISM INFUSION 7 HEALTH HEALTH THERAPY/P [facility] ROPHYLAXI S /DX 1ST TO 1 HR THERAPEUT 41656 RESTORATIONISM RESTORATIONISM IC 7 HEALTH HEALTH INJECTION [facility] IV PUSH EACH NEW DRUG THERAPEUT 22550 RESTORATIONISM RESTORATIONISM IC 7 HEALTH HEALTH INJECTION [facility] IV PUSH EACH NEW DRUG NATRIURET 85917 RESTORATIONISM RESTORATIONISM IC 7 HEALTH HEALTH PEPTIDE [facility] BLOOD 05887 RESTORATIONISM RESTORATIONISM COUNT 7 HEALTH HEALTH COMPLETE [facility] AUTO&[place] [address] RESTORATIONISM RESTORATIONISM TROPONIN 7 HEALTH HEALTH QUANTITAT [facility] CARLOS PROTHROMB 85001 RESTORATIONISM RESTORATIONISM IN TIME 7 HEALTH HEALTH [facility] INJECTION J2270 RESTORATIONISM RESTORATIONISM MORPHINE 7 HEALTH HEALTH SULFATE [facility] UP TO 10 MG THROMBOPL 93931 RESTORATIONISM RESTORATIONISM ASTIN 7 HEALTH HEALTH TIME [facility] PARTIAL PLASMA/WH OLE BLOOD RADIOLOGI 79660 RESTORATIONISM RESTORATIONISM C 7 HEALTH HEALTH EXAMINATI [facility] ON CHEST SINGLE VIEW FRONTAL COMPREHEN 57472 RESTORATIONISM RESTORATIONISM SIVE 7 HEALTH HEALTH METABOLIC [facility] PANEL INJECTION J2405 RESTORATIONISM RESTORATIONISM 7 HEALTH HEALTH ONDANSETR [facility] [place] [address] [place] [address] [facility] ANGIOGRAP 7 RADIOLOGI HY CHEST C W/CONTRAS PROFESSIO T/NONCONT RAST LOCM Q9967 RESTORATIONISM RESTORATIONISM 300-399 7 [facility] MG/ML [facility] IODINE CONCENTRA TION PER ML ECG 30325 RESTORATIONISM RESTORATIONISM ROUTINE 7 [facility] ECG [facility] W/LEAST 12 LDS TRCG ONLY W/O I&R THER 00466 RESTORATIONISM RESTORATIONISM PROPH/DX 7 [facility] NJX IV [facility] PUSH SINGLE/1S T SBST/[place] [address] RESTORATIONISM RESTORATIONISM LIPASE 7 [facility] CREATININ 27550 PRISCILA FRANCOIS E BLOOD 7 [facility] INC PROTHROMB 31252 PRISCILA FRANCOIS IN TIME 7 [facility] INC INC COLLECTIO 01771 PRISCILA FRANCOIS N VENOUS 7 [facility] [place] [address] PRISCILA FRANCOIS UREA 7 [facility] NITROGEN INC INC QUANTITAT CAR[place] FINAL G9638 [facility] REPORTS 7 MEDICAL W/O DOC IMAGING 1/MORE ASS DOSE REDUCTION TECH FINAL G9551 [place] [facility] REPR ABD 7 MEDICAL IMAG STS IMAGING W/O ASS INCIDNT FND LES NTD: [place] [address] [facility] ABDOMEN & 7 MEDICAL PELVIS IMAGING W/CONTRAS ASS T MATERIAL IAADIADOO 86319 LEIGH ABRAHAM 7 MEDICINE MEDICINE INFLUENZA [facility] [place] J7297 [facility] CAR[facility]ITO STREL-RLS 7 PHYSICIAN S GROUP INTRAUTER INE MATT SYS 52 MG INSERTION 63679 [facility] CARLITO 7 PHYSICIAN INTRAUTER S GROUP INE DEVICE IUD PROTHROMB 75639 PRISCILA FRANCOIS IN TIME 7 [facility] INC PROTHROMB 61864 RESTORATIONISM RESTORATIONISM IN TIME 7 [facility] [place] [address] RESTORATIONISM RESTORATIONISM ABDOMEN & 7 [facility] PELVIS [facility] [place] [address] RESTORATIONISM RESTORATIONISM AMYLASE 7 HEALTH HEALTH [facility] BLOOD 87255 RESTORATIONISM RESTORATIONISM COUNT 7 HEALTH HEALTH COMPLETE [facility] AUTO&AUTO DIFRNTL WBC URNLS DIP 01137 RESTORATIONISM RESTORATIONISM 7 HEALTH HEALTH STICK/TAB [facility] LET RGNT AUTO W/O MICROSCOP Y COMPREHEN 40206 RESTORATIONISM RESTORATIONISM SIVE 7 HEALTH HEALTH METABOLIC [facility] PANEL URINE 28315 RESTORATIONISM RESTORATIONISM 7 HEALTH HEALTH TEST [facility] [place]ISUAL [place] [address] RESTORATIONISM RESTORATIONISM LIPASE 7 HEALTH HEALTH [facility] LOCM Q9967 RESTORATIONISM RESTORATIONISM 300-399 7 [facility] MG/ML [facility] [place] [address] RESTORATIONISM RESTORATIONISM INFUSION 7 HEALTH HEALTH HYDRATION [facility] INITIAL 31 MIN-[place] [address] RESTORATIONISM RESTORATIONISM INFUSION 7 HEALTH HEALTH HYDRATION [facility] EACH ADDITIONA L HOUR FINAL G9551 [facility] REPR ABD 7 MEDICAL MEDICAL IMAG STS IMAGING IMAGING W/O ASS ASS INCIDNT [place]: [place] [address] PRISCILA FRANCOIS ABDOMINAL 7 [facility] REAL INC [place] TIME W/[place] [address] [facility] ABDOMINAL 7 MEDICAL MEDICAL REAL IMAGING IMAGING TIME ASS ASS W/IMAGE LIMITED PROTHROMB 85732 PRISCIL[facility] FRANCOIS IN TIME 7 [facility] INC INC COMPREHEN 59173 PRISCILA FRANCOIS SIVE 7 [facility] METABOLIC INC INC PANEL COLLECTIO 20337 PRISCILA FRANCOIS N VENOUS 7 [facility] BLOOD INC INC VENIPUNCT URE LIPID 27913 PRISCILA FRANCOIS PANEL 7 [facility] INC INC PROTHROMB 96994 PRISCILA FRANCOIS IN TIME 7 [facility] INC INC BLOOD 61173 PRISCILA FRANCOIS COUNT 7 [facility] COMPLETE INC INC AUTO&[place] [address] PRISCILA FRANCOIS FREE 7 [facility] THYROXINE INC INC HEMOGLOBI 60453 PRISCILA FRANCOIS N 7 [facility] GLYCOSY[place] [address] PRISCILA FRANCOIS THYROID 7 [facility] STIMULATI INC INC NG HORMONE TSH PROTHROMB 70759 PRISCILA FRANCOIS IN TIME 7 [facility] INC INC COLLECTIO 05384 PRISCILA FRANCOIS N VENOUS 7 [facility] BLOOD INC INC VENIPUNCT URE THERAPEUT 26732 PRISCILA [place] IC 7 [facility] PROPHYLAC INC INC TIC/DX INJECTION SUBQ/IM COLLECTIO 95301 FAMILY MULBERRY N 6 CARE MAURILIO CAPILLARY ASSOCIATE BLOOD S SPECIMEN PROTHROMB 66127 FAMILY MULBERRY IN TIME 6 CARE MAURILIO ASSOCIATE S PROTHROMB 71265 FAMILY MULBERRY IN TIME 6 CARE MAURILIO ASSOCIATE S COLLECTIO 54270 FAMILY MULBERRY N 6 CARE MAURILIO CAPILLARY ASSOCIATE BLOOD S SPECIMEN ECG 90863 PRISCILA MAYER ROUTINE 6 [facility] W/LEAST P 12 LDS I&R ONLY CONTINUOU E0601 VIKRAM SUE S 6 HOME HOME POSITIVE MEDICAL MEDICAL AIRWAY EQUIPME EQUIPME PRESSURE DEVICE COLLECTIO 58934 FAMILY CROWDY N 6 CARE CRI CAPILLARY ASSOCIATE BLOOD S SPECIMEN BLOOD 77474 FAMILY CROWDY COUNT 6 CARE CRI COMPLETE ASSOCIATE AUTO&AUTO S DIFRNTL WBC PROTHROMB 18845 FAMILY RHONDA IN TIME 6 CARE TAR ASSOCIATE S COLLECTIO 98616 FAMILY RHONDA N 6 CARE TAR CAPILLARY ASSOCIATE BLOOD S SPECIMEN CONTINUOU E0601 VIKRAM SUE S 6 HOME HOME POSITIVE MEDICAL MEDICAL AIRWAY EQUIPME EQUIPME PRESSURE DEVICE IIV4 VACC 38756 FAMILY RHONDA SPLIT 6 CARE TAR VIRUS 0.5 ASSOCIATE ML DOS S FOR IM USE COLLECTIO 04310 FAMILY RHONDA N 6 CARE TAR CAPILLARY ASSOCIATE BLOOD S SPECIMEN PROTHROMB 98582 FAMILY RHONDA IN TIME 6 CARE TAR ASSOCIATE S BLOOD 85617 FAMILY CROWDY COUNT 6 CARE CRI COMPLETE ASSOCIATE AUTO&AUTO S DIFRNTL WBC COLLECTIO 90788 FAMILY CROWDY N 6 CARE CRI CAPILLARY ASSOCIATE BLOOD S SPECIMEN LOCM Q9967 [phone] MG/ML [facility] IODINE CONCENTRA TION PER ML IADNA 21619 [facility] ER JR LANEY [place] [address] [facility] HY CHEST [facility] W/CONTRAS T/NONCONT RAST IADNA 23745 [facility] CHLAMYD[facility] ER JR LANEY TRACHOMAT IS AMPLIFIED PROBE TQ CYTP C/V 26836 [facility], [facility] AUTO THIN [facility] ER JR LANEY LYR PREPJ SCR MNL RESCR PHYS COLLECTIO 95383 FAMILY RHONDA N 6 CARE TAR CAPILLARY ASSOCIATE BLOOD S SPECIMEN PROTHROMB 82945 FAMILY RHONDA IN TIME 6 CARE TAR ASSOCIATE S APPL 18635 [place] MODALITY 6 ROXI ROXI 1/> AREAS ULTRASOUN D EA 15 MIN APPL 74818 [place] MODALITY 6 ROXI ROXI 1/> AREAS ELEC STIMJ UNATTENDE D RADIOLOGI 27778 [place] LOCKE ALL C EXAM 6 MEDICAL CHEST 2 IMAGING VIEWS ASS FRONTAL&L ATERAL CHIROPRAC 64150 [place] TIC 6 ROXI ROXI MANIPLTV TX EXTRASPIN AL 1/> REGION MANUAL 33198 [place] THERAPY 6 ROXI ROXI TQS 1/> REGIONS EACH 15 MINUTES CHIROPRAC 04165 [place] TIC 6 ROXI ROXI MANIPULAT CARLOS TX SPINAL 3-4 REGIONS FULL FACE A7030 VIKRAM SOWDEN MASK 6 HOME KASSANDRA USED MEDICAL W/POS EQUIPME ARWAY PRESS DEVICE EA FILTER A7038 VIKRAM VANDANA DISPBL 6 HOME KEMI USED MEDICAL W/POS EQUIPME ARWAY PRESSURE DEVICE FILTER A7039 VIKRAM VANDANA NON 6 HOME KEMI DISPBL MEDICAL USED EQUIPME W/POS ARWAY PRESS DEVICE COLLECTIO 57539 FAMILY RHONDA N 6 CARE TAR CAPILLARY ASSOCIATE BLOOD S SPECIMEN HEADGEAR A7035 VIKRAM ESTRADA USED 6 HOME KASSANDRA W/POSITIV MEDICAL E AIRWAY EQUIPME PRESSURE DEVICE CONTINUOU E0601 VIKRAM O'GRETCHEN S 6 HOME MOL POSITIVE MEDICAL AIRWAY EQUIPME PRESSURE DEVICE HUMDIFIR E0562 VIKRAM ROSS HEATED 6 HOME KEMI USED MEDICAL W/POS EQUIPME ARWAY PRESSURE DEVICE TUBING A7037 VIKRAM ROSS USED WITH 6 HOME KEMI POSITIVE MEDICAL AIRWAY EQUIPME PRESSURE DEVICE PROTHROMB 45192 FAMILY RHONDA IN TIME 6 CARE TAR ASSOCIATE S APPL 77171 [place] L[place]ING MODALITY 6 ROXI ROXI 1/> AREAS ULTRASOUN D EA 15 MIN APPL 40831 LUKING LUKING MODALITY 6 ROXI ROXI 1/> AREAS ELEC STIMJ UNATTENDE D APPL 18937 LUKING LUKING MODALITY 6 ROXI ROXI 1/> AREAS TRACTION MECHANICA L CHIROPRAC 18228 LUK[place] LUKING TIC 6 ROXI ROXI MANIPULAT CAR[place] SPINAL 3-4 REGIONS MANUAL 96293 LUKING LUKING THERAPY 6 ROXI ROXI TQS 1/> REGIONS EACH 15 MINUTES CHIROPRAC 56507 LUKING LUKING TIC 6 ROXI ROXI MANIPLTV TX EXTRASPIN AL 1/> REGION MANUAL 92540 LUKING LUKING THERAPY 6 ROXI ROXI TQS 1/> REGIONS EACH 15 MINUTES CHIROPRAC 63159 LUKING LUKING TIC 6 ROXI ROXI MANIPULAT CARLOS TX SPINAL 3-4 REGIONS COLLECTIO 21309 FAMILY RHONDA N 6 CARE TAR CAPILLARY ASSOCIATE BLOOD S SPECIMEN APPL 76408 LUKING LUKING MODALITY 6 ROXI ROXI 1/> AREAS ELEC STIMJ UNATTENDE D APPLICATI 05893 LUKING LUKING ON 6 ROXI ROXI MODALITY 1/> AREAS HOT/COLD PACKS APPL 03894 LUKING LUKING MODALITY 6 ROXI ROXI 1/> AREAS ULTRASOUN D EA 15 MIN PROTHROMB 36326 FAMILY RHONDA IN TIME 6 CARE TAR ASSOCIATE S URNLS DIP 16580 COMBINED COMBINED 6 PHYSICIAN PHYSICIAN STICK/TAB S LA S LA LET REAGENT AUTO MICROSCOP Y CULTURE 51725 COMBINED COMBINED BACTERIAL 6 PHYSICIAN PHYSICIAN S LA S LA QUANTTATI VE COLONY COUNT URINE VOLUME 96467 COMBINED COMBINED MEASUREME 6 PHYSICIAN PHYSICIAN NT TIMED S LA S LA COLLECTIO N EACH CULTURE 54496 COMBINED COMBINED BACTERIAL 6 PHYSICIAN PHYSICIAN S LA S LA QUANTTATI VE COLONY COUNT URINE MANUAL 10206 LUKING LUKING THERAPY 6 ROXI ROXI TQS 1/> REGIONS EACH 15 MINUTES APPL 35582 LUKING LUKING MODALITY 6 ROXI ROXI 1/> AREAS ULTRASOUN D EA 15 MIN APPLICATI 78867 LUKING LUKING ON 6 ROXI ROXI MODALITY 1/> AREAS HOT/COLD PACKS APPL 12999 LUKING LUKING MODALITY 6 ROXI ROXI 1/> AREAS ELEC STIMJ UNATTENDE D APPL 95287 LUKING LUKING MODALITY 6 ROXI ROXI 1/> AREAS ELEC STIMJ UNATTENDE D APPL 66172 LUKING LUKING MODALITY 6 ROXI ROXI 1/> AREAS ULTRASOUN D EA 15 MIN APPLICATI 47007 LUKING LUKING ON 6 ROXI ROXI MODALITY 1/> AREAS HOT/COLD PACKS MANUAL 59618 LUKING LUKING THERAPY 6 ROXI ROXI TQS 1/> REGIONS EACH 15 MINUTES CHIROPRAC 88518 LUKING LUKING TIC 6 ROXI ROXI MANIPULAT CARLOS TX SPINAL 3-4 REGIONS COLLECTIO 97766 FAMILY CROWDY N 6 CARE CRI CAPILLARY ASSOCIATE BLOOD S SPECIMEN CULTURE 56890 COMBINED COMBINED BACTERIAL 6 PHYSICIAN PHYSICIAN S LA S LA QUANTTATI VE COLONY COUNT URINE PROTHROMB 20202 FAMILY CROWDY IN TIME 6 CARE CRI ASSOCIATE S BLOOD 31271 FAMILY CROWDY COUNT 6 CARE CRI COMPLETE ASSOCIATE AUTO&AUTO S DIFRNTL WBC APPL 08793 LUKING LUKING MODALITY 6 ROXI ROXI 1/> AREAS ELEC STIMJ UNATTENDE D APPLICATI 41948 LUKING LUKING ON 6 ROXI ROXI MODALITY 1/> AREAS HOT/COLD PACKS CHIROPRAC 51533 LUKING LUKING TIC 6 ROXI ROXI MANIPULAT CARLOS TX SPINAL 3-4 REGIONS MANUAL 19110 LUKING LUKING THERAPY 6 ROXI ROXI TQS 1/> REGIONS EACH 15 MINUTES COLLECTIO 50083 FAMILY RHONDA N 6 CARE TAR CAPILLARY ASSOCIATE BLOOD S SPECIMEN PROTHROMB 13880 FAMILY RHONDA IN TIME 6 [place] [address] VIRTUAL VALERIA GOL TRANSVAGI 6 RADIOLOGI NAL C PROFESSIO COLLECTIO 01373 FAMILY MULBERRY N 6 CARE MAURILIO CAPILLARY ASSOCIATE BLOOD S SPECIMEN PROTHROMB 74765 FAMILY MULBERRY IN TIME 6 CARE MAURILIO ASSOCIATE S CRADLE SLIDE MAKER STDY 93417 PRISCILA FRANCOIS UNATND 6 [facility] W/HRT INC INC RATE/O2 SAT/RESP/ CRADLE SLIDE MAKER TIME PROTHROMB 47383 FAMILY CROWDY IN TIME 6 CARE CRI ASSOCIATE S CULTURE 50203 COMBINED COMBINED BACTERIAL 6 PHYSICIAN PHYSICIAN S LA S LA QUANTTATI VE COLONY COUNT URINE COLLECTIO 57256 FAMILY CROWDY N 6 CARE CRI CAPILLARY ASSOCIATE BLOOD S SPECIMEN PROTHROMB 75999 FAMILY CROWDY IN TIME 6 CARE CRI ASSOCIATE S INJECTION J1030 FAMILY RHONDA 6 CARE TAR METHYLPRE ASSOCIATE DNISOLONE S ACETATE 40 MG THERAPEUT 66305 FAMILY RHONDA IC 6 CARE TAR PROPHYLAC ASSOCIATE TIC/DX S INJECTION SUBQ/IM XTRNL ECG 95749 PRISCILA MAYER 6 [facility] S RHYTHM P W/I&R UP TO 48 HRS PROTHROMB 61104 FAMILY RHONDA IN TIME 6 CARE TAR ASSOCIATE S PROTHROMB 29389 RESTORATIONISM RESTORATIONISM IN TIME 6 HEALTH HEALTH [facility] ECG 90840 [facility] ROUTINE 6 EMERGENCY ECG PHYS PSC W/LEAST 12 LDS I&[place] [address] RESTORATIONISM RESTORATIONISM TROPONIN 6 [facility] HEALTH QUANTITAT [facility] CARLOS BLOOD 35299 RESTORATIONISM RESTORATIONISM COUNT 6 HEALTH HEALTH COMPLETE [facility] AUTO&AUTO DIFRNTL WBC RADIOLOGI 32137 RESTORATIONISM RESTORATIONISM C 6 [facility] HEALTH EXAMINATI [facility] ON CHEST SINGLE VIEW FRONTAL ECG 04658 RESTORATIONISM RESTORATIONISM ROUTINE 6 [facility] ECG [facility] W/LEAST 12 LDS TRCG ONLY W/O I&[place] [address] RESTORATIONISM RESTORATIONISM MAGNESIUM 6 [facility] HEALTH [facility] COLLECTIO 45745 RESTORATIONISM RESTORATIONISM N VENOUS 6 [facility] BLOOD [facility] VENIPUNCT URE COMPREHEN 71631 RESTORATIONISM RESTORATIONISM SIVE 6 [facility] METABOLIC [facility] PANEL OPHTHALMO 91209 [facility] [place] VALLE SCPY 6 [facility], RETINAL [facility] DRAWING I&R 1ST DETERMINA 58714 [facility] [place] MARADIAGAON 6 [facility] REFRACTIV CENTER, E STATE P[facility]. PROTHROMB 68106 FAMILY LANIE IN TIME 6 BARREL HANDLER S, PSC COLLECTIO 57736 FAMILY CRISTOPHERDY N 6 CARE CAPILLARY ASSOCIATE BLOOD S, PSC SPECIMEN COMPUTERI 49112 RAJ VALLE ZED 6 [facility]AM OPHTHALMI CENTER, C IMAGING P.S.C. OPTIC NERVE VISUAL 25290 RAJ VALLE FIELD XM 6 [facility] JAM UNI/BI CENTER, W/INTERP P.S.C. EXTENDED EXAM COLLECTIO 76346 FAMILY RHONDA N 6 CARE TAR CAPILLARY ASSOCIATE BLOOD S SPECIMEN PROTHROMB 50300 FAMILY RHONDA IN TIME 6 CARE TAR ASSOCIATE S DETERMINA 80714 RAJ RAO 6 [facility] RE[facility]RA[facility], E STATE P.S.C. OPHTHALMO 82894 RAJ ESCALANTEY 6 [facility] J[facility] EXT[facility]ED [facility], RETINAL P.S.C. DRAWING I&R 1ST COLLECTIO 29244 RESTORATIONISM RESTORATIONISM N VENOUS 6 HEALTH HEALTH BLOOD [facility] VENIPUNCT URE BLOOD 61750 RESTORATIONISM RESTORATIONISM COUNT 6 HEALTH HEALTH COMPLETE [facility] AUTO&AUTO DIFRNTL WBC PROTHROMB 00786 RESTORATIONISM RESTORATIONISM IN TIME 6 HEALTH HEALTH [facility] THROMBOPL 28743 RESTORATIONISM RESTORATIONISM ASTIN 6 HEALTH HEALTH TIME [facility] PARTIAL PLASMA/WH OLE BLOOD PROTHROMB 20572 FAMILY CROWDY IN TIME 6 BARREL HANDLER S, PSC BLOOD 27481 FAMILY CROWDY COUNT 6 CARE COMPLETE ASSOCIATE AUTO&AUTO S, PSC DIFRNTL WBC COLLECTIO 33124 FAMILY CROWDY N 6 CARE CAPILLARY ASSOCIATE BLOOD S, PSC SPECIMEN COLLECTIO 60937 FAMILY RHONDA N 6 CARE TAR CAPILLARY ASSOCIATE BLOOD S SPECIMEN PROTHROMB 63791 FAMILY RHONDA IN TIME 6 CARE TAR ASSOCIATE S PROTHROMB 27846 FAMILY RHONDA IN TIME 6 CARE TAR ASSOCIATE S COLLECTIO 00798 FAMILY RHONDA N 6 CARE TAR CAPILLARY ASSOCIATE BLOOD S SPECIMEN COLLECTIO 74977 FAMILY RHONDA N 6 CARE TAR CAPILLARY ASSOCIATE BLOOD S SPECIMEN PROTHROMB 16464 FAMILY RHONDA IN TIME 6 CARE TAR ASSOCIATE S PROTHROMB 21372 FAMILY CROWDY IN TIME 6 BARREL HANDLER S COLLECTIO 35768 FAMILY CROWDY N 6 CARE CAPILLARY ASSOCIATE BLOOD S SPECIMEN URINE 28947 [facility] FRANCOIS 6 [facility] TEST INC INC VISUAL COLOR CMPRSN METHS BASIC 45087 PRISCILA FRANCOIS METABOLIC 6 [facility] PANEL INC INC CALCIUM TOTAL URNLS DIP 28539 [facility] FRANCOIS 6 [facility] STICK/TAB INC INC LET REAGENT AUTO MICROSCOP Y PROTHROMB 89285 PRISCILA FRANCOIS IN TIME 6 [facility] INC INC BLOOD 68821 PRISCILA VALDEZ COUNT 6 [facility] HOR COMPLETE INC AUTO&AUTO DIFRNTL WBC BLOOD 05837 PRISCILA FRANCOIS OCCULT 6 [facility] PEROXIDAS INC INC E ACTV QUAL FECES 1-3 SPEC IAADIADOO 33263 [facility] MEÑO 6 PHYSICIAN SUNI STREPTOCO S GROUP CCUS GROUP A PROTHROMB 88383 FAMILY MULBERRY IN TIME 6 BARREL HANDLER S COLLECTIO 03019 FAMILY MULBERRY N 6 CARE CAPILLARY ASSOCIATE BLOOD S SPECIMEN BASIC 28433 COMBINED COMBINED METABOLIC 6 PHYSICIAN PHYSICIAN PANEL S LA S LA CALCIUM TOTAL BLOOD 07841 FAMILY FAMILY COUNT 6 CARE CARE COMPLETE ASSOCIATE ASSOCIATE AUTO&AUTO S S DIFRNTL WBC ECG 11481 PRISCILA BOLANOS JR ROUTINE 6 [facility] W/LEAST P 12 LDS I&R ONLY PROTHROMB 43245 FAMILY CROWDY IN TIME 6 BARREL HANDLER S COLLECTIO 69854 FAMILY CROWDY N 6 CARE CAPILLARY ASSOCIATE BLOOD S SPECIMEN RADIOLOGI 87681 [place] LOCKE ALL C 6 MEDICAL EXAMINATI IMAGING ON CHEST ASS SINGLE VIEW FRONTAL SMR PRIM 86144 [facility] SRC WET 6 PHYSICIAN YVAN MOUNT S GROUP NFCT AGT PROTHROMB 99106 FAMILY CROWDY IN TIME 6 CARE CRI ASSOCIATE S PROTHROMB 26767 FAMILY CROWDY IN TIME 6 BARREL HANDLER S COLLECTIO 68501 FAMILY CROWDY N 6 CARE CAPILLARY ASSOCIATE BLOOD S SPECIMEN RADEX 17389 PRISCILA FRANCOIS FOOT 6 [facility] COMPLETE INC INC MINIMUM 3 VIEWS COLLECTIO 44037 FAMILY CROWDY N 6 CARE CAPILLARY ASSOCIATE BLOOD S SPECIMEN PROTHROMB 95525 FAMILY CROWDY IN TIME 6 BARREL HANDLER S PROTHROMB 37926 FAMILY CROWDY IN TIME 6 CARE CRI ASSOCIATE S COLLECTIO 87587 FAMILY CROWDY N 6 CARE CRI CAPILLARY ASSOCIATE BLOOD S SPECIMEN PROTHROMB 64143 FAMILY CROWDY IN TIME 6 CARE CRI ASSOCIATE S PROTHROMB 73477 FAMILY CROWDY IN TIME 6 CARE CRI ASSOCIATE S LEVONORGE J7302 [facility] CARLITO STREL-RLS 5 PHYSICIAN YVAN E S GROUP INTRAUTER N CNTRACPT 52 MG INSERTION 74771 [facility] CARLITO 5 PHYSICIAN YVAN INTRAUTER S GROUP INE DEVICE IUD URINE 42438 [facility] CARLITO 5 PHYSICIAN YVAN TEST S GROUP VISUAL COLOR CMPRSN METHS SERVICES 15313 FAMILY FAMILY PROVIDED 5 CARE CARE PAPER PRODUCTS INSPECTOR ASSOCIATE OTH/THN S S REG SCHED HOURS BLOOD 24829 FAMILY MULBERRY COUNT 5 CARE MAURILIO COMPLETE ASSOCIATE AUTO&AUTO S DIFRNTL WBC PROTHROMB 76702 FAMILY CROWDY IN TIME 5 CARE CRI ASSOCIATE S OPHTH 85145 [facility] MEDICAL 5 ANG ANG XM&EVAL COMPRHNSV ESTAB PT 1/> PROTHROMB 04943 FAMILY MARIAN IN TIME 5 CARE YARI ASSOCIATE S SIMPLE 78186 PRISCILA PRISCILA REPAIR 5 [facility] F/E/E/N/L INC INC /M 2.6CM-5.0 CM PROTHROMB 30000 FAMILY CROWDY IN TIME 5 CARE CRI ASSOCIATE S PROTHROMB 25214 FAMILY CROWDY IN TIME 5 CARE NEPTALI ASSOCIATE S CULTURE 94491 COMBINED COMBINED BCT 5 PHYSICIAN PHYSICIAN ISOL&PRSM S LA S LA PTV ID ISOLATE EA URINE CULTURE 74349 COMBINED COMBINED BACTERIAL 5 PHYSICIAN PHYSICIAN S LA S LA QUANTTATI VE COLONY COUNT URINE SUSCEPTIB 46070 COMBINED COMBINED ILITY 5 PHYSICIAN PHYSICIAN STUDY S LA S LA ANTIMICRO BIAL DISK METHOD PROTHROMB 29217 FAMILY CROWDY IN TIME 5 CARE CRI ASSOCIATE S BLOOD 06181 FAMILY FAMILY COUNT 5 CARE CARE COMPLETE ASSOCIATE ASSOCIATE AUTO&AUTO S S DIFRNTL WBC PROTHROMB 24893 FAMILY CROWDY IN TIME 5 CARE CRI ASSOCIATE S PROTHROMB 82980 FAMILY MARIAN IN TIME 5 CARE YARI ASSOCIATE S RADIOLOGI 47461 [facility]ISM[facility]old[facility] Max EXAM 5 [facility] CHEST 2 MEDICAL VIEWS GROUP FRONTAL&L ATERAL PROTHROMB 62709 FAMILY FAMILY IN TIME 5 CARE BARREL HANDLER ASSOCIATE Ever Curtis PROTHROMB 37960 FAMILY FADI IN TIME 5 CARE MAURILIO ASSOCIATE Curtis PROTHROMB 65343 [facility] IN TIME 5 RESTORATIONISM [facility] HOSP HOSP COLLECTIO 02808 [facility] N VENOUS 5 RESTORATIONISM RESTORATIONISM BLOOD HOSP HOSP VENIPUNCT URE COLLECTIO 86683 [facility] N VENOUS 5 RESTORATIONISM RESTORATIONISM BLOOD HOSP HOSP VENIPUNCT URE PROTHROMB 46530 [facility] IN TIME 5 [facility] HOSP RADEX 52335 [facility] WELCH MAR STERNUM 5 RADIOLOGY MINIMUM 2 ASSOC VIEWS RADIOLOGI 71927 C[facility] MALLOY C 5 RADIOLOGY III JAM EXAMINATI ASSOC ON CHEST SINGLE VIEW FRONTAL SBSQ [address]/DAY MEDICAL 15 GROUP MINUTES RADIOLOGI 23162 [facility] MALLOY C 5 RADIOLOGY III JAM EXAMINATI ASSOC ON CHEST SINGLE VIEW FRONTAL SBSQ [address]/[facility] 25 GROUP MINUTES RADIOLOGI 71776 [facility] MALLOY C 5 RADIOLOGY III JAM EXAMINATI ASSOC ON CHEST SINGLE VIEW FRONTAL SBSQ [address]/DAY MEDICAL 15 GROUP MINUTES RADIOLOGI 04751 [facility] RICE N. C 5 RADIOLOGY EXAMINATI ASSOC ON CHEST SINGLE VIEW FRONTAL SBSQ [address]/DAY MEDICAL 25 GROUP MINUTES ECG 17736 [facility] ROUTINE 5 HEALTH [facility] ECG MEDICAL W/LEAST GROUP 12 LDS I&R ONLY ECG 97724 [place] [facility] ROUTINE 5 [facility] ECG SPECIALIS W/LEAST TS, 12 LDS I&R ONLY SBSQ 52181 RESTORATIONISM [facility] 5 HEALTH RUPINDER CARE/DAY MEDICAL 25 GROUP MINUTES RADIOLOGI 48840 [facility] PALENCIA ADA C 5 RADIOLOGY EXAMINATI ASSOC ON CHEST SINGLE VIEW FRONTAL US VASC 27043 [facility] GOUZD SHAUNA ACCESS 5 [place] SITS VSL ANESTHESI PATENCY A NDL ENTRY ANES HRT 64965 [facility] PERICRD 5 [place] SAC&GRT ANESTHESI 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 RADIOLOGI 07980 [facility] FONTANA C 5 RADIOLOGY OSWALDO EXAMINATI ASSOC ON CHEST SINGLE VIEW FRONTAL ECHO 60612 [facility] SH[facility] TRANSESOP 5 [place] HAG R-T ANESTHESI 2D W/PRB A IMG ACQUISJ I&R DOP 29977 [facility] ECHOCARD 5 [place] COLOR ANESTHESI FLOW A VELOCITY MAPPING RPLCMT 13624 RESTORATIONISM [facility] PROST 5 [facility] AORTIC MEDICAL VALVE GROUP OPEN XCP HOMOGRF/[place] [address] [facility] KEMI SURG 5 ADOLFO & PATHOLOGY [facility]&SUNI ROSCOPIC EXAM SBSQ 33284 [facility] 5 HEALTH RUPINDER CARE/DAY MEDICAL 35 GROUP MINUTES ECG 60125 RESTORATIONISM GRACY ROUTINE 5 HEALTH MANDEEP ECG MEDICAL W/LEAST GROUP 12 LDS I&R ONLY DOPPLER 12488 [facility] ECHOCARD 5 [place] PULSE ANESTHESI WAVE A W/SPECTRA L DISPLAY INSERTION 26260 [facility] FLOW 5 [place] DIRECTED ANESTHESI CATHETER A FOR MONITORIN G ARTL 85557 [facility] SHAUNA CATHJ/CAN 5 [place] NULJ ANESTHESI MNTR/MCKEE A SFUSION SPX PRQ CT THORAX 36501 [facility] CENTRAL 5 RESTORATIONISM RESTORATIONISM W/CONTRAS HOSP HOSP T MATERIAL ECG 47460 RESTORATIONISM GRACY ROUTINE 5 HEALTH MANDEEP ECG MEDICAL W/LEAST GROUP 12 LDS I&R ONLY SPMTRY 48749 RESTORATIONISM DIAN W/VC 5 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 Y HERMELINDA WERNER W/WO MXML VOL VNTJ LOCM Q9967 [facility] CENTRAL 300-399 5 RESTORATIONISM RESTORATIONISM MG/ML HOSP HOSP IODINE CONCENTRA TION PER ML SBSQ 99616 HEMANTH EDWARDS JR OBSERVATI 5 MEDICAL THO ON SERV CARE/DAY FOUNDATIO 25 N MINUTES ECHO 89394 HEMANTH KOO TTHRC R-T 5 MEDICAL LU EMMANUELLE 2D SERV W/WOM-MOD FOUNDATIO E COMPL N SPEC&COLR D RADIOLOGI 62756 [place] CHARLY C EXAM 5 MEDICAL CHARLES CHEST 2 SERV VIEWS FOUNDATIO FRONTAL&L N ATERAL URNLS DIP 22298 PR[facility]ILA RICHARDSONON 5 [facility] STICK/TAB INC INC LET REAGENT AUTO MICROSCOP Y URINE 23459 PRISCILA FRANCOIS 5 [facility] TEST INC INC VISUAL COLOR CMPRSN METHS CYTP C/V 25302 [facility], PICKLESIM AUTO THIN 5 LLC ER JR LANEY LYR PREPJ SCR MNL RESCR PHYS BLOOD 58266 FAMILY FAMILY COUNT 5 CARE CARE COMPLETE ASSOCIATE ASSOCIATE AUTO&AUTO S S DIFRNTL WBC LIFT ELEV L3332 [place] INSIDE 5 SHOE TAPERED UP ONE-HALF INCH IADNA 75277 P&C NAT MONSON TER CHLAMYDIA 5 LLC TRACHOMAT IS AMPLIFIED PROBE TQ IADNA 07298 P&C NAT MONSON TER NEISSERIA 5 LLC GONORRHOE AE AMPLIFIED PROBE TQ THERAPEUT 64117 [facility] NANO IC 5 PHYSICIAN SUNI PROPHYLAC S GROUP TIC/DX INJECTION SUBQ/IM INJECTION J1040 [facility] NANO 5 PHYSICIAN SUNI METHYLPRE S GROUP DNISOLONE ACETATE 80 MG LIPID 34204 FAMILY CROWDY PANEL 5 CARE CRI ASSOCIATE S HEMOGLOBI 40114 FAMILY CROWDY N 5 CARE CRI GLYCOSYLA [place] [address] FAMILY CROWDY THYROID 5 CARE CRI STIMULATI ASSOCIATE NG S HORMONE TSH CYANOCOBA 92779 COMBINED COMBINED MACARENA 5 PHYSICIAN PHYSICIAN VITAMIN S LA S LA B-12 25 43455 COMBINED COMBINED HYDROXY 5 PHYSICIAN PHYSICIAN INCLUDES S LA S LA FRACTIONS IF PERFORMED COLLECTIO 57064 FAMILY CROWDY N 5 CARE CRI CAPILLARY ASSOCIATE BLOOD S SPECIMEN COLLECTIO 84925 FAMILY CROWDY N VENOUS 5 CARE CRI BLOOD ASSOCIATE VENIPUNCT S URE COMPREHEN 79951 COMBINED COMBINED SIVE 5 PHYSICIAN PHYSICIAN METABOLIC S LA S LA PANEL BLOOD 41094 FAMILY FAMILY COUNT 4 CARE CARE COMPLETE ASSOCIATE ASSOCIATE AUTO&AUTO S S DIFRNTL WBC BLOOD 46295 PR[facility] FRANCOIS COUNT 4 [facility] COMPLETE INC INC AUTO&[place] [address] PRISCILA FRANCOIS INFUSION 4 [facility] THERAPY/P INC INC ROPHYLAXI S /DX 1ST TO 1 HR URNLS DIP 51625 PRISCILATOÑA RICHARDSONON 4 [facility] STICK/TAB INC INC LET REAGENT AUTO MICROSCOP Y COMPREHEN 59523 PRISCILA PRISCILA SIVE 4 [facility] METABOLIC INC INC PANEL URINE 58275 PR[facility] FRANCOIS 4 [facility] TEST INC [place] [address] PRISCILA RICHARDSONON ABDOMEN & 4 [facility] PELVIS INC INC W/O CONTRAST MATERIAL Encounters Encounter Start End Date Code Location Performer Type Date OFFICE 49521 [facility] OUTPATIEN 7 7 HEALTH T VISIT MEDICAL 15 [facility] RESTORATIONISM - 7 7 HEALTH OUTPATIEN [facility] OFFICE 42527 [facility] OUTPATIEN 7 7 NE HEALTH T VISIT MEDICAL 15 G MINUTES OFFICE 06351 RESTORATIONISM OUTPATIEN 7 7 HEALTH T VISIT 5 [facility] RESTORATIONISM - 7 7 HEALTH OUTPATIEN [facility] OFFICE 85667 RESTORATIONISM OUTPATIEN 7 7 HEALTH T VISIT 5 [facility] EMERGENCY 29111 [facility] DEPT 7 7 EMERGENCY VISIT PHYS PSC HIGH SEVERITY& THREAT FUN EMERGENCY 09991 RESTORATIONISM 7 7 HEALTH DEPARTMEN [place] T VISIT HIGH/URGE NT SEVERITY HOSPITAL RESTORATIONISM - 7 7 HEALTH OUTPATIEN [place] T OFFICE 20330 [facility]ISM OUTPATIEN 7 7 HEALTH T VISIT 5 [facility] RESTORATIONISM - 7 7 [facility] 09459 RESTORATIONISM OUTPATIEN 7 7 HEALTH T VISIT 5 [place] MINUTES OFFICE 98848 [facility]ISM OUTPATIEN 7 7 HEALTH T VISIT 5 [facility] MINUTES OFFICE 16657 [facility] OUTPATIEN 7 7 NE HEALTH T VISIT MEDICAL 25 G MINUTES OFFICE 43090 [facility]ISM OUTPATIEN 7 7 HEALTH T VISIT 5 [facility] MINUT[facility] OFFICE 39729 RESTORATIONISM OUTPATIEN 7 7 HEALTH T VISIT 5 [facility] RESTORATIONISM - 7 7 [facility]ALTH [facility] T OFF[facility] 35716 RESTORATIONISM OUTPATIEN 7 7 HEALTH T VISIT 5 [place] MINUTES OFFICE 45600 [facility] OUTPATIEN 7 7 FAMILY T NEW 30 CHIROPRAC MINUTES TOR OFFICE 51514 RESTORATIONISM ATKINS OUTPATIEN 7 7 HEALTH T VISIT MEDICAL 25 GROUP MINUTES OFFICE 03278 [facility] OUTPATIEN 7 7 [facility] T VISIT 5 INC MINUTES HOSPITAL PRISCILA - 7 7 [facility] OUTPATIEN INC T OFFICE 06869 [facility] OUTPATIEN 7 7 NE HEALTH T NEW 45 MEDICAL MINUTES G OFFICE 44923 [facility] OUT[facility] 7 7 MEDICINE T VISIT [place] 15 LLC MINUTES [facility] RESTORATIONISM - 7 7 HEALTH OUTPATIEN [place] T EMERGENCY 85510 [facility]ISM [facility] V[facility] HIGH/URGE NT SEVERITY EMERGENCY 60073 [facility] S[facility] DEPT 7 7 EMERGENCY VISIT PHYS PSC HIGH SEVERITY& THREAT FUNCJ EMERGENCY 28576 [facility] DEPT 7 7 EMERGENCY VISIT PHYS PSC HIGH SEVERITY& THREAT FUNCJ EMERGENCY 26324 [facility]ATIONISM 7 [facility] V[facility] HIGH/URGE NT SEVERITY OFFICE 16628 [facility] OUTPATIEN 7 7 MEM [facility] T VISIT 5 INC MINUTES OFFICE 20955 [facility] ESTEBAN OUTPATIEN 7 7 PHYSICIAN T VISIT S GROUP 15 MINUTES HOSPITAL [facility] 43358 [facility] OUT[facility] 7 7 MEDICINE T [facility] OFFICE 61120 PR[facility] OUTPATIEN 7 7 MEM [facility] T VISIT 5 INC MINUTES HOSPITAL PRISCILA - 7 7 [facility] T EMER[facility] 98048 [facility] DEPT 7 7 EMERGENCY VISIT PHYS PSC HIGH SEVERITY& THREAT FUN EMERGENCY 73658 [facility]ISM 7 [facility] V[facility] HIGH/URGE NT SEVERITY HOSPITAL RESTORATIONISM - 7 7 HEALTH [facility] PRISCILA - 7 7 [facility] OFF[facility] 66666 [facility] OUTPATIEN 7 7 PHYSICIAN T VISIT S GROUP 15 MINUTES OFFICE 50650 [facility] OUT[facility]IEN 7 7 [facility] T VISIT 5 INC MINUTES [facility]PITAL [facility] - 7 7 [facility] OUTPATIEN INC T H[facility]PITAL [facility] - 7 7 [facility] OUTPATIEN INC T OFFICE 88962 [facility] FRYMAN OUTPATIEN 7 7 PHYSICIAN T NEW 30 S GROUP MINUTES EMERGENCY 23292 [facility] 7 7 [facility] DEPARTMEN INC T VISIT LOW/MODER SEVERITY [facility]OSPITAL [facility] - 7 7 [facility] OUTPATIEN INC T OFFICE 10046 FAMILY MULBERRY OUTPATIEN 6 6 CARE MAURILIO T VISIT ASSOCIATE 10 S MINUTES OFFICE 01428 [facility] MARY OUTPATIEN 6 6 PHYSICIAN T VISIT GROUP 25 MINUTES OFFICE 82901 FAMILY MULBERRY OUTPATIEN 6 6 CARE MAURILIO T VISIT ASSOCIATE 10 S MINUTES OFFICE 33024 FAMILY RHONDA OUTPATIEN 6 6 CARE TAR T VISIT ASSOCIATE 15 S MINUTES OFFICE 01828 FAMILY CROWDY OUTPATIEN 6 6 CARE CRI T VISIT ASSOCIATE 15 S MINUTES OFFICE 04631 FAMILY CROWDY OUTPATIEN 6 6 CARE CRI T VISIT ASSOCIATE 15 S MINUTES OFFICE 09453 FAMILY RHONDA OUTPATIEN 6 6 CARE TAR T VISIT ASSOCIATE 15 S MINUTES OFFICE 99524 [facility] OUTPATIEN 6 6 HEALTH YARI T VISIT MEDICAL 10 GROUP MINUTES OFFICE 58254 FAMILY RHONDA OUTPATIEN 6 6 CARE TAR T VISIT ASSOCIATE 15 S MINUTES OFFICE 36521 FAMILY CROWDY OUTPATIEN 6 6 CARE CRI T VISIT ASSOCIATE 15 S MINUTES PERIODIC 15309 [facility] PREVENTIV 6 6 PHYSICIAN E MED EST S GROUP PATIENT 18-39 YRS HOSPITAL RESTORATIONISM - 6 6 HEALTH OUTPATIEN [place] T OFFICE 06465 FAMILY RHONDA OUTPATIEN 6 6 CARE TAR T VISIT ASSOCIATE 15 S MINUTES OFFICE 68963 FAMILY RHONDA OUTPATIEN 6 6 CARE TAR T VISIT ASSOCIATE 15 S MINUTES OFFICE 32599 FAMILY RHONDA OUTPATIEN 6 6 CARE TAR T VISIT ASSOCIATE 15 S MINUTES OFFICE 07984 FAMILY RHONDA OUTPATIEN 6 6 CARE TAR T VISIT ASSOCIATE 15 S MINUTES OFFICE 88638 FAMILY CROWDY OUTPATIEN 6 6 CARE CRI T VISIT 5 ASSOCIATE MINUTES S OFFICE 55800 FAMILY CROWDY OUTPATIEN 6 6 CARE CRI T VISIT ASSOCIATE 15 S MINUTES EMERGENCY 97427 [facility] 6 6 PHYSICIAN DEPARTMEN S, [facility] T VISIT MODERATE SEVERITY [facility] PRISCILA - 6 6 [facility] OUTPATIEN INC T EMERGENCY 50618 [facility] 6 6 [facility] DEPARTMEN INC T VISIT LIMITED/M INOR PROB OFFICE 36960 [facility] 6 6 ROXI ROXI T NEW 30 MINUTES OFFICE 44480 FAMILY RHONDA OUTPATIEN 6 6 CARE TAR T VISIT ASSOCIATE 15 S MINUTES OFFICE 12679 [facility] ESTEBAN OUTPATIEN 6 6 PHYSICIAN YVAN T VISIT S GROUP 15 MINUTES EMERGENCY 69123 [facility] DEPT 6 6 EMERGENCY VISIT PHYS PSC HIGH SEVERITY& THREAT [facility] PRISCILA - 6 6 [facility] OUTPATIEN INC T OFFICE 87404 FAMILY MULBERRY OUTPATIEN 6 6 CARE MAURILIO T VISIT ASSOCIATE 10 S MINUTES OFFICE 71339 FAMILY CROWDY OUTPATIEN 6 6 CARE CRI T VISIT ASSOCIATE 10 S MINUTES OFFICE 08819 FAMILY CROWDY OUTPATIEN 6 6 CARE CRI T VISIT ASSOCIATE 15 S MINUTES OFFICE 51043 FAMILY RHONDA OUTPATIEN 6 6 CARE TAR T VISIT ASSOCIATE 15 S MINUTES OFFICE 82298 [facility] 6 6 [facility] VIS[facility]ICAL 25 G MINUTES OFFICE 45064 FAMILY RHONDA OUTPATIEN 6 6 CARE TAR T VISIT ASSOCIATE 15 S MINUTES HOSPITAL REST[facility]ATIONISM - 6 6 HEALTH OUTPATIEN [place] T EMERGENCY 52753 [facility] 6 6 [facility] T VISIT MODERATE SEVERITY EMERGENCY 09330 [facility] 6 6 EMERGENCY DEPARTMEN PHYS PSC T VISIT HIGH/URGE NT SEVERITY OFFICE 63578 [facility] OUTPATIEN 6 6 [facility] MINUT[facility] OFFICE 48551 FAMILY CROWDY OUTPATIEN 6 6 CARE T VISIT ASSOCIATE 10 S, PSC MINUTES OFFICE 10463 FAMILY RHONDA OUTPATIEN 6 6 CARE TAR T VISIT ASSOCIATE 15 S MINUTES OFFICE 22771 [facility] OUTPATIEN 6 6 [facility], MINUTES P.S.C. EMERGENCY [id number] RESTORATIONISM 6 6 HEALTH DEPARTMEN [place] T VISIT MODERATE SEVERITY HOSPITAL RESTORATIONISM - 6 6 [facility] OFF[facility] 37111 FAMILY CROWDY OUTPATIEN 6 6 CARE T VISIT ASSOCIATE 15 S, PSC MINUTES OFFICE 51432 FAMILY RHONDA OUTPATIEN 6 6 CARE TAR T VISIT ASSOCIATE 15 S MINUTES OFFICE 95071 FAMILY RHONDA OUTPATIEN 6 6 CARE TAR T VISIT ASSOCIATE 15 S MINUTES OFFICE 05041 FAMILY RHONDA OUTPATIEN 6 6 CARE TAR T VISIT ASSOCIATE 15 S MINUTES OFFICE 51659 FAMILY CROWDY OUTPATIEN 6 6 CARE T VISIT ASSOCIATE 15 S MINUTES EMERGENCY 35242 EMANUEL HEARD 6 6 PHYSICIAN DEPARTMEN S, PLLC T VISIT HIGH/URGE NT SEVERITY HOSPITAL PRISCILA - 6 6 [facility] OUTPATIEN INC T EMERGENCY 24029 PRISCILA 6 6 [facility] DEPARTMEN INC T VISIT MODERATE SEVERITY OFFICE 74273 [facility] MEÑO OUTPATIEN 6 6 PHYSICIAN SUNI T VISIT S GROUP 15 MINUTES OFFICE 03278 FAMILY MULBERRY OUTPATIEN 6 6 CARE T VISIT ASSOCIATE 10 S MINUTES OFFICE 86869 FAMILY MULBERRY OUTPATIEN 6 6 CARE MAURILIO T VISIT ASSOCIATE 15 S MINUTES EMERGENCY 05163 EMANUEL MCGILL DEPT 6 6 PHYSICIAN SUNI VISIT S, [facility] HIGH SEVERITY& THREAT FUNCJ OFFICE 41100 FAMILY CROWDY OUTPATIEN 6 6 CARE T VISIT ASSOCIATE 10 S MINUTES OFFICE 10063 [facility] OUTPATIEN 6 6 PHYSICIAN T VISIT S GROUP 15 MINUTES OFFICE 82672 FAMILY CROWDY OUTPATIEN 6 6 CARE CRI T VISIT ASSOCIATE 10 S MINUTES OFFICE 85477 FAMILY CROWDY OUTPATIEN 6 6 CARE T VISIT ASSOCIATE 10 S MINUTES EMERGENCY 88416 PRISCILA 6 6 [facility] DEPARTMEN INC T VISIT LOW/MODER SEVERITY EMERGENCY 33040 EMANUEL FONG 6 6 [facility] MODERATE SEVERITY HOSPITAL PRISCILA - 6 6 [facility] OUTPATIEN INC T OFFICE 04451 FAMILY CROWDY OUTPATIEN 6 6 CARE T VISIT ASSOCIATE 10 S MINUTES OFFICE 37371 FAMILY CROWDY OUTPATIEN 6 6 CARE CRI T VISIT ASSOCIATE 10 S MINUTES OFFICE 59934 FAMILY CROWDY OUTPATIEN 6 6 CARE CRI T VISIT ASSOCIATE 15 S MINUTES OFFICE 55693 FAMILY CROWDY OUTPATIEN 6 6 CARE CRI T VISIT ASSOCIATE 10 S MINUTES EMERGENCY 83894 [facility] CUMMINS 6 6 EMERGENCY ALLY DEPARTMEN PHYS PSC T VISIT HIGH/URGE NT SEVERITY OFFICE 47745 [facility] [address] OUTPATIEN 5 5 PHYSICIAN T VISIT S GROUP 10 MINUTES EMERGENCY 56630 PRISCILA 5 5 [facility] DEPARTMEN INC T VISIT LOW/MODER SEVERITY EMERGENCY 80778 EMANUEL MCGILL 5 5 PHYSICIAN SUNI DEPARTMEN S, PLLC T VISIT MODERATE SEVERITY HOSPITAL PRISCILA - 5 5 [facility] OUTPATIEN INC T OFFICE 09102 FAMILY CROWDY OUTPATIEN 5 5 CARE CRI T VISIT ASSOCIATE 10 S MINUTES OFFICE 46741 PRISCILA PETERSRON OUTPATIEN 5 5 MEM[facility]IAL SUNI T VISIT 5 HOSPITAL MINUTES OFFICE 17631 [facility] ESTEBAN OUTPATIEN 5 5 PHYSICIAN YVAN T VISIT S GROUP 15 MINUTES HOSPITAL PRISCILA - 5 5 [facility] OUTPATIEN INC T OFFICE 67100 FAMILY MARIAN OUTPATIEN 5 5 CARE YARI T VISIT ASSOCIATE 10 S MINUTES EMERGENCY 98444 PRISCILA 5 5 [facility] DEPARTMEN INC T VISIT MODERATE SEVERITY EMERGENCY 76397 [facility] CUMMINS 5 5 EMERGENCY ALLY DEPARTMEN PHYS PSC T VISIT HIGH/URGE NT SEVERITY OFFICE 53818 FAMILY CROWDY OUTPATIEN 5 5 CARE CRI T VISIT ASSOCIATE 10 S MINUTES OFFICE 97370 FAMILY CROWDY OUTPATIEN 5 5 CARE CRI T VISIT ASSOCIATE 15 S MINUTES OFFICE 38959 FAMILY CROWDY OUTPATIEN 5 5 CARE CRI T VISIT ASSOCIATE 10 S MINUTES OFFICE 17292 FAMILY CROWDY OUTPATIEN 5 5 CARE CRI T VISIT ASSOCIATE 15 S MINUTES OFFICE 99688 FAMILY MARIAN OUTPATIEN 5 5 CARE YARI T VISIT ASSOCIATE 15 S MINUTES OFFICE 44484 FAMILY MULBERRY OUTPATIEN 5 5 CARE MAURILIO T VISIT ASSOCIATE 15 S MINUTES OFFICE 43685 [facility] FALLUJI OUTPATIEN 5 5 [facility] T VISIT MEDICAL 25 G MINUTES OFFICE 37392 FAMILY MULBERRY OUTPATIEN 5 5 CARE MAURILIO T VISIT ASSOCIATE 15 S MINUTES HOSPITAL CENTRAL - 5 5 [facility] OUTPATIEN H[facility]P T OFFICE 06557 [facility] OUTPATIEN 5 5 HEALTH T NEW 20 MEDICAL MINUTES [facility] CENTRAL - 5 5 [facility] OUTPATIEN HOSP T EMERGENCY 39565 [facility] SPANIER 5 5 EMERGENCY [facility] T VISIT MODERATE SEVERITY [facility] CENTRAL - 5 5 [facility]ISM OUTPATIEN HOSP T OFFICE 41706 [facility] FALLUJI OUTPATIEN 5 5 [facility] T VISIT MEDICAL 25 G MINUTES OFFICE 81101 [facility] 5 5 NURSE KASSANDRA MARQUEZ NEW/ESTAB NER GR PATIENT 40 MIN OFFICE 11552 [facility] FALLUJI OUTPATIEN 5 5 [facility] T NEW 45 MEDICAL MINUTES [facility] PRISCIL[facility] - 5 5 [facility] OUTPATIEN INC T EMERGENCY 94841 PRISCILA MCGILL 5 5 [facility] T VISIT P LOW/MODER SEVERITY OFFICE 25539 FAMILY JONA OUTPATIEN 5 5 CARE R H T VISIT ASSOCIATE 15 S MINUTES PERIODIC 10180 [facility] PREVENTIV 5 5 PHYSICIAN E MED EST S GROUP PATIENT 18-39 YRS OFFICE 92238 [facility] NANO OUTPATIEN 5 5 PHYSICIAN SUNI T VISIT S GROUP 15 MINUTES OFFICE 59095 FAMILY CROWDY OUTPATIEN 5 5 CARE CRI T VISIT ASSOCIATE 25 S MINUTES OFFICE 75604 FAMILY OUTPATIEN 4 4 CARE T VISIT ASSOCIATE 15 S MINUTES EMERGENCY 70929 PRISCILA MCGILL 4 4 [facility] T VISIT P LOW/MODER SEVERITY HOSPITAL PRISCILA Trejo 4 [facility] INC T EMERGENCY 74395 PRISCILA Trejo 4 [facility] T VISIT MODERATE SEVERITY OFFICE 46972 PRISCILA [facility] OUTISAAK 4 [facility] 15 MINUTES
--- OUTSIDE RECORDS SUMMARY | 2016-12-12 11:16 | External Medical Summary Rpt | CCD ---
Author Author , YAIMA ERWIN Address Unknown Phone [email or web address] Care Team Providers Care Construction Equipment Technician Name Role Phone HANANE HANDLEY, Unavailable Unavailable HANANE HANDLEY AHMAD, AHMAD Unavailable Unavailable AHMAD, AHMAD Unavailable Unavailable RHONDA TAR, Unavailable Unavailable RHONDA TAR ATKINS, ATKINS Unavailable Unavailable VALERIA GOL, VALERIA GOL Unavailable Unavailable [facility] Unavailable Unavailable [place], [facility] Unavailable Unavailable [facility], [facility] Unavailable Unavailable OF [facility], [facility] DASILVA HELEN, DASILVA Unavailable Unavailable HELEN GRULLON TER, GRULLON TER Unavailable Unavailable BESSON MATEUSZ, BESSON Unavailable Unavailable MATEUSZ CHARLY CHARLES, Unavailable Unavailable CHARLY CHARLES LOCKE, LOCKE Unavailable Unavailable LOCKE ALL, LOCKE ALL Unavailable Unavailable MARY, MARY Unavailable Unavailable [facility] Unavailable Unavailable CHIROPRACTOR, [facility] FAMILY CHIROPRACTOR VANDANA KEMI, VANDANA Unavailable Unavailable KEMI [facility] Unavailable Unavailable [facility] Un[facility], [facility] Unavailable Unavailable [facility], [facility] Unavailable Unavailable [facility], [facility] EVANS YARI, EVANS Unavailable Unavailable YARI CHIPPS ADOLFO & Unavailable Unavailable DUBILIER, CHIPPS ADOLFO & DUBILIER NAT TER, NAT TER Unavailable Unavailable ESETBAN, ESTEBAN Unavailable Unavailable ESTEBAN YVAN, ESTEBAN Unavailable [...] HOR HILARIA CANNON, MANRIQUE Unavailable Unavailable [facility] Un[facility] Unavailable Unavailable [facility]PITAL, [facility] Unavailable [facility]available [facility]PITAL P, [facility] Unavailable Unavailable [facility], Unavailable Unavailable [facility], Unavailable Unavailable [facility] DUNCAN FÉLIX, DUNCAN FÉLIX Unavailable Unavailable LAW, LAW Unavailable Unavailable WILLOW, WILLOW Unavailable Unavailable JAOKO MAR, JAOKO MAR Unavailable Unavailable FONTANA OSWALDO, FONTANA Unavailable Unavailable OSWALDO [facility], Unavailable [facility]available [facility] Unavailable [facility], [facility] Unavailable Unavailable [facility], [facility] KERN CAR, KERN CAR Unavailable Unavailable [facility] Unavailable Unavailable [facility], [facility] NURSE Unavailable Unavailable PRACTITIONER GR, [facility] NURSE PRACTITIONER GR [facility] Un[facility] LUIS MIGUEL JR DWI, LUIS MIGUEL Unavailable Unavailable JR DWI [facility] Unavailable Unavailable SPECIALISTS,, [facility], LUKING ROXI, LUKING Unavailable Unavailable ROXI LUKING ROXI, LUKING Unavailable Unavailable ROXI TORI JAM, Unavailable Unavailable VALLE JAM BIGGS RUPINDER, BIGGS Unavailable Unavailable RUPINDER MULBERRY, MULBERRY Unavailable Unavailable MULBERRY MAURILIO, Unavailable Unavailable MULBERRY MAURILIO JONA R H, Unavailable Unavailable JONA R H O'GRETCHEN MOL, Unavailable Unavailable O'GRETCHEN MOL ANH, ANH Unavailable Unavailable BELIA, BELIA Unavailable Unavailable [facility], [facility], [facility] Unavailable Unavailable [facility], [facility], [...] SOUZA GRANT, DE SOUZA Unavailable Unavailable GRANT PALENCIA ADA, PALENCIA ADA Unavailable Unavailable VIKRAM [...] 2016 Problems Code Diagnosis DOS Provider Status [id number] PAIN IN 11-11-2016 [facility] [id number] FALL ON 11-11-2016 [facility] INITIAL ENCOUNTER Z952 PRESENCE OF 11-11-2016 [facility] MEDICAL VALVE GROUP R32 UNSPECIFIED 11-06-2016 [facility] URINARY HEALTH INCONTINENC MEDICAL G E R3915 URGENCY OF 11-06-2016 [facility] URINATION HEALTH MEDICAL G M542 CERVICALGIA 10-27-2016 [facility] CHIROPRACTO R M545 LOW BACK 10-27-2016 [facility] PAIN FAMILY CHIROPRACTO R M9902 SEGMENTAL & 10-27-2016 [facility] SOMATIC FAMILY DYSFUNCTION CHIROPRACTO THORACIC R REGION M9905 SEGMENTAL & 10-27-2016 [facility] SOMATIC FAMILY DYSFUNCTION CHIROPRACTO OF PELVIC R REGION I10 ESSENTIAL 09-18-2016 [facility] N I361 NONRHEUMATI 09-18-2016 [facility] C TRICUSPID HEALTH VALVE MEDICAL INSUFFICIEN GROUP CY R001 BRADYCARDIA 09-18-2016 [facility] UNSPECIFIED PHYS PSC R0602 SHORTNESS 09-18-2016 [facility] OF BREATH [facility] R5383 OTHER 09-18-2016 [facility] FATIGUE EMERGENCY PHYS PSC H5213 MYOPIA 09-16-2016 [facility] BILATERAL T60223 REGULAR 09-16-2016 [facility] ASTIGMATISM BILATERAL N200 CALCULUS OF 08-06-2016 [facility] KIDNEY HEALTH MEDICAL G R109 UNSPECIFIED 08-06-2016 [facility] ABDOMINAL EAST PAIN N644 MASTODYNIA 07-30-2016 [facility] R1032 LEFT LOWER 07-03-2016 [facility] QUADRANT HEALTH PAIN MEDICAL G Z5181 ENCOUNTER 07-03-2016 [facility] THERAPEUTIC INC DRUG LEVEL MONITORING Z7901 UNLEAVENED DOUGH MIXER 07-03-2016 [facility] CURRENT USE [facility] OF INC ANTICOAGULA NTS N53244 PERSONAL 07-03-2016 [facility] HISTORY OF HEALTH URINARY MEDICAL G CALCULI B9789 OTH VIRAL 06-17-2016 [employer] AGENT CAUSE MEDICINE DISEASES [place] [facility] ELSW J069 ACUTE UPPER 06-17-2016 [employer] [facility] MEDICINE RESPIRATORY [place] [facility] UNSPECIFIED N10 ACUTE 06-11-2016 [facility] PYELONEPHRI EMERGENCY TIS PHYS PSC R188 OTHER 06-11-2016 [facility] PROFESSIO R791 ABNORMAL 06-11-2016 [facility] COAGULATION HEALTH PROFILE [place] B373 CANDIDIASIS 05-19-2016 [facility] OF [facility] PHYSICIANS AND VAGINA GROUP I712 THORACIC 05-19-2016 [facility] 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 K219 GASTRO-ESOP 05-19-2016 [facility] H REFLUX HEALTH DISEASE [place] WITHOUT ESOPHAGITIS R011 CARDIAC 05-19-2016 [facility] UNSPECIFIED [place] R0789 OTHER CHEST 05-19-2016 [facility] PAIN EMERGENCY PHYS PSC R079 CHEST PAIN 05-19-2016 VIRTUAL UNSPECIFIED RADIOLOGIC PROFESSIO W64577 ENCOUNTER 05-19-2016 [facility] ROUTINE PHYSICIANS CHECKING IU GROUP CONTRACEPT DEVICE J73296 OTHER LONG 05-19-2016 [facility] TERM [facility] CURRENT [place] DRUG THERAPY N209 URINARY 05-08-2016 [place] [facility] UNSPECIFIED IMAGING ASS R1903 RT LOWER 05-08-2016 [place] [facility] ABDOMINAL IMAGING ASS SWELLING MASS & LUMP J50983 ENCOUNTER 05-08-2016 [facility] PREPROCEDUR INC AL LABORATORY EXAM K529 NONINFECTIV 04-29-2016 [facility] [place] [facility] COLITIS UNS C64612 ENCOUNTER 04-15-2016 [facility] INSERTION PHYSICIANS INTRAUTERIN GROUP E CONTRACEPT DEVC S67579 UNSPECIFIED 04-13-2016 [facility] OVARIAN EMERGENCY CYST RIGHT PHYS PSC SIDE R1030 LOWER 04-13-2016 [facility] ABDOMINAL RADIOLOGIC PAIN PROFESSIO UNSPECIFIED R1031 RIGHT LOWER 04-13-2016 [facility] QUADRANT EMERGENCY PAIN PHYS PSC H539 UNSPECIFIED 04-10-2016 [facility] VISUAL PHYSICIANS DISTURBANCE GROUP L680 HIRSUTISM 04-04-2016 [facility] PHYSICIANS GROUP Z0001 ENCOUNTER 04-04-2016 [facility] GEN ADULT PHYSICIANS MEDICAL GROUP EXAM W/ABNORMAL FIND J0190 ACUTE 03-06-2016 [facility] SINUSITIS [facility] UNSPECIFIED INC H1031 UNSPECIFIED 02-02-2016 [facility] ACUTE PHYSICIAN CONJUNCTIVI GROUP TIS RIGHT EYE R002 PALPITATION 01-04-2016 [facility] P G4733 OBSTRUCTIVE 12-30-2015 [facility]NEA ADULT MEDICAL PEDIATRIC EQUIPME H6691 OTITIS 12-27-2015 [facility] UNSPECIFIED RIGHT EAR Z23 ENCOUNTER 11-23-2015 [facility] IMMUNIZATIO N A5619 OTHER 11-14-2015 [facility], [facility] GENITOURINA RY INFECTION I351 NONRHEUMATI 11-14-2015 [facility] C A[facility] RADIOLOGY VALVE ASSOC INSUFFICIEN CY N57889 ENCOUNTER 11-14-2015 [facility], 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 EXAM LLC GENERAL RTN W/O ABNORMAL FIND [...] CYSTS PLLC N920 EXCESS & 10-08-2015 [facility] FREQUENT PHYSICIANS MENSTRUATIO GROUP N W/REGULAR CYCLE N939 ABNORMAL 10-02-2015 [facility] UTERINE & RADIOLOGIC VAGINAL PROFESSIO BLEEDING UNSPECIFIED R220 LOCALIZED 08-31-2015 [facility] SWELL[facility] MASS AND LUMP HEAD O06039 THORACIC 08-23-2015 [facility] HEALTH ECTASIA MEDICAL G R000 TACHYCARDIA 08-23-2015 [facility] UNSPECIFIED MEDICAL G N07267 AORTIC 08-12-2015 [facility] ECTASIA HEALTH UNSPECIFIED [place] SITE 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 W/O STAT MIGRAIN C86344 AGE-RELATED 08-03-2015 [place] [facility], DEGENERATIO P.[facility]. N RETINA RT EYE J46920 DISORDER 08-03-2015 [place] [facility], CORTX DUE P.S[facility]C. NEOPLASM RT SIDE BRAIN G63957 TRANSIENT 08-03-2015 [place] [facility], BILATERAL P.[facility]. W40871 MIGRAINE 07-31-2015 [place] [facility], INTRACT W/O [facility]. STATUS MIGRAINOSUS P10606 OPEN ANGLE 07-31-2015 [place] [facility], E FIND LOW [facility] RISK BILATERAL R040 EPISTAXIS 07-28-2015 [facility] Z25156 MACULA 07-25-2015 [place] [facility], POSTERIOR P.[facility]. POLE BILATERAL J3489 OTHER 06-21-2015 [facility] SPECIFIED ASSOCIATES DISORDERS NOSE AND NASAL SINUSES N926 IRREGULAR 06-08-2015 [facility] MENSTRUATIO ASSOCIATES N UNSPECIFIED R197 DIARRHEA 06-07-2015 [facility] UNSPECIFIED [facility]ICIANS, PLLC H6590 UNSPECIFIED 06-01-2015 [facility] PHYSICIANS NONSUPPURAT GROUP CARLOS OTITIS MEDIA UNS EAR K120 RECURRENT 06-01-2015 [facility] ORAL PHYSICIANS APHTHAE GROUP E871 HYPO-OSMOLA 05-15-2015 [facility] LITY AND PHYSICIANS, HYPONATREMI PLLC A N289 DISORDER OF 05-15-2015 [facility] P UNSPECIFIED N760 ACUTE 05-04-2015 [facility] VAGINITIS PHYSICIANS GROUP N762 ACUTE 05-04-2015 [facility] VULVITIS PHYSICIANS GROUP [id number] CONTUSION 04-05-2015 [facility] OF LEFT PHYSICIANS, FOOT [facility] INITIAL ENCOUNTER R05 COUGH 03-20-2015 [facility] N899 NONINFLAMMA 03-04-2015 [facility] TORY EMERGENCY DISORDER OF PHYS PSC VAGINA UNSPECIFIED R100 ACUTE 03-04-2015 [facility] ABDOMEN EMERGENCY PHYS PSC L309 DERMATITIS 02-26-2015 [facility] UNSPECIFIED PHYSICIANS GROUP S07655 ENCOUNTER 02-26-2015 [facility] INITIAL PHYSICIANS PRESCRIPTIO GROUP N IU CONTRACEPT DEV R21 RASH AND 02-24-2015 [facility] OTHER [facility] NONSPECIFIC SKIN ERUPTION J029 ACUTE 02-23-2015 [facility] PHARYNGITIS PHYSICIANS, [facility] UNSPECIFIED J040 ACUTE 02-23-2015 [facility] LARYNGITIS PHYSICIANS, [facility] Z4802 ENCOUNTER 02-05-2015 [facility] FOR REMOVAL [facility] Z3009 ENCOUNTER 02-02-2015 [facility] OT GENERAL PHYSICIANS GROUP ASSESSMENT CONSULTANT&ADV ICE CONTRACEPT [id number] LACERATION 01-30-2015 [facility] W/O FOREIGN PHYSICIANS, BODY LIP [facility] INITIAL ENCNTR N390 URINARY 01-22-2015 [facility] TRACT EMERGENCY INFECTION PHYS PSC SITE NOT SPECIFIED R319 HEMATURIA 01-22-2015 [facility] UNSPECIFIED EMERGENCY PHYS PSC R350 FREQUENCY 01-02-2015 [facility] MICTURITION Z309 ENCOUNTER 12-06-2014 [facility] FOR [facility] CONTRACEPTI VE MANAGEMENT UNS 4241 AORTIC 11-28-2014 [facility] DISORDERS MEDICAL GROUP 26488 PAIN IN 11-22-2014 [facility] JOINT, ASSOCIATES SHOULDER REGION V433 HEART VALVE 11-22-2014 [facility] REPLACED ASSOCIATES BY OTHER MEANS V5861 LONG-TERM 11-22-2014 [facility] (CURRENT) ASSOCIATES USE OF ANTICOAGULA NTS V4589 OTHER 11-15-2014 [facility] POSTSURGICA ASSOCIATES L STATUS OTHER V5869 LONG-TERM 11-13-2014 [facility] (CURRENT) [facility] USE OF MEDICAL OTHER GROUP MEDICATIONS 13587 PRECORDIAL 11-10-2014 [facility] PAIN [facility] 08002 PAINFUL 11-09-2014 [facility] RESPIRATION EMERGENCY PHYS PSC 4019 UNSPECIFIED 11-05-2014 [facility] ESSENTIAL HEALTH HYPERTENSIO MEDICAL N GROUP 29544 OTHER 11-05-2014 [facility] ABNORMAL HEALTH GLUCOSE MEDICAL GROUP 5180 PULMONARY 11-04-2014 [facility] COLLAPSE [facility] V5873 AFTERCARE 11-04-2014 [facility] FOLLOWING RADIOLOGY SURGERY ASSOC CIRC SYSTEM NEC 4240 MITRAL 11-02-2014 [place] [facility] , 4011 ESSENTIAL 11-01-2014 [facility] HYPERTENSIO HEALTH N, BENIGN MEDICAL GROUP 4254 OTHER 11-01-2014 [facility]IMARY [place] CARDIOMYOPA ANESTHESIA JOSE 4400 ATHEROSCLER 11-01-2014 [facility]ORT[facility] DUBILIER 78070 ESOPHAGEAL 11-01-2014 [facility] REFLUX HEALTH MEDICAL GROUP V7281 PRE-OPERATI 11-01-2014 [facility] VE [facility] CARDIOVASCU MEDICAL LAR GROUP EXAMINATION 4419 AORTIC 10-31-2014 [facility] ANEUR RADIOLOGY UNSPEC SITE ASSOC WITHOUT MENTION RUPTURE 05094 OTHER 10-31-2014 [facility] DISEASES OF [facility] LUNG NOT HOSP ELSEWHERE CLASSIFIED 08879 SHORTNESS 10-31-2014 [facility] OF BREATH [facility] 82715 THORACIC 10-19-2014 [facility] AORTIC HEALTH ECTASIA MEDICAL G 7464 CONGENITAL 10-19-2014 [facility] INSUFFICIEN HEALTH CY OF MEDICAL G AORTIC VALVE 4271 PAROXYSMAL 10-13-2014 [facility] TACHYCARDIA 86377 OTHER 10-13-2014 [facility] NURSE SPECIFIED PRACTITIONE CARDIAC R GR DYSRHYTHMIA S 7802 SYNCOPE AND 10-13-2014 [facility] 4293 CARDIOMEGAL 10-12-2014 [facility] 43093 MORBID 09-13-2014 [facility] OBESITY [facility]ALTH MEDICAL G 8472 LUMBAR 05-30-2014 [facility] P V7231 ROUTINE 05-17-2014 [facility] [...] FOR VENEREAL DISEASE 4610 ACUTE 03-12-2014 [facility] MAXILLARY PHYSICIANS SINUSITIS GROUP 62403 OTHER 03-08-2014 [facility] MALAISE AND [facility] FATIGUE 7835 POLYDIPSIA 03-08-2014 [facility] V7791 SCREENING 03-08-2014 [facility] FOR LIPOID ASSOCIATES DISORDERS 81489 VOMITING 02-22-2014 [facility] ALONE [facility] 5589 OTH&UNSPEC 01-30-2014 [facility] NONINFECTIO [facility] P GASTROENTER ITIS&COLITI S 69858 ABDOMINAL 01-30-2014 [facility] PAIN RIGHT MEDICAL LOWER IMAGING ASS QUADRANT 4619 ACUTE 01-07-2014 [facility]INUSITIS, [facility] Medications Na ND Rx Da Fi Fi Am Da Di Ph RX Ph St me C No te ll ll ou ys ag ar # ys at rm s nt no ma ic us Or Da si cy ia de te s n re d LA 00 10 08 15 30 00 DC Ac MO -1 .0 00 LG ti TR 37 5- 5 00 RE ve IG 24 20 20 49 EN IN 70 17 17 06 S E 6 85 #0 15 96 0 31 MG TA BL ET QU 68 10 08 29 30 DC Ac ET 18 -1 -1 .0 00 LG ti IA 00 5- 5 00 RE ve PI 44 20 20 49 EN NE 80 17 17 06 S 1 87 #0 FU 96 MA 31 RA TE 20 0 MG TA B ME 57 08 60 30 00 DC Ac TO 66 -1 -1 .0 00 LG ti NH 40 1- 5- 00 RE ve OL 47 20 20 48 EN OL 75 17 17 39 S 8 09 #0 TA 96 RT 31 RA TE 50 MG TA B AT 55 10 08 29 30 00 [facility] OR 11 -1 .0 00 LG ti VA 10 1- 5- [address] 12 20 20 48 EN AT 29 17 17 39 S IN 0 10 #0 96 20 31 MG TA BL ET LO 65 09 07 30 30 00 [facility] SA 86 -3 -0 .0 00 LG ti RT 20 0- 00 RE ve AN 20 20 20 48 EN 29 17 17 87 S PO 9 31 #0 TA 96 SS 31 IU M 50 MG TA B 00 09 07 30 30 00 [facility] PI 90 -3 -0 .0 00 LG ti RI 42 - 00 RE ve N 01 20 20 48 EN EC 36 17 17 39 S 0 13 #0 32 96 5 31 MG TA BL ET WA 51 09 07 60 30 00 DC Ac RF 67 -3 -0 .0 00 LG ti AR 24 1- - 00 RE ve IN 03 20 20 49 EN 20 17 17 18 S SO 1 75 #0 DI 96 UM 31 5 MG TA BL ET OX 00 07 09 30 30 00 DC Ac YB 37 -3 -0 .0 00 LG ti UT 86 0- 1- 00 00 RE ve YN 60 20 20 49 EN IN 50 17 17 18 S 1 28 #0 CL 96 31 ER 5 MG TA BL ET LA 00 08 15 30 00 DC Ac MO 09 -1 -1 .0 00 LG ti TR 37 9 00 RE ve IG 24 20 20 49 EN IN 70 17 17 06 S E 6 85 #0 15 96 0 31 MG TA BL ET HY 00 07 08 60 [address] 11 -1 -1 .0 00 LG ti OX 51 9- 8 00 RE ve YZ 67 20 20 49 EN IN 00 17 17 06 S E 1 86 #0 PA 96 M 31 25 MG CA P QU 68 07 08 30 30 00 DC Ac ET 18 -1 -1 .0 00 LG ti IA 00 9 00 RE ve PI 44 20 20 49 EN NE 80 17 17 06 S 1 87 #0 FU 96 MA 31 RA TE 20 0 MG TA B ME 57 07 08 60 30 00 DC Ac TO 66 -1 -1 .0 00 LG ti NH 40 2- 00 RE ve OL 47 20 20 48 EN OL 75 17 17 39 S 8 09 #0 TA 96 RT 31 RA TE 50 MG TA B AT 55 07 08 30 30 00 DC Ac OR 11 - -1 .0 00 LG ti VA [address] 12 20 20 48 EN AT 29 17 17 39 S IN 0 10 #0 96 20 31 MG TA BL ET WA 51 06 08 48 28 00 DC Ac RF 67 -2 -0 .0 00 LG ti AR 24 9 00 RE ve IN 03 20 20 48 EN 20 17 17 54 S SO 1 96 #0 DI 96 UM 31 5 MG TA BL ET LO 65 06 08 30 30 00 DC Ac SA 86 -2 -0 .0 00 LG ti RT 20 9 00 RE ve AN 20 20 20 48 EN 29 17 17 87 S PO 9 31 #0 TA 96 SS 31 IU M 50 MG TA B OX 62 06 07 30 30 00 DC Ac YB 17 -2 -2 .0 00 LG ti UT 50 1- 00 RE ve YN 27 20 20 48 EN IN 03 17 17 79 S 7 61 #0 CL 96 31 ER 5 MG TA BL ET AR 31 06 07 30 30 00 DC Ac IP 72 -1 -2 .0 00 LG ti IP 20 8- - 00 RE ve RA 82 20 20 48 EN ZO 93 17 17 51 S LE 0 76 #0 96 20 31 MG TA BL ET TR 60 06 07 30 30 00 DC Ac AZ 50 -1 -2 .0 00 LG ti OD 52 8- 1- 00 00 RE ve ON 65 20 20 48 EN E 40 17 17 51 S 10 1 77 #0 0 96 MG 31 TA BL ET LA 00 06 07 90 30 00 DC Ac MO 09 -1 -2 .0 00 LG ti TR 30 9- 1- 00 RE ve IG 03 20 20 48 EN IN 90 17 17 77 S E 1 04 #0 25 96 31 MG TA BL ET QU 68 06 07 45 30 00 DC Ac ET 18 -1 -2 .0 00 LG ti IA 00 9- 1- 00 RE ve PI 44 20 20 48 EN NE 70 17 17 77 S 1 05 #0 FU 96 MA 31 RA TE 10 0 MG TA B ME 57 06 07 60 30 00 DC Ac TO 66 -1 -1 .0 00 LG ti NH 40 4- 4- 00 RE ve OL 47 20 20 48 EN OL 75 17 17 39 S 8 09 #0 TA 96 RT 31 RA TE 50 MG TA B AT 55 06 07 30 30 00 DC Ac OR 11 -1 -1 .0 00 LG ti VA 10 4- 4- [address] 12 20 20 48 EN AT 29 17 17 39 S IN 0 10 #0 96 20 31 MG TA BL ET WA 51 05 06 48 28 00 DC Ac RF 67 -2 -3 .0 00 LG ti AR 24 9- 0- 00 RE ve IN 03 20 20 48 EN 20 17 17 54 S SO 1 96 #0 DI 96 UM 31 5 MG TA BL ET LO 65 05 06 30 30 00 DC Ac SA 86 -2 -3 .0 00 LG ti RT 20 6- 0- 00 00 RE ve AN 20 20 20 47 EN 29 17 17 73 S PO 9 95 #0 TA 96 SS 31 IU M 50 MG TA B AR 31 05 06 30 30 00 DC Ac IP 72 -2 -2 .0 00 [...] ET TR 60 05 30 30 00 DC Ac AZ 50 -2 -2 .0 00 LG ti OD 52 2- 3- 00 00 RE ve ON 65 20 20 48 EN E 40 17 17 51 S 10 1 77 #0 0 96 MG 31 TA BL ET ME 57 05 06 60 30 00 WA Ac TO 66 -1 -1 .0 00 LG ti NH 40 4- 6- 00 RE ve OL [...] BL ET 00 05 30 30 00 DC Ac PI 90 -0 -0 .0 00 LG ti RI 42 9- 00 RE ve N 01 20 20 48 EN EC 36 17 17 39 S 0 13 #0 32 96 5 31 MG TA BL ET LA 00 05 06 60 30 00 DC Ac MO 09 -1 -0 .0 00 LG ti TR 30 0- 00 RE ve IG 03 20 20 48 EN IN 90 17 17 39 S E 1 11 #0 25 96 31 MG TA BL ET WA 51 05 06 60 30 00 DC Ac RF 67 -0 -0 .0 00 LG ti AR 24 2- 2- 00 RE ve IN 03 20 20 47 EN 20 17 17 88 S SO 1 63 #0 DI 96 UM 31 5 MG TA BL ET LO 65 04 30 30 00 DC Ac SA 86 -2 -0 .0 00 [...] 37 -1 -1 .0 00 LG ti NH 80 7- 9 00 RE ve OL [...] FL 00 04 05 16 30 00 DC Ac UT 05 -1 -1 .0 00 LG ti IC 43 8- 00 RE ve 27 20 20 48 EN ON 09 17 17 18 S E 9 24 #0 NH 96 OP 31 50 MC G SP RA Y LA 00 04 05 46 30 00 DC Ac MO 09 -1 -1 .0 00 LG ti TR 30 00 RE ve IG 03 20 20 48 EN IN 90 17 17 19 S E 1 19 #0 25 96 31 MG TA BL ET AR 31 04 05 30 30 00 DC Ac IP 72 -1 -1 .0 00 LG ti IP 20 9 00 RE ve RA 82 20 20 48 EN ZO 93 17 17 19 S LE 0 20 #0 96 20 31 MG TA BL ET TR 60 04 05 30 30 00 [facility] AZ 50 -1 -1 .0 00 LG ti OD 52 9 00 RE ve ON 65 20 20 48 EN E 40 17 17 19 S 10 1 21 #0 0 96 MG 31 TA BL ET HY 00 02 05 10 2 [address] [facility] [address] 59 -1 -1 .0 00 LG ti OC 12 3- 9 00 RE ve OD 17 20 20 47 EN ON 20 17 17 51 S -A 5 36 #0 CE 96 TA 31 SD NO PH EN 5- 32 5 TR 68 04 05 20 3 00 DC Ac AM 38 -1 -1 .0 00 LG ti AD 20 2- 2- 00 00 RE ve OL 31 20 20 48 EN 91 17 17 12 S HC 0 33 #0 L 96 50 31 MG TA BL ET CE 68 04 05 20 10 00 [facility] FD 18 -1 -1 .0 00 LG ti IN 00 2- 2- 00 00 RE ve IR 71 20 20 48 EN 16 17 17 12 S 30 0 34 #0 0 96 MG 31 CA PS UL E ON 68 04 05 15 5 00 DC Ac DA 46 -1 -1 .0 00 LG ti NS 20 2- 2- 00 00 RE ve ET 15 20 20 48 EN RO 81 17 17 12 S N 3 35 #0 OD 96 T 31 8 MG TA BL ET PH 51 04 05 9. 3 00 DC Ac EN 29 -1 -1 00 00 [...] EN ZA 71 17 17 89 S NH 0 44 #0 IN 96 E 31 [...] 37 -1 -1 .0 00 LG ti NH 80 3- 4- 00 00 RE ve [...] 96 20 31 MG TA BL ET SD 13 03 04 30 30 00 WA Ac RT 10 -1 -1 .0 00 LG ti AZ 70 5- 4- 00 00 RE ve AP 00 20 20 47 EN IN 33 17 17 80 S E 4 97 #0 30 96 31 MG TA BL ET AR 31 03 04 30 30 00 DC Ac IP 72 -1 -1 .0 00 LG ti IP 20 3- 4- 00 00 RE ve RA 82 20 20 47 EN ZO 93 17 17 80 S LE 0 87 #0 96 20 31 MG TA BL ET LO 65 03 04 30 30 00 DC Ac SA 86 -0 -0 .0 00 LG ti RT 20 6- 7- 00 00 RE ve AN 20 20 20 47 EN 29 17 17 73 S PO 9 95 #0 TA 96 SS 31 IU M 50 MG TA B DC 51 02 03 45 30 00 DC Ac RF 67 -2 -3 .0 00 LG ti AR 24 8- 1- 00 00 RE ve IN 03 20 20 47 EN 20 17 17 67 S SO 1 54 #0 DI 96 UM 31 5 MG TA BL ET SD 57 02 03 30 30 00 DC Ac RT 23 -1 -2 .0 00 L- ti AZ 70 6- 4- 00 07 MA ve AP 00 20 20 47 RT IN 93 17 17 11 E 0 59 PH 30 AR MA MG CY TA #5 BL 91 ET AT 68 02 03 30 30 00 DC Ac OR 64 -1 -2 .0 00 L- ti VA 50 6- 4- [address] 45 20 20 47 RT AT 97 17 17 11 IN 0 60 PH AR 20 MA CY MG #5 TA 91 BL ET 00 02 03 30 30 00 DC Ac PI 53 -1 -2 .0 00 L- ti RI 63 6- 4- 00 08 MA ve N 31 20 20 83 RT EC 31 17 17 56 0 25 PH 32 AR 5 MA MG CY TA #5 BL 91 ET ME 68 02 03 60 30 00 DC Ac TO 64 -0 -1 .0 00 L- ti NH 50 2- 0- 00 07 MA ve OL 19 20 20 44 RT OL 05 17 17 49 9 18 PH TA AR RT MA RA CY TE #5 50 91 MG TA B WA 57 01 02 45 30 00 DC Ac RF 23 -2 -2 .0 00 [...] AR 13 01 02 30 30 00 DC Ac IP 66 -1 -1 .0 00 L- ti IP 80 6- 7- 00 07 MA ve RA 22 20 20 45 RT ZO 03 17 17 06 LE 0 47 PH AR 20 MA CY MG #5 TA 91 BL ET AT 68 01 02 30 30 00 DC Ac OR 64 -0 -1 .0 00 L- ti VA 50 7- 0- [address] 45 20 20 43 RT AT 97 17 17 10 IN 0 32 PH AR 20 MA CY MG #5 TA 91 BL ET 00 02 30 30 00 DC Ac PI 53 -0 -1 .0 00 L- ti RI 63 7- 0- 00 08 MA ve N 31 20 20 83 RT EC 31 17 17 56 0 25 PH 32 AR 5 MA MG CY TA #5 BL 91 ET LO 68 01 02 30 30 00 DC Ac SA 64 -0 -1 .0 00 L- ti RT 50 7- 0- 00 07 MA ve AN 40 20 20 45 RT 97 17 17 65 PO 0 14 PH TA AR SS MA IU CY M 50 #5 91 MG TA B SD 57 01 02 30 30 00 DC Ac RT 23 -0 -1 .0 00 L- ti AZ 70 7- 0- 00 07 MA ve AP 00 20 20 46 RT IN 93 17 17 31 E 0 70 PH 30 AR MA MG CY TA #5 BL 91 ET EN 00 01 02 8. 4 00 DC Ac OX 78 -0 -1 00 00 L- ti AP 13 5- 0- 0 07 MA ve AR 50 20 20 46 RT IN 06 17 17 28 9 73 PH 10 AR 0 MA MG CY /M L #5 SY 91 RI NG E AM 00 01 02 30 10 00 DC Ac OX 09 -0 -1 .0 00 [...] 64 -1 -2 .0 00 L- ti NH 50 9- 0- 00 07 MA ve [...] LO 68 12 01 30 30 00 DC Ac SA 64 -0 -0 .0 00 [...] Procedure DOS Code Location Performer Comment RADEX 38625 [facility] MINIMUM 3 VIEWS PROTHROMB 68072 ALEVISM ALEVISM IN TIME [address] [place] [address] COLLECTIO [id number] ALEVISM ALEVISM N 7 [facility] BLOOD SPECIMEN CHIROPRAC 50155 [facility] TIC 7 FAMILY MANIPULAT CHIROPRAC CARLOS [place] TOR SPINAL 3-4 REGIONS THERAPEUT 56847 [facility] ANH IC PX 1/> 7 FAMILY AREAS CHIROPRAC EACH 15 TOR MIN EXERCISES APPL 38225 [facility] MODALITY 7 FAMILY 1/> AREAS CHIROPRAC TRACTION TOR MECHANICA L APPL 47893 [facility] MODALITY 7 FAMILY 1/> AREAS CHIROPRAC TRACTION TOR MECHANICA L THERAPEUT 82814 [facility] IC PX 1/> 7 FAMILY AREAS CHIROPRAC EACH 15 TOR MIN EXERCISES CHIROPRAC 67829 [facility] TIC 7 FAMILY MANIPULAT CHIROPRAC CARLOS [place] TOR SPINAL 3-4 REGIONS CHIROPRAC 35112 WENDI ANH TIC 7 FAMILY MANIPULAT CHIROPRAC [place] TOR SPINAL 3-4 REGIONS COLLECTIO 25360 ALEVISM ALEVISM N 7 [facility] BLOOD SPECIMEN THERAPEUT 99450 WENDI ANH IC PX 1/> 7 FAMILY AREAS CHIROPRAC EACH 15 TOR MIN EXERCISES PROTHROMB 35735 ALEVISM ALEVISM IN TIME 7 [facility] APPL 73774 WENDI ANH MODALITY 7 FAMILY 1/> AREAS CHIROPRAC TRACTION TOR MECHANICA L APPL 01755 WENDI AHN MODALITY 7 FAMILY 1/> AREAS CHIROPRAC TRACTION TOR MECHANICA L THERAPEUT 59416 WENDI ANH IC PX 1/> 7 FAMILY AREAS CHIROPRAC EACH 15 TOR MIN EXERCISES CHIROPRAC 07276 WENDI ANH TIC 7 FAMILY MANIPULAT CHIROPRAC [place] TOR SPINAL 3-4 REGIONS CHIROPRAC 22086 WENDI ANH TIC 7 FAMILY MANIPULAT CHIROPRAC [place] TOR SPINAL 3-4 REGIONS MANUAL 24800 WENDI ANH THERAPY 7 FAMILY TQS 1/> CHIROPRAC REGIONS TOR EACH 15 MINUTES THERAPEUT 40111 WENDI ANH IC PX 1/> 7 FAMILY AREAS CHIROPRAC EACH 15 TOR MIN EXERCISES APPL 64902 WENDI ANH MODALITY 7 FAMILY 1/> AREAS CHIROPRAC TRACTION TOR MECHANICA L APPL 30328 WENDI ANH MODALITY 7 FAMILY 1/> AREAS CHIROPRAC TRACTION TOR MECHANICA L THERAPEUT 07108 WENDI ANH IC PX 1/> 7 FAMILY AREAS CHIROPRAC EACH 15 TOR MIN EXERCISES MANUAL 81451 WENDI ANH THERAPY 7 FAMILY TQS 1/> CHIROPRAC REGIONS TOR EACH 15 MINUTES CHIROPRAC 32264 WENDI ANH TIC 7 FAMILY MANIPULAT CHIROPRAC [place] TOR SPINAL 3-4 REGIONS CHIROPRAC 39530 WENDI ANH TIC 7 FAMILY MANIPULAT CHIROPRAC [place] TOR SPINAL 3-4 REGIONS MANUAL 81229 WENDI ANH THERAPY 7 FAMILY TQS 1/> CHIROPRAC REGIONS TOR EACH 15 MINUTES COLLECTIO 31186 ALEVISM ALEVISM N 7 [facility] BLOOD SPECIMEN THERAPEUT 81341 WENDI ANH IC PX 1/> 7 FAMILY AREAS CHIROPRAC EACH 15 TOR MIN EXERCISES PROTHROMB 95549 ALEVISM ALEVISM IN TIME 7 [facility] APPL 09952 WENDI ANH MODALITY 7 FAMILY 1/> AREAS CHIROPRAC TRACTION TOR MECHANICA L APPL 13313 WENDI ANH MODALITY 7 FAMILY 1/> AREAS CHIROPRAC TRACTION TOR MECHANICA L THERAPEUT 67424 WENDI ANH IC PX 1/> 7 FAMILY AREAS CHIROPRAC EACH 15 TOR MIN EXERCISES MANUAL 88713 WENDI ANH THERAPY 7 FAMILY TQS 1/> CHIROPRAC REGIONS TOR EACH 15 MINUTES CHIROPRAC 68356 WENDI ANH TIC 7 FAMILY MANIPULAT CHIROPRAC [place] TOR SPINAL 3-4 REGIONS CHIROPRAC 63057 WENDI ANH TIC 7 FAMILY MANIPULAT CHIROPRAC [place] TOR SPINAL 3-4 REGIONS MANUAL 04311 WENDI ANH THERAPY 7 FAMILY TQS 1/> CHIROPRAC REGIONS TOR EACH 15 MINUTES THERAPEUT 01910 WENDI ANH IC PX 1/> 7 FAMILY AREAS CHIROPRAC EACH 15 TOR MIN EXERCISES APPL 02806 WENDI ANH MODALITY 7 FAMILY 1/> AREAS CHIROPRAC TRACTION TOR MECHANICA L ECG 55094 ALEVISM ALEVISM ROUTINE 7 [facility] ECG [facility] W/LEAST 12 LDS TRCG ONLY W/O I&R PROTHROMB 65336 ALEVISM ALEVISM IN TIME 7 [facility] COMPREHEN 64895 ALEVISM ALEVISM SIVE 7 [facility] METABOLIC [facility] PANEL ARTERIAL 46277 ALEVISM ALEVISM PUNCTURE 7 [facility] WITHDRAWA [facility] L BLOOD DX RADIOLOGI 76739 CENTRAL RICE C EXAM 7 RADIOLOGY CHEST 2 ASSOC VIEWS FRONTAL&L ATERAL ECG 04359 CENTRAL LAW ROUTINE 7 EMERGENCY ECG PHYS PSC W/LEAST 12 LDS I&R ONLY ECHO 31691 ALEVISM ALEVISM TTHRC R-T 7 [facility] 2D [facility] W/WOM-MOD E COMPL SPEC&COLR D GASES 32214 ALEVISM ALEVISM BLOOD PH 7 [facility] DIRECT [facility] DARIN XCPT PULSE OXIMITRY NATRIURET 94955 ALEVISM ALEVISM IC 7 [facility] [place] [address] ALEVISM ALEVISM TROPONIN 7 [facility] QUANTITAT [facility] [place] BLOOD 02761 ALEVISM ALEVISM COUNT 7 [facility] COMPLETE [facility] AUTO&AUTO DIFRNTL WBC MANUAL 34207 WENDI ANH THERAPY 7 FAMILY TQS 1/> CHIROPRAC REGIONS TOR EACH 15 MINUTES CHIROPRAC 13535 WENDI ANH TIC 7 FAMILY MANIPULAT CHIROPRAC [place] TOR SPINAL 3-4 REGIONS THERAPEUT 90163 WENDI ANH IC PX 1/> 7 FAMILY AREAS CHIROPRAC EACH 15 TOR MIN EXERCISES APPL 09345 WENDI ANH MODALITY 7 FAMILY 1/> AREAS CHIROPRAC TRACTION TOR MECHANICA L OPHTH 57051 [facility] 7 XM&EVAL COMPRE NEW PT 1/> VST THERAPEUT 21559 WENDI ANH IC PX 1/> 7 FAMILY AREAS CHIROPRAC EACH 15 TOR MIN EXERCISES APPL 05475 WENDI ANH MODALITY 7 FAMILY 1/> AREAS CHIROPRAC TRACTION TOR MECHANICA L CHIROPRAC 65284 WENDI ANH TIC 7 FAMILY MANIPULAT CHIROPRAC [place] TOR SPINAL 3-4 REGIONS MANUAL 17140 WENDI ANH THERAPY 7 FAMILY TQS 1/> CHIROPRAC REGIONS TOR EACH 15 MINUTES MANUAL 93916 WENDI ANH THERAPY 7 FAMILY TQS 1/> CHIROPRAC REGIONS TOR EACH 15 MINUTES CHIROPRAC 10875 WNEDI ANH TIC 7 FAMILY MANIPULAT CHIROPRAC [place] TOR SPINAL 3-4 REGIONS COLLECTIO 29556 ALEVISM ALEVISM N 7 [facility] BLOOD SPECIMEN APPL 99485 WENDI ANH MODALITY 7 FAMILY 1/> AREAS CHIROPRAC TRACTION TOR MECHANICA L THERAPEUT 98320 WENDI ANH IC PX 1/> 7 FAMILY AREAS CHIROPRAC EACH 15 TOR MIN EXERCISES PROTHROMB 93472 ALEVISM ALEVISM IN TIME 7 [facility] THERAPEUT 28094 WENDI ANH IC PX 1/> 7 FAMILY AREAS CHIROPRAC EACH 15 TOR MIN EXERCISES APPL 83139 WENDI ANH MODALITY 7 FAMILY 1/> AREAS CHIROPRAC TRACTION TOR MECHANICA L CHIROPRAC 66969 WENDI ANH TIC 7 FAMILY MANIPULAT CHIROPRAC [place] TOR SPINAL 3-4 REGIONS MANUAL 39280 WENDI ANH THERAPY 7 FAMILY TQS 1/> CHIROPRAC REGIONS TOR EACH 15 MINUTES MANUAL 65840 WENDI ANH THERAPY 7 FAMILY TQS 1/> CHIROPRAC REGIONS TOR EACH 15 MINUTES CHIROPRAC 39047 WENDI ANH TIC 7 FAMILY MANIPULAT CHIROPRAC [place] TOR SPINAL 3-4 REGIONS APPL 77892 WENDI ANH MODALITY 7 FAMILY 1/> AREAS CHIROPRAC TRACTION TOR MECHANICA L THERAPEUT 45860 WENDI ANH IC PX 1/> 7 FAMILY AREAS CHIROPRAC EACH 15 TOR MIN EXERCISES THERAPEUT 77783 WENDI ANH IC PX 1/> 7 FAMILY AREAS CHIROPRAC EACH 15 TOR MIN EXERCISES APPL 20277 WENDI ANH MODALITY 7 FAMILY 1/> AREAS CHIROPRAC TRACTION TOR MECHANICA L CHIROPRAC 44166 WENDI ANH TIC 7 FAMILY MANIPULAT CHIROPRAC [place] TOR SPINAL 3-4 REGIONS MANUAL 67320 WENDI ANH THERAPY 7 FAMILY TQS 1/> CHIROPRAC REGIONS TOR EACH 15 MINUTES COLLECTIO 48700 ALEVISM ALEVISM N 7 [facility] BLOOD SPECIMEN PROTHROMB 82537 ALEVISM ALEVISM IN TIME 7 [facility] THERAPEUT 45610 WENDI ANH IC PX 1/> 7 FAMILY AREAS CHIROPRAC EACH 15 TOR MIN EXERCISES APPL 59729 WENDI ANH MODALITY 7 FAMILY 1/> AREAS CHIROPRAC TRACTION TOR MECHANICA L CHIROPRAC 91916 WENDI ANH TIC 7 FAMILY MANIPULAT CHIROPRAC [place] TOR SPINAL 3-4 REGIONS MANUAL 60055 WENDI ANH THERAPY 7 FAMILY TQS 1/> CHIROPRAC REGIONS TOR EACH 15 MINUTES MANUAL 55343 WENDI ANH THERAPY 7 FAMILY TQS 1/> CHIROPRAC REGIONS TOR EACH 15 MINUTES CHIROPRAC 55346 WENDI ANH TIC 7 FAMILY MANIPULAT CHIROPRAC [place] TOR SPINAL 3-4 REGIONS APPL 17863 WENDI ANH MODALITY 7 FAMILY 1/> AREAS CHIROPRAC TRACTION TOR MECHANICA L THERAPEUT 00126 WENDI ANH IC PX 1/> 7 FAMILY AREAS CHIROPRAC EACH 15 TOR MIN EXERCISES THERAPEUT 02828 WENDI ANH IC PX 1/> 7 FAMILY AREAS CHIROPRAC EACH 15 TOR MIN EXERCISES PROTHROMB 25037 ALEVISM ALEVISM IN TIME 7 [facility] AP[facility] 82056 WENDI ANH MODALITY 7 FAMILY 1/> AREAS CHIROPRAC TRACTION TOR MECHANICA L CHIROPRAC 00012 WENDI ANH TIC 7 FAMILY MANIPULAT CHIROPRAC [place] TOR SPINAL 3-4 REGIONS MANUAL 38902 WENDI ANH THERAPY 7 FAMILY TQS 1/> CHIROPRAC REGIONS TOR EACH 15 MINUTES COLLECTIO 23828 ALEVISM ALEVISM N 7 [facility] CAPILLARY [facility] BLOOD SPECIMEN MANUAL 99408 WENDI ANH THERAPY 7 FAMILY TQS 1/> CHIROPRAC REGIONS TOR EACH 15 MINUTES CHIROPRAC 20665 WENDI ANH TIC 7 FAMILY MANIPULAT CHIROPRAC [place] TOR SPINAL 3-4 REGIONS APPL 83613 WENDI ANH MODALITY 7 FAMILY 1/> AREAS CHIROPRAC TRACTION TOR MECHANICA L THERAPEUT 09183 WENDI ANH IC PX 1/> 7 FAMILY AREAS CHIROPRAC EACH 15 TOR MIN EXERCISES PROTHROMB 82663 ALEVISM ALEVISM IN TIME 7 [facility] THERAPEUT 38437 WENDI ANH IC PX 1/> 7 FAMILY AREAS CHIROPRAC EACH 15 TOR MIN EXERCISES APPL 82708 WENDI ANH MODALITY 7 FAMILY 1/> AREAS CHIROPRAC TRACTION TOR MECHANICA L CHIROPRAC 89634 WENDI ANH TIC 7 FAMILY MANIPULAT CHIROPRAC [place] TOR SPINAL 3-4 REGIONS MANUAL 05454 WENDI ANH THERAPY 7 FAMILY TQS 1/> CHIROPRAC REGIONS TOR EACH 15 MINUTES COLLECTIO 58421 ALEVISM ALEVISM N 7 [facility] CAPILLARY [facility] BLOOD SPECIMEN MANUAL 41748 WENDI ANH THERAPY 7 FAMILY TQS 1/> CHIROPRAC REGIONS TOR EACH 15 MINUTES CHIROPRAC 96265 WENDI ANH TIC 7 FAMILY MANIPULAT CHIROPRAC [place] TOR SPINAL 3-4 REGIONS APPL 97184 WENDI ANH MODALITY 7 FAMILY 1/> AREAS CHIROPRAC TRACTION TOR MECHANICA L THERAPEUT 24892 WENDI ANH IC PX 1/> 7 FAMILY AREAS CHIROPRAC EACH 15 TOR MIN EXERCISES THERAPEUT 46668 WENDI ANH IC PX 1/> 7 FAMILY AREAS CHIROPRAC EACH 15 TOR MIN EXERCISES APPL 09408 WENDI ANH MODALITY 7 FAMILY 1/> AREAS CHIROPRAC TRACTION TOR MECHANICA L CHIROPRAC 98850 WENDI ANH TIC 7 FAMILY MANIPULAT CHIROPRAC [place] TOR SPINAL 3-4 REGIONS MANUAL 57592 WNEDI ANH THERAPY 7 FAMILY TQS 1/> CHIROPRAC REGIONS TOR EACH 15 MINUTES COLLECTIO 41699 ALEVISM ALEVISM N 7 [facility] CAPILLARY [facility] BLOOD SPECIMEN DARIN 67426 [facility] POST-VOID 7 NE [facility] ING MEDICAL RESIDUAL G URINE&/BL ADDER CAP PROTHROMB 44771 ALEVISM ALEVISM IN TIME 7 [facility] [place] [address] [facility] RETROPERI 7 [facility] TONEAL REAL TIME W/[place] [address] [facility] RETROPERI 7 RADIOLOGY LD IV TONEAL REAL TIME W/IMAGE LIMITED APPL 33677 WENDI ANH MODALITY 7 FAMILY 1/> AREAS CHIROPRAC TRACTION TOR MECHANICA L CHIROPRAC 03374 WENDI ANH TIC 7 FAMILY MANIPULAT CHIROPRAC [place] TOR SPINAL 3-4 REGIONS RADEX 37443 WENDI ANH SPINE 7 FAMILY LUMBOSACR CHIROPRAC AL 2/3 TOR VIEWS RADEX 33924 WENDI ANH SPINE 7 FAMILY CERVICAL CHIROPRAC 2 OR 3 TOR VIEWS PROTHROMB 30113 PRISCILA FRANCOIS IN TIME 7 [facility] INC PROTHROMB 27417 ALEVISM ALEVISM IN TIME 7 [facility] [place] [address] [facility] ABDOMEN & 7 RADIOLOGI PELVIS C W/O PROFESSIO CONTRAST MATERIAL CULTURE 80403 ALEVISM ALEVISM BACTERIAL 7 [facility] [place] [address] ALEVISM ALEVISM INFUSION 7 [facility] HYDRATION [facility] EACH ADDITIONA L HOUR INJECTION J1885 ALEVISM ALEVISM 7 [facility] KETOROLAC [facility] TROMETHAM INE PER 15 MG INJECTION J2405 ALEVISM ALEVISM 7 [facility] ONDANSETR [facility] ON HCL PER 1 MG URNLS DIP 97793 ALEVISM ALEVISM 7 [facility] STICK/TAB [facility] [place] [address] ALEVISM ALEVISM INFUSION 7 [facility] THERAPY/P [facility] ROPHYLAXI S /DX 1ST TO 1 HR THERAPEUT 96640 ALEVISM ALEVISM IC 7 [facility] INJECTION [facility] IV PUSH EACH NEW DRUG THERAPEUT 50573 ALEVISM ALEVISM IC 7 [facility] INJECTION [facility] IV PUSH EACH NEW DRUG NATRIURET 82018 ALEVISM ALEVISM IC 7 [facility] PEPTIDE [facility] BLOOD 84723 ALEVISM ALEVISM COUNT 7 [facility] COMPLETE [facility] AUTO&[place] [address] ALEVISM ALEVISM TROPONIN 7 [facility] QUANTITAT [facility] CARLOS PROTHROMB 32162 ALEVISM ALEVISM IN TIME 7 [facility] INJECTION J2270 ALEVISM ALEVISM MORPHINE 7 [facility] SULFATE [facility] UP TO 10 MG THROMBOPL 36705 ALEVISM ALEVISM ASTIN 7 [facility] TIME [facility] PARTIAL PLASMA/WH OLE BLOOD RADIOLOGI 91526 ALEVISM ALEVISM C 7 [facility] EXAMINATI [facility] ON CHEST SINGLE VIEW FRONTAL COMPREHEN 28038 ALEVISM ALEVISM SIVE 7 [facility] METABOLIC [facility] PANEL INJECTION J2405 ALEVISM ALEVISM 7 [facility] ONDANSETR [facility] [place] [address] [place] [address] [facility] ANGIOGRAP 7 RADIOLOGI HY CHEST C W/CONTRAS PROFESSIO T/NONCONT RAST LOCM Q9967 ALEVISM ALEVISM [phone] 7 [facility] MG/ML [facility] IODINE CONCENTRA TION PER ML ECG 22863 ALEVISM ALEVISM ROUTINE 7 [facility] ECG [facility] W/LEAST 12 LDS TRCG ONLY W/O I&R THER 50743 ALEVISM ALEVISM PROPH/DX 7 [facility] NJX IV [facility] PUSH SINGLE/1S T SBST/[place] [address] ALEVISM ALEVISM LIPASE 7 [facility] CREATININ 29288 PRISCILA FRANCOIS E BLOOD 7 [facility] PROTHROMB 19687 PRISCILA FRANCOIS IN TIME 7 [facility] INC INC COLLECTIO 82002 PRISCILA FRANCOIS N VENOUS 7 [facility] [place] [address] PRISCILA FRANCOIS UREA 7 [facility] NITROGEN INC INC QUANTITAT CARLOS FINAL G9638 [facility] REPORTS 7 MEDICAL W/O DOC IMAGING 1/MORE ASS DOSE REDUCTION TECH FINAL G9551 [place] [facility] REPR ABD 7 MEDICAL IMAG STS IMAGING W/O ASS INCIDNT FND LES NTD: [place] [address] [facility] ABDOMEN & 7 MEDICAL PELVIS IMAGING W/CONTRAS ASS T MATERIAL IAADIADOO 06791 LEIGH ABRAHAM 7 MEDICINE MEDICINE INFLUENZA [facility] L[place]GE J7297 [facility] CARLITO STREL-RLS 7 PHYSICIAN S GROUP INTRAUTER INE MATT SYS 52 MG INSERTION 81901 [facility] CARLITO 7 PHYSICIAN INTRAUTER S GROUP INE DEVICE IUD PROTHROMB 26375 PRISCILA FRANCOIS IN TIME 7 [facility] INC INC PROTHROMB 58424 ALEVISM ALEVISM IN TIME 7 [facility] [place] [address] ALEVISM ALEVISM ABDOMEN & 7 [facility] PELVIS [facility] [place] [address] ALEVISM ALEVISM AMYLASE 7 [facility] BLOOD 87182 ALEVISM ALEVISM COUNT 7 [facility] COMPLETE [facility] AUTO&AUTO DIFRNTL WBC URNLS DIP 17863 ALEVISM ALEVISM 7 [facility] STICK/TAB [facility] LET RGNT AUTO W/O MICROSCOP Y COMPREHEN 53160 ALEVISM ALEVISM SIVE 7 [facility] METABOLIC [facility] PANEL URINE 70509 ALEVISM ALEVISM 7 [facility] TEST [facility] [place] [address] ALEVISM ALEVISM LIPASE 7 [facility] LOCM Q9967 ALEVISM ALEVISM [phone] 7 [facility] MG/ML [facility] [place] [address] ALEVISM ALEVISM INFUSION 7 [facility] HYDRATION [facility] INITIAL 31 MIN-1 [place] [address] ALEVISM ALEVISM INFUSION 7 [facility] HYDRATION [facility] EACH ADDITIONA L HOUR FINAL G9551 [facility] REPR ABD 7 MEDICAL MEDICAL IMAG STS IMAGING IMAGING W/O ASS ASS INCIDNT FND [place]: [place] [address] PRISCILA FRANCOIS ABDOMINAL 7 [facility] REAL [place] [address] [facility] ABDOMINAL 7 MEDICAL MEDICAL REAL IMAGING IMAGING TIME ASS ASS W/IMAGE LIMITED PROTHROMB 50171 PRISCILA FRANCOIS IN TIME 7 [facility] INC COMPREHEN 00114 PRISCILA FRANCOIS SIVE 7 [facility] METABOLIC INC INC PANEL COLLECTIO 95423 PRISCILA FRANCOIS N VENOUS 7 [facility] BLOOD INC INC VENIPUNCT URE LIPID 66470 PRISCILA FRANCOIS PANEL 7 [facility] INC PROTHROMB 51441 PRISCILA FRANCOIS IN TIME 7 [facility] INC INC BLOOD 10863 PRISCILA FRANCOIS COUNT 7 [facility] COMPLETE INC INC AUTO&[place] [address] PRISCILA FRANCOIS FREE 7 [facility] THYROXINE INC INC HEMOGLOBI 09154 PRISCILA FRANCOIS N 7 [facility] GLYCOS[place] [address] PRISCILA FRANCOIS THYROID 7 [facility] STIMULATI INC INC NG HORMONE TSH PROTHROMB 55581 PRISCILA FRANCOIS IN TIME 7 [facility] INC INC COLLECTIO 65194 PRISCILA FRANCOIS N VENOUS 7 [facility] BLOOD INC INC VENIPUNCT URE THERAPEUT 57215 PRISCILA RICHARDSONON IC 7 [facility] PROPHYLAC INC INC TIC/DX INJECTION SUBQ/IM COLLECTIO 42791 FAMILY MULBERRY N 6 CARE MAURILIO CAPILLARY ASSOCIATE BLOOD S SPECIMEN PROTHROMB 14909 FAMILY MULBERRY IN TIME 6 CARE MAURILIO ASSOCIATE S PROTHROMB 45877 FAMILY MULBERRY IN TIME 6 CARE MAURILIO ASSOCIATE S COLLECTIO 12642 FAMILY MULBERRY N 6 CARE MAURILIO CAPILLARY ASSOCIATE BLOOD S SPECIMEN ECG 06298 PRISCILA MAYER ROUTINE 6 [facility] W/LEAST P 12 LDS I&R ONLY CONTINUOU E0601 VIKRAM SUE S 6 HOME HOME POSITIVE MEDICAL MEDICAL AIRWAY EQUIPME EQUIPME PRESSURE DEVICE COLLECTIO 66531 FAMILY CROWDY N 6 CARE CRI CAPILLARY ASSOCIATE BLOOD S SPECIMEN BLOOD 49846 FAMILY CROWDY COUNT 6 CARE CRI COMPLETE ASSOCIATE AUTO&AUTO S DIFRNTL WBC PROTHROMB 03170 FAMILY RHONDA IN TIME 6 CARE TAR ASSOCIATE S COLLECTIO 02662 FAMILY RHONDA N 6 CARE TAR CAPILLARY ASSOCIATE BLOOD S SPECIMEN CONTINUOU E0601 VIKRAM SUE S 6 HOME HOME POSITIVE MEDICAL MEDICAL AIRWAY EQUIPME EQUIPME PRESSURE DEVICE IIV4 VACC 50155 FAMILY RHONDA SPLIT 6 CARE TAR VIRUS 0.5 ASSOCIATE ML DOS S FOR IM USE COLLECTIO 17749 FAMILY RHONDA N 6 CARE TAR CAPILLARY ASSOCIATE BLOOD S SPECIMEN PROTHROMB 47331 FAMILY RHONDA IN TIME 6 CARE TAR ASSOCIATE S BLOOD 46128 FAMILY CROWDY COUNT 6 CARE CRI COMPLETE ASSOCIATE AUTO&AUTO S DIFRNTL WBC COLLECTIO 56970 FAMILY CROWDY N 6 CARE CRI CAPILLARY ASSOCIATE BLOOD S SPECIMEN LOCM Q9967 [phone] 6 [facility] MG/ML [facility] IODINE CONCENTRA TION PER ML IADNA 45723 [facility], [facility] ER JR LANEY [place] [address] [facility] ANGIOGRAP 6 [facility] HY CHEST [facility] W/CONTRAS T/NONCONT RAST IADNA 85043 [facility] CHLAM[facility] ER JR LANEY TRACHOMAT IS AMPLIFIED PROBE TQ CYTP C/V 94649 [facility], [facility] AUTO THIN [facility] ER JR LANEY LYR PREPJ SCR MNL RESCR PHYS COLLECTIO 26594 FAMILY RHONDA N 6 CARE TAR CAPILLARY ASSOCIATE BLOOD S SPECIMEN PROTHROMB 10683 FAMILY RHONDA IN TIME 6 CARE TAR ASSOCIATE S APPL 61616 [facility] MODALITY 6 ROXI ROXI 1/> AREAS ULTRASOUN D EA 15 MIN APPL 96571 [facility] MODALITY 6 ROXI ROXI 1/> AREAS ELEC STIMJ UNATTENDE D RADIOLOGI 99971 [place] LOCKE ALL C EXAM 6 MEDICAL CHEST 2 IMAGING VIEWS ASS FRONTAL&L ATERAL CHIROPRAC 83968 [facility] TIC 6 ROXI ROXI MANIPLTV TX EXTRASPIN AL 1/> REGION MANUAL 94573 [facility] THERAPY 6 ROXI ROXI TQS 1/> REGIONS EACH 15 MINUTES CHIROPRAC 36645 [facility] TIC 6 ROIX ROXI MANIPULAT [place] SPINAL 3-4 REGIONS FULL FACE A7030 VIKRAM SOWDEN MASK 6 HOME KASSANDRA USED MEDICAL W/POS EQUIPME ARWAY PRESS DEVICE EA FILTER A7038 VIKRAM VANDANA DISPBL 6 HOME KEMI USED MEDICAL W/POS EQUIPME ARWAY PRESSURE DEVICE FILTER A7039 VIKRAM VANDANA NON 6 HOME KEMI DISPBL MEDICAL USED EQUIPME W/POS ARWAY PRESS DEVICE COLLECTIO 49089 FAMILY RHONDA N 6 CARE TAR CAPILLARY [...] POSITIVE MEDICAL AIRWAY EQUIPME PRESSURE DEVICE PROTHROMB 98037 FAMILY RHONDA IN TIME 6 CARE TAR ASSOCIATE S APPL 38652 [facility] L[place]ING MODALITY 6 ROXI ROXI 1/> AREAS ULTRASOUN D EA 15 MIN APPL 23901 LUKING LUKING MODALITY 6 ROXI ROXI 1/> AREAS ELEC STIMJ UNATTENDE D APPL 26168 [facility]UKING MODALITY 6 ROXI ROXI 1/> AREAS TRACTION MECHANICA L CHIROPRAC 35171 [facility] TIC 6 [place] MANIPULAT CAR[place] SPINAL 3-4 REGIONS MANUAL 83190 [facility] THERAPY 6 ROXI ROXI TQS 1/> REGIONS EACH 15 MINUTES CHIROPRAC 24377 [facility] TIC 6 ROXI ROXI MANIPLTV TX EXTRASPIN AL 1/> REGION MANUAL 38819 [facility] THERAPY 6 ROXI ROXI TQS 1/> REGIONS EACH 15 MINUTES CHIROPRAC 46067 [facility] TIC 6 [place]OX[place]OXI MANIPULAT CARLOS [place] SPINAL 3-4 REGIONS COLLECTIO 28019 FAMILY RHONDA N 6 CARE TAR CAPILLARY ASSOCIATE BLOOD S SPECIMEN APPL 12081 [facility] MODALITY 6 ROXI ROXI 1/> AREAS ELEC STIMJ UNATTENDE D APPLICATI 49346 LUKING LUKING ON 6 ROXI ROXI MODALITY 1/> AREAS HOT/COLD PACKS APPL 68763 LUKING LUKING MODALITY 6 ROXI ROXI 1/> AREAS ULTRASOUN D EA 15 MIN PROTHROMB 76734 FAMILY RHONDA IN TIME 6 CARE TAR ASSOCIATE S URNLS DIP 02587 COMBINED COMBINED 6 PHYSICIAN PHYSICIAN STICK/TAB S LA S LA LET REAGENT AUTO MICROSCOP Y CULTURE 75962 COMBINED COMBINED BACTERIAL 6 PHYSICIAN PHYSICIAN S LA S LA QUANTTATI VE COLONY COUNT URINE VOLUME 69011 COMBINED COMBINED MEASUREME 6 PHYSICIAN PHYSICIAN NT TIMED S LA S LA COLLECTIO N EACH CULTURE 25932 COMBINED COMBINED BACTERIAL 6 PHYSICIAN PHYSICIAN S LA S LA QUANTTATI VE COLONY COUNT URINE MANUAL 40334 LUKING LUKING THERAPY 6 ROXI ROXI TQS 1/> REGIONS EACH 15 MINUTES APPL 23469 LUKING LUKING MODALITY 6 ROXI ROXI 1/> AREAS ULTRASOUN D EA 15 MIN APPLICATI 77843 LUKING LUKING ON 6 ROXI ROXI MODALITY 1/> AREAS HOT/COLD PACKS APPL 20238 LUKING LUKING MODALITY 6 ROXI ROXI 1/> AREAS ELEC STIMJ UNATTENDE D APPL 19303 LUKING LUKING MODALITY 6 ROXI ROXI 1/> AREAS ELEC STIMJ UNATTENDE D APPL 24183 LUKING LUKING MODALITY 6 ROXI ROXI 1/> AREAS ULTRASOUN D EA 15 MIN APPLICATI 90652 LUKING LUKING ON 6 ROXI ROXI MODALITY 1/> AREAS HOT/COLD PACKS MANUAL 35078 LUKING LUKING THERAPY 6 ROXI ROXI TQS 1/> REGIONS EACH 15 MINUTES CHIROPRAC 56999 LUKING LUKING TIC 6 ROXI ROXI MANIPULAT CARLOS TX SPINAL 3-4 REGIONS COLLECTIO 39225 FAMILY CROWDY N 6 CARE CRI CAPILLARY ASSOCIATE BLOOD S SPECIMEN CULTURE 83325 COMBINED COMBINED BACTERIAL 6 PHYSICIAN PHYSICIAN S LA S LA QUANTTATI VE COLONY COUNT URINE PROTHROMB 93751 FAMILY CROWDY IN TIME 6 CARE CRI ASSOCIATE S BLOOD 98203 FAMILY CROWDY COUNT 6 CARE CRI COMPLETE ASSOCIATE AUTO&AUTO S DIFRNTL WBC APPL 30821 LUKING LUKING MODALITY 6 ROXI ROXI 1/> AREAS ELEC STIMJ UNATTENDE D APPLICATI 24787 LUKING LUKING ON 6 ROXI ROXI MODALITY 1/> AREAS HOT/COLD PACKS CHIROPRAC 54548 LUKING LUKING TIC 6 ROXI ROXI MANIPULAT CARLOS [place] SPINAL 3-4 REGIONS MANUAL 64810 LUKING LUKING THERAPY 6 ROXI ROXI TQS 1/> REGIONS EACH 15 MINUTES COLLECTIO 15665 FAMILY RHONDA N 6 CARE TAR CAPILLARY ASSOCIATE BLOOD S SPECIMEN PROTHROMB 54682 FAMILY RHONDA IN TIME 6 CARE TAR ASSOCIATE S 58324 VIRTUAL VALERIA GOL TRANSVAGI 6 RADIOLOGI NAL C PROFESSIO COLLECTIO 89205 FAMILY MULBERRY N 6 CARE MAURILIO CAPILLARY ASSOCIATE BLOOD S SPECIMEN PROTHROMB 73717 FAMILY MULBERRY IN TIME 6 CARE MAURILIO ASSOCIATE S HOME APPLIANCES MECHANIC STDY 50376 PRISCILA FRANCOIS UNATND 6 [facility] W/HRT INC INC RATE/O2 SAT/RESP/ HOME APPLIANCES MECHANIC TIME PROTHROMB 88710 FAMILY CROWDY IN TIME 6 CARE CRI ASSOCIATE S CULTURE 04043 COMBINED COMBINED BACTERIAL 6 PHYSICIAN PHYSICIAN S LA S LA QUANTTATI VE COLONY COUNT URINE COLLECTIO 89445 FAMILY CROWDY N 6 CARE CRI CAPILLARY ASSOCIATE BLOOD S SPECIMEN PROTHROMB 86923 FAMILY CROWDY IN TIME 6 CARE CRI ASSOCIATE S INJECTION J1030 FAMILY RHONDA 6 CARE TAR METHYLPRE ASSOCIATE DNISOLONE S ACETATE 40 MG THERAPEUT 52615 FAMILY RHONDA IC 6 CARE TAR PROPHYLAC ASSOCIATE TIC/DX S INJECTION SUBQ/IM XTRNL ECG 47240 PRISCILA MAYER 6 [facility] S RHYTHM P W/I&R UP TO 48 HRS PROTHROMB 17442 FAMILY RHONDA IN TIME 6 CARE TAR ASSOCIATE S PROTHROMB 52536 ALEVISM ALEVISM IN TIME 6 [facility] ECG 52734 [facility] ROUTINE 6 EMERGENCY ECG PHYS PSC W/LEAST 12 LDS I&[place] [address] ALEVISM ALEVISM TROPONIN 6 [facility] CARLOS BLOOD 40711 ALEVISM ALEVISM COUNT 6 [facility] COMPLETE [facility] AUTO&AUTO DIFRNTL WBC RADIOLOGI 71534 ALEVISM ALEVISM C 6 [facility] EXAMINATI [facility] ON CHEST SINGLE VIEW FRONTAL ECG 06037 ALEVISM ALEVISM ROUTINE 6 [facility] W/LEAST 12 LDS TRCG ONLY W/O I&[place] [address] ALEVISM ALEVISM MAGNESIUM 6 [facility] HEALTH COLLECTIO 49015 [facility]M ALEVISM N VENOUS 6 [facility] BLOOD [facility] VENIPUNCT URE COMPREHEN 19581 A[facility]VISM ALEVISM SIVE 6 [facility] METABOLIC FOR[facility] PANEL OPHTHALMO 69661 [facility] VALLE SCPY 6 [facility] EXT[facility], RETINAL P.S[facility]. DRAWING I&R 1ST DETERMINA 20617 [facility] MARADIAGAON 6 [facility] REFRACTIV CENTER, E STATE P.S.C. PROTHROMB 98312 FAMILY LANIE IN TIME 6 COPIER OPERATOR S, PSC COLLECTIO 11938 FAMILY CRISTOPHERDY N 6 CARE CAPILLARY ASSOCIATE BLOOD S, PSC SPECIMEN COMPUTERI 96176 RAJ VALLE ZED 6 [facility]AM OPHTHALMI CENTER, C IMAGING P.S.C. OPTIC NERVE VISUAL 96166 RAJ VALLE FIELD XM 6 [facility] JAM UNI/BI CENTER, W/INTERP P.S.C. EXTENDED EXAM COLLECTIO 54890 FAMILY RHONDA N 6 CARE TAR CAPILLARY ASSOCIATE BLOOD S SPECIMEN PROTHROMB 92889 FAMILY RHONDA IN TIME 6 CARE TAR ASSOCIATE S DETERMINA 29433 RAJ RAO 6 [facility] REFRACTIV CENTER, E STATE P.S.C. OPHTHALMO 91289 RAJ ESCALANTEY 6 [facility] JAM EXTENDED CENTER, RETINAL P.S.[facility]. DRAWING I&R 1ST COLLECTIO 06422 [facility]M ALEVISM N VENOUS 6 [facility] BLOOD [facility] VENIPUNCT URE BLOOD 75862 [facility] ALEVISM COUNT 6 [facility] COMPLETE [facility] AUTO&AUTO DIFRNTL WBC PROTHROMB 13263 [facility] ALEVISM IN TIME 6 [facility] THROMBOPL 74439 [facility]M ALEVISM ASTIN 6 [facility]ALTH [facility]ALTH TIME [facility] PARTIAL PLASMA/WH OLE BLOOD PROTHROMB 30105 FAMILY CROWDY IN TIME 6 COPIER OPERATOR S, PSC BLOOD 47231 FAMILY CROWDY COUNT 6 CARE COMPLETE ASSOCIATE AUTO&AUTO S, PSC DIFRNTL WBC COLLECTIO 31505 FAMILY CROWDY N 6 CARE CAPILLARY ASSOCIATE BLOOD S, PSC SPECIMEN COLLECTIO 27027 FAMILY RHONDA N 6 CARE TAR CAPILLARY ASSOCIATE BLOOD S SPECIMEN PROTHROMB 71283 FAMILY RHONDA IN TIME 6 CARE TAR ASSOCIATE S PROTHROMB 33229 FAMILY RHONDA IN TIME 6 CARE TAR ASSOCIATE S COLLECTIO 51647 FAMILY RHONDA N 6 CARE TAR CAPILLARY ASSOCIATE BLOOD S SPECIMEN COLLECTIO 51463 FAMILY RHONDA N 6 CARE TAR CAPILLARY ASSOCIATE BLOOD S SPECIMEN PROTHROMB 20799 FAMILY RHONDA IN TIME 6 CARE TAR ASSOCIATE S PROTHROMB 59005 FAMILY CROWDY IN TIME 6 COPIER OPERATOR S COLLECTIO 50121 FAMILY CROWDY N 6 CARE CAPILLARY ASSOCIATE BLOOD S SPECIMEN URINE 66647 [facility] FRANCOIS 6 [facility] TEST INC INC VISUAL COLOR CMPRSN METHS BASIC 07534 PRISCILA FRANCOIS METABOLIC 6 [facility] PANEL INC INC CALCIUM TOTAL URNLS DIP 24000 [facility] FRANCOIS 6 [facility] STICK/TAB INC INC LET REAGENT AUTO MICROSCOP Y PROTHROMB 94074 PRISCILA FRANCOIS IN TIME 6 [facility] INC INC BLOOD 35376 PRISCILA VALDEZ COUNT 6 [facility] HOR COMPLETE INC AUTO&AUTO DIFRNTL WBC BLOOD 57972 PRISCILA FRANCOIS OCCULT 6 [facility] PEROXIDAS INC INC E ACTV QUAL FECES 1-3 SPEC IAADIADOO 24174 [facility] MEÑO 6 PHYSICIAN SUNI STREPTOCO S GROUP CCUS GROUP A PROTHROMB 35868 FAMILY MULBERRY IN TIME 6 COPIER OPERATOR S COLLECTIO 34027 FAMILY MULBERRY N 6 CARE CAPILLARY ASSOCIATE BLOOD S SPECIMEN BASIC 61529 COMBINED COMBINED METABOLIC 6 PHYSICIAN PHYSICIAN PANEL S LA S LA CALCIUM TOTAL BLOOD 82531 FAMILY FAMILY COUNT 6 CARE CARE COMPLETE ASSOCIATE ASSOCIATE AUTO&AUTO S S DIFRNTL WBC ECG 89815 PRISCILA BOLANOS JR ROUTINE 6 [facility] W/LEAST P 12 LDS I&R ONLY PROTHROMB 92883 FAMILY CROWDY IN TIME 6 COPIER OPERATOR S COLLECTIO 53596 FAMILY CROWDY N 6 CARE CAPILLARY ASSOCIATE BLOOD S SPECIMEN RADIOLOGI 52841 [place] LOCKE ALL C 6 MEDICAL EXAMINATI IMAGING ON CHEST ASS SINGLE VIEW FRONTAL SMR PRIM 20448 [facility] SRC WET 6 PHYSICIAN YVAN MOUNT S GROUP NFCT AGT PROTHROMB 14461 FAMILY CROWDY IN TIME 6 CARE CRI ASSOCIATE S PROTHROMB 75022 FAMILY CROWDY IN TIME 6 COPIER OPERATOR S COLLECTIO 90693 FAMILY CROWDY N 6 CARE CAPILLARY ASSOCIATE BLOOD S SPECIMEN RADEX 97914 PRISCILA FRANCOIS FOOT 6 [facility] COMPLETE INC INC MINIMUM 3 VIEWS COLLECTIO 30284 FAMILY CROWDY N 6 CARE CAPILLARY ASSOCIATE BLOOD S SPECIMEN PROTHROMB 85324 FAMILY CROWDY IN TIME 6 COPIER OPERATOR S PROTHROMB 42431 FAMILY CROWDY IN TIME 6 CARE CRI ASSOCIATE S COLLECTIO 89739 FAMILY CROWDY N 6 CARE CRI CAPILLARY ASSOCIATE BLOOD S SPECIMEN PROTHROMB 83888 FAMILY CROWDY IN TIME 6 CARE CRI ASSOCIATE S PROTHROMB 32700 FAMILY CROWDY IN TIME 6 CARE CRI ASSOCIATE S LEVONORGE J7302 [facility] CARLITO STREL-RLS 5 PHYSICIAN YVAN E S GROUP INTRAUTER N CNTRACPT 52 MG INSERTION 56211 [facility] CARLITO 5 PHYSICIAN YVAN INTRAUTER S GROUP INE DEVICE IUD URINE 16258 [facility] CARLITO 5 PHYSICIAN YVAN TEST S GROUP VISUAL COLOR CMPRSN METHS SERVICES 85511 FAMILY FAMILY PROVIDED 5 CARE CARE PHOTOGRAPHIC PROCESSOR ASSOCIATE OTH/THN S S REG SCHED HOURS BLOOD 34014 FAMILY MULBERRY COUNT 5 CARE MAURILIO COMPLETE ASSOCIATE AUTO&AUTO S DIFRNTL WBC PROTHROMB 73062 FAMILY CROWDY IN TIME 5 CARE CRI ASSOCIATE S OPHTH 85179 [facility] MEDICAL 5 ANG ANG XM&EVAL COMPRHNSV ESTAB PT 1/> PROTHROMB 96318 FAMILY MARIAN IN TIME 5 CARE YARI ASSOCIATE S SIMPLE 14454 PR[facility] PRISC[facility]A REPAIR 5 [facility] F/E/E/N/L INC INC /M 2.6CM-5.0 CM PROTHROMB 93476 FAMILY CROWDY IN TIME 5 CARE CRI ASSOCIATE S PROTHROMB 18158 FAMILY CROWDY IN TIME 5 CARE NEPTALI ASSOCIATE S CULTURE 82987 COMBINED COMBINED BCT 5 PHYSICIAN PHYSICIAN ISOL&PRSM S LA S LA PTV ID ISOLATE EA URINE CULTURE 96658 COMBINED COMBINED BACTERIAL 5 PHYSICIAN PHYSICIAN S LA S LA QUANTTATI VE COLONY COUNT URINE SUSCEPTIB 92861 COMBINED COMBINED ILITY 5 PHYSICIAN PHYSICIAN STUDY S LA S LA ANTIMICRO BIAL DISK METHOD PROTHROMB 84995 FAMILY CROWDY IN TIME 5 CARE CRI ASSOCIATE S BLOOD 69014 FAMILY FAMILY COUNT 5 CARE CARE COMPLETE ASSOCIATE ASSOCIATE AUTO&AUTO S S DIFRNTL WBC PROTHROMB 31473 FAMILY CROWDY IN TIME 5 CARE CRI ASSOCIATE S PROTHROMB 71134 FAMILY MARIAN IN TIME 5 CARE YARI ASSOCIATE S RADIOLOGI 60353 A[facility]VISMArnoldo Max EXAM [address] [facility] CHEST 2 MEDICAL VIEWS GROUP FRONTAL&L ATERAL PROTHROMB 92921 FAMILY FAMILY IN TIME 5 CARE COPIER OPERATOR ASSOCIATE Ever Curtis PROTHROMB 02767 FAMILY FADI IN TIME 5 CARE MAURILIO ASSOCIATE Curtis PROTHROMB 82058 [facility] IN TIME 5 [facility]P HOSP COLLECTIO 58231 [facility] N VENOUS 5 [facility] BLOOD HOSP HOSP VENIPUNCT URE COLLECTIO 77872 [facility] N VENOUS 5 [facility] BLOOD HOSP HOSP VENIPUNCT URE PROTHROMB 10589 [facility] IN TIME 5 [facility] HOSP RADEX 45929 [facility] WELCH MAR STERNUM 5 RADIOLOGY MINIMUM 2 ASSOC VIEWS RADIOLOGI 09992 [facility] MALLOY C 5 RADIOLOGY III JAM EXAMINATI ASSOC ON CHEST SINGLE VIEW FRONTAL SBSQ [address]/DAY MEDICAL 15 GROUP MINUTES RADIOLOGI 38473 C[facility] MALLOY C 5 RADIOLOGY III JAM EXAMINATI ASSOC ON CHEST SINGLE VIEW FRONTAL SBSQ [address]/[facility] MEDICAL 25 GROUP MINUTES RADIOLOGI 85174 [facility]EN[facility] MALLOY C 5 RADIOLOGY III JAM EXAMINATI ASSOC ON CHEST SINGLE VIEW FRONTAL SBSQ [address]/DAY MEDICAL 15 GROUP MINUTES RADIOLOGI 90564 [facility] RICE N. C 5 RADIOLOGY EXAMINATI ASSOC ON CHEST SINGLE VIEW FRONTAL SBSQ [address]/DAY MEDICAL 25 GROUP MINUTES ECG 13913 [facility] ROUTINE 5 [facility] ECG MEDICAL W/LEAST GROUP 12 LDS I&R ONLY ECG 07237 [place] [facility] ROUTINE 5 [facility] ECG SPECIALIS W/LEAST TS, 12 LDS I&R ONLY SBSQ 08368 [facility] 5 HEALTH RUPINDER CARE/DAY MEDICAL 25 GROUP MINUTES RADIOLOGI 36429 [facility] PALENCIA ADA C 5 RADIOLOGY EXAMINATI ASSOC ON CHEST SINGLE VIEW FRONTAL US VASC 62382 [facility] GOUZD SHAUNA ACCESS 5 [place] SITS VSL ANESTHESI PATENCY A NDL ENTRY ANES HRT 31116 [facility] SH[facility] PERICRD 5 [place] SAC&GRT ANESTHESI VSLS A 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 AORTIC MEDICAL VALVE GROUP OPEN XCP HOMOGRF/[place] [address] [facility] KEMI SURG 5 ADOLFO & PATHOLOGY [facility] GROSS&SUNI ROSCOPIC EXAM SBSQ 89931 [facility] 5 HEALTH RUPINDER CARE/DAY MEDICAL 35 GROUP MINUTES ECG 82517 [facility] ROUTINE 5 HEALTH MANDEEP ECG MEDICAL W/LEAST GROUP 12 LDS I&R ONLY DOPPLER 72810 [facility] ECHOCARD 5 [place] PULSE ANESTHESI WAVE A W/SPECTRA L DISPLAY INSERTION 09702 [facility] FLOW 5 [place] DIRECTED ANESTHESI CATHETER A FOR MONITORIN G ARTL 75490 [facility] SH[facility]NA CATHJ/CAN 5 [place] NULJ ANESTHESI MNTR/MCKEE A SFUSION SPX PRQ CT THORAX 80559 [facility] CENTRAL 5 ALEVISM [facility] W/CONTRAS HOSP HOSP T MATERIAL ECG 20833 [facility] ROUTINE 5 HEALTH MANDEEP ECG MEDICAL W/LEAST GROUP 12 LDS I&R ONLY SPMTRY 79107 ALE[facility]M DIAN W/VC 5 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 CARE OF Y HERMELINDA WERNER W/WO MXML VOL VNTJ LOCM Q9967 [place] CENTRAL 300-399 5 ALEVISM ALEVISM MG/ML HOSP HOSP IODINE CONCENTRA TION PER ML SBSQ 60892 HEMANTH EDWARDS JR OBSERVATI 5 MEDICAL THO ON SERV CARE/DAY FOUNDATIO 25 N MINUTES ECHO 39928 HEMANTH KOO TTHRC R-T 5 MEDICAL LU EMMANUELLE 2D SERV W/WOM-MOD FOUNDATIO E COMPL N SPEC&COLR D RADIOLOGI 00424 [place] CHARLY C EXAM 5 MEDICAL CHARLES CHEST 2 SERV VIEWS FOUNDATIO FRONTAL&L N ATERAL URNLS DIP 74392 PRISCILA RICHARDSONON 5 [facility] STICK/TAB INC INC LET REAGENT AUTO MICROSCOP Y URINE 23652 PRISC[facility] FRANCOIS 5 [facility] TEST INC INC VISUAL COLOR CMPRSN METHS CYTP C/V 78512 P&C LABS, PICKLESIM AUTO THIN 5 LLC ER JR LANEY LYR PREPJ SCR MNL RESCR PHYS BLOOD 79800 FAMILY FAMILY COUNT 5 CARE CARE COMPLETE ASSOCIATE ASSOCIATE AUTO&AUTO S S DIFRNTL WBC LIFT ELEV L3332 [place] INSIDE 5 SHOE TAPERED UP ONE-HALF INCH IADNA 53195 P&C NAT MONSON TER CHLAMYDIA 5 LLC TRACHOMAT IS AMPLIFIED PROBE TQ IADNA 91407 P&C NAT MONSON TER NEISSERIA 5 LLC GONORRHOE AE AMPLIFIED PROBE TQ THERAPEUT 95823 [facility] NANO IC 5 PHYSICIAN SUNI PROPHYLAC S GROUP TIC/DX INJECTION SUBQ/IM INJECTION J1040 [facility] NANO 5 PHYSICIAN SUNI METHYLPRE S GROUP DNISOLONE ACETATE 80 MG LIPID 10178 FAMILY CROWDY PANEL 5 CARE CRI ASSOCIATE S HEMOGLOBI 30151 FAMILY CROWDY N 5 CARE CRI GLYCOSYLA [place] [address] FAMILY CROWDY THYROID 5 CARE CRI STIMULATI ASSOCIATE NG S HORMONE TSH CYANOCOBA 65538 COMBINED COMBINED MACARENA 5 PHYSICIAN PHYSICIAN VITAMIN S LA S LA B-12 25 49903 COMBINED COMBINED HYDROXY 5 PHYSICIAN PHYSICIAN INCLUDES S LA S LA FRACTIONS IF PERFORMED COLLECTIO 62534 FAMILY CROWDY N 5 CARE CRI CAPILLARY ASSOCIATE BLOOD S SPECIMEN COLLECTIO 53348 FAMILY CROWDY N VENOUS 5 CARE CRI BLOOD ASSOCIATE VENIPUNCT S URE COMPREHEN 25291 COMBINED COMBINED SIVE 5 PHYSICIAN PHYSICIAN METABOLIC S LA S LA PANEL BLOOD 41769 FAMILY FAMILY COUNT 4 CARE CARE COMPLETE ASSOCIATE ASSOCIATE AUTO&AUTO S S DIFRNTL WBC BLOOD 63892 PRISC[facility]A FRANCOIS COUNT 4 [facility] COMPLETE INC INC AUTO&[place] [address] PRISCILA FRANCOIS INFUSION 4 [facility] THERAPY/P INC INC ROPHYLAXI S /DX 1ST TO 1 HR URNLS DIP 42058 PRISCILATOÑA RICHARDSONON 4 [facility] STICK/TAB INC INC LET REAGENT AUTO MICROSCOP Y COMPREHEN 76069 PRISCILA PRISCILA SIVE 4 [facility] METABOLIC INC INC PANEL URINE 68467 PRISC[facility] FRANCOIS 4 [facility] TEST INC [place] [address] PRISCILA RICHARDSONON ABDOMEN & 4 [facility] PELVIS INC INC W/O CONTRAST MATERIAL Encounters Encounter Start End Date Code Location Performer Type Date OFFICE 33778 [facility] 7 7 HEALTH T VISIT MEDICAL 15 [facility] A[facility]VISM - 7 7 HEALTH OUTPATIEN [facility] OFFICE [address] [facility] 7 7 NE HEALTH T VISIT MEDICAL 15 G MINUTES OFFICE 80659 [facility] OUTPATIEN 7 7 HEALTH T VISIT 5 [place] [facility]VISM - 7 7 HEALTH OUTPATIEN [facility] OFFICE 60764 [facility] OUTPATIEN 7 7 HEALTH T VISIT 5 [facility] EMERGENCY 39089 [facility] DE[facility] 7 7 EMERGENCY VISIT PHYS PSC HIGH SEVERITY& THREAT FUN EMERGENCY 61293 [facility] 7 7 HEALTH DEPARTMEN [place] T VISIT HIGH/URGE NT SEVERITY HOSPITAL [facility]VISM - 7 7 HEALTH OUTPATIEN [place] T OFFICE 50671 [facility] OUTPATIEN 7 7 HEALTH T VISIT 5 [place] [facility] - 7 [facility] 28341 [facility] OUTPATI[facility] 7 7 HEALTH T VISIT 5 [place] MINUTES OFFICE 94795 [facility] OUTPATIEN 7 7 [facility] V[facility] [address] [facility] 7 7 NE HEALTH T VISIT MEDICAL 25 G MINUTES OFFICE 56705 [facility] OUTPATIEN 7 7 [facility] 82445 [facility] OUTPATIEN 7 7 HEALTH T VISIT 5 [place] [facility]VIS[facility] - 7 7 [facility] 08211 [facility] OUTPATIEN 7 7 HEALTH T VISIT 5 [place] MINUTES OFFICE 96250 WEND[facility] ANH OUTPATIEN 7 7 FAMILY T NEW 30 CHIROPRAC MINUTES TOR OFFICE 56132 [facility] ATKINS OUTPATIEN 7 7 HEALTH T VISIT MEDICAL 25 GROUP MINUTES OFFICE 30030 PR[facility] OUTPATIEN 7 7 [facility] T VISIT 5 INC MINUTES HOSPITAL PRISCILA - 7 7 [facility] OUTPATIEN INC T OFFICE [address] [facility] 7 7 NE HEALTH T NEW 45 MEDICAL MINUTES G OFFICE 74436 [facility] 7 7 MEDICINE T VISIT [place] 15 [facility] MINUTES LDS [facility]PITAL [facility] - 7 7 HEALTH OUTPATIEN [place] T EMERGENCY 64089 [facility] HIGH/URGE NT SEVERITY EMERGENCY 56194 [facility] DEPT 7 7 EMERGENCY VISIT PHYS PSC HIGH SEVERITY& THREAT FUNCJ EMERGENCY 63068 [facility] DEPT 7 7 EMERGENCY VISIT PHYS PSC HIGH SEVERITY& THREAT FUNCJ EMERGENCY 62894 [facility] 7 [facility] V[facility] HIGH/URGE NT SEVERITY OFFICE 24220 PR[facility] OUTPATIEN 7 7 MEM [facility]OS[facility] T VISIT 5 INC MINUTES OFFICE 37826 [facility] ESTEBAN OUTPATIEN 7 7 PHYSICIAN T VISIT S GROUP 15 MINUTES HOSPITAL [facility] 68458 [facility] OUT[facility] 7 7 MEDICINE T 30 [facility] OFFICE 40274 PRISCILA OUTPATIEN 7 7 MEM [facility] T VISIT 5 INC MINUTES HOSPITAL PRISCILA - 7 7 [facility] 41443 [facility] DEPT 7 7 EMERGENCY VISIT PHYS PSC HIGH SEVERITY& THREAT FUN EMERGENCY 04768 [facility] 7 7 [facility] V[facility] HIGH/URGE NT SEVERITY [facility]OSPITAL [facility] - 7 [facility] PR[facility] - 7 [facility] 52304 [facility] YMAN OUTPATIEN 7 7 PHYSICIAN T VISIT S GROUP 15 MINUTES OFFICE 40828 PR[facility]A OUTPATIEN 7 7 MEM [facility] T VISIT 5 INC MINUTES HOSPITAL PRISCILA - 7 7 [facility] OUTPATIEN INC T HOSPITAL PRISCILA - 7 7 MEM [facility] OUTPATIEN INC T OFFICE 61664 [facility] FRYMAN OUTPATIEN 7 7 PHYSICIAN T NEW 30 S GROUP MINUTES EMERGENCY 31212 [facility] 7 7 MEM HOS[facility] DEPARTMEN INC T VISIT LOW/MODER SEVERITY HOSPITAL PRISCILA - 7 7 [facility] OUTPATIEN INC T OFFICE 49479 FAMILY MULBERRY OUTPATIEN 6 6 CARE MAURILIO T VISIT ASSOCIATE 10 S MINUTES OFFICE 00040 [facility] MARY OUTPATIEN 6 6 PHYSICIAN T VISIT GROUP 25 MINUTES OFFICE 12761 FAMILY MULBERRY OUTPATIEN 6 6 CARE MAURILIO T VISIT ASSOCIATE 10 S MINUTES OFFICE 95254 FAMILY RHONDA OUTPATIEN 6 6 CARE TAR T VISIT ASSOCIATE 15 S MINUTES OFFICE 93739 FAMILY CROWDY OUTPATIEN 6 6 CARE CRI T VISIT ASSOCIATE 15 S MINUTES OFFICE 99288 FAMILY CROWDY OUTPATIEN 6 6 CARE CRI T VISIT ASSOCIATE 15 S MINUTES OFFICE 41113 FAMILY RHONDA OUTPATIEN 6 6 CARE TAR T VISIT ASSOCIATE 15 S MINUTES OFFICE 98019 [facility] EVANS OUTPATIEN 6 6 HEALTH YARI T VISIT MEDICAL 10 GROUP MINUTES OFFICE 05449 FAMILY RHONDA OUTPATIEN 6 6 CARE TAR T VISIT ASSOCIATE 15 S MINUTES OFFICE 49334 FAMILY CROWDY OUTPATIEN 6 6 CARE CRI T VISIT ASSOCIATE 15 S MINUTES PERIODIC 85985 [facility] PREVENTIV 6 6 PHYSICIAN E MED EST S GROUP PATIENT 18-39 YRS HOSPITAL [facility]VISM - 6 6 HEALTH OUTPATIEN [place] T OFFICE 93516 FAMILY RHONDA OUTPATIEN 6 6 CARE TAR T VISIT ASSOCIATE 15 S MINUTES OFFICE 97385 FAMILY RHONDA OUTPATIEN 6 6 CARE TAR T VISIT ASSOCIATE 15 S MINUTES OFFICE 66146 FAMILY RHONDA OUTPATIEN 6 6 CARE TAR T VISIT ASSOCIATE 15 S MINUTES OFFICE 11921 FAMILY RHONDA OUTPATIEN 6 6 CARE TAR T VISIT ASSOCIATE 15 S MINUTES OFFICE 66110 FAMILY CROWDY OUTPATIEN 6 6 CARE CRI T VISIT 5 ASSOCIATE MINUTES S OFFICE 66543 FAMILY CROWDY OUTPATIEN 6 6 CARE CRI T VISIT ASSOCIATE 15 S MINUTES EMERGENCY 94829 [facility] 6 6 PHYSICIAN DEPARTMEN S, [facility] T VISIT MODERATE SEVERITY LDS HOSPITAL PRISCILA - 6 6 [facility] OUTPATIEN INC T EMERGENCY 47669 PRISC[facility] 6 6 MEM HOS[facility] DEPARTMEN INC T VISIT LIMITED/M INOR PROB OFFICE 02508 [facility] OUT[facility] 6 6 ROXI ROXI T NEW 30 MINUTES OFFICE 00481 FAMILY RHONDA OUTPATIEN 6 6 CARE TAR T VISIT ASSOCIATE 15 S MINUTES OFFICE 62405 [facility] ESTEBAN OUTPATIEN 6 6 PHYSICIAN YVAN T VISIT S GROUP 15 MINUTES EMERGENCY 38206 [facility] DEPT 6 6 EMERGENCY VISIT PHYS PSC HIGH SEVERITY& THREAT [facility] PRISCILA - 6 6 MEM HOSP OUTPATIEN INC T OFFICE 19464 FAMILY MULBERRY OUTPATIEN 6 6 CARE MAURILIO T VISIT ASSOCIATE 10 S MINUTES OFFICE 07414 FAMILY CROWDY OUTPATIEN 6 6 CARE CRI T VISIT ASSOCIATE 10 S MINUTES OFFICE 29049 FAMILY CROWDY OUTPATIEN 6 6 CARE CRI T VISIT ASSOCIATE 15 S MINUTES OFFICE 40236 FAMILY RHONDA OUTPATIEN 6 6 CARE TAR T VISIT ASSOCIATE 15 S MINUTES OFFICE 90483 [facility] FALLUJI OUTPATIEN 6 6 NE [facility]ALTH [facility] T VISIT MEDICAL 25 G MINUTES OFFICE 37355 FAMILY RHONDA OUTPATIEN 6 6 CARE TAR T VISIT ASSOCIATE 15 S MINUTES HOSPITAL [facility]VISM - 6 6 HEALTH OUTPATIEN [place] T EMERGENCY 43581 [facility] 6 6 [facility] T VISIT MODERATE SEVERITY EMERGENCY 19026 [facility] [place] 6 6 EMERGENCY DEPARTMEN PHYS PSC T VISIT HIGH/URGE NT SEVERITY OFFICE 12903 [facility] OUTPATIEN 6 6 EYE JAM T VISIT CENTER, 40 [facility] MINUTES OFFICE 77394 FAMILY CROWDY OUTPATIEN 6 6 CARE T VISIT ASSOCIATE 10 S, PSC MINUTES OFFICE 96392 FAMILY RHONDA OUTPATIEN 6 6 CARE TAR T VISIT ASSOCIATE 15 S MINUTES OFFICE 98790 RAJ VALLE OUTPATIEN 6 6 EYE JAM T [facility], MINUTES P.S.C. EMERGENCY 43565 [facility] 6 6 HEALTH DEPARTMEN [place] T VISIT MODERATE SEVERITY HOSPITAL [facility] - 6 6 [facility] 51734 FAMILY CROWDY OUTPATIEN 6 6 CARE T VISIT ASSOCIATE 15 S, PSC MINUTES OFFICE 60189 FAMILY RHONDA OUTPATIEN 6 6 CARE TAR T VISIT ASSOCIATE 15 S MINUTES OFFICE 23295 FAMILY RHONDA OUTPATIEN 6 6 CARE TAR T VISIT ASSOCIATE 15 S MINUTES OFFICE 53579 FAMILY RHONDA OUTPATIEN 6 6 CARE TAR T VISIT ASSOCIATE 15 S MINUTES OFFICE 36204 FAMILY CROWDY OUTPATIEN 6 6 CARE T VISIT ASSOCIATE 15 S MINUTES EMERGENCY 33153 EMANUEL HEARD 6 6 PHYSICIAN DEPARTMEN S, PLLC T VISIT HIGH/URGE NT SEVERITY HOSPITAL PRISC[facility] - 6 6 [facility] OUTPATIEN INC T EMERGENCY 48522 PR[facility] 6 6 MEM HOSP DEPARTMEN INC T VISIT MODERATE SEVERITY OFFICE 64492 [facility] MEÑO OUTPATIEN 6 6 PHYSICIAN SUNI T VISIT S GROUP 15 MINUTES OFFICE 62982 FAMILY MULBERRY OUTPATIEN 6 6 CARE T VISIT ASSOCIATE 10 S MINUTES OFFICE 48904 FAMILY MULBERRY OUTPATIEN 6 6 CARE MAURILIO T VISIT ASSOCIATE 15 S MINUTES EMERGENCY 74749 EMANUEL MCGILL DEPT 6 6 PHYSICIAN SUNI VISIT S, [facility] HIGH SEVERITY& THREAT FUNCJ OFFICE 39792 FAMILY CROWDY OUTPATIEN 6 6 CARE T VISIT ASSOCIATE 10 S MINUTES OFFICE 03534 [facility] OUTPATIEN 6 6 PHYSICIAN T VISIT S GROUP 15 MINUTES OFFICE 67521 FAMILY CROWDY OUTPATIEN 6 6 CARE CRI T VISIT ASSOCIATE 10 S MINUTES OFFICE 01844 FAMILY CROWDY OUTPATIEN 6 6 CARE T VISIT ASSOCIATE 10 S MINUTES EMERGENCY 44266 [facility] 6 6 [facility] DEPARTMEN INC T VISIT LOW/MODER SEVERITY EMERGENCY 35341 EMANUEL FONG 6 6 [facility] MODERATE SEVERITY HOSPITAL PRISCILA - 6 6 [facility] OUT[facility] INC T OFFICE 39271 FAMILY CROWDY OUTPATIEN 6 6 CARE T VISIT ASSOCIATE 10 S MINUTES OFFICE 15272 FAMILY CROWDY OUTPATIEN 6 6 CARE CRI T VISIT ASSOCIATE 10 S MINUTES OFFICE 06735 FAMILY CROWDY OUTPATIEN 6 6 CARE CRI T VISIT ASSOCIATE 15 S MINUTES OFFICE 30162 FAMILY CROWDY OUTPATIEN 6 6 CARE CRI T VISIT ASSOCIATE 10 S MINUTES EMERGENCY 82626 [facility]AL CUMMINS 6 6 EMERGENCY ALLY DEPARTMEN PHYS PSC T VISIT HIGH/URGE NT SEVERITY OFFICE 88773 [facility] [address] OUTPATIEN 5 5 PHYSICIAN T VISIT S GROUP 10 MINUTES EMERGENCY 72198 [facility] 5 5 [facility] DEPARTMEN INC T VISIT LOW/MODER SEVERITY EMERGENCY 50926 EMANUEL MCGILL 5 5 PHYSICIAN SUNI DEPARTMEN S, PLLC T VISIT MODERATE SEVERITY HOSPITAL PR[facility]A - 5 5 [facility] OUTPATIEN INC T OFFICE 97640 FAMILY CROWDY OUTPATIEN 5 5 CARE CRI T VISIT ASSOCIATE 10 S MINUTES OFFICE 71091 PRISC[facility]A PETERSRON OUTPATIEN 5 5 [facility] SUNI T VISIT 5 HOSPITAL MINUTES OFFICE 20652 [facility] ESTEBAN OUTPATIEN 5 5 PHYSICIAN YVAN T VISIT S GROUP 15 MINUTES HOSPITAL PRISCILA - 5 5 [facility] OUTPATIEN INC T OFFICE 39228 FAMILY MARIAN OUTPATIEN 5 5 CARE YARI T VISIT ASSOCIATE 10 S MINUTES EMERGENCY 52094 [facility] 5 5 [facility] DEPARTMEN INC T VISIT MODERATE SEVERITY EMERGENCY 14906 [facility]AL CUMMINS 5 5 EMERGENCY ALLY DEPARTMEN PHYS PSC T VISIT HIGH/URGE NT SEVERITY OFFICE 59302 FAMILY CROWDY OUTPATIEN 5 5 CARE CRI T VISIT ASSOCIATE 10 S MINUTES OFFICE 25577 FAMILY CROWDY OUTPATIEN 5 5 CARE CRI T VISIT ASSOCIATE 15 S MINUTES OFFICE 48114 FAMILY CROWDY OUTPATIEN 5 5 CARE CRI T VISIT ASSOCIATE 10 S MINUTES OFFICE 26767 FAMILY CROWDY OUTPATIEN 5 5 CARE CRI T VISIT ASSOCIATE 15 S MINUTES OFFICE 18009 FAMILY MARIAN OUTPATIEN 5 5 CARE YARI T VISIT ASSOCIATE 15 S MINUTES OFFICE 24881 FAMILY MULBERRY OUTPATIEN 5 5 CARE MAURILIO T VISIT ASSOCIATE 15 S MINUTES OFFICE 20398 [facility]ALLU[facility]I OUTPATIEN 5 5 [facility] 25 G MINUTES OFFICE 03615 FAMILY MULBERRY OUTPATIEN 5 5 CARE MAURILIO T VISIT ASSOCIATE 15 S MINUTES HOSPITAL [facility] - 5 5 [facility] T OFFICE 28823 [facility] KERN CAR OUTPATIEN 5 5 HEALTH T NEW 20 MEDICAL MINUTES [facility] EMERGENCY CENTRAL - 5 5 [facility] OUTPATIEN HOSP T EMERGENCY 29029 [facility] SPANIER 5 5 EMERGENCY [facility] T VISIT MODERATE SEVERITY [facility] - 5 5 [facility] OUTPAT[facility] T OFFICE [address] [facility] FALLUJI OUTPATIEN 5 5 [facility] T VISIT MEDICAL 25 G MINUTES OFFICE 07339 [facility] 5 5 NURSE KASSANDRA MARQUEZ NEW/ESTAB NER GR PATIENT 40 MIN OFFICE 05172 [facility] FALLUJI OUTPATIEN 5 5 [facility] T NEW 45 MEDICAL MINUTES [facility] PRISCILA - 5 5 [facility] OUTPATIEN INC T EMERGENCY 34916 PRISCIL[facility] MCGILL [address] [facility] T VISIT P LOW/MODER SEVERITY OFFICE 21440 FAMILY JONA OUTPATIEN 5 5 CARE R H T VISIT ASSOCIATE 15 S MINUTES PERIODIC 73786 [facility] PREVENTIV 5 5 PHYSICIAN E MED EST S GROUP PATIENT 18-39 YRS OFFICE 90992 [facility] NANO OUTPATIEN 5 5 PHYSICIAN SUNI T VISIT S GROUP 15 MINUTES OFFICE 30785 FAMILY CROWDY OUTPATIEN 5 5 CARE CRI T VISIT ASSOCIATE 25 S MINUTES OFFICE 94026 FAMILY OUTPATIEN 4 4 CARE T VISIT ASSOCIATE 15 S MINUTES EMERGENCY [id number] [facility] T VISIT P LOW/MODER SEVERITY HOSPITAL PRISCILA Trejo 4 [facility] T EMERGENCY [id number] PRISCILA Trejo 4 [facility] T VISIT MODERATE SEVERITY OFFICE [id number] PRISCILA MAGALLON OUTISAAK 4 4 [facility] VISIT [facility] 15 MINUTES
--- OUTSIDE RECORDS SUMMARY | 2016-12-12 11:18 | External Medical Summary Rpt | CCD ---
Author Author , YAIMA ERWIN Address Unknown Phone [email or web address] Immunization Name Date Rout CVX Reac Dose Comm Prov Is Faci e tion ent ider Refu lity Give sed n Hep 01-2 8 999 Hist H149 No H149 B, 7-19 oric ped/ 97 al adol Info rmat ion - Sour ce Unsp ecif ied Lalo 10-0 2 999 Hist H149 No H149 o-OP 3-19 oric V 96 al Info rmat ion - Sour ce Unsp ecif ied MMR 08-1 3 999 Hist H149 No H149 3-19 oric 96 al Info rmat ion - Sour ce Unsp ecif ied Hep 08-1 8 999 Hist H149 No H149 B, 3-19 oric ped/ 96 al adol Info rmat ion - Sour ce Unsp ecif ied
--- OUTSIDE RECORDS SUMMARY | 2016-12-12 11:18 | External Medical Summary Rpt | CCD ---
Author Author , YAIMA ERWIN Address Unknown Phone [email or web address] Immunization Name Date Rout CVX Reac Dose [...]
--- OUTSIDE RECORDS SUMMARY | 2016-12-12 11:19 | External Medical Summary Rpt ---
Author Author YAIMA Tabatha, YAIMA [employer] Address Unknown Phone Unavailable Results INR in Blood by Coagulation assay Observa Value Referen Units Interpr Notes Date tion ce etation Range IS PATIENT ON ANTICOAGULANTS? 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 APY FOR DVT, PE, ATRIAL FIB; 2.0 - 3.0PROPHY LAXIS FOR VTETHERAP Y FOR MECHANICA L HEART 2.5 - 3.5VALVE; PREVENTIO N OF SYSTEMICE MBOLISM SECONDARY TO AMI Prothromb 9.4 - SECONDS High No Dec 05 in time 11.8 informati 2017 9:40 (PT) in on in PM Platelet source poor data plasma by Coagulati on assay Comprehensive metabolic 2000 panel in Serum or Plasma Observa Value Referen Units Interpr Notes Date tion ce etation Range Albumin/G 1.1 - 1.8 No Low No Dec 05 lobulin informati informati 2017 9:40 [Mass on in on in PM ratio] in source source Serum or data data Plasma Albumin 3.4 - 5.0 gm/dL Normal No Dec 05 [Mass/vol informati 2017 9:40 ume] in on in PM Serum or source Plasma data Alkaline 46 - 116 U/L High No Dec 05 phosphata informati 2017 9:40 se on in PM [Enzymati source c data activity/ volume] in Serum or Plasma Bilirubin 0.2 - 1.0 mg/dL Normal No Dec 05 .total informati 2017 9:40 [Mass/vol on in PM ume] in source Serum or data Plasma Urea 7 - 18 mg/dL Normal No Dec 05 nitrogen informati 2017 9:40 [Mass/vol on in PM ume] in source Serum or data Plasma Calcium 8.5 - mg/dL Normal No Dec 05 [Mass/vol 10.1 informati 2017 9:40 ume] in on in PM Serum or source Plasma data Chloride 98 - 107 mmoL/L Normal No Oct 6 [Moles/vo informati 2016 9:40 lume] in on in PM Serum or source Plasma data Carbon 21.0 - mmoL/L Normal No Oct 6 dioxide, 32.0 informati 2017 9:40 total on in PM [Moles/vo source lume] in data Serum or Plasma Creatinin 0.55 - mg/dL Normal No Oct 6 e 1.02 informati 2016 9:40 [Mass/vol on in PM ume] in source Serum or data Plasma Creatinin 50 - 200 ML/MIN Normal No Oct 6 e renal informati 2016 9:40 clearance on in PM source predicted data by Cockcroft -Gault formula Estimated 59- ML/MIN No REFERENCE Oct 6 informati RANGE: 2017 9:40 glomerula on in >60 PM r source ML/MIN/1. filtratio data 73 SQUARE n rate METERSIf (GF this patient is -A merican, then multiply theresult by 1.210. Globulin 1.3 - 3.2 gm/dL High No Oct 6 [Mass/vol informati 2016 9:40 ume] in on in PM Serum source data Glucose 74 - 106 mg/dL Normal No Oct 6 [Mass/vol informati 2016 9:40 ume] in on in PM Serum or source Plasma data Potassium 3.5 - 5.1 mmoL/L Normal No Oct 6 informati 2016 9:40 [Moles/vo on in PM lume] in source Serum or data Plasma Sodium 136 - 145 mmoL/L Normal No Oct 6 [Moles/vo informati 2016 9:40 lume] in on in PM Serum or source Plasma data Aspartate 15 - 37 U/L Low No Oct 6 informati 2016 9:40 aminotran on in PM sferase source [Enzymati data c activity/ volume] in Serum or Plasma Alanine 12 - 78 U/L Normal No Oct 6 aminotran informati 2016 9:40 sferase on in PM [Enzymati source c data activity/ volume] in Serum or Plasma Protein 6.4 - 8.2 gm/dL Normal No Oct 6 [Mass/vol informati 2016 9:40 ume] in on in PM Serum or source Plasma data CBC W Auto Differential panel in Blood Observa Value Referen Units Interpr Notes Date tion ce etation Range Basophils 0 - 0.2 K/MM3 Normal No Dec 05 informati 2016 9:40 [#/volume on in PM ] in source Blood by data Automated count Basophils 0.1 - 2.0 % Normal No Dec 05 informati 2016 9:40 leukocyte on in PM s in source Blood by data Automated count Eosinophi 0.0 - 0.4 K/mm3 Normal No Dec 05 ls informati 2016 9:40 [#/volume on in PM ] in source Blood by data Automated count Eosinophi 0.1 - % Normal No Dec 05 ls/100 12.0 informati 2017 9:40 leukocyte on in PM s in source Blood by data Automated count Granulocy 1.8 - 7.8 K/mm3 Normal No Dec 05 kallie informati 2016 9:40 [#/volume on in PM ] in source Blood by data Automated count Granulocy 37.0 - % Normal No Dec 05 kallie/100 80.0 informati 2016 9:40 leukocyte on in PM s in source Blood by data Automated count Hematocri 37.0 - % Normal No Dec 05 t [Volume 47.0 informati 2016 9:40 on in PM Fraction] source of Blood data Hemoglobi 12.2 - g/dL Normal No Dec 05 n 16.2 informati 2016 9:40 [Mass/vol on in PM ume] in source Blood data Lymphocyt 0.7 - 4.5 K/mm3 Normal No Dec 05 es informati 2016 9:40 [#/volume on in PM ] in source Unspecifi data ed specimen by Automated count Lymphocyt 10 - 50.0 % Normal No Dec 05 es informati 2016 9:40 [#/volume on in PM ] in source Unspecifi data ed specimen by Automated count Erythrocy 27 - 31.2 pg Normal No Dec 05 te mean informati 2016 9:40 corpuscul on in PM ar source hemoglobi data n [Entitic mass] Erythrocy 31.8 - g/dl Normal No Dec 05 te mean 35.4 informati 2016 9:40 corpuscul on in PM ar source hemoglobi data n concentra tion [Mass/vol ume] by Automated count Erythrocy 82.2 - fl Normal No Dec 05 te mean 97.8 informati 2016 9:40 corpuscul on in PM ar volume source [Entitic data volume] by Automated count Monocytes 0.1 - 1.0 K/mm3 Normal No Dec 05 inform2016 9:40 [#/volume on in PM ] in source Blood by data Automated count Monocytes 1.7 - 9.3 % Normal No Nov 6 /100 informati 2016 9:40 leukocyte on in PM s in source Blood by data Automated count Platelet 7.4 - fl Normal No Nov 6 mean 10.4 informati 2016 9:40 volume on in PM [Entitic source volume] data in Blood by Automated count Platelets 142 - 424 K/mm3 Normal No Dec 05 inform2016 9:40 [#/volume on in PM ] in source Blood data Erythrocy 4.2 - 5.4 M/mm3 Normal No Dec 05 kallie informati 2016 9:40 [#/volume on in PM ] in source Amniotic data fluid Erythrocy 11.5 - % Normal No Dec 05 te 17.5 informati 2016 9:40 distribut on in PM ion width source [Entitic data volume] by Automated count Leukocyte 4.8 - K/MM3 Normal No Dec 05 s 10.8 informati 2016 9:40 [#/volume on in PM ] in source Blood data Choriogonadotropin.beta subunit [Units] in 24 hour Urine Observa Value Referen Units Interpr Notes Date tion ce etation Range Choriogon NEG No No No Dec 05 adotropin informati informati informati 2016 9:03 .beta on in on in on in PM subunit source source source [Units] data data data in 24 hour Urine Urinalysis dipstick W Reflex Microscopic panel in Urine Observa Value Referen Units Interpr Notes Date tion ce etation Range Appeara CLOUDY CLEAR No No No Dec 05 nce of informa informa informa 2016 Urine tion in tion in tion in 9:03 PM source source source data data data Bacteri 1+ O No No No Dec 05 a informa informa informa 2016 [Presen tion in tion in tion in 9:03 PM ce] in source source source Urine data data data sedimen t by Light microsc opy Bilirub NEGATIV NEG No No No Dec 05 in E informa informa informa 2016 [Presen tion in tion in tion in 9:03 PM ce] in source source source Urine data data data by Test strip Erythro 3+ NEG No Abnorma No Dec 05 cytes informa l informa 2016 [Presen tion in tion in 9:03 PM ce] in source source Urine data data Color YELLOW YELLOW No No No Nov 6 of informa informa informa 2017 Urine tion in tion in tion in 9:03 PM source source source data data data Glucose NEG No No No Nov 6 [Mass/vol informati informati informati 2017 9:03 ume] in on in on in on in PM Urine by source source source Test data data data strip Ketones NEGATIV NEG mg/dL No No Dec 05 E informa informa 2016 [Presen tion in tion in 9:03 PM ce] in source source Urine data data by Automat ed test strip Mucus 1+ NEG No Abnorma No Nov 6 [Presen informa l informa 2016 ce] in tion in tion in 9:03 PM Urine source source sedimen data data t by Light microsc opy Nitrite POSITIV NEG No Abnorma No Nov 6 E informa l informa 2016 [Presen tion in tion in 9:03 PM ce] in source source Urine data data by Test strip pH of 5.0 - 8.5 No Normal No Dec 05 Urine informati informati 2017 9:03 on in on in PM source source data data Protein NEG mg/dL High No Dec 05 [Mass/vol informati 2017 9:03 ume] in on in PM Urine by source Automated data test strip Erythro TNTC 0 rbc/hpf No No Dec 05 cytes informa informa 2016 [Presen tion in tion in 9:03 PM ce] in source source Urine data data sedimen t by Light microsc opy Specific 1.005 - No Normal No Dec 05 gravity 1.030 informati informati 2017 9:03 of Urine on in on in PM source source data data Epithel NONE 0 - 5 #/hpf No No Nov 6 ial informa informa 2017 cells.s tion in tion in 9:03 PM quamous source source data data [Presen ce] in Urine sedimen t by Microsc opy high power field Urobili 0.2 NEG E.U./dL No No Nov 6 nogen informa informa 2016 [Presen tion in tion in 9:03 PM ce] in source source Urine data data by Test strip Leukocy [20 O wbc/hpf No No Nov 6 kallie wbc/hpf informa informa 2016 [#/volu ; 50 tion in tion in 9:03 PM me] in wbc/hpf source source Urine ] data data Urinalysis dipstick W Reflex Microscopic panel in Urine Observa Value Referen Units Interpr Notes Date tion ce etation Range Appeara CLOUDY CLEAR No No No Nov 6 nce of informa informa informa 2016 Urine tion in tion in tion in 9:03 PM source source source data data data Bilirub NEGATIV NEG No No No Dec 05 in E informa informa informa 2016 [Presen tion in tion in tion in 9:03 PM ce] in source source source Urine data data data by Test strip Erythro 3+ NEG No Abnorma No Dec 05 cytes informa l informa 2016 [Presen tion in tion in 9:03 PM ce] in source source Urine data data Color YELLOW YELLOW No No No Dec 05 of informa informa informa 2016 Urine tion in tion in tion in 9:03 PM source source source data data data Glucose NEG No No No Dec 05 [Mass/vol informati informati informati 2016 9:03 ume] in on in on in on in PM Urine by source source source Test data data data strip Ketones NEGATIV NEG mg/dL No No Dec 05 E informa informa 2016 [Presen tion in tion in 9:03 PM ce] in source source Urine data data by Automat ed test strip Mucus 1+ NEG No Abnorma No Dec 05 [Presen informa l informa 2016 ce] in tion in tion in 9:03 PM Urine source source sedimen data data t by Light microsc opy Nitrite POSITIV NEG No Abnorma No Dec 05 E informa l informa 2016 [Presen tion in tion in 9:03 PM ce] in source source Urine data data by Test strip pH of 5.0 - 8.5 No Normal No Nov 6 Urine informati informati 2017 9:03 on in on in PM source source data data Protein NEG mg/dL High No Nov 6 [Mass/vol informati 2017 9:03 ume] in on in PM Urine by source Automated data test strip Specific 1.005 - No Normal No Nov 6 gravity 1.030 informati informati 2017 9:03 of Urine on in on in PM source source data data Urobili 0.2 NEG E.U./dL No No Dec 05 nogen informa informa 2017 [Presen tion in tion in 9:03 PM ce] in source source Urine data data by Test strip
--- OUTSIDE RECORDS SUMMARY | 2016-12-12 11:19 | External Medical Summary Rpt ---
Author Author YAIMA Tabatha, YAIMA [employer] Address Unknown Phone Unavailable [...]
== END 2016-12-05 23:51 | disposition home or self-care (01) ==
LOC: ER 20:38
PROVIDERS: Emergency Medicine
DX: N30.00 Acute cystitis without hematuria (principal); Z79.01 Long term (current) use of anticoagulants; I10 Essential (primary) hypertension; E78.5 Hyperlipidemia, unspecified; Z79.82 Long term (current) use of aspirin; Z79.899 Other long term (current) drug therapy; Z95.2 Presence of prosthetic heart valve